=== PATIENT | male | born 1945 | race Caucasian/White ===

== ENCOUNTER 2022-10-21 09:41 | Inpatient (IN) | payer OTHER ==
--- OUTSIDE RECORDS SUMMARY | 2022-10-21 09:51 | XMS REPORT | Continuity of Care Document ---
:1945 Author Organization [facility] t Address [address] [facility] [address] [place] [address] Care Team Providers Name Role Phone Mishel Mcgowan Attending Clinician Unavailable JUAN RANKIN Attending Clinician Unavailable Jade-Mbayo_A_AH Attending Clinician Unavailable Ige-Odunpravin_J_AH Attending Clinician Unavailable HERMAN JOE M.D. Attending Clinician Unavailable VERA MANN NP Attending Clinician Unavailable Vera Mann Attending Clinician Unavailable Etelvina Hutton Attending Clinician Jag Perez Attending Clinician Jade-Donnaayo_A_AH Admitting Clinician Unavailable Ige-Odunuga_J_AH Admitting Clinician Unavailable Jag Perez Admitting Clinician Kristin Schmid Admitting Clinician Payers Payer Name Policy Type Policy Number Effective Date Expiration Date S belinda [facility] - [id number] 2019 [employer] 00:00:00 (MEDICARE REPLACEMENT/ADVANT AGE - HMO) Problems Condition Condition Condition Status Onset Resolution Last Treating Co mments Source Name Details Category Date Date Treatment Clinician Date I61.9 - I61.9 - Diagnosis Active 2015-052016-04-18 Memoria NONTRAUMAT NONTRAUMAT 05-13 12:07:00 l IC IC 00:01: Huy 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 03/13/2016 MH OPID Huy DEBILITY DEBILITY Diagnosis Active 2016-02-03 Memoria S/P S/P 01-09 22:12:00 l INTRACRANI INTRACRANI 07:00: Paolo HARTMAN [place] 00 HEMORRHAGE HEMORRHAGE Active 01/10/2016 [facility] ICH ICH Diagnosis Active 2016-01-25 Mem oria Active 12-12 15:41:00 l 12/13/2015 20:50: Mg olsen [address] ASHA ASHA Diagnosis Active 2016-02-13 Memoria BILLING BILLING 12-12 08:03:00 l [id number] 00:00: Huy Active 00 12/13/2015 [facility] History of History of Problem Resolve [facility] hypertensi hypertensi d Ph ysici on on ans Depression Depression Problem Active U T Physici ans Hyperlipid Hyperlipid Problem Active U T emia emia Physici ans Tobacco Tobacco Problem Active [facility] dependence dependence Ph ysici ans Spasticity Spasticity Problem Active [facility] T Physici ans Skin Skin Problem Active UT abrasion abrasion Physic i ans Cognitive Cognitive Problem Active [facility] impairment impairment Ph ysici ans ICH ICH Problem Active UT (intracere (intracere Ph ysici bral bral ans hemorrhage hemorrhage ) ) 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 ROSEMARIE Son NONTRAUMAT Diagnosis Active 2016-01-25 Memoria IC NONTRAUMAT 15:41:00 l INTRACEREB IC Mg olsen RAL INTRACEREB HEMORRHAGE RAL , U HEMORRHAGE , U Active [facility] WEAKNESS WEAKNESS Diagnosis Active 2016-02-03 Memoria Active 22:12:00 l [facility] Constructi Construct Problem Resolve 2016-04-21 Memoria on of ion of d 01:23:00 l shunt shunt Huy (procedure (procedure ) ) Resolved Problem 04/21/[address] [facility] ROSEMARIE Son Hypertensi Hypertens Problem Resolve 2016-04-21 Memoria ve ronda d 01:23:00 l disorder, disorder, Herm merissa systemic systemic arterial arterial (disorder) (disorder) Resolved Problem 04/21/[address] 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 ROSEMARIE Son Benign Benign Problem Active [facility] essential essential Phys ici hypertensi hypertensi an s on on Allergies, Adverse Reactions, Alerts This patient has no known allergies or adverse reactions. Family History Family Member Diagnosis Comments Start Date Stop Date Source Mother Family history of cardiac [facility] disorder Father Family history of cardiac [facility] disorder Social History Social Habit Start Date Stop Date Quantity Comments Source Social History 2015-12-18 2015-12-[address] [facility] Ravin hoffman 19:57:12 19:57:12 Smoking Status Start Date Stop Date Source Ex-smoker (finding) [facility] Physician s Medications Ordered Filled Start Stop Current Ordering Indication Dosage Frequency Signature Comments Components Source Medication Medication Date Date Medication? Clinician (SIG) Name Name hydroCHLORO hydroCHLORO 2018-05 Yes ANJAIL TAKE ONE UT thiazide thiazide 0-21 SHARRIEF (1) Phy sici 12.5 MG 12.5 MG 00:00: M.D. CAPSULE(S) a ns Oral Oral 00 BY MOUTH Capsule Capsule ONCE A DAY. Aspirin 81 Aspirin 81 Yes 1 QD TAKE 1 UT MG Oral MG Oral 3-29 TABLET Physici Tablet Tablet 00:00: DAILY. ans Delayed Delayed 00 Release Release Losartan Losartan Yes ANJAIL 1 QD TAKE 1 U T Potassium Potassium 2-23 SHARRIEF TABLET Physici 50 MG Oral 50 MG Oral 00:00: M.D. DAILY. 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 Coenzyme Coenzyme Yes ANJAIL 1 QD TAKE 1 U T Q-10 200 MG Q-10 200 MG 2-23 SHARRIEF CAPSULE Physici Oral Oral 00:00: M.D. DAILY ans Capsule Capsule 00 hydroCHLORO hydroCHLORO Yes MUNACHI QD TAKE ONE UT thiazide thiazide 2-23 OKPALA (1) Physi ci 12.5 MG 12.5 MG 00:00: CASTING SUPERVISOR CAPSULE(S) a ns Oral Oral 00 BY MOUTH Capsule Capsule ONCE A DAY. polyethylen Yes 17 gm, PO, Memoria e glycol 9-16 Daily, # l 3350 oral 16:20: 255 gm, 0 Her hernandez powder for 00 Refill(s) reconstitut ion Albuterol 2016-0 Yes 3 mL, NEB, [place] 0.833 MG/ML 01-26 RQID, # 90 l / 16:20: mL, 0 [place] Ipratropium 00 Refill(s) [place] 0.167 MG/ML Inhalant Solution [DuoNeb] Folic Acid Yes 1 mg = 1 Mem oria 1 MG Oral 9-16 tab, PO, l Tablet 16:20: Daily, # Huy 00 30 tab, 0 Refill(s) amLODIPine 0 Yes 10 mg = 1 Me moria 10 mg oral 9-16 tab, PO, l tablet 16:20: Daily, # Huy 00 30 tab, 0 Refill(s) Metoclopram 20160 Yes 5 mg = 1 Me moria gene 5 MG 9-16 tab, PO, l Oral Tablet 16:20: Q6H, PRN He rmann [Reglan] 00 Nausea, # 28 tab, 0 Refill(s) Docusate 0 Yes 1 tab, PO, Mem oria Sodium 50 9-16 Daily, # l MG / 16:20: 30 tab, 0 [place]u sennosides, 00 Refill(s) LONG TERM 8.6 MG Oral Tablet polyethylen 0 Yes 17 gm, PO, Memoria e glycol 9-16 Daily, # l 3350 oral 16:20: 255 gm, 0 Her hernandez powder for 00 Refill(s) reconstitut ion Albuterol Yes 3 mL, [facility], [place] 0.833 MG/ML 01-26 RQID, # 90 l / 16:20: mL, 0 Huy Ipratropium 00 Refill(s) [place] 0.167 MG/ML Inhalant Solution [DuoNeb] Folic Acid Yes 1 mg = 1 Mem oria 1 MG Oral 9-16 tab, PO, l Tablet 16:20: Daily, # [place] 00 30 tab, 0 Refill(s) amLODIPine 0 Yes 10 mg = 1 Me moria 10 mg oral 9-16 tab, PO, l tablet 16:20: Daily, # Huy 00 30 tab, 0 Refill(s) Metoclopram 20160 Yes 5 mg = 1 Me moria gene 5 MG 9-16 tab, PO, l Oral Tablet 16:20: Q6H, PRN He rmann [Reglan] 00 Nausea, # 28 tab, 0 Refill(s) Docusate Yes 1 tab, PO, Mem oria Sodium 50 9-16 Daily, # l MG / 16:20: 30 tab, 0 Huy sennosides, 00 Refill(s) LONG TERM 8.6 MG Oral Tablet Beneprotein No Notes: Buck alexia 7 gm pkt 9-14 (Same as: l 21:30: Beneprotei Huy 00 n) Beneprotein No Notes: Buck alexia 7 gm pkt 9-14 (Same as: l 21:30: Beneprotei [place] 00 n) Albuterol No Notes: Memori a 0.833 MG/ML 01-23 (Same as: :28: Duoneb) Huy Ipratropium 00 [place] 0.167 MG/ML Inhalant Solution [DuoNeb] Albuterol No Notes: Memori a 0.833 MG/ML 01-23 (Same as: :28: Duoneb) Huy Ipratropium 00 [place] 0.167 MG/ML Inhalant Solution [DuoNeb] Levofloxaci No Notes: Do M emoria n 01-11 not give l 01:00: w/antacids [place] 00 , dairy pdt & minerals Take 1 hr before or 2 hr after dairy products Levofloxaci No Notes: Do M emoria n 9 not give l 01:00: w/antacids Huy 00 , dairy pdt & minerals Take 1 hr before or 2 hr after dairy products Miralax No Notes: Memoria 8-31 Dissolve l 14:00: in 8 oz of Huy 00 water or juice. (Same as: Miralax) Folic Acid No Notes: Memor ia 8-31 (Same as: l 14:00: Folvite) [place] 00 Amlodipine No Notes: Memor ia 8-31 (Same as: l 14:00: Norvasc) [place] 00 Thiamine No Notes: Memoria 8-31 (Same As: l 14:00: Vitamin Huy 00 B1) Miralax No Notes: Memoria 8-31 Dissolve l 14:00: in 8 oz of Huy 00 water or juice. (Same as: Miralax) Folic Acid No Notes: Memor ia 01-10 (Same as: l 14:00: Folvite) Huy 00 Amlodipine No Notes: Memor ia 01-10 (Same as: l 14:00: Norvasc) Huy 00 Thiamine No Notes: Memoria 01-10 (Same As: l 14:00: Vitamin [place] 00 B1) Metronidazo No Notes: Buck alexia le 01-10 (Same as: l 05:00: Flagyl) Huy 00 Take with food/ avoid alcohol Metronidazo No Notes: Buck alexia le 01-10 (Same as: l 05:00: Flagyl) [place] 00 Take with food/ avoid alcohol Guaifenesin No Notes: Buck alexia 01-09 (Same as: l 22:00: Robitussin ) Albuterol No Notes: Memori a 0.833 MG/ML 01-09 (Same as: l / 22:00: Duoneb) [place] Ipratropium 00 [place] 0.167 MG/ML Inhalant Solution [DuoNeb] Guaifenesin No Notes: Buck alexia 01-09 (Same as: l 22:00: Robitussin ) Albuterol No Notes: Memori a 0.833 MG/ML 01-09 (Same as: l / 22:00: Duoneb) Huy Ipratropium 00 [place] 0.167 MG/ML Inhalant Solution [DuoNeb] heparin No Notes: Memoria sodium, 830 porcine l porcine 21:00: heparin [place] 2500 UNT/ML Injectable Solution heparin No Notes: Memoria sodium, 830 porcine l porcine 21:00: heparin Huy 2500 UNT/ML 00 Injectable Solution Metronidazo No 500 mg, Mem oria le 01-09 Route: l 20:00: PEG, Drug form: TAB, ABXQ8H, Dosing Weight 81.2, kg, Start date: 01/10/16 15:00:00 CDT, Duration: 30 day, Stop date: 02/09/16 7:00:00 CDT Levofloxaci 2015-0 No 750 mg, Mem oria n 8-30 Route: l 20:00: PEG, Drug form: TAB, [id number], Dosing Weight 81.2, kg, Start date: 01/10/16 15:00:00 CDT, Duration: 30 day, Stop date: 02/08/16 15:00:00 CDT Metronidazo 2016-0 No 500 mg, Mem oria le 8-30 Route: l 20:00: PEG, Drug form: TAB, ABXQ8H, Dosing Weight 81.2, kg, Start date: 01/10/16 15:00:00 CDT, Duration: 30 day, Stop date: 02/09/16 7:00:00 CDT Levofloxaci 2015-0 No 750 mg, Mem oria n 830 Route: l 20:00: PEG, Drug form: TAB, [id number], Dosing Weight 81.2, kg, Start date: 01/10/16 15:00:00 CDT, Duration: 30 day, Stop date: 02/08/16 15:00:00 CDT Insulin, 2015-0 No Notes: Memoria Aspart, 830 Roll in l Human 19:24: palms of hands gently; Do not shake vigorously . (Same as: NovoLOG) "single patient use only" WASTE: F/P - Black; E - Municipal Trash Bin Stable for 28 days at room temperatur e. Expires in days from ____Date Dextrose 2015-0 No 25 gm, 50 Buck alexia 50% Syringe 8-30 mL, Route: l 19:24: IVP, Drug Form: INJ, Dosing Weight 81.2, kg, PRN, PRN Blood Glucose Results, Start date: 01/10/16 14:24:00 CDT, Duration: 30 day, Stop date: 02/09/16 14:23:00 CDT Glucagon 2016-0 No 1 mg, Memoria 830 Route: IM, l 19:24: Drug form: Huy 00 PDR/INJ, PRN, Dosing Weight 81.2, kg, PRN Blood Glucose Results, Start date: 01/10/16 14:24:00 CDT, Duration: 30 day, Stop date: 02/09/16 14:23:00 CDT Insulin, 2015-0 No Notes: Memoria Aspart, 8-30 Roll in l Human 19:24: palms of [place] 00 hands gently; Do not shake vigorously . (Same as: NovoLOG) "single patient use only" WASTE: F/P - Black; E - Municipal Trash Bin Stable for 28 days at room temperatur e. Expires in days from ____Date Dextrose No 25 gm, 50 Buck alexia 50% Syringe 8-30 mL, Route: l 19:24: IVP, Drug Huy 00 Form: INJ, Dosing Weight 81.2, kg, PRN, PRN Blood Glucose Results, Start date: 01/10/16 14:24:00 CDT, Duration: 30 day, Stop date: 02/09/16 14:23:00 CDT Glucagon No 1 mg, Memoria 8-30 Route: IM, l 19:24: Drug form: Huy 00 PDR/INJ, PRN, Dosing Weight 81.2, kg, PRN Blood Glucose Results, Start date: 01/10/16 14:24:00 CDT, Duration: 30 day, Stop date: 02/09/16 14:23:00 CDT polyethylen 0 Yes PO, Daily, Memoria e glycol 8-30 0 l 3350 oral 19:19: Refill(s) Her hernandez powder for 00 reconstitut ion simethicone Yes 80 mg = 1 M emoria 80 mg oral 8-30 tab, PO, l tablet, 19:19: Q6H, PRN Mg n chewable 00 as needed for gas, 0 Refill(s) metoprolol 0 Yes 12.5 mg = Me moria tartrate 25 8-30 0.5 tab, l mg oral 19:19: PO, Q12H, Tasha nn tablet 00 0 Refill(s) Metoclopram Yes 5 mg = 1 Me moria gene 5 MG 8-30 tab, PO, l Oral Tablet 19:19: Before Herm merissa [Reglan] 00 Meals & Bedtime, 0 Refill(s) levofloxaci 2016 Yes 750 mg = Me moria n 25 mg/mL 830 30 mL, l oral 19:19: PEG, Huy solution 00 [id number], 0 Refill(s) Regular 20160 Yes 3 unit, Memoria Insulin, 8-30 SUB-Q, l Human 100 19:19: PRN, PRN Herm merissa UNT/ML 00 Abnormal Injectable Lab Solution Result, 0 Refill(s) heparin Yes 5,000 unit Buck alexia 30 = 1 mL, l 19:19: SUB-Q, [place] 00 Q8H, 0 Refill(s) Guaifenesin Yes 200 mg = Me moria 8-30 10 mL, l 19:19: PEG, QID, Huy 00 0 Refill(s) Folic Acid Yes 1 mg = 1 Mem oria 1 MG Oral 8-30 tab, PO, l Tablet 19:19: Daily, 0 [place] 00 Refill(s) Docusate Yes 1 tab, PO, Mem oria Sodium 50 8-30 Daily, 0 l MG / 19:19: Refill(s) Huy sennosides, 00 LONG TERM 8.6 MG Oral Tablet bisacodyl Yes 10 mg = 1 Mem oria 10 mg 8-30 supp, MN, l rectal 19:19: Daily, PRN Tasha nn suppository 00 Constipati on, 0 Refill(s) amLODIPine Yes 10 mg = 1 Me moria 10 mg oral 8-30 tab, PO, l tablet 19:19: Daily, 0 [place] 00 Refill(s) Albuterol Yes 3 mL, NEB, Me moria 0.833 MG/ML 8-30 RQID, 0 l / 19:19: Refill(s) Huy Ipratropium 00 [place] 0.167 MG/ML Inhalant Solution [DuoNeb] Acetaminoph Yes 650 mg = Me moria en 830 20.3 mL, l 19:19: PEG, Q8H, [place] 00 0 Refill(s) polyethylen 0 Yes PO, Daily, Memoria e glycol 830 0 l 3350 oral 19:19: Refill(s) Her hernandez powder for 00 reconstitut ion simethicone Yes 80 mg = 1 M emoria 80 mg oral 8-30 tab, PO, l tablet, 19:19: Q6H, PRN Mg n chewable 00 as needed for gas, 0 Refill(s) metoprolol Yes 12.5 mg = Me moria tartrate 25 8-30 0.5 tab, l mg oral 19:19: PO, Q12H, Tasha nn tablet 00 0 Refill(s) Metoclopram Yes 5 mg = 1 Me moria gene 5 MG 8-30 tab, PO, l Oral Tablet 19:19: Before Herm merissa [Reglan] 00 Meals & Bedtime, 0 Refill(s) levofloxaci Yes 750 mg = Me moria n 25 mg/mL 8-30 30 mL, l oral 19:19: PEG, [place] solution 00 [id number], 0 Refill(s) Regular Yes 3 unit, Memoria Insulin, 8-30 SUB-Q, l Human 100 19:19: PRN, PRN Herm merissa UNT/ML 00 Abnormal Injectable Lab Solution Result, 0 Refill(s) heparin Yes 5,000 unit Buck alexia 8-30 = 1 mL, l 19:19: SUB-Q, Huy 00 Q8H, 0 Refill(s) Guaifenesin Yes 200 mg = Me moria 8-30 10 mL, l 19:19: PEG, QID, [place] 00 0 Refill(s) Folic Acid Yes 1 mg = 1 Mem oria 1 MG Oral 8-30 tab, PO, l Tablet 19:19: Daily, 0 Huy 00 Refill(s) Docusate Yes 1 tab, PO, Mem oria Sodium 50 8-30 Daily, 0 l MG / 19:19: Refill(s) Huy sennosides, 00 LONG TERM 8.6 MG Oral Tablet bisacodyl Yes 10 mg = 1 Mem oria 10 mg 8-30 supp, MN, l rectal 19:19: Daily, PRN Tasha nn suppository 00 Constipati on, 0 Refill(s) amLODIPine Yes 10 mg = 1 Me moria 10 mg oral 8-30 tab, PO, l tablet 19:19: Daily, 0 [place] 00 Refill(s) Albuterol Yes 3 mL, NEB, Me moria 0.833 MG/ML 01-09 RQID, 0 l / 19:19: Refill(s) Huy Ipratropium 00 [place] 0.167 MG/ML Inhalant Solution [DuoNeb] Acetaminoph Yes 650 mg = Me moria en 01-09 20.3 mL, l 19:19: PEG, Q8H, [place] 00 0 Refill(s) Ondansetron No Notes: Buck alexia 01-09 (Same as: l 19:12: Zofran) Huy 00 MEDICATION WASTE Product Size: 4 mg Product Wasted: ___ mg Acetaminoph No Notes: Do M emoria en 01-09 not exceed l 19:12: 4 gm/day. Huy 00 (Same as: Tylenol) Ondansetron No Notes: Buck alexia 01-09 (Same as: l 19:12: Zofran) [place] 00 MEDICATION WASTE Product Size: 4 mg Product Wasted: ___ mg Acetaminoph No Notes: Do M emoria en 01-09 not exceed l 19:12: 4 gm/day. [place] 00 (Same as: Tylenol) Levaquin No Notes: Memoria 01-08 Same as: l 03:00: Levaquin Huy 00 Take 1 hour before or 2 hours after dairy products Metronidazo No Notes: Buck alexia le 01-08 (Same as: l 03:00: Flagyl) [place] 00 Refrigerat e - shake well Compound ed Product - formulatio n not commercial ly available* * "Avoid alcohol" Levaquin No Notes: Memoria 01-08 Same as: l 03:00: Levaquin Huy 00 Take 1 hour before or 2 hours after dairy products Metronidazo No Notes: Buck alexia le 01-08 (Same as: l 03:00: Flagyl) Huy 00 Refrigerat e - shake well Compound ed Product - formulatio n not commercial ly available* * "Avoid alcohol" metoprolol No Notes: Memor ia tartrate 8-27 (Same as: l 16:06: Lopressor) [place] 00 12.5mg=1/4 X 50 mg tab. metoprolol No Notes: Memor ia tartrate 8-27 (Same as: l 16:06: Lopressor) Huy 00 12.5mg=1/4 X 50 mg tab. Glucose 50 No 500 mL, Buck alexia MG/ML 8-27 Rate: 75 l Injectable 15:52: ml/hr, Tasha nn Solution 00 Infuse over: 6.7 hr, Route: IV, Dosing Weight 81.2 kg, Total Volume: 500, Start date: 01/07/16 10:52:00 CDT, Duration: 1 doses or times, Stop date: 01/07/16 17:33:00 CDT Glucose 50 No 500 mL, Buck alexia MG/ML 8-27 Rate: 75 l Injectable 15:52: ml/hr, Tasha nn Solution 00 Infuse over: 6.7 hr, Route: IV, Dosing Weight 81.2 kg, Total Volume: 500, Start date: 01/07/16 10:52:00 CDT, Duration: 1 doses or times, Stop date: 01/07/16 17:33:00 CDT vancomycin 2000 mg: Me moria + sodium 8-27 infuse l chloride 12:00: over 2.5 Tasha nn 0.9% INJ 00 hours 250 mL MEDICATION WASTE Product Size: 1000 mg Product Wasted: ___ mg vancomycin 2000 mg: Me moria + sodium 8-27 infuse l chloride 12:00: over 2.5 Tasha nn 0.9% INJ 00 hours 250 mL MEDICATION WASTE Product Size: 1000 mg Product Wasted: ___ mg vancomycin No 2000 mg: Me moria + sodium 8-26 infuse l chloride 23:04: over 2.5 Tasha nn 0.9% 500 ml 00 hours INJ 500 mL MEDICATION WASTE Product Size: 1000 mg Product Wasted: ___ mg vancomycin No 2000 mg: Me moria + sodium 8-26 infuse l chloride 23:04: over 2.5 Tasha nn 0.9% 500 ml 00 hours INJ 500 mL MEDICATION WASTE Product Size: 1000 mg Product Wasted: ___ mg Ceftazidime 2016-0 No Notes: Buck alexia 8-26 (Same as: l 23:00: ) MEDICATION WASTE Product Size: 1000 mg Product Wasted: _0__ mg Flagyl 2016-0 No 500 mg, Memoria 8-26 100 mL, l 23:00: Route: Huy IVPB, Drug form: INJ, ABXQ8H, Dosing Weight 81.2, kg, Start date: 01/06/16 18:00:00 CDT, Duration: 30 day, Stop date: 02/05/16 10:00:00 CDT Ceftazidime 2016-0 No Notes: Buck alexia 8-26 (Same as: l 23:00: ) MEDICATION WASTE Product Size: 1000 mg Product Wasted: _0__ mg Flagyl 2015-0 No 500 mg, Memoria 8-26 100 mL, l 23:00: Route: IVPB, Drug form: INJ, ABXQ8H, Dosing Weight 81.2, kg, Start date: 01/06/16 18:00:00 CDT, Duration: 30 day, Stop date: 02/05/16 10:00:00 CDT sodium 2016-0 No 750 mL, Memoria chloride 8-26 Rate: 75 l 0.45% 1000 22:57: ml/hr, Tasha nn ml INJ 750 00 Infuse mL over: 10 hr, Route: IV, Dosing Weight 81.2 kg, Total Volume: 750, Start date: 01/06/16 17:57:00 CDT, Duration: 1 doses or times, Stop date: 01/07/16 3:56:00 CDT sodium 2016-0 No 750 mL, Memoria chloride 8-26 Rate: 75 l 0.45% 1000 22:57: ml/hr, Tasha nn ml INJ 750 00 Infuse mL over: 10 hr, Route: IV, Dosing Weight 81.2 kg, Total Volume: 750, Start date: 01/06/16 17:57:00 CDT, Duration: 1 doses or times, Stop date: 01/07/16 3:56:00 CDT Glucose 50 2015-0 No 500 mL, Buck alexia MG/ML 8-25 Rate: 75 l Injectable 15:47: ml/hr, Tasha nn Solution 00 Infuse over: 6.7 hr, Route: IV, Dosing Weight 81.2 kg, Total Volume: 500, Start date: 01/05/16 10:47:00 CDT, Duration: 1 doses or times, Stop date: 01/05/16 17:28:00 CDT Glucose 50 2015-0 No 500 mL, Buck alexia MG/ML 8-25 Rate: 75 l Injectable 15:47: ml/hr, Tasha nn Solution 00 Infuse over: 6.7 hr, Route: IV, Dosing Weight 81.2 kg, Total Volume: 500, Start date: 01/05/16 10:47:00 CDT, Duration: 1 doses or times, Stop date: 01/05/16 17:28:00 CDT sodium 2015-0 No 500 mL, Memoria chloride 8-25 Rate: 75 l 0.45% 1000 14:18: ml/hr, Tasha nn ml INJ 500 00 Infuse mL over: 6.7 hr, Route: IV, Dosing Weight 81.2 kg, Total Volume: 500, Start date: 01/05/16 9:18:00 CDT, Duration: 1 doses or times, Stop date: 01/05/16 15:59:00 CDT sodium 2015-0 No 500 mL, Memoria chloride 8-25 Rate: 75 l 0.45% 1000 14:18: ml/hr, Tasha nn ml INJ 500 00 Infuse mL over: 6.7 hr, Route: IV, Dosing Weight 81.2 kg, Total Volume: 500, Start date: 01/05/16 9:18:00 CDT, Duration: 1 doses or times, Stop date: 01/05/16 15:59:00 CDT Guaifenesin No Notes: Buck alexia 8- (Same as: l 22:00: Robitussin ) Guaifenesin No Notes: Buck alexia - (Same as: l 22:00: Robitussin [place] 00 ) Acetaminoph No Notes: Max Memoria en 8- acetaminop l 19:32: hen = [place] 00 4000mg/day (4 gm/day). (Same as: Tylenol) Acetaminoph No Notes: Max Memoria en - acetaminop l 19:32: hen = H[place] 00 4000mg/day (4 gm/day). (Same as: Tylenol) Albuterol No Notes: Memori a 0.833 MG/ML 01-02 (Same as: : Duoneb) [place] Ipratropium 00 [place] 0.167 MG/ML Inhalant Solution [DuoNeb] Albuterol No Notes: Memori a 0.833 MG/ML 01-02 (Same as: : Duoneb) Huy Ipratropium 00 [place] 0.167 MG/ML Inhalant Solution [DuoNeb] iodixanol No 114 mL, Memor ia 01-02 Route: l 01:47: IVP, Drug [place] 00 Form: SOLN, Dosing Weight 81.2, kg, ONCALL, STAT, Start date: 01/02/16 20:47:00 CDT, Duration: 1 doses or times, Dose = 2.2ml/kg, Max dose = 100ml -- "To be infused by Radiology Staff ONLY" iodixanol No 114 mL, Memor ia 01-02 Route: l 01:47: IVP, Drug Huy 00 Form: SOLN, Dosing Weight 81.2, kg, ONCALL, STAT, Start date: 01/02/16 20:47:00 CDT, Duration: 1 doses or times, Dose = 2.2ml/kg, Max dose = 100ml -- "To be infused by Radiology Staff ONLY" Metoclopram No Notes: Buck alexia gene 5 MG 8-21 (Same as: l Oral Tablet 12:30: Reglan) Her hernandez [Reglan] 00 Take 30 min before meals Metoclopram No Notes: Buck alexia gene 5 MG 8-21 (Same as: l Oral Tablet 12:30: Reglan) Her hernandez [Reglan] 00 Take 30 min before meals Reglan No Notes: Memoria 8-20 (Same as: l 12:30: Reglan) Huy 00 Reglan No Notes: Memoria 8-20 (Same as: l 12:30: Reglan) [place] 00 Dulcolax No Notes: Memoria Laxative 8-19 (Same As: l 18:00: Dulcolax, Huy 00 Bisco-Lax) Dulcolax No Notes: Memoria Laxative 8-19 (Same As: l 18:00: Dulcolax, Huy 00 Bisco-Lax) sodium No 12 years, Memor ia biphosphate 8-19 Pediatric l -sodium 17:29: Dosing [place] phosphate 00 sodium No 12 years, Memor ia biphosphate 8-19 Pediatric l -sodium 17:29: Dosing Huy phosphate 00 Lisinopril No Notes: Memor ia 8-19 (Same as: l 14:00: Prinivil, Huy 00 Zestril) Lisinopril No Notes: Memor ia 8-19 (Same as: l 14:00: Prinivil, [place] 00 Zestril) Reglan No Notes: Memoria 8-19 (Same as: l 12:30: Reglan) [place] 00 Reglan No Notes: Memoria 8-19 (Same as: l 12:30: Reglan) Huy 00 Fleet Enema No 133 mL, Mem oria 8-19 Route: MN, l 12:10: Drug Form: Huy 00 CHRISTOPHER, Dosing Weight 81.2, kg, ONCE, Start date: 12/30/15 7:10:00 CDT, Stop date: 12/30/15 7:10:00 CDT Fleet Enema No 133 mL, Mem oria 8-19 Route: MN, l 12:10: Drug Form: [place] 00 CHRISTOPHER, Dosing Weight 81.2, kg, ONCE, Start date: 12/30/15 7:10:00 CDT, Stop date: 12/30/15 7:10:00 CDT Simethicone No Notes: Buck alexia 8-19 (Same as: l 03:57: Mylicon) [place] Simethicone No Notes: Buck alexia 8-19 (Same as: l 03:57: Mylicon) Huy Reglan 2016-0 No 10 mg, Memoria 18 Route: l 22:00: IVP, Drug [place] 00 form: INJ, TID-Meals, Dosing Weight 81.2, kg, Start date: 12/29/15 17:00:00 CDT, Duration: 30 day, Stop date: 01/28/16 12:00:00 CDT Reglan 2016-0 No 10 mg, Memoria 18 Route: l 22:00: IVP, Drug [place] 00 form: INJ, TID-Meals, Dosing Weight 81.2, kg, Start date: 12/29/15 17:00:00 CDT, Duration: 30 day, Stop date: 01/28/16 12:00:00 CDT Metoclopram 2016-0 No 5 mg, Memor ia gene 5 MG 12-28 Route: PO, l Oral Tablet 21:30: Drug form: Huy [Reglan] 00 TAB, TID-Before Meals, Dosing Weight 81.2, kg, Start date: 12/29/15 16:30:00 CDT, Duration: 30 day, Stop date: 01/28/16 11:30:00 CDT Metoclopram 2016-0 No 5 mg, Memor ia gene 5 MG 12-28 Route: PO, l Oral Tablet 21:30: Drug form: H[place] [Reglan] 00 TAB, TID-Before Meals, Dosing Weight 81.2, kg, Start date: 12/29/15 16:30:00 CDT, Duration: 30 day, Stop date: 01/28/16 11:30:00 CDT Reglan 2015-0 No Notes: Memoria 8-18 (Same as: l 20:40: Reglan) Huy Reglan 2016-0 No Notes: Memoria 8-18 (Same as: l 20:40: Reglan) [place] sodium 2016-0 No 1,000 mL, Memori a chloride 12-26 Rate: 100 l 0.45% 1000 13:08: ml/hr, Tasha nn ml INJ 00 Infuse 1,000 mL over: 10 hr, Route: IV, Dosing Weight 81.2 kg, Total Volume: 1,000, Start date: 12/27/15 8:08:00 CDT, Duration: 30 day, Stop date: 01/26/16 8:07:00 CDT sodium No 1,000 mL, Mem[facility] a chloride 12-26 Rate: 100 l 0.45% 1000 13:08: ml/hr, Tasha nn ml INJ 00 Infuse 1,000 mL over: 10 hr, Route: IV, Dosing Weight 81.2 kg, Total Volume: 1,000, Start date: 12/27/15 8:08:00 CDT, Duration: 30 day, Stop date: 01/26/16 8:07:00 CDT Levaquin No Notes: Memoria 12-25 (Same l 23:00: as:Levaqui [place] 00 n) Levaquin No Notes: [facility] 12-25 (Same l 23:00: as:Levaqui [place] 00 n) Labetalol No Notes: Memori a 12-23 Labetalol l 22:00: 300mg tab [place] 00 #16. Refrigerat e. Shake well before using. Give with food. (Same as:Shannon Goldsmithdate) Compound ed Product - formulatio n not commercial ly available* * Labetalol No Notes: Memori a 12-23 Labetalol l 22:00: 300mg tab [place] 00 #16. Refrigerat e. Shake well before using. Give with food. (Same as:Shannon Goldsmithdate) Compound ed Product - formulatio n not commercial ly available* * multivitami No Notes: Buck alexia n 8- Take with l 18:00: food. [place] 00 (Same As: Theragran) multivitami No Notes: Buck alexia n 8-13 Take with l 18:00: food. Huy (Same As: Theragran) Thiamine No Notes: [facility]oria 12-23 (Same As: l 15:55: Vitamin [place] 00 B1) Thiamine No Notes: [facility]oria 12-23 (Same As: l 15:55: Vitamin [place] 00 B1) Folic Acid No Notes: Memor ia 12-23 (Same as: l 15:54: Folvite) [place] Folic Acid No Notes: Memor ia 8-13 (Same as: l 15:54: Folvite) [place] 00 Albuterol No Notes: Memori a 0.833 MG/ML 8-13 (Same as: l / 15:41: Duoneb) [place] Ipratropium 00 [place] 0.167 MG/ML Inhalant Solution [DuoNeb] Albuterol No Notes: Memori a 0.833 MG/ML 8-13 (Same as: l 15:41: Duoneb) [place] Ipratropium 00 [place] 0.167 MG/ML Inhalant Solution [DuoNeb] Tylenol No Notes: Max Buck alexia 8-12 acetaminop l 16:27: hen = [place] 00 4000mg/day (4 gm/day). (Same as: Tylenol) Tylenol No Notes: Max Buck alexia 8-12 acetaminop l 16:27: hen = [place] 00 4000mg/day (4 gm/day). (Same as: Tylenol) Ceftriaxone No Notes: Buck alexia 8-12 (Same As: l 14:00: Rocephin). [place] 00 Use with 100 mL NS and infuse over 30 min MEDICATION WASTE Product Size: 1000 mg Product Wasted: ___ mg Furosemide No Notes: Memor ia 20 MG Oral 8-12 (Same as: l Tablet 14:00: Lasix) May Tasha nn [Lasix] 00 cause GI upset. Give with food or milk. Ceftriaxone No Notes: Buck alexia 8-12 (Same As: l 14:00: Rocephin). [place] 00 Use with 100 mL NS and infuse over 30 min MEDICATION WASTE Product Size: 1000 mg Product Wasted: ___ mg Furosemide No Notes: Memor ia 20 MG Oral 8-12 (Same as: l Tablet 14:00: Lasix) May Tasha nn [Lasix] 00 cause GI upset. Give with food or milk. Sodium No 1,000 mL, [facility] a Chloride 8-12 Rate: 50 l 0.154 06:38: ml/hr, [place] MEQ/ML 00 Infuse Injectable over: 20 Solution hr, Route: IV, Dosing Weight 81.2 kg, Total Volume: 1,000, Start date: 12/23/15 1:38:00 CDT, Duration: 30 day, Stop date: 01/22/16 1:37:00 CDT Sodium 2016- No 1,000 mL, Mem[facility] a Chloride 812 Rate: 50 l 0.154 06:38: ml/hr, [place] MEQ/ML 00 Infuse Injectable over: 20 Solution hr, Route: IV, Dosing Weight 81.2 kg, Total Volume: 1,000, Start date: 12/23/15 1:38:00 CDT, Duration: 30 day, Stop date: 01/22/16 1:37:00 CDT Ancef + 2015- No Notes: [facility] sodium 8-11 (Same As: l chloride 23:46: Ancef, [place] 0.9% INJ 00 Kefzol) 100 mL Cefazolin FOR IV SET ONLY MEDICATION WASTE Product Size: 1000 mg Product Wasted: ___ mg Ancef + No Notes: [facility] sodium 8-11 (Same As: l chloride 23:46: Ancef, [place] 0.9% INJ 00 Kefzol) 100 mL Cefazolin FOR IV SET ONLY MEDICATION WASTE Product Size: 1000 mg Product Wasted: ___ mg Fentanyl No Notes: [facility]oria 8-11 (Same as: l 22:11: Sublimaze) [place] 00 Preservati ve free. Versed No Notes: [facility] 8-11 (Same as: l 22:11: Versed) [place] 00 MEDICATION WASTE Product Size: 2 mg Product Wasted: 0 mg Fentanyl No Notes: [facility]oria 8-11 (Same as: l 22:11: Sublimaze) [place] 00 Preservati ve free. Versed No Notes: [facility] 8-11 (Same as: l 22:11: Versed) [place] 00 MEDICATION WASTE Product Size: 2 mg Product Wasted: 0 mg Fentanyl No Notes: [facility]oria 8-11 (Same as: l 21:40: Sublimaze) [place] 00 Preservati ve free. Fentanyl 2016-0 No Notes: [facility] 8-11 (Same as: l 21:40: Sublimaze) Preservati ve free. Furosemide No Notes: Memor ia 20 MG Oral 8-11 (Same as: l Tablet 16:28: Lasix) May Tasha nn [Lasix] 00 cause GI upset. Give with food or milk. Furosemide No Notes: [facility] ia 20 MG Oral 8-11 (Same as: l Tablet 16:28: Lasix) May Tasha nn [Lasix] 00 cause GI upset. Give with food or milk. nitrofurant No Notes: Not [facility]oria oin 8-11 Recommende l 15:00: d for [place] 00 patients with CrCl< 50 ml/min With food (Same as:Macroda ntin) nitrofurant No Notes: Not [facility]oria oin 8-11 Recommende l 15:00: d for [place] patients with CrCl< 50 ml/min With food (Same as:Macroda ntin) Amlodipine No Notes: Memor ia 8-11 (Same as: l 14:59: Norvasc) Amlodipine No Notes: Memor ia 8-11 (Same as: l 14:59: Norvasc) Amlodipine No Notes: Memor ia 8-11 (Same as: l 14:00: Norvasc) Amlodipine No Notes: Memor ia 8-11 (Same as: l 14:00: Norvasc) Fentanyl No Notes: [facility]oria 8-11 (Same as: l 01:46: Sublimaze) Preservati ve free. Fentanyl No Notes: [facility] 8-11 (Same as: l 01:46: Sublimaze) Preservati ve free. Seroquel No Notes: [facility] 8-11 (Same as: l 01:00: SEROquel) Seroquel No Notes: [facility] 8-11 (Same as: l 01:00: SEROquel) Vancomycin 0 No 2001 mg: Me moria 8-10 infuse l 17:00: over 2.5 [place] 00 hours MEDICATION WASTE Product Size: 1000 mg Product Wasted: ___ mg Vancomycin 2016-0 No 2001 mg: Me moria 8-10 infuse l 17:00: over 2.5 [place] 00 hours MEDICATION WASTE Product Size: 1000 mg Product Wasted: ___ mg Ceftazidime 2016-0 No Notes: Buck alexia 8-10 (Same as: l 15:00: Fortaz) [place] 00 MEDICATION WASTE Product Size: 1000 mg Product Wasted: ___ mg Ceftazidime 2015-0 No Notes: Buck alexia 8-10 (Same as: l 15:00: Fortaz) [place] 00 MEDICATION WASTE Product Size: 1000 mg Product Wasted: ___ mg Lasix 2015-0 No Notes: [facility] 8-10 (Same as: l 14:47: Lasix) [place] Lasix 2015-0 No Notes: [facility] 8-10 (Same as: l 14:47: Lasix) [place] Vancomycin 2015-0 No 2001 mg: Me moria 8-10 infuse l 13:00: over 2.5 [place] 00 hours MEDICATION WASTE Product Size: 1000 mg Product Wasted: ___ mg Captopril 2015-0 No Notes: Memori a 8-10 Give on l 13:00: empty [place] 00 stomach. 1 hour before meal. (Same As: Capoten) Zosyn 2015-0 No Notes: [facility] 8-10 (Same as: l 13:00: Zosyn) [place] 00 Dosing based on Piperacill in component MEDICATION WASTE Product Size: 3375 mg Product Wasted: ___ mg Vancomycin 2016-0 No 2001 mg: Me moria 8-10 infuse l 13:00: over 2.5 [place] 00 hours MEDICATION WASTE Product Size: 1000 mg Product Wasted: ___ mg Captopril 2016-0 No Notes: Memori a 8-10 Give on l 13:00: empty [place] 00 stomach. 1 hour before meal. (Same As: Capoten) Zosyn 2016-0 No Notes: [facility] 8-10 (Same as: l 13:00: Zosyn) [place] 00 Dosing based on Piperacill in component MEDICATION WASTE Product Size: 3375 mg Product Wasted: ___ mg Fentanyl 2015- No Notes: [facility]oria 8-10 (Same as: l 02:28: Sublimaze) [place]uy Preservati ve free. Fentanyl 2015- No Notes: [facility]oria 8-10 (Same as: l 02:28: Sublimaze) [place] 00 Preservati ve free. Captopril 2015-0 No Notes: Memori a 8-09 Give on l 21:00: empty [place] 00 stomach. 1 hour before meal. (Same As: Capoten) Captopril 2015-0 No Notes: [facility] a 8-09 Give on l 21:00: empty [place] 00 stomach. 1 hour before meal. (Same As: Capoten) Lasix No Notes: [facility] 8-09 (Same as: l 14:39: Lasix) [place] Lasix 0 No Notes: [facility] 8-09 (Same as: l 14:39: Lasix) [place]uy Tylenol 0 No Notes: Do Memor ia 8-09 not exceed l 02:38: 4 gm/day. [place] (Same as: Tylenol) Tylenol No Notes: Do Memor ia 8-09 not exceed l 02:38: 4 gm/day. [place] (Same as: Tylenol) Captopril 2015-0 No Notes: Memori a 8-08 Give on l 21:00: empty [place] 00 stomach. 1 hour before meal. (Same As: Capoten) Captopril 2015-0 No Notes: [facility] a 8-08 Give on l 21:00: empty [place] 00 stomach. 1 hour before meal. (Same As: Capoten) magnesium 2015-0 No Notes: Memori a citrate 8-08 (Same as: l 19:48: Citrate of Huy Magnesia) magnesium 2015-0 No Notes: [facility]ori a citrate 8-08 (Same as: l 19:48: Citrate of Magnesia) Lasix 2015-0 No Notes: [facility] 8-08 (Same as: l 15:03: Lasix) [place] 00 Lasix 2015-0 No Notes: [facility] 8-08 (Same as: l 15:03: Lasix) [place] Fleet Enema 2016-0 No 12 years, [facility] 12-18 Pediatric l 15:01: Dosing [place] 00 Fleet Enema 2015-0 No 12 years, [facility] 12-18 Pediatric l 15:01: Dosing [place] 00 Alteplase No Notes: Memori a 8-08 "Syringe l 14:55: for [place] 00 catheter clearance or interventi onal radiology use. Stable for 8 hours only. (Same as: Activase) MEDICATION WASTE Product Size: 2 mg Product Wasted: 1 mg Alteplase No Notes: [facility] a 8-08 "Syringe l 14:55: for [place] 00 catheter clearance or interventi onal radiology use. Stable for 8 hours only. (Same as: Activase) MEDICATION WASTE Product Size: 2 mg Product Wasted: 1 mg Zofran No Notes: [facility] 12-17 (Same as: l 23:29: Zofran) [place] 00 MEDICATION WASTE Product Size: 4 mg Product Wasted: ___ mg Zofran No Notes: [facility] 12-17 (Same as: l 23:29: Zofran) [place] 00 MEDICATION WASTE Product Size: 4 mg Product Wasted: ___ mg Regular No 60 units) Buck alexia Insulin, 12-17 WASTE: F/P l Human 100 06:06: - Black; E He rmann UNT/ML 00 - Injectable Municipal Solution Trash Bin Stable for 28 days at room temperatur e Expires in days from ____Date Dextrose No 12.5 gm, Memor ia 50% Syringe 12-17 25 mL, l 06:06: Route: [place] 00 IVP, Drug Form: INJ, Dosing Weight 81.2, kg, PRN, PRN Abnormal Lab Result, Start date: 12/18/15 1:06:00 CDT, Duration: 30 day, Stop date: 01/17/16 1:05:00 CDT Regular No 60 units) Buck alexia Insulin, 12-17 WASTE: F/P l Human 100 06:06: - Black; E Paolo rmann UNT/ML 00 - Injectable Municipal Solution Trash Bin Stable for 28 days at room temperatur e Expires in days from ____Date Dextrose No 12.5 gm, Memor ia 50% Syringe 12-17 25 mL, l 06:06: Route: [place] 00 IVP, Drug Form: INJ, Dosing Weight 81.2, kg, PRN, PRN Abnormal Lab Result, Start date: 12/18/15 1:06:00 CDT, Duration: 30 day, Stop date: 01/17/16 1:05:00 CDT Dextrose No 12.5 gm, Memor ia 50% Syringe 12-17 25 mL, l 05:45: Route: [place] 00 IVP, Drug Form: INJ, Dosing Weight 81.2, kg, PRN, PRN Abnormal Lab Result, Start date: 12/18/15 0:45:00 CDT, Duration: 30 day, Stop date: 02/16/16 0:44:00 CDT Regular No 60 units) Buck alexia Insulin, 12-17 WASTE: F/P l Human 100 05:45: - Black; E Paolo rmann UNT/ML 00 - Injectable Municipal Solution Trash Bin Stable for 28 days at room temperatur e Expires in days from ____Date Dextrose No 12.5 gm, Memor ia 50% Syringe 12-17 25 mL, l 05:45: Route: [place] 00 IVP, Drug Form: INJ, Dosing Weight 81.2, kg, PRN, PRN Abnormal Lab Result, Start date: 12/18/15 0:45:00 CDT, Duration: 30 day, Stop date: 02/16/16 0:44:00 CDT Regular No 60 units) Buck alexia Insulin, 12-17 WASTE: F/P l Human 100 05:45: - Black; E Paolo rmann UNT/ML 00 - Injectable Municipal Solution Trash Bin Stable for 28 days at room temperatur e Expires in days from ____Date Miralax No Notes: [facility] 8-05 Dissolve l 14:00: in 8 oz of [place] 00 water or juice. (Same as: Miralax) Miralax No Notes: [facility] 8-05 Dissolve l 14:00: in 8 oz of [place] 00 water or juice. (Same as: Miralax) heparin No Notes: [facility]oria - porcine l 21:00: heparin [place] 00 heparin No Notes: [facility] 8-04 porcine l 21:00: heparin [place] 00 Calcium No Notes: [facility] Gluconate 12-14 WASTE: F/P l 09:57: - Sink; E [place] 00 - Municipal Trash Bin Calcium No Notes: [facility] Carbonate 12-14 (Same As: l 500 MG 09:57: Tums) [place] Chewable 00 Calcium Tablet Carbonate 500 mg = 200 mg elemental calcium Dose = mg calcium carbonate ( mg elemental calcium) potassium No Notes: Memori a phosphate + 12-14 (Same as: l sodium 09:57: K [place] chloride 00 Phosphate. 0.9% INJ ) 1 mMol 250 mL phoshate has 1.47 mEq potassium Infuse over 4 hours Neutra-Phos No Notes: Buck alexia 12-14 (Same as: l 09:57: Neutra-Milton [place] 00 s) Each 1.25 gm pkt has 250mg phosphorou s. Mix w/2.5oz water and stir. Magnesium No Notes: Memori a Oxide 12-14 (Same as: l 09:57: Mag-Ox [place] 00 400) Magnesium oxide [id number] g elemental magnesium Dose=____m g magnesium oxide (___mg elemental magnesium) Magnesium No Notes: Memori a Sulfate 12-14 WASTE: F/P l 09:57: - Sink; E [place] 00 - Municipal Trash Bin sodium No 30 mmol, Memoria phosphate + 12-14 10 mL, l sodium 09:57: Route: [place] chloride 00 IVPB, PRN, 0.9% INJ Dosing 250 mL Weight 81.2, kg, PRN Abnormal Lab Result, Start date: 12/15/15 4:57:00 CDT, Duration: 30 day, Stop date: 01/14/16 4:56:00 CDT, FOR ICU USE ONLY potassium No Notes: Memori a chloride 12-14 (Same as: l 09:57: KCL) [place] 00 Infuse over 2 hours. Calcium No Notes: [facility] Gluconate 12-14 WASTE: F/P l 09:57: - Sink; E [place] 00 - Municipal Trash Bin Calcium No Notes: [facility] Carbonate 12-14 (Same As: l 500 MG 09:57: Tums) [place] Chewable 00 Calcium Tablet Carbonate 500 mg = 200 mg elemental calcium Dose = mg calcium carbonate ( mg elemental calcium) potassium No Notes: Memori a phosphate + 12-14 (Same as: l sodium 09:57: K [place] chloride 00 Phosphate. 0.9% INJ ) 1 mMol 250 mL phoshate has 1.47 mEq potassium Infuse over 4 hours Neutra-Phos No Notes: Buck alexia 12-14 (Same as: l 09:57: Neutra-Milton [place] 00 s) Each 1.25 gm pkt has 250mg phosphorou s. Mix w/2.5oz water and stir. Magnesium No Notes: Memori a Oxide 12-14 (Same as: l 09:57: Mag-Ox [place] 00 400) Magnesium oxide 417lm=[id number] g elemental magnesium Dose=____m g magnesium oxide (___mg elemental magnesium) Magnesium No Notes: Memori a Sulfate 12-14 WASTE: F/P l 09:57: - Sink; E [place] 00 - Municipal Trash Bin sodium No 30 mmol, Memoria phosphate + 12-14 10 mL, l sodium 09:57: Route: [place] chloride 00 IVPB, PRN, 0.9% INJ Dosing 250 mL Weight 81.2, kg, PRN Abnormal Lab Result, Start date: 12/15/15 4:57:00 CDT, Duration: 30 day, Stop date: 01/14/16 4:56:00 CDT, FOR ICU USE ONLY potassium No Notes: Memori a chloride 12-14 (Same as: l 09:57: KCL) [place] 00 Infuse over 2 hours. Famotidine No Notes: Memor ia 20 MG Oral 12-14 (Same as: l Tablet 02:00: Pepcid) [place] [Pepcid] 00 Famotidine No Notes: Memor ia 20 MG Oral 12-14 (Same as: l Tablet 02:00: Pepcid) Huy [Pepcid] 00 chlorhexidi No Notes: Buck alexia ne 12-13 (Same As: l gluconate 17:00: Peridex) [facility] merissa 1.2 MG/ML 00 Mouthwash chlorhexidi No Notes: Buck alexia ne 12-13 (Same As: l gluconate 17:00: Peridex) [facility] merissa 1.2 MG/ML 00 Mouthwash Labetalol No Notes: Memori a 12-13 With food. l 15:44: (Same [place] 00 as:Trandat e, Normodyne) Labetalol No Notes: Memori a 12-13 With food. l 15:44: (Same [place] 00 as:Trandat e, Normodyne) Nexium No 40 mg, Memoria 12-13 Route: l 14:00: IVP, [place] 00 Daily, Dosing Weight 85, kg, Start date: 12/14/15 9:00:00 CDT, Duration: 30 day, Stop date: 01/12/16 9:00:00 CDT Streptococc No Notes: Buck alexia us 12-13 Lightly l pneumoniae 14:00: roll vial He rmann serotype 1 00 (DO NOT capsular SHAKE) antigen before diphtheria administra [id number] tion. protein (Same as: conjugate Prevnar vaccine / 13) Streptococc us pneumoniae serotype 14 capsular antigen diphtheria [id number] protein conjugate vaccine / Streptococc us pneumoniae serotype 18C capsular antigen d Docusate No Notes: [facility]oria Sodium 50 12-13 (Same as l MG / 14:00: Senokot-S) [place] sennosides, 00 Equiv. to LONG TERM 8.6 MG Stephanie-Colac Oral Tablet e. Nexium No 40 mg, Memoria 12-13 Route: l 14:00: IVP, [place] 00 Daily, Dosing Weight 85, kg, Start date: 12/14/15 9:00:00 CDT, Duration: 30 day, Stop date: 01/12/16 9:00:00 CDT Streptococc No Notes: Buck alexia us 8-03 Lightly l pneumoniae 14:00: roll vial He rmann serotype 1 00 (DO NOT capsular SHAKE) antigen before diphtheria administra [id number] tion. protein (Same as: conjugate Prevnar vaccine / 13) Streptococc us pneumoniae serotype 14 capsular antigen diphtheria [id number] protein conjugate vaccine / Streptococc us pneumoniae serotype 18C capsular antigen d Docusate No Notes: [facility] Sodium 50 12-13 (Same as l MG / 14:00: Senokot-S) [place] sennosides, 00 Equiv. to LONG TERM 8.6 MG Stephanie-Colac Oral Tablet e. Protonix No Notes: For Mem oria 8-03 IV push l 12:30: reconstitu [place] 00 te with 10 ml 0.9% sodium chloride and push over 2 minutes. (Same as: Protonix) Protonix No Notes: For Mem oria 8-03 IV push l 12:30: reconstitu [place] 00 te with 10 ml 0.9% sodium chloride and push over 2 minutes. (Same as: Protonix) Hydralazine No Notes: Buck alexia 8- (Same as: l 07:48: Apresoline [place] 00 ) Push over 5 minutes Hydralazine No Notes: Buck alexia 8- (Same as: l 07:48: Apresoline [place] 00 ) Push over 5 minutes sodium No 1,000 mL, Memori a chloride 12-13 Rate: 100 l 0.9% 1000 04:51: ml/hr, Mg n ml INJ 00 Infuse 1,000 mL over: 10 hr, Route: IV, Dosing Weight 85 kg, Total Volume: 1,000, Start date: 12/13/15 23:51:00 CDT, Duration: 30 day, Stop date: 01/12/16 23:50:00 CDT sodium No 1,000 mL, Memori a chloride 12-13 Rate: 100 l 0.9% 1000 04:51: ml/hr, Mg n ml INJ 00 Infuse 1,000 mL over: 10 hr, Route: IV, Dosing Weight 85 kg, Total Volume: 1,000, Start date: 12/13/15 23:51:00 CDT, Duration: 30 day, Stop date: 01/12/16 23:50:00 CDT iodixanol 2016-0 No 60 mL, Memori a 12-13 Route: l 04:08: IVP, Drug [place] 00 Form: SOLN, Dosing Weight 85, kg, ONCALL, STAT, Start date: 12/13/15 23:08:00 CDT, Duration: 1 doses or times, Dose = 2.2ml/kg, Max dose = 100ml -- "To be infused by Radiology Staff ONLY" iodixanol 2016-0 No 60 mL, Memori a 12-13 Route: l 04:08: IVP, Drug [place] 00 Form: SOLN, Dosing Weight 85, kg, ONCALL, STAT, Start date: 12/13/15 23:08:00 CDT, Duration: 1 doses or times, Dose = 2.2ml/kg, Max dose = 100ml -- "To be infused by Radiology Staff ONLY" Zofran 2016-0 No 4 mg, Memoria 12-13 Route: l 02:17: IVP, Drug [place] 00 form: INJ, ONCE, Dosing Weight 85, kg, Start date: 12/13/15 21:17:00 CDT, Stop date: 12/13/15 21:17:00 CDT Zofran 2016-0 No 4 mg, Memoria 12-13 Route: l 02:17: IVP, Drug [place] 00 form: INJ, ONCE, Dosing Weight 85, kg, Start date: 12/13/15 21:17:00 CDT, Stop date: 12/13/15 21:17:00 CDT Succinylcho 2016-0 No 120 mg, Mem oria line 12-13 Route: IV, l 02:16: Drug form: [place] 00 INJ, ONCE, Dosing Weight 85, kg, Start date: 12/13/15 21:16:00 CDT, Stop date: 12/13/15 21:16:00 CDT Etomidate 2016-0 No 67 kg, Memor ia 12-13 Start l 02:16: date: [place] 00 12/13/15 21:16:00 CDT, Stop date: 12/13/15 21:16:00 CDT, Pediatric Dosing; for intubation Lidocaine No 100 mg, Memor ia 12-13 Route: IV, l 02:16: ONCE, Dosing Weight 85, kg, Start date: 12/13/15 21:16:00 CDT, Stop date: 12/13/15 21:16:00 CDT Succinylcho 0 No 120 mg, Mem oria line 12-13 Route: IV, l 02:16: Drug form: INJ, ONCE, Dosing Weight 85, kg, Start date: 12/13/15 21:16:00 CDT, Stop date: 12/13/15 21:16:00 CDT Etomidate 0 No 67 kg, Memor ia 12-13 Start l 02:16: date: 12/13/15 21:16:00 CDT, Stop date: 12/13/15 21:16:00 CDT, Pediatric Dosing; for intubation Lidocaine No 100 mg, Memor ia 12-13 Route: IV, l 02:16: ONCE, Dosing Weight 85, kg, Start date: 12/13/15 21:16:00 CDT, Stop date: 12/13/15 21:16:00 CDT Midazolam No Notes: Memori a 12-13 (Same as: l 02:15: Versed) Fentanyl 0 No 1,000 Memoria 12-13 microgram, l 02:15: 20 mL, Rate: Titrate, Start Dose: 50 microgram/ hr, Titration: 25 microgram/ hour every 15 minutes, Goal(s): -2, Max Dose: 300 microgram/ hr, Route: IV, Dosing Weight 85 kg, Total Volume: 20, Start date: 12/13/15 21:15:00 CDT, Duration:. .. Propofol 10 No Notes: If M emoria MG/ML 12-13 Diprivan - l Injectable 02:15: change Tasha nn Suspension 00 bottle & tubing every 12 hr Per state nursing law propofol can only be given by a nurse if patient is intubated or being intubated (unless the nurse is a [employer] DEVELOPER). Same as: Diprivan Midazolam No Notes: Memori a 12-13 (Same as: l 02:15: Versed) [place] 00 Fentanyl No 1,000 Memoria 12-13 microgram, l 02:15: 20 mL, Huy Rate: Titrate, Start Dose: 50 microgram/ hr, Titration: 25 microgram/ hour every 15 minutes, Goal(s): -2, Max Dose: 300 microgram/ hr, Route: IV, Dosing Weight 85 kg, Total Volume: 20, Start date: 12/13/15 21:15:00 CDT, Duration:. .. Propofol 10 No Notes: If M emoria MG/ML 12-13 Diprivan - l Injectable 02:15: change Tasah nn Suspension 00 bottle & tubing every 12 hr Per state nursing law propofol can only be given by a nurse if patient is intubated or being intubated (unless the nurse is a [employer] DEVELOPER). Same as: Diprivan Saline No Notes: [facility] Flush 0.9% 12-13 (Same as: l 02:00: BD [place] 00 Posiflush) Saline No Notes: [facility] Flush 0.9% 8 (Same as: l 02:00: BD [place] 00 Posiflush) Ancef + No Notes: [facility]oria sodium 8- (Same As: l chloride 01:55: Ancef, [place] 0.9% INJ 00 Kefzol) 100 mL Cefazolin FOR IV SET ONLY MEDICATION WASTE Product Size: 1000 mg Product Wasted: ___ mg Ancef + No Notes: [facility] sodium 8-03 (Same As: l chloride 01:55: Ancef, [place] 0.9% INJ 00 Kefzol) 100 mL Cefazolin FOR IV SET ONLY MEDICATION WASTE Product Size: 1000 mg Product Wasted: ___ mg Saline No Notes: [facility] Flush 0.9% 12-13 (Same as: l 01:50: BD [place] 00 Posiflush) Labetalol No 140mmHg, Mem oria 12-13 Start l 01:50: date: Huy 12/13/15 20:50:00 CDT, Duration: 3 doses or times, Stop date: Limited # of times Saline No Notes: [facility] Flush 0.9% - (Same as: l 01:50: BD [place] 00 Posiflush) Labetalol No 140mmHg, Mem oria 12-13 Start l 01:50: date: Huy 12/13/15 20:50:00 CDT, Duration: 3 doses or times, Stop date: Limited # of times Mannitol No Notes: Memoria - (Same as: l 01:40: Osmitrol) [place] 00 Infuse through 5 micron or smaller filter WASTE: F/P - Sink; E - Municipal Trash Bin Mannitol No Notes: Memoria - (Same as: l 01:40: Osmitrol) [place] 00 Infuse through 5 micron or smaller filter WASTE: F/P - Sink; E - Municipal Trash Bin niCARdipine No Notes: Buck alexia 40 mg/ NS 12-13 Same as: l 200 ml IV 01:13: Cardene Tasha nn Soln 00 Concentrat (premix) 40 ion: (0.2 mg mg /1 ml ) niCARdipine No Notes: Buck alexia 40 mg/ NS 12-13 Same as: l 200 ml IV 01:13: Cardene Tasah nn Soln 00 Concentrat (premix) 40 ion: (0.2 mg mg /1 ml ) Saline No Notes: [facility]oria Flush 0.9% - (Same as: l 01:02: BD [place] 00 Posiflush) Saline No Notes: [facility] Flush 0.9% - (Same as: l 01:02: BD [place] 00 Posiflush) Immunizations Ordered Immunization Filled Immunization Date Status Commen ts Source Name Name pneumococcal 2015-12-14 Completed [facility] 13-valent vaccine 17:03:00 [facility] pneumococcal 2015-12-14 Completed [facility] 13-valent vaccine 17:03:00 [facility] Vital Signs Vital Name Observation Time Observation Value Comments Source BP Systolic 2018-08-08 133 mm[Hg] Location: [facility] 10:12:00 Position: Sitting BP Diastolic 2018-08-08 76 mm[Hg] Location: LUE; [facility] 10:12:00 Position: Sitting Height 2018-08-08 68 [in_us] [facility] 10:12:00 Weight 2018-08-08 161 [lb_av] [facility] 10:12:00 Body Mass Index 2018-08-08 24.48 kg/m2 [facility] 10:12:00 Heart Rate 2018-08-08 76 /min Location: L [facility] 10:12:00 Brachial Artery; Respitory Rate 2016-01-27 [facility] 13:00:00 Systolic (mm Hg) 2016-01-27 [facility] 13:[facility]:00 Diastolic (mm Hg) 2016-01-27 [facility] 13:00:00 [facility] 2016[facility]01[facility]27 [facility] Temperature Oral 2016-01-27 98.0 F [facility] ([facility] 01:24:00 Heart Rate 2016-01-27 [facility] 01:24:00 Respitory Rate 2016-01-27 [facility] 01:24:00 Systolic (mm Hg) 2016-01-27 [facility] 01:24:00 Diastolic (mm Hg) 2016-01-27 [facility] 01:24:00 Respitory Rate 2016-01-26 [facility] 17:31:00 Heart Rate 2016-01-26 [facility] 13:10:00 Systolic (mm Hg) 2016-01-26 [facility] 13:10:00 Diastolic (mm Hg) 2016-01-26 [facility] 13:10:00 Temperature Oral 2016-01-23 99.5 F [facility] ([facility]) 12:23:00 Temperature Oral 2016-01-23 98.0 F [facility] ([facility]) 01:22:00 Weight 2016-01-11 [facility] 03:25:00 BMI Calculated 2016-01-11 [facility] 03:25:00 Height 2016-01-11 180.3 cm [facility] 03:25:00 Systolic (mm Hg) 2016-01-11 [facility] 00:55:00 Diastolic (mm Hg) 2016-01-11 [facility] 00:55:00 Respitory Rate 2016-01-11 [facility] 00:55:00 Heart Rate 2016-01-11 [facility] 00:[facility]:00 Temperature Oral 2016-01-11 97.8 F [facility] ([facility] 00:55:00 Respitory Rate 2016-01-10 [facility] 16[facility]23:00 Heart Rate 2016-01-10 [facility] 16:23:00 Systolic (mm Hg) 2016-01-10 [facility] 16:23:00 Diastolic (mm Hg) 2016-01-10 [facility] 16:[facility]00 Systolic (mm Hg) 2016-01-10 [facility] 12[facility]16[facility]00 Diastolic (mm Hg) 2016-01-10 [facility] 12:16:00 Respitory Rate 2016-01-10 [facility] 12:16:00 Heart Rate 2016-01-10 [facility] 12:16:00 Temperature Oral 2016-01-10 97.7 F Shena Boone rmann (F) 00:58:00 Weight 2016-01-06 [facility] 22:52:00 Height 2016-01-06 180.34 cm [facility] 22:52:00 Temperature Oral 2016-01-01 98.[address] [facility] Paolo rmann (F) 17:30:00 Height 2015-12-23 180.34 cm [facility] 12:49:00 Height 2015-12-23 180.34 cm [facility] 08:22:00 BMI Calculated 2015-12-14 [facility] 07:00:00 Weight 2015-12-14 [facility] 07:00:00 BMI Calculated 2015-12-14 [facility] 00:55:00 Weight 2015-12-14 [facility] 00:[facility]:00 Procedures Procedure Date / Time Performed Performing Clinician [facility] e History of Coronary Artery [place] [facility] Surgery Encounters Start End Encounter Admission Attending Care Care Encounter Source Date/Time Date/Time Type Type Clinicians Facility Department ID 2022-09-18 Outpatient AYSHA Mcgowan [facility] [id number] Common 08:22:01 Mishel [id number] [facility] 2022-06-01 2022-06-01 Outpatient AMEENA RANKIN [id number] Ameena 10:15:00 10:15:00 JUAN rose 2020-09-23 2020-09-23 Outpatient Jair P [facility] [id number] [facility] 03:25:00 03:25:00 _A_AH [id number] Family Practic e 2020-06-27 2020-06-27 Outpatient Ige[place] [facility] [id number] [facility] 12:23:00 12:23:00 _J_AH [id number] Family Practic e 2019-07-01 2019-07-01 Outpatient [place] [facility]FP [id number] [facility] 07:17:00 07:17:00 _J_AH [id number] Family Practic e 2019-07-01 2019-07-01 Outpatient Ige[place] VFP VFP [id number] [facility] 07:17:00 07:17:00 _J_AH [id number] Family Practic e 2019-07-01 2019-07-01 Outpatient Ige[place] VFP VFP [id number] [facility] 07:17:00 07:17:00 _J_AH [id number] Family Practic e 2019-05-12 2019-05-12 Lillie JOE, [facility] [id number] [place] 11:30:00 11:30:00 t; Yohannes SUTTON i, M.D. ans ANJAIL, M.D. 2019-03-17 2019-03-17 Lillie JOE, [facility] [id number] [place] 10:30:00 10:30:00 t; Yohannes SUTTON i, M.D. ans ANJAIL, M.D. 2018-08-08 2018-08-08 Lillie JOE [facility] [id number] [place] 10:00:00 10:00:00 t; Yohannes SUTTON i, M.D. ans ANJAIL, M.D. 2018-02-07 2018-02-07 Lillie JOE, [facility] [id number] [place] 09:00:00 09:00:00 t; Yohannes SUTTON i, M.D. ans ANJAIL, M.D. 2018-01-03 2018-01-03 Lillie JOE, [facility] [id number] [place] 10:30:00 10:30:00 t; Yohannes SUTTON i, M.D. ans ANJAIL, M.D. 2017-07-05 2017-07-05 Lillie JOE, [facility] [id number] [place] 10:00:00 10:00:00 t; Yohannes SUTTON i, M.D. ans ANJAIL, M.D. 2017-01-01 2017-01-01 Appointjayson JOE, [facility] [id number] [place] 10:00:00 10:00:00 t; Yohannes SUTTON i, M.D. ans ANJAIL, M.D. 2016-08-10 2016-08-10 [facility] [id number] [place] 11:00:00 11:00:00 t; Yohannes SUTTON i, M.D. ans ANJAIL, M.D. 2016-08-09 2016-08-09 [facility] [id number] [place] 10:30:00 10:30:00 t; VERA MANN, BOXER OPERATOR Physici VERA, ans BOXER OPERATOR 2016-04-18 2016-04-19 Outpt Diag nullFlavo [facility] [id number] [facility] 17:57:00 05:59:00 Services r Outpatient 00 l Imaging [facility] 2016-04-18 2016-04-19 Outpt Diag nullFlavo [facility] [id number] [facility] 17:57:00 05:59:00 Services r Outpatient 00 l Imaging [facility] 2016-04-18 2016-04-[address] [id number] 11:57:00 23:59:00 [place] 00 Nkiru 2016-01-11 2016-01-27 Inpatient [facility]Flavo [facility] [id number] [facility] 03:10:00 17:30:00 Snf r [place] 43 [facility] 2016-01-11 2016-01-27 Inpatient nullFlavo [facility] [id number] [facility] 03:10:00 17:30:[address] [facility] r Huy 43 [facility] 2016-01-10 2016-01-27 Outpatient Anni [facility] [id number] 22:10:00 12:30:00 Mahran 43 2015-12-14 2016-01-11 Inpatient nullFlavo [facility] [id number] [facility] 00:54:00 03:00:00 r Huy 67 [facility] 2015-12-14 2016-01-11 Inpatient Chantal [facility] [id number] [facility] 00:54:00 03:00:00 r Huy 68 l [facility] 2015-12-13 2016-01-10 Outpatient Ana [facility] [id number] 19:54:00 22:00:00 , Jag Ramires Results Test Description Test Time Test Comments Results Result Comments Source ELECTROLYTES 2016-01-26 14:31:00 Test Item Value Reference Range Interpretation Comme nts AGAP (test code = AGAP) 11.9 10.0-20.0 [facility]qxgnuzSBUATSPKPYKG2848-58-95 14:31:00 Test Item Value Reference Range Interpretation Comments eGFR (test code = eGFR) 113 [facility]OoijvtaGZIOXMVTLLIS3816-00-32 14:31:00 Test Item Value Reference Range Interpretation Comments Calcium Lvl (test code = Calcium Lvl) 9.2 8.5-10.5 [facility]NpdjbwaBCAMSURMELAK6043-64-39 14:31:00 Test Item Value Reference Range Interpretation Comments CO2 (test code = CO2) 28 24-32 [facility]XbiupcqQVFMSPDSPBBO6005-00-00 14:31:00 Test Item Value Reference Range Interpretation Comments Chloride Lvl (test code = Chloride Lvl) 101 95-109 [facility]NnzzgsvQVRXZNZPJKDI1168-11-46 14:31:00 Test Item Value Reference Range Interpretation Comments Sodium Lvl (test code = Sodium Lvl) 137 135-145 [facility]VcspsmgHCKQIAVWVTLG6246-04-86 14:31:00 Test Item Value Reference Range Interpretation Comments Potassium Lvl (test code = Potassium 3.9 3.5-5.1 Lvl) [facility]IhwooujEOFALKSNWLOV1275-70-83 14:31:00 Test Item Value Reference Range Interpretation Comments Creatinine Lvl (test code = Creatinine 0.47 0.50-1.40 Lvl) [facility] HospitalDoysrubIMQYKOYTZCHI2367-65-06 14:31:00 Test Item Value Reference Range Interpretation Comments BUN (test code = BUN) 22 7-22 [facility]LqvhyyxHYEOFVQCHRGP9735-36-59 14:31:00 Test Item Value Reference Range Interpretation Comments Glucose Lvl (test code = Glucose Lvl) 126 70-99 [facility]ATTBD[facility]RLX[facility]60-90-13 14:31:00 Test Item Value Reference Range Interpretation Comments Lymphocytes # (test code = Lymphocytes 5.6 1.0-5.5 #) [facility]PutipaeSSADXGJTIN9815-91-15 14:31:00 Test Item Value Reference Range Interpretation Comments Segs-Bands # (test code = Segs-Bands #) 6.1 1.5-8.1 [facility] HospitalAuxgovaGXEQOXBWLO9150-78-56 14:31:00 Test Item Value Reference Range Interpretation Comments Segs (test code = Segs) 48.0 45.0-75.0 [facility] HospitalMlhfdkdGTWBWLDKTK2720-53-28 14:31:00 Test Item Value Reference Range Interpretation Comments Monocytes (test code = Monocytes) 7.4 2.0-12.0 [facility] HospitalJhyzvanELLKRTOUYD5079-36-39 14:31:00 Test Item Value Reference Range Interpretation Comments Eosinophils (test code = 0.6 See_Comment [A utomated message] The Eosinophils) system which ge nerated this result tra nsmitted reference range : <=4.0. The reference r sagrario was not used to int erpret this result as normal/abnormal . [facility] HospitalMogmzytNHFQNUFLPR0475-52-02 14:31:00 Test Item Value Reference Range Interpretation Comments Basophils (test code = 0.2 See_Comment [Aut omated message] The Basophils) system which ge nerated this result tra nsmitted reference range : <=1.0. The reference r sagrario was not used to int erpret this result as normal/abnormal . [facility] HospitalPidtuhmMYMKYVLXTL6774-53-31 14:31:00 Test Item Value Reference Range Interpretation Comments Lymphocytes (test code = Lymphocytes) 43.8 20.0-40.0 [facility] HospitalWdpmprsGRHLYEZMPU3651-57-82 14:31:00 Test Item Value Reference Range Interpretation Comments Eosinophils # (test code 0.1 See_Comment [A utomated message] The = Eosinophils #) system whic h generated this result tra nsmitted reference range : <=0.5. The reference r sagrario was not used to int erpret this result as normal/abnormal . [facility] HospitalQltceiqNXMWTGWWFX0611-51-05 14:31:00 Test Item Value Reference Range Interpretation Comments Monocytes # (test code 1.0 See_Comment [Aut omated message] The = Monocytes #) system which generated this result tra nsmitted reference range : <=0.8. The reference r sagrario was not used to int erpret this result as normal/abnormal . [facility] HospitalLybanzgSPQCZUESAS3557-42-46 14:31:00 Test Item Value Reference Range Interpretation Comments MCV (test code = MCV) 96.9 80.0-94.0 [facility] HospitalMwstushALHTCYXBPJ3875-53-38 14:31:00 Test Item Value Reference Range Interpretation Comments MCH (test code = MCH) 32.8 pg 27.0-31.0 [facility] HospitalYxiddbnINEEWBANFA6920-86-09 14:31:00 Test Item Value Reference Range Interpretation Comments Hgb (test code = Hgb) 9.9 14.0-18.0 [facility] HospitalImjhbnmREKDIUSEQW6414-06-22 14:31:00 Test Item Value Reference Range Interpretation Comments RDW (test code = RDW) 12.9 11.5-14.5 [facility] HospitalDkyswjmLMKLWMOFWC5080-49-42 14:31:00 Test Item Value Reference Range Interpretation Comments MCHC (test code = MCHC) 33.9 32.0-36.0 [facility] HospitalDbhyepaENJLPIUXUC5762-26-88 14:31:00 Test Item Value Reference Range Interpretation Comments Platelet (test code = Platelet) 381 133-450 [facility] HospitalDguffxcSQIKVVEWVZ5923-31-19 14:31:00 Test Item Value Reference Range Interpretation Comments MPV (test code = MPV) 7.6 7.4-10.4 [facility] HospitalFszujrdPKLTFEADYB7451-47-59 14:31:00 Test Item Value Reference Range Interpretation Comments Hct (test code = Hct) 29.1 42.0-54.0 [facility] HospitalAbhunweSLMUDXHKGR2602-07-67 14:31:00 Test Item Value Reference Range Interpretation Comments WBC (test code = WBC) 12.8 3.7-10.4 [facility] HospitalIddpjstMDTICMJMBM7571-14-24 14:31:00 Test Item Value Reference Range Interpretation Comments RBC (test code = RBC) 3.01 4.70-6.10 [facility]LanipvePRMUWRGAFEBV2945-79-55 14:31:00 Test Item Value Reference Range Interpretation Comments AGAP (test code = AGAP) 11.9 10.0-20.0 [facility] HospitalAmbedrwSOPKLSFZJYGD2204-69-94 14:31:00 Test Item Value Reference Range Interpretation Comments eGFR (test code = eGFR) 113 [facility]FcwcknxLLOBKZSGRCGU3705-57-74 14:31:00 Test Item Value Reference Range Interpretation Comments Calcium Lvl (test code = Calcium Lvl) 9.2 8.5-10.5 [facility] HospitalUopigeiUDVCEIJVEJSZ6067-22-00 14:31:00 Test Item Value Reference Range Interpretation Comments CO2 (test code = CO2) 28 24-32 [facility] HospitalDuojzkcCHKWJTCEPQOZ7140-78-02 14:31:00 Test Item Value Reference Range Interpretation Comments Chloride Lvl (test code = Chloride Lvl) 101 95-109 [facility] HospitalTkivaaiBUTLYBJTAHLD0990-39-50 14:31:00 Test Item Value Reference Range Interpretation Comments Sodium Lvl (test code = Sodium Lvl) 137 135-145 [facility] HospitalBpbiffbSELDUXVRVCEN0871-00-31 14:31:00 Test Item Value Reference Range Interpretation Comments Potassium Lvl (test code = Potassium 3.9 3.5-5.1 Lvl) [facility] HospitalRcafhsoWVNDIRPGYCEV8924-81-60 14:31:00 Test Item Value Reference Range Interpretation Comments Creatinine Lvl (test code = Creatinine 0.47 0.50-1.40 Lvl) [facility] HospitalAigsrxaKXEXHRTFETQD3581-44-83 14:31:00 Test Item Value Reference Range Interpretation Comments BUN (test code = BUN) 22 7-22 [facility]XzadmsbMNMOZSFVJJGD8088-32-45 14:31:00 Test Item Value Reference Range Interpretation Comments Glucose Lvl (test code = Glucose Lvl) 126 70-99 [facility] HospitalRtjbdnpVBBUZODUPW1165-67-95 14:31:00 Test Item Value Reference Range Interpretation Comments Lymphocytes # (test code = Lymphocytes 5.6 1.0-5.5 #) [facility] HospitalSbwuvaoXUVWYMJYRQ3117-33-13 14:31:00 Test Item Value Reference Range Interpretation Comments Segs-Bands # (test code = Segs-Bands #) 6.1 1.5-8.1 [facility] HospitalIorzwguRNTNUVIZZR9276-10-98 14:31:00 Test Item Value Reference Range Interpretation Comments Segs (test code = Segs) 48.0 45.0-75.0 [facility] HospitalVkzhaipSIUWYJAUSQ6296-06-87 14:31:00 Test Item Value Reference Range Interpretation Comments Monocytes (test code = Monocytes) 7.4 2.0-12.0 [facility] HospitalEmfhmnlBRNEJACWST5729-85-88 14:31:00 Test Item Value Reference Range Interpretation Comments Eosinophils (test code = 0.6 See_Comment [A utomated message] The Eosinophils) system which ge nerated this result tra nsmitted reference range : <=4.0. The reference r sagrario was not used to int erpret this result as normal/abnormal . [facility] HospitalIzybrecQSWQFPGRNA0040-53-02 14:31:00 Test Item Value Reference Range Interpretation Comments Basophils (test code = 0.2 See_Comment [Aut omated message] The Basophils) system which ge nerated this result tra nsmitted reference range : <=1.0. The reference r sagrario was not used to int erpret this result as normal/abnormal . [facility] HospitalClcbbeyBZQYNNNPTH7876-13-53 14:31:00 Test Item Value Reference Range Interpretation Comments Lymphocytes (test code = Lymphocytes) 43.8 20.0-40.0 [facility] HospitalKzzjgqfRZCWOLXFFF2811-06-16 14:31:00 Test Item Value Reference Range Interpretation Comments Eosinophils # (test code 0.1 See_Comment [A utomated message] The = Eosinophils #) system whic h generated this result tra nsmitted reference range : <=0.5. The reference r sagrario was not used to int erpret this result as normal/abnormal . [facility] HospitalOjvbgdtDKGZCSAUEX4865-82-12 14:31:00 Test Item Value Reference Range Interpretation Comments Monocytes # (test code 1.0 See_Comment [Aut omated message] The = Monocytes #) system which generated this result tra nsmitted reference range : <=0.8. The reference r sagrario was not used to int erpret this result as normal/abnormal . [facility] HospitalKoojzwmFUINJZIXNZ8747-19-76 14:31:00 Test Item Value Reference Range Interpretation Comments MCV (test code = MCV) 96.9 80.0-94.0 [facility] HospitalOeamtffROMNRIVDBO3594-32-00 14:31:00 Test Item Value Reference Range Interpretation Comments MCH (test code = MCH) 32.8 pg 27.0-31.0 [facility] HospitalNggljfcJVALUOFJKK6734-29-91 14:31:00 Test Item Value Reference Range Interpretation Comments Hgb (test code = Hgb) 9.9 14.0-18.0 [facility] HospitalJfiqmjvCYHBBIXTGV6016-53-68 14:31:00 Test Item Value Reference Range Interpretation Comments RDW (test code = RDW) 12.9 11.5-14.5 [facility] HospitalNnvvkvvGKTJLSHGQG0612-99-61 14:31:00 Test Item Value Reference Range Interpretation Comments MCHC (test code = MCHC) 33.9 32.0-36.0 [facility] HospitalVxeqybfPUTWLRWUKO2047-35-56 14:31:00 Test Item Value Reference Range Interpretation Comments Platelet (test code = Platelet) 381 133-450 [facility] HospitalZzpppzgLCARCEKEVY5092-63-68 14:31:00 Test Item Value Reference Range Interpretation Comments MPV (test code = MPV) 7.6 7.4-10.4 [facility] HospitalKzrtjvkEQRVMYVQSC2073-84-92 14:31:00 Test Item Value Reference Range Interpretation Comments Hct (test code = Hct) 29.1 42.0-54.0 [facility] HospitalBrgosyjPTLXJPIZCS0905-65-85 14:31:00 Test Item Value Reference Range Interpretation Comments WBC (test code = WBC) 12.8 3.7-10.4 [facility] HospitalTfqwplgBYGRSLHNYN3417-67-98 14:31:00 Test Item Value Reference Range Interpretation Comments RBC (test code = RBC) 3.01 4.70-6.10 [facility]AjkxmvpWCOSXCTQNQMC5714-16-95 10:07:00 Test Item Value Reference Range Interpretation Comments Calcium Lvl (test code = Calcium Lvl) 9.6 8.5-10.5 [facility]QslaizqUOVLMWPBYNOK8432-25-34 10:07:00 Test Item Value Reference Range Interpretation Comments Albumin Lvl (test code = Albumin Lvl) 3.2 3.5-5.0 [facility]QgnffdfPOSIPQLZQNUH3601-02-30 10:07:00 Test Item Value Reference Range Interpretation Comments ALT (test code = ALT) 89 See_Comment [Auto mated message] The system which ge nerated this result transmit craig reference range : <=65. The reference range was not used to interpr et this result as kita l/abnormal. [facility] HospitalUjouztzAFLZNSRSLABH4534-51-69 10:07:00 Test Item Value Reference Range Interpretation Comments Total Protein (test code = Total 6.4 6.4-8.4 Protein) [facility] HospitalFliauyqBDRGOKRBMPWR8417-29-53 10:07:00 Test Item Value Reference Range Interpretation Comments eGFR (test code = eGFR) 116 [facility] HospitalYtklykvUANDNZOQDEPG1533-67-43 10:07:00 Test Item Value Reference Range Interpretation Comments Creatinine Lvl (test code = Creatinine 0.44 0.50-1.40 Lvl) [facility] HospitalCedsgwkEQAHUTXEBCDI4320-57-23 10:07:00 Test Item Value Reference Range Interpretation Comments Glucose Lvl (test code = Glucose Lvl) 95 70-99 [facility]IibdbdtTNEJRDAMEERG1359-33-19 10:07:00 Test Item Value Reference Range Interpretation Comments BUN (test code = BUN) 19 7-22 [facility]MdwlpbxMGQYTKRDQVDN7403-19-59 10:07:00 Test Item Value Reference Range Interpretation Comments Sodium Lvl (test code = Sodium Lvl) 134 135-145 [facility]EmtvhevHCLIRZBEUITW1211-37-52 10:07:00 Test Item Value Reference Range Interpretation Comments Chloride Lvl (test code = Chloride Lvl) 99 95-109 [facility] HospitalRqqiazsGXIJNZRYPPRR1035-67-41 10:07:00 Test Item Value Reference Range Interpretation Comments Potassium Lvl (test code = Potassium 5.2 3.5-5.1 Lvl) [facility]DfqptvoSNBFDVLIPELC3183-32-07 10:07:00 Test Item Value Reference Range Interpretation Comments Alk Phos (test code = Alk Phos) 198 39-136 [facility] HospitalReoxzxaIVIIVNYVLXGP1162-33-27 10:07:00 Test Item Value Reference Range Interpretation Comments Bili Total (test code = Bili Total) 0.5 0.2-1.3 [facility]TgwlgfjYCUJSFXNMWHC0248-53-77 10:07:00 Test Item Value Reference Range Interpretation Comments AST (test code = AST) 36 See_Comment [Auto mated message] The system which ge nerated this result transmit craig reference range : <=37. The reference range was not used to interpr et this result as kita l/abnormal. [facility] HospitalDvxuohkMGBANUNBTV8589-19-90 10:07:00 Test Item Value Reference Range Interpretation Comments Platelet (test code = Platelet) 405 133-450 [facility] HospitalYgywddeQXROKHQRFM2571-99-91 10:07:00 Test Item Value Reference Range Interpretation Comments MCHC (test code = MCHC) 34.1 32.0-36.0 [facility] HospitalPnairtdZCBBGFRHAP7038-67-34 10:07:00 Test Item Value Reference Range Interpretation Comments RDW (test code = RDW) 13.1 11.5-14.5 [facility] HospitalUlgzxwtTCVYSYQNLX5631-82-49 10:07:00 Test Item Value Reference Range Interpretation Comments Hgb (test code = Hgb) 10.5 14.0-18.0 [facility] HospitalIbsywkvGQWFTGVYQJ0356-39-89 10:07:00 Test Item Value Reference Range Interpretation Comments Hct (test code = Hct) 30.9 42.0-54.0 [facility] HospitalIqkjzqgMBZMLHZQTG4324-42-24 10:07:00 Test Item Value Reference Range Interpretation Comments MCH (test code = MCH) 33.1 pg 27.0-31.0 [facility] HospitalVplxlyiWECLCHLIRE3021-35-08 10:07:00 Test Item Value Reference Range Interpretation Comments WBC (test code = WBC) 18.8 3.7-10.4 [facility] HospitalAafumlzDRTYJVZCAR0352-50-95 10:07:00 Test Item Value Reference Range Interpretation Comments RBC (test code = RBC) 3.19 4.70-6.10 [facility] HospitalLomojazPETKKSFWJY7044-22-89 10:07:00 Test Item Value Reference Range Interpretation Comments MCV (test code = MCV) 97.1 80.0-94.0 [facility] HospitalGoqohdcNGHFUYWNTK0035-88-05 10:07:00 Test Item Value Reference Range Interpretation Comments MPV (test code = MPV) 8.2 7.4-10.4 [facility] HospitalJqzhplnSLXTSUAUCS5340-96-08 10:07:00 Test Item Value Reference Range Interpretation Comments Eosinophils (test code = 0.8 See_Comment [A utomated message] The Eosinophils) system which ge nerated this result tra nsmitted reference range : <=4.0. The reference r sagrario was not used to int erpret this result as normal/abnormal . [facility] HospitalOxooonrFDGIFETETF3780-21-59 10:07:00 Test Item Value Reference Range Interpretation Comments Lymphocytes (test code = Lymphocytes) 42.0 20.0-40.0 [facility] HospitalFdygcanBPECGALAQI2526-83-15 10:07:00 Test Item Value Reference Range Interpretation Comments Segs (test code = Segs) 49.2 45.0-75.0 [facility] HospitalRymrhknQYTZMSXVNQ5110-70-25 10:07:00 Test Item Value Reference Range Interpretation Comments Monocytes (test code = Monocytes) 7.5 2.0-12.0 [facility] HospitalBohrfihKNLQOPUFCC4206-50-51 10:07:00 Test Item Value Reference Range Interpretation Comments Basophils # (test code 0.1 See_Comment [Aut omated message] The = Basophils #) system which generated this result tra nsmitted reference range : <=0.2. The reference r sagrario was not used to int erpret this result as normal/abnormal . [facility] HospitalWdyquhlXGYMCVIWFJ0747-55-27 10:07:00 Test Item Value Reference Range Interpretation Comments Monocytes # (test code 1.4 See_Comment [Aut omated message] The = Monocytes #) system which generated this result tra nsmitted reference range : <=0.8. The reference r sagrario was not used to int erpret this result as normal/abnormal . [facility] HospitalZtiyrbhPVIPFSYBPU0514-85-86 10:07:00 Test Item Value Reference Range Interpretation Comments Eosinophils # (test code 0.1 See_Comment [A utomated message] The = Eosinophils #) system whic h generated this result tra nsmitted reference range : <=0.5. The reference r sagrario was not used to int erpret this result as normal/abnormal . [facility] HospitalHhdpyzeFPQMYQVUTW1073-60-74 10:07:00 Test Item Value Reference Range Interpretation Comments Basophils (test code = 0.5 See_Comment [Aut omated message] The Basophils) system which ge nerated this result tra nsmitted reference range : <=1.0. The reference r sagrario was not used to int erpret this result as normal/abnormal . [facility] HospitalJaytrabCFHQSCBYXM7815-56-48 10:07:00 Test Item Value Reference Range Interpretation Comments Lymphocytes # (test code = Lymphocytes 7.9 1.0-5.5 #) [facility] HospitalKlkfeklHVSMLFTLWF1989-81-68 10:07:00 Test Item Value Reference Range Interpretation Comments Segs-Bands # (test code = Segs-Bands #) 9.3 1.5-8.1 [facility]HgexvovXBPXSYTKZWKE6442-19-36 10:07:00 Test Item Value Reference Range Interpretation Comments AGAP (test code = AGAP) 14.2 10.0-20.0 [facility]HhptxfiNFSSVPFTBLLT8131-16-62 10:07:00 Test Item Value Reference Range Interpretation Comments Globulin (test code = Globulin) 3.2 2.7-4.2 [facility]PaggkiyOYAWDOLNZOHZ8438-65-61 10:07:00 Test Item Value Reference Range Interpretation Comments A/G Ratio (test code = A/G Ratio) 1.0 0.7-1.6 [facility] HospitalLaevokyKKGKXBXFLRCS8081-06-76 10:07:00 Test Item Value Reference Range Interpretation Comments B/C Ratio (test code = B/C Ratio) 43 6-25 [facility]UpswbivXCFMFBSUBCYP4184-93-26 10:07:00 Test Item Value Reference Range Interpretation Comments CO2 (test code = CO2) 26 24-32 [facility]XtktncvWWRRWZDWFDMH9236-57-63 10:07:00 Test Item Value Reference Range Interpretation Comments Calcium Lvl (test code = Calcium Lvl) 9.6 8.5-10.5 [facility] HospitalVrjoxngHFMJHGDCJKAP6955-81-92 10:07:00 Test Item Value Reference Range Interpretation Comments Albumin Lvl (test code = Albumin Lvl) 3.2 3.5-5.0 [facility] HospitalKaigzdxKRYKAYMDIZLJ0524-22-91 10:07:00 Test Item Value Reference Range Interpretation Comments ALT (test code = ALT) 89 See_Comment [Auto mated message] The system which ge nerated this result transmit craig reference range : <=65. The reference range was not used to interpr et this result as kita l/abnormal. [facility] HospitalJlvrtnoZAQYZPVPDHEY0982-13-57 10:07:00 Test Item Value Reference Range Interpretation Comments Total Protein (test code = Total 6.4 6.4-8.4 Protein) [facility]FlykrxsWVVFKRANJZFE0956-37-23 10:07:00 Test Item Value Reference Range Interpretation Comments eGFR (test code = eGFR) 116 [facility]PmrmgjsARKYRGTVWUMP5462-78-77 10:07:00 Test Item Value Reference Range Interpretation Comments Creatinine Lvl (test code = Creatinine 0.44 0.50-1.40 Lvl) [facility]ClhvblhIOZGUZAZAMPW0418-42-60 10:07:00 Test Item Value Reference Range Interpretation Comments Glucose Lvl (test code = Glucose Lvl) 95 70-99 [facility]YggwmfoDVFMGMPYHGFO3794-35-48 10:07:00 Test Item Value Reference Range Interpretation Comments BUN (test code = BUN) 19 7-22 [facility]SfrappgLFMLIHDYMAGM3727-40-13 10:07:00 Test Item Value Reference Range Interpretation Comments Sodium Lvl (test code = Sodium Lvl) 134 135-145 [facility]KsbloadFPSTSKRXAECC9463-17-88 10:07:00 Test Item Value Reference Range Interpretation Comments Chloride Lvl (test code = Chloride Lvl) 99 95-109 [facility]DvtqqzaMJSTFGZMFGVM0844-11-33 10:07:00 Test Item Value Reference Range Interpretation Comments Potassium Lvl (test code = Potassium 5.2 3.5-5.1 Lvl) [facility]ZqeakobBKSGXUBMOGPF1929-28-42 10:07:00 Test Item Value Reference Range Interpretation Comments Alk Phos (test code = Alk Phos) 198 39-136 [facility]LqqrvzvVDXYHUTFYWSZ6718-09-53 10:07:00 Test Item Value Reference Range Interpretation Comments Bili Total (test code = Bili Total) 0.5 0.2-1.3 [facility]EhzugqkXNMIRPDQJBGU8187-44-80 10:07:00 Test Item Value Reference Range Interpretation Comments AST (test code = AST) 36 See_Comment [Auto mated message] The system which ge nerated this result transmit craig reference range : <=37. The reference range was not used to interpr et this result as kita l/abnormal. [facility]BxwrbcbBCAHSPKTBH3517-75-12 10:07:00 Test Item Value Reference Range Interpretation Comments Platelet (test code = Platelet) 405 133-450 [facility] HospitalAuztojvMYEOYLJHLA3622-78-37 10:07:00 Test Item Value Reference Range Interpretation Comments MCHC (test code = MCHC) 34.1 32.0-36.0 [facility] HospitalGdysvszPALVXTRVDF0843-55-02 10:07:00 Test Item Value Reference Range Interpretation Comments RDW (test code = RDW) 13.1 11.5-14.5 [facility] HospitalJlummiwVQZXMBGTDQ0712-30-53 10:07:00 Test Item Value Reference Range Interpretation Comments Hgb (test code = Hgb) 10.5 14.0-18.0 [facility] HospitalZsabmstYPDDCGLFWN1978-18-16 10:07:00 Test Item Value Reference Range Interpretation Comments Hct (test code = Hct) 30.9 42.0-54.0 [facility] HospitalAojvelhSFRPVPTWZT0487-51-16 10:07:00 Test Item Value Reference Range Interpretation Comments MCH (test code = MCH) 33.1 pg 27.0-31.0 [facility] HospitalJspuwauLKIQLITUQN7324-55-55 10:07:00 Test Item Value Reference Range Interpretation Comments WBC (test code = WBC) 18.8 3.7-10.4 [facility] HospitalHekyxgzTNIAQLBQAK6768-59-69 10:07:00 Test Item Value Reference Range Interpretation Comments RBC (test code = RBC) 3.19 4.70-6.10 [facility] HospitalJotsadmSAIXHQQLKC7886-60-24 10:07:00 Test Item Value Reference Range Interpretation Comments MCV (test code = MCV) 97.1 80.0-94.0 [facility] HospitalByjkawyKQOMOILDPU5825-10-45 10:07:00 Test Item Value Reference Range Interpretation Comments MPV (test code = MPV) 8.2 7.4-10.4 [facility] HospitalNqsixcqQULNPUMEWW7417-23-55 10:07:00 Test Item Value Reference Range Interpretation Comments Eosinophils (test code = 0.8 See_Comment [A utomated message] The Eosinophils) system which ge nerated this result tra nsmitted reference range : <=4.0. The reference r sagrario was not used to int erpret this result as normal/abnormal . [facility] HospitalCdlknwgJYJFHUVEOO4807-72-03 10:07:00 Test Item Value Reference Range Interpretation Comments Lymphocytes (test code = Lymphocytes) 42.0 20.0-40.0 [facility] HospitalFnvxjmaWDGLPLFDWG9394-66-00 10:07:00 Test Item Value Reference Range Interpretation Comments Segs (test code = Segs) 49.2 45.0-75.0 [facility] HospitalVfdckecWVDHXDVJYC9526-28-25 10:07:00 Test Item Value Reference Range Interpretation Comments Monocytes (test code = Monocytes) 7.5 2.0-12.0 [facility] HospitalQmecmbuQBANCHIBQQ5599-63-29 10:07:00 Test Item Value Reference Range Interpretation Comments Basophils # (test code 0.1 See_Comment [Aut omated message] The = Basophils #) system which generated this result tra nsmitted reference range : <=0.2. The reference r sagrario was not used to int erpret this result as normal/abnormal . [facility] HospitalVnajyowKILKNITNUM0988-82-62 10:07:00 Test Item Value Reference Range Interpretation Comments Monocytes # (test code 1.4 See_Comment [Aut omated message] The = Monocytes #) system which generated this result tra nsmitted reference range : <=0.8. The reference r sagrario was not used to int erpret this result as normal/abnormal . [facility] HospitalCtwnwbvTWAUGULFJE7596-40-61 10:07:00 Test Item Value Reference Range Interpretation Comments Eosinophils # (test code 0.1 See_Comment [A utomated message] The = Eosinophils #) system whic h generated this result tra nsmitted reference range : <=0.5. The reference r sagrario was not used to int erpret this result as normal/abnormal . [facility] HospitalDddqzddYTIBUFNNLI6850-63-74 10:07:00 Test Item Value Reference Range Interpretation Comments Basophils (test code = 0.5 See_Comment [Aut omated message] The Basophils) system which ge nerated this result tra nsmitted reference range : <=1.0. The reference r sagrario was not used to int erpret this result as normal/abnormal . [facility] HospitalDlndnosXOWOCTLWQN0738-00-36 10:07:00 Test Item Value Reference Range Interpretation Comments Lymphocytes # (test code = Lymphocytes 7.9 1.0-5.5 #) [facility] HospitalToosqtfRZAPAUUMSV6600-30-30 10:07:00 Test Item Value Reference Range Interpretation Comments Segs-Bands # (test code = Segs-Bands #) 9.3 1.5-8.1 [facility]EggvaexBRECAYDQHLEV0200-17-56 10:07:00 Test Item Value Reference Range Interpretation Comments AGAP (test code = AGAP) 14.2 10.0-20.0 [facility]DidhdczRDPUJZWIZHCS2806-12-68 10:07:00 Test Item Value Reference Range Interpretation Comments Globulin (test code = Globulin) 3.2 2.7-4.2 [facility]PokvzumLRSLIDHQHJUJ5018-55-65 10:07:00 Test Item Value Reference Range Interpretation Comments A/G Ratio (test code = A/G Ratio) 1.0 0.7-1.6 [facility]JgvtounMGIQZCKHHIYY2839-82-59 10:07:00 Test Item Value Reference Range Interpretation Comments B/C Ratio (test code = B/C Ratio) 43 6-25 [facility]RejmkqyEEJGVQVMBGLX1473-87-07 10:07:00 Test Item Value Reference Range Interpretation Comments CO2 (test code = CO2) 26 24-32 [facility]SyqjwaoPWPKJVRKEESE7335-94-29 09:52:00 Test Item Value Reference Range Interpretation Comments AGAP (test code = AGAP) 12.7 10.0-20.0 [facility]KkjggkoPRNHWJSKOYTC7568-22-10 09:52:00 Test Item Value Reference Range Interpretation Comments Calcium Lvl (test code = Calcium Lvl) 9.3 8.5-10.5 [facility]GxinmuqJELTFDGPETZC4073-76-41 09:52:00 Test Item Value Reference Range Interpretation Comments eGFR (test code = eGFR) 96 [facility]FnnybxnYEPVLQWAKYBC1782-89-24 09:52:00 Test Item Value Reference Range Interpretation Comments Creatinine Lvl (test code = Creatinine 0.71 0.50-1.40 Lvl) [facility]LvxzkiqOLLRNSXEFMHT7768-40-82 09:52:00 Test Item Value Reference Range Interpretation Comments BUN (test code = BUN) 23 7-22 [facility]ChbrjoyOGTQTEJISBVC9349-18-76 09:52:00 Test Item Value Reference Range Interpretation Comments Glucose Lvl (test code = Glucose Lvl) 110 70-99 [facility]FxjpewvONIVTAULNQKL6559-61-65 09:52:00 Test Item Value Reference Range Interpretation Comments CO2 (test code = CO2) 27 24-32 [facility]SjwhaacPWHMXQXYCPAF7276-04-69 09:52:00 Test Item Value Reference Range Interpretation Comments Chloride Lvl (test code = Chloride Lvl) 100 95-109 [facility]WdmhgktRIDKDXJEYFGO0580-25-10 09:52:00 Test Item Value Reference Range Interpretation Comments Potassium Lvl (test code = Potassium 4.7 3.5-5.1 Lvl) [facility]LpnvqeeQCHNIBOEDEPL2184-80-62 09:52:00 Test Item Value Reference Range Interpretation Comments Sodium Lvl (test code = Sodium Lvl) 135 135-145 [facility]YwewwxwMYTILQJSUBMB1938-99-57 09:52:00 Test Item Value Reference Range Interpretation Comments AGAP (test code = AGAP) 12.7 10.0-20.0 [facility]IaeyhzjOTHAREYSHPHV6581-92-17 09:52:00 Test Item Value Reference Range Interpretation Comments Calcium Lvl (test code = Calcium Lvl) 9.3 8.5-10.5 [facility]CmkjwrmFOKCSORWERPZ0399-90-14 09:52:00 Test Item Value Reference Range Interpretation Comments eGFR (test code = eGFR) 96 [facility] HospitalRtylxiwVFRNXWTBLSFQ8559-86-56 09:52:00 Test Item Value Reference Range Interpretation Comments Creatinine Lvl (test code = Creatinine 0.71 0.50-1.40 Lvl) [facility]ZimejeyCKXMGXZZTBYE6616-30-23 09:52:00 Test Item Value Reference Range Interpretation Comments BUN (test code = BUN) 23 - [facility]NbnoddiJAQYVOCKIXUJ4429-06-54 09:52:00 Test Item Value Reference Range Interpretation Comments Glucose Lvl (test code = Glucose Lvl) 110 70-99 [facility]MsmucpbGZZBZDBJLSPL5988-02-57 09:52:00 Test Item Value Reference Range Interpretation Comments CO2 (test code = CO2) - [facility] HospitalBylstidJHIRKYEDVCHE2164-67-58 09:52:00 Test Item Value Reference Range Interpretation Comments Chloride Lvl (test code = Chloride Lvl) 100 95-109 [facility]AfqdvolVZVKJOBFMHYN7513-42-85 09:52:00 Test Item Value Reference Range Interpretation Comments Potassium Lvl (test code = Potassium 4.7 3.5-5.1 Lvl) [facility]MdggohkUUQAOJEYVTEW5025-74-95 09:52:00 Test Item Value Reference Range Interpretation Comments Sodium Lvl (test code = Sodium Lvl) 135 135-145 [facility]2016-08-30 07:47:00 Test Item Value Reference Range Interpretation Comments eGFR (test code = eGFR) 97 [facility]2016-08-30 07:47:00 Test Item Value Reference Range Interpretation Comments CO2 (test code = CO2) - [facility]2016-08-30 07:47:00 Test Item Value Reference Range Interpretation Comments Calcium Lvl (test code = Calcium Lvl) 9.2 8.5-10.5 [facility]2016-08-30 07:47:00 Test Item Value Reference Range Interpretation Comments BUN (test code = BUN) 20 - [facility]2016-08-30 07:47:00 Test Item Value Reference Range Interpretation Comments Potassium Lvl (test code = Potassium 4.1 3.5-5.1 Lvl) [facility]2016-08-30 07:47:00 Test Item Value Reference Range Interpretation Comments Chloride Lvl (test code = Chloride Lvl) 102 95-109 [facility]2016-08-30 07:47:00 Test Item Value Reference Range Interpretation Comments Creatinine Lvl (test code = Creatinine 0.70 0.50-1.40 Lvl) [facility]2016-08-30 07:47:00 Test Item Value Reference Range Interpretation Comments Sodium Lvl (test code = Sodium Lvl) 139 135-145 [facility]2016-08-30 07:47:00 Test Item Value Reference Range Interpretation Comments Glucose Lvl (test code = Glucose Lvl) 98 70-99 [facility]2016-08-30 07:47:00 Test Item Value Reference Range Interpretation Comments AGAP (test code = AGAP) 15.1 10.0-20.0 [facility]ZugqxjnOKGCYRRMOG5778-44-58 07:47:00 Test Item Value Reference Range Interpretation Comments Segs (test code = Segs) 57.3 45.0-75.0 [facility] HospitalPtpslqcWXJFPAXLWV0785-54-55 07:47:00 Test Item Value Reference Range Interpretation Comments Lymphocytes # (test code = Lymphocytes 4.7 1.0-5.5 #) [facility] HospitalYhuofwqNFECKVAENL7797-84-62 07:47:00 Test Item Value Reference Range Interpretation Comments Segs-Bands # (test code = Segs-Bands #) 8.0 1.5-8.1 [facility] HospitalAeqdciiUYFQGRIDSB3466-66-67 07:47:00 Test Item Value Reference Range Interpretation Comments Eosinophils # (test code 0.2 See_Comment [A utomated message] The = Eosinophils #) system whic h generated this result tra nsmitted reference range : <=0.5. The reference r sagrario was not used to int erpret this result as normal/abnormal . [facility] HospitalIrvawyqUTAIHMEJIJ9329-13-50 07:47:00 Test Item Value Reference Range Interpretation Comments Monocytes # (test code 0.9 See_Comment [Aut omated message] The = Monocytes #) system which generated this result tra nsmitted reference range : <=0.8. The reference r sagrario was not used to int erpret this result as normal/abnormal . [facility] HospitalXphbxcyWDCWRTBSFW5908-57-22 07:47:00 Test Item Value Reference Range Interpretation Comments Eosinophils (test code = 1.8 See_Comment [A utomated message] The Eosinophils) system which ge nerated this result tra nsmitted reference range : <=4.0. The reference r sagrario was not used to int erpret this result as normal/abnormal . [facility] HospitalTkbsqvtDVJHVBQCDH8004-96-75 07:47:00 Test Item Value Reference Range Interpretation Comments Basophils (test code = 0.3 See_Comment [Aut omated message] The Basophils) system which ge nerated this result tra nsmitted reference range : <=1.0. The reference r sagrario was not used to int erpret this result as normal/abnormal . [facility] HospitalQmbtxofRUFTGQIFTX5575-63-08 07:47:00 Test Item Value Reference Range Interpretation Comments Monocytes (test code = Monocytes) 6.8 2.0-12.0 [facility] HospitalJxoxhmxHKUISVTQTU2331-07-85 07:47:00 Test Item Value Reference Range Interpretation Comments Lymphocytes (test code = Lymphocytes) 33.8 20.0-40.0 [facility] HospitalNlquwycRUQEDNVTJE6314-48-34 07:47:00 Test Item Value Reference Range Interpretation Comments Hgb (test code = Hgb) 10.6 14.0-18.0 [facility] HospitalPsjykpzSSOJQQUQKX8013-57-22 07:47:00 Test Item Value Reference Range Interpretation Comments MCHC (test code = MCHC) 33.6 32.0-36.0 [facility] HospitalTbxbskjGTZMCKGIKT4421-65-25 07:47:00 Test Item Value Reference Range Interpretation Comments MCH (test code = MCH) 32.8 pg 27.0-31.0 [facility] HospitalDghbjnoQFTNCDLTZJ7145-11-66 07:47:00 Test Item Value Reference Range Interpretation Comments WBC (test code = WBC) 13.9 3.7-10.4 [facility] HospitalZtriestFTGRJNJDIB7490-51-51 07:47:00 Test Item Value Reference Range Interpretation Comments RBC (test code = RBC) 3.23 4.70-6.10 [facility] HospitalSxhbrzhKSCDOHEXLH5998-33-23 07:47:00 Test Item Value Reference Range Interpretation Comments MPV (test code = MPV) 9.0 7.4-10.4 [facility] HospitalGvmlaqqPTXVGNASYF6639-44-83 07:47:00 Test Item Value Reference Range Interpretation Comments RDW (test code = RDW) 12.9 11.5-14.5 [facility] HospitalBidazwhRCPYEURZED2250-35-53 07:47:00 Test Item Value Reference Range Interpretation Comments Platelet (test code = Platelet) 291 133-450 [facility] HospitalUnwoiuhYMBURDDKZO6578-55-79 07:47:00 Test Item Value Reference Range Interpretation Comments MCV (test code = MCV) 97.7 80.0-94.0 [facility] HospitalZvqgzsyMUYWEIWXQD0014-03-15 07:47:00 Test Item Value Reference Range Interpretation Comments Hct (test code = Hct) 31.5 42.0-54.0 [facility]2016-08-30 07:47:00 Test Item Value Reference Range Interpretation Comments eGFR (test code = eGFR) 97 [facility]2016-08-30 07:47:00 Test Item Value Reference Range Interpretation Comments CO2 (test code = CO2) 26 24-32 [facility]2016-08-30 07:47:00 Test Item Value Reference Range Interpretation Comments Calcium Lvl (test code = Calcium Lvl) 9.2 8.5-10.5 [facility]2016-08-30 07:47:00 Test Item Value Reference Range Interpretation Comments BUN (test code = BUN) 20 7-22 [facility]2016-08-30 07:47:00 Test Item Value Reference Range Interpretation Comments Potassium Lvl (test code = Potassium 4.1 3.5-5.1 Lvl) [facility]2016-08-30 07:47:00 Test Item Value Reference Range Interpretation Comments Chloride Lvl (test code = Chloride Lvl) 102 95-109 [facility]2016-08-30 07:47:00 Test Item Value Reference Range Interpretation Comments Creatinine Lvl (test code = Creatinine 0.70 0.50-1.40 Lvl) [facility]2016-08-30 07:47:00 Test Item Value Reference Range Interpretation Comments Sodium Lvl (test code = Sodium Lvl) 139 135-145 [facility]2016-08-30 07:47:00 Test Item Value Reference Range Interpretation Comments Glucose Lvl (test code = Glucose Lvl) 98 70-99 [facility]2016-08-30 07:47:00 Test Item Value Reference Range Interpretation Comments AGAP (test code = AGAP) 15.1 10.0-20.0 [facility] HospitalGiyffexSDPKHCHVMJ7598-76-17 07:47:00 Test Item Value Reference Range Interpretation Comments Segs (test code = Segs) 57.3 45.0-75.0 [facility] HospitalKkvdckpJZSFCBKGEC8037-82-75 07:47:00 Test Item Value Reference Range Interpretation Comments Lymphocytes # (test code = Lymphocytes 4.7 1.0-5.5 #) [facility] HospitalBepbblhHRUNAFKIUE2135-79-58 07:47:00 Test Item Value Reference Range Interpretation Comments Segs-Bands # (test code = Segs-Bands #) 8.0 1.5-8.1 [facility] HospitalXkugqgzLUSDDWKMWA0532-94-13 07:47:00 Test Item Value Reference Range Interpretation Comments Eosinophils # (test code 0.2 See_Comment [A utomated message] The = Eosinophils #) system wh h generated this result tra nsmitted reference range : <=0.5. The reference r sagrario was not used to int erpret this result as normal/abnormal . [facility] HospitalIbcvataURCKGJSXTP2583-81-79 07:47:00 Test Item Value Reference Range Interpretation Comments Monocytes # (test code 0.9 See_Comment [Aut omated message] The = Monocytes #) system which generated this result tra nsmitted reference range : <=0.8. The reference r sagrario was not used to int erpret this result as normal/abnormal . [facility] HospitalXzuvrgvDZSWAUPTSV0787-76-18 07:47:00 Test Item Value Reference Range Interpretation Comments Eosinophils (test code = 1.8 See_Comment [A utomated message] The Eosinophils) system which ge nerated this result tra nsmitted reference range : <=4.0. The reference r sagrario was not used to int erpret this result as normal/abnormal . [facility] HospitalAvlldtcCGEIIJATUE4910-19-83 07:47:00 Test Item Value Reference Range Interpretation Comments Basophils (test code = 0.3 See_Comment [Aut omated message] The Basophils) system which ge nerated this result tra nsmitted reference range : <=1.0. The reference r sagrario was not used to int erpret this result as normal/abnormal . [facility] HospitalQzvyqczCQQICSBJDZ1489-74-25 07:47:00 Test Item Value Reference Range Interpretation Comments Monocytes (test code = Monocytes) 6.8 2.0-12.0 [facility]FeorgydGNNNXFZXGZ6958-43-14 07:47:00 Test Item Value Reference Range Interpretation Comments Lymphocytes (test code = Lymphocytes) 33.8 20.0-40.0 [facility] HospitalAbaqmzpUJBZKKMUHN4769-59-31 07:47:00 Test Item Value Reference Range Interpretation Comments Hgb (test code = Hgb) 10.6 14.0-18.0 [facility] HospitalNnfhdutPPSQWYABNM9154-30-69 07:47:00 Test Item Value Reference Range Interpretation Comments MCHC (test code = MCHC) 33.6 32.0-36.0 [facility]XccupmsXSNGQRUZGD8683-83-83 07:47:00 Test Item Value Reference Range Interpretation Comments MCH (test code = MCH) 32.8 pg 27.0-31.0 [facility] HospitalHrfwrfbYZWIHRJCGW3061-45-15 07:47:00 Test Item Value Reference Range Interpretation Comments WBC (test code = WBC) 13.9 3.7-10.4 [facility] HospitalQpwbtqfGGCXRKNJQN2941-95-75 07:47:00 Test Item Value Reference Range Interpretation Comments RBC (test code = RBC) 3.23 4.70-6.10 [facility] HospitalNamxikoWEYFSQNKDB4814-65-14 07:47:00 Test Item Value Reference Range Interpretation Comments MPV (test code = MPV) 9.0 7.4-10.4 [facility] HospitalWrgasmyUHJRMPSYDE8868-70-17 07:47:00 Test Item Value Reference Range Interpretation Comments RDW (test code = RDW) 12.9 11.5-14.5 [facility] HospitalSjxdhqdPSSYQWVJPO9766-53-06 07:47:00 Test Item Value Reference Range Interpretation Comments Platelet (test code = Platelet) 291 133-450 [facility] HospitalAmqgsaiBHCJQBRLJA6405-29-11 07:47:00 Test Item Value Reference Range Interpretation Comments MCV (test code = MCV) 97.7 80.0-94.0 [facility] HospitalEgykuhpQLBZDTGTRK5221-19-56 07:47:00 Test Item Value Reference Range Interpretation Comments Hct (test code = Hct) 31.5 42.0-54.0 [facility] OOSLJXVYMS5784-50-77 22:06:00 Test Item Value Reference Range Interpretation Comments C difficile DNA (test Negative (01/09/16 5:06 code = C difficile DNA) PM) [facility] RNDTYPWESX0471-14-17 22:06:00 Test Item Value Reference Range Interpretation Comments C difficile DNA (test Negative (01/09/16 5:06 code = C difficile DNA) PM) [facility] HospitalBkyqxyySMQEONGFDP2723-64-93 09:37:00 Test Item Value Reference Range Interpretation Comments WBC (test code = WBC) 13.0 3.7-10.4 [facility] HospitalZjpmrtrTKSJZHKZZV4699-24-86 09:37:00 Test Item Value Reference Range Interpretation Comments Hgb (test code = Hgb) 10.0 14.0-18.0 [facility] HospitalSzpxanzKVBVYFBGJT2399-54-25 09:37:00 Test Item Value Reference Range Interpretation Comments RBC (test code = RBC) 3.01 4.70-6.10 [facility] HospitalOdxzahmHMLOSOWDEN1817-40-04 09:37:00 Test Item Value Reference Range Interpretation Comments MCH (test code = MCH) 33.2 pg 27.0-31.0 [facility] HospitalExlsaoxWMWHNKKLDN4729-57-18 09:37:00 Test Item Value Reference Range Interpretation Comments Hct (test code = Hct) 29.7 42.0-54.0 [facility] HospitalRvksmeoOXAOOLXEID2401-18-20 09:37:00 Test Item Value Reference Range Interpretation Comments MCV (test code = MCV) 98.7 80.0-94.0 [facility] HospitalZhpruxlWDQNPFBRKI1777-28-45 09:37:00 Test Item Value Reference Range Interpretation Comments RDW (test code = RDW) 12.5 11.5-14.5 [facility] HospitalCoxadgrFEMGZEQJDT9222-87-42 09:37:00 Test Item Value Reference Range Interpretation Comments MCHC (test code = MCHC) 33.6 32.0-36.0 [facility] HospitalAvkbfhfHLQXFTCBVO4088-84-68 09:37:00 Test Item Value Reference Range Interpretation Comments Platelet (test code = Platelet) 314 133-450 [facility] HospitalXbfannvKMAALLZMRW4199-94-32 09:37:00 Test Item Value Reference Range Interpretation Comments MPV (test code = MPV) 8.7 7.4-10.4 [facility] HospitalRawjhadAPYQALJVDD0979-49-72 09:37:00 Test Item Value Reference Range Interpretation Comments Segs (test code = Segs) 55.4 45.0-75.0 [facility] HospitalIpqculjQMDDTBWZHY9175-17-88 09:37:00 Test Item Value Reference Range Interpretation Comments Monocytes (test code = Monocytes) 6.4 2.0-12.0 [facility] HospitalVnjiwfvWHKWHYVEVK3535-18-81 09:37:00 Test Item Value Reference Range Interpretation Comments Lymphocytes (test code = Lymphocytes) 36.1 20.0-40.0 [facility] HospitalKdmceqiEKRIVUHOPS9200-25-86 09:37:00 Test Item Value Reference Range Interpretation Comments Eosinophils (test code = 1.8 See_Comment [A utomated message] The Eosinophils) system which ge nerated this result tra nsmitted reference range : <=4.0. The reference r sagrario was not used to int erpret this result as normal/abnormal . [facility] HospitalVgjhrjfGIIINYOZTR7440-57-04 09:37:00 Test Item Value Reference Range Interpretation Comments Basophils (test code = 0.3 See_Comment [Aut omated message] The Basophils) system which ge nerated this result tra nsmitted reference range : <=1.0. The reference r sagrario was not used to int erpret this result as normal/abnormal . [facility]JplfdvzIFSYQVBCLX6820-02-72 09:37:00 Test Item Value Reference Range Interpretation Comments Segs-Bands # (test code = Segs-Bands #) 7.2 1.5-8.1 [facility] HospitalRqheycpROANLWAESV6011-78-62 09:37:00 Test Item Value Reference Range Interpretation Comments Lymphocytes # (test code = Lymphocytes 4.7 1.0-5.5 #) [facility]LgrkbrqWCXCKQXZOG0753-47-16 09:37:00 Test Item Value Reference Range Interpretation Comments Monocytes # (test code 0.8 See_Comment [Aut omated message] The = Monocytes #) system which generated this result tra nsmitted reference range : <=0.8. The reference r sagrario was not used to int erpret this result as normal/abnormal . [facility] HospitalWmtnkdzJPQRYKRBKU4897-28-02 09:37:00 Test Item Value Reference Range Interpretation Comments Eosinophils # (test code 0.2 See_Comment [A utomated message] The = Eosinophils #) system whic h generated this result tra nsmitted reference range : <=0.5. The reference r sagrario was not used to int erpret this result as normal/abnormal . [facility] HospitalFefznwnVQKHWRHFRE8917-00-70 09:37:00 Test Item Value Reference Range Interpretation Comments WBC (test code = WBC) 13.0 3.7-10.4 [facility] HospitalFasjeoyCVABXFWXHW7868-64-45 09:37:00 Test Item Value Reference Range Interpretation Comments Hgb (test code = Hgb) 10.0 14.0-18.0 [facility] HospitalVykwdfzSFLLPXCHVA5898-22-33 09:37:00 Test Item Value Reference Range Interpretation Comments RBC (test code = RBC) 3.01 4.70-6.10 [facility] HospitalPufevmwEBLSSCRMKL1850-00-17 09:37:00 Test Item Value Reference Range Interpretation Comments MCH (test code = MCH) 33.2 pg 27.0-31.0 [facility] HospitalGauvjkiJJNZPOREQD6590-02-84 09:37:00 Test Item Value Reference Range Interpretation Comments Hct (test code = Hct) 29.7 42.0-54.0 [facility] HospitalKurkzxeRAFDVMMMFM7517-79-21 09:37:00 Test Item Value Reference Range Interpretation Comments MCV (test code = MCV) 98.7 80.0-94.0 [facility] HospitalEwrhyshUTOLMINCEP3332-37-59 09:37:00 Test Item Value Reference Range Interpretation Comments RDW (test code = RDW) 12.5 11.5-14.5 [facility] HospitalBnwcwqvKIWYQRYIBO8865-41-45 09:37:00 Test Item Value Reference Range Interpretation Comments MCHC (test code = MCHC) 33.6 32.0-36.0 [facility] HospitalDfowsgnVKIIALAILT2854-64-45 09:37:00 Test Item Value Reference Range Interpretation Comments Platelet (test code = Platelet) 314 133-450 [facility] HospitalGououevEYDSWRZDVP5143-81-78 09:37:00 Test Item Value Reference Range Interpretation Comments MPV (test code = MPV) 8.7 7.4-10.4 [facility] HospitalRwxourpMMOFSBOKOD6060-62-18 09:37:00 Test Item Value Reference Range Interpretation Comments Segs (test code = Segs) 55.4 45.0-75.0 [facility] HospitalQzdkkvdVBHNZIXLYG8042-33-21 09:37:00 Test Item Value Reference Range Interpretation Comments Monocytes (test code = Monocytes) 6.4 2.0-12.0 [facility] HospitalQvmbbccYJLUFQUAYK8811-54-69 09:37:00 Test Item Value Reference Range Interpretation Comments Lymphocytes (test code = Lymphocytes) 36.1 20.0-40.0 [facility] HospitalFtvjfjhBHOVIEGLWC8772-00-84 09:37:00 Test Item Value Reference Range Interpretation Comments Eosinophils (test code = 1.8 See_Comment [A utomated message] The Eosinophils) system which ge nerated this result tra nsmitted reference range : <=4.0. The reference r sagrario was not used to int erpret this result as normal/abnormal . [facility] HospitalKrnrqsyAHNQWGWVKY0569-88-26 09:37:00 Test Item Value Reference Range Interpretation Comments Basophils (test code = 0.3 See_Comment [Aut omated message] The Basophils) system which ge nerated this result tra nsmitted reference range : <=1.0. The reference r sagrario was not used to int erpret this result as normal/abnormal . [facility] HospitalVskfkqaRUKPESBJCX6079-64-88 09:37:00 Test Item Value Reference Range Interpretation Comments Segs-Bands # (test code = Segs-Bands #) 7.2 1.5-8.1 [facility] HospitalRgczlosBMPEUDIWZC9913-29-17 09:37:00 Test Item Value Reference Range Interpretation Comments Lymphocytes # (test code = Lymphocytes 4.7 1.0-5.5 #) [facility] HospitalBehxlcxHAKJSCGRIO3891-67-53 09:37:00 Test Item Value Reference Range Interpretation Comments Monocytes # (test code 0.8 See_Comment [Aut omated message] The = Monocytes #) system which generated this result tra nsmitted reference range : <=0.8. The reference r sagrario was not used to int erpret this result as normal/abnormal . [facility] HospitalRemarqgPGWZKLUIDX3595-01-46 09:37:00 Test Item Value Reference Range Interpretation Comments Eosinophils # (test code 0.2 See_Comment [A utomated message] The = Eosinophils #) system whic h generated this result tra nsmitted reference range : <=0.5. The reference r sagrario was not used to int erpret this result as normal/abnormal . [facility] YKPPDWT3540[facility] 09:54:00 Test Item Value Reference Range Interpretation Comments BNP (test code = BNP) 28 [facility]ObcudjmEMAJMYGOVTWR4894-84-49 09:54:00 Test Item Value Reference Range Interpretation Comments Potassium Lvl (test code = Potassium 4.8 3.5-5.1 Lvl) [facility]shwqynDVHWVXSOCQOZ5064-18-47 09:54:00 Test Item Value Reference Range Interpretation Comments Sodium Lvl (test code = Sodium Lvl) 143 135-145 [facility]OdvxjtuWGCHICTGUJIR3838-85-41 09:54:00 Test Item Value Reference Range Interpretation Comments BUN (test code = BUN) 25 7-22 [facility]YsbbtxuILTNAUOFJGEQ8793-84-00 09:54:00 Test Item Value Reference Range Interpretation Comments Glucose Lvl (test code = Glucose Lvl) 95 70-99 [facility]VgrmqvsQRLWEEWCSISK7712-31-43 09:54:00 Test Item Value Reference Range Interpretation Comments Creatinine Lvl (test code = Creatinine 0.60 0.50-1.40 Lvl) [facility]FykbdyuNFYXATMMUEBK8411-91-47 09:54:00 Test Item Value Reference Range Interpretation Comments eGFR (test code = eGFR) 103 [facility]HsjbuoqKYVSJQHZPWAI8791-68-55 09:54:00 Test Item Value Reference Range Interpretation Comments Chloride Lvl (test code = Chloride Lvl) 107 95-109 [facility]RrecxpzIOURCDNAWMYS9597-97-34 09:54:00 Test Item Value Reference Range Interpretation Comments Calcium Lvl (test code = Calcium Lvl) 9.4 8.5-10.5 [facility]DzpkicoDMESEKVCUHOD8737-87-49 09:54:00 Test Item Value Reference Range Interpretation Comments CO2 (test code = CO2) 30 24-32 [facility]SwnvpfeGABFWHSWWWPQ4135-14-00 09:54:00 Test Item Value Reference Range Interpretation Comments AGAP (test code = AGAP) 10.8 10.0-20.0 [facility] HospitalCxtkvifQMVFADUDZC1622-64-57 09:54:00 Test Item Value Reference Range Interpretation Comments WBC (test code = WBC) 13.2 3.7-10.4 [facility] HospitalFfrirawNRWEQYYNNL1689-96-30 09:54:00 Test Item Value Reference Range Interpretation Comments Hct (test code = Hct) 31.0 42.0-54.0 [facility] HospitalPgwvsosECZLFPSIZD5856-36-58 09:54:00 Test Item Value Reference Range Interpretation Comments Hgb (test code = Hgb) 10.3 14.0-18.0 [facility] HospitalOmjlpftYIXDMRRPEQ6225-07-29 09:54:00 Test Item Value Reference Range Interpretation Comments RBC (test code = RBC) 3.11 4.70-6.10 [facility] HospitalOftmimnCFQNXGMVBF3202-40-71 09:54:00 Test Item Value Reference Range Interpretation Comments MCV (test code = MCV) 99.7 80.0-94.0 [facility] HospitalAodfxkoWVWUOOBCKY8100-17-98 09:54:00 Test Item Value Reference Range Interpretation Comments MCH (test code = MCH) 33.0 pg 27.0-31.0 [facility] HospitalDblqbteUSYTFZFBNI6661-56-17 09:54:00 Test Item Value Reference Range Interpretation Comments Platelet (test code = Platelet) 312 133-450 [facility] HospitalGaebisnZLFIZAHXEA2894-60-74 09:54:00 Test Item Value Reference Range Interpretation Comments RDW (test code = RDW) 12.9 11.5-14.5 [facility] HospitalZlexjssRBRPITJGPZ2116-15-28 09:54:00 Test Item Value Reference Range Interpretation Comments MCHC (test code = MCHC) 33.1 32.0-36.0 [facility] HospitalAkotbkqFKZRFKSQKM3346-95-36 09:54:00 Test Item Value Reference Range Interpretation Comments MPV (test code = MPV) 8.4 7.4-10.4 [facility] HospitalOjlvaxzHDBNKWFZRV6956-14-55 09:54:00 Test Item Value Reference Range Interpretation Comments Eosinophils # (test code 0.2 See_Comment [A utomated message] The = Eosinophils #) system whic h generated this result tra nsmitted reference range : <=0.5. The reference r sagrario was not used to int erpret this result as normal/abnormal . [facility] HospitalAzpakcyFMZKOQCSTU4915-55-32 09:54:00 Test Item Value Reference Range Interpretation Comments Monocytes # (test code 0.7 See_Comment [Aut omated message] The = Monocytes #) system which generated this result tra nsmitted reference range : <=0.8. The reference r sagrario was not used to int erpret this result as normal/abnormal . [facility] HospitalSpbwbdvGYTHBQQQYA1466-57-56 09:54:00 Test Item Value Reference Range Interpretation Comments Lymphocytes # (test code = Lymphocytes 5.3 1.0-5.5 #) [facility] HospitalRtbhxbvJYEWNHYLBV2057-00-00 09:54:00 Test Item Value Reference Range Interpretation Comments Basophils # (test code 0.1 See_Comment [Aut omated message] The = Basophils #) system which generated this result tra nsmitted reference range : <=0.2. The reference r sagrario was not used to int erpret this result as normal/abnormal . [facility] HospitalCmvvlcuQBSBXNPCJK0710-81-16 09:54:00 Test Item Value Reference Range Interpretation Comments Segs (test code = Segs) 52.4 45.0-75.0 [facility]AgkduxbRPSEDMSJMM6269-38-36 09:54:00 Test Item Value Reference Range Interpretation Comments Monocytes (test code = Monocytes) 5.3 2.0-12.0 [facility] HospitalYlzjpkkEXCVMXBCZW6460-72-70 09:54:00 Test Item Value Reference Range Interpretation Comments Segs-Bands # (test code = Segs-Bands #) 6.9 1.5-8.1 [facility] HospitalOaiefwhEFYGNPSXAV3404-95-37 09:54:00 Test Item Value Reference Range Interpretation Comments Basophils (test code = 0.4 See_Comment [Aut omated message] The Basophils) system which ge nerated this result tra nsmitted reference range : <=1.0. The reference r sagrario was not used to int erpret this result as normal/abnormal . [facility] HospitalNfhcdprZEHFDIKUKQ7488-71-90 09:54:00 Test Item Value Reference Range Interpretation Comments Eosinophils (test code = 1.9 See_Comment [A utomated message] The Eosinophils) system which ge nerated this result tra nsmitted reference range : <=4.0. The reference r sagrario was not used to int erpret this result as normal/abnormal . [facility] HospitalNdziyeaQIAUIIJUZT1021-78-89 09:54:00 Test Item Value Reference Range Interpretation Comments Lymphocytes (test code = Lymphocytes) 40.0 20.0-40.0 [facility] XYHCCGR8023-33-02 09:54:00 Test Item Value Reference Range Interpretation Comments BNP (test code = BNP) 28 [facility]TfmtbxwZUDBTFOVHSLC7322-36-00 09:54:00 Test Item Value Reference Range Interpretation Comments Potassium Lvl (test code = Potassium 4.8 3.5-5.1 Lvl) [facility]QfhazbwXJLGHDLPTABC7215-03-79 09:54:00 Test Item Value Reference Range Interpretation Comments Sodium Lvl (test code = Sodium Lvl) 143 135-145 [facility]TerizoaMYMDKLXMBRNN5104-35-99 09:54:00 Test Item Value Reference Range Interpretation Comments BUN (test code = BUN) 25 7-22 [facility]BrzntgmZJROOVQBNTDK6147-43-77 09:54:00 Test Item Value Reference Range Interpretation Comments Glucose Lvl (test code = Glucose Lvl) 95 70-99 [facility]MkdtpozAGRAOIAQHLBR8961-73-62 09:54:00 Test Item Value Reference Range Interpretation Comments Creatinine Lvl (test code = Creatinine 0.60 0.50-1.40 Lvl) [facility]GujehudNLFRTTOWDHVP5868-98-28 09:54:00 Test Item Value Reference Range Interpretation Comments eGFR (test code = eGFR) 103 [facility]CthvcqoSVTRUZVWHXAP1572-06-15 09:54:00 Test Item Value Reference Range Interpretation Comments Chloride Lvl (test code = Chloride Lvl) 107 95-109 [facility]ApkhzgmHQEGFFSDYYHN9525-07-36 09:54:00 Test Item Value Reference Range Interpretation Comments Calcium Lvl (test code = Calcium Lvl) 9.4 8.5-10.5 [facility]AdjmbcrIGOSGHGUDJVA3255-88-48 09:54:00 Test Item Value Reference Range Interpretation Comments CO2 (test code = CO2) 30 24-32 [facility]NbewmynGYYFWZZIOGYU9226-58-67 09:54:00 Test Item Value Reference Range Interpretation Comments AGAP (test code = AGAP) 10.8 10.0-20.0 [facility] HospitalCkpstivGTFQPOUUEW3726-66-59 09:54:00 Test Item Value Reference Range Interpretation Comments WBC (test code = WBC) 13.2 3.7-10.4 [facility] HospitalOagtzprDDADYZCFWK9852-98-55 09:54:00 Test Item Value Reference Range Interpretation Comments Hct (test code = Hct) 31.0 42.0-54.0 [facility] HospitalGrdclfcVOIJQHNEHF1464-44-10 09:54:00 Test Item Value Reference Range Interpretation Comments Hgb (test code = Hgb) 10.3 14.0-18.0 [facility] HospitalAzhhwvqUVLKCXURTZ6194-22-23 09:54:00 Test Item Value Reference Range Interpretation Comments RBC (test code = RBC) 3.11 4.70-6.10 [facility] HospitalNpxdwawFGAMCAZXYD1537-84-87 09:54:00 Test Item Value Reference Range Interpretation Comments MCV (test code = MCV) 99.7 80.0-94.0 [facility] HospitalMhibrgvLKEBIIQLFR0889-36-29 09:54:00 Test Item Value Reference Range Interpretation Comments MCH (test code = MCH) 33.0 pg 27.0-31.0 [facility] HospitalLzpterdINYUBSWBBX9315-41-71 09:54:00 Test Item Value Reference Range Interpretation Comments Platelet (test code = Platelet) 312 133-450 [facility] HospitalCxksjgeFZZRAOGIXO1084-18-56 09:54:00 Test Item Value Reference Range Interpretation Comments RDW (test code = RDW) 12.9 11.5-14.5 [facility] HospitalTbtxhvfGDTYAKCGWX2940-13-42 09:54:00 Test Item Value Reference Range Interpretation Comments MCHC (test code = MCHC) 33.1 32.0-36.0 [facility] HospitalEnxdwkqFMWNROWBTR0434-09-80 09:54:00 Test Item Value Reference Range Interpretation Comments MPV (test code = MPV) 8.4 7.4-10.4 [facility] HospitalVdddqbwZGYEDXWCQC9398-51-45 09:54:00 Test Item Value Reference Range Interpretation Comments Eosinophils # (test code 0.2 See_Comment [A utomated message] The = Eosinophils #) system whic h generated this result tra nsmitted reference range : <=0.5. The reference r sagrario was not used to int erpret this result as normal/abnormal . [facility] HospitalAguohbuMCLMVRFUBA6911-74-84 09:54:00 Test Item Value Reference Range Interpretation Comments Monocytes # (test code 0.7 See_Comment [Aut omated message] The = Monocytes #) system which generated this result tra nsmitted reference range : <=0.8. The reference r sagrario was not used to int erpret this result as normal/abnormal . [facility] HospitalOhdwvzwYSWFGSNIDF0357-09-94 09:54:00 Test Item Value Reference Range Interpretation Comments Lymphocytes # (test code = Lymphocytes 5.3 1.0-5.5 #) [facility] HospitalCkjvhvqLDJWREVRHW8598-90-88 09:54:00 Test Item Value Reference Range Interpretation Comments Basophils # (test code 0.1 See_Comment [Aut omated message] The = Basophils #) system which generated this result tra nsmitted reference range : <=0.2. The reference r sagrario was not used to int erpret this result as normal/abnormal . [facility] HospitalSogsjwsETCSZYGPEO7700-48-66 09:54:00 Test Item Value Reference Range Interpretation Comments Segs (test code = Segs) 52.4 45.0-75.0 [facility] HospitalSsgslfaJRGNDREHVE8074-34-84 09:54:00 Test Item Value Reference Range Interpretation Comments Monocytes (test code = Monocytes) 5.3 2.0-12.0 [facility] HospitalLogfozuOMCXWVLXBK3123-17-94 09:54:00 Test Item Value Reference Range Interpretation Comments Segs-Bands # (test code = Segs-Bands #) 6.9 1.5-8.1 [facility] HospitalMyhtvusKDCAVOEDJH2178-53-62 09:54:00 Test Item Value Reference Range Interpretation Comments Basophils (test code = 0.4 See_Comment [Aut omated message] The Basophils) system which ge nerated this result tra nsmitted reference range : <=1.0. The reference r sagrario was not used to int erpret this result as normal/abnormal . [facility] HospitalJjvdcyeEHUURUXPDW0726-70-53 09:54:00 Test Item Value Reference Range Interpretation Comments Eosinophils (test code = 1.9 See_Comment [A utomated message] The Eosinophils) system which ge nerated this result tra nsmitted reference range : <=4.0. The reference r sagrario was not used to int erpret this result as normal/abnormal . [facility] HospitalBhdbkicCUVJOOXKLJ7415-35-76 09:54:00 Test Item Value Reference Range Interpretation Comments Lymphocytes (test code = Lymphocytes) 40.0 20.0-40.0 [facility]2016-08-27 09:04:00 Test Item Value Reference Range Interpretation Comments Glucose Lvl (test code = Glucose Lvl) 106 70-99 [facility]2016-08-27 09:04:00 Test Item Value Reference Range Interpretation Comments BUN (test code = BUN) 38 7-22 [facility]2016-08-27 09:04:00 Test Item Value Reference Range Interpretation Comments AGAP (test code = AGAP) 11.7 10.0-20.0 [facility]2016-08-27 09:04:00 Test Item Value Reference Range Interpretation Comments Calcium Lvl (test code = Calcium Lvl) 9.4 8.5-10.5 [facility]2016-08-27 09:04:00 Test Item Value Reference Range Interpretation Comments CO2 (test code = CO2) 29 24-32 [facility]2016-08-27 09:04:00 Test Item Value Reference Range Interpretation Comments Chloride Lvl (test code = Chloride Lvl) 112 95-109 [facility]2016-08-27 09:04:00 Test Item Value Reference Range Interpretation Comments Sodium Lvl (test code = Sodium Lvl) 148 135-145 [facility]2016-08-27 09:04:00 Test Item Value Reference Range Interpretation Comments Potassium Lvl (test code = Potassium 4.7 3.5-5.1 Lvl) [facility]2016-08-27 09:04:00 Test Item Value Reference Range Interpretation Comments Creatinine Lvl (test code = Creatinine 0.80 0.50-1.40 Lvl) [facility]2016-08-27 09:04:00 Test Item Value Reference Range Interpretation Comments eGFR (test code = eGFR) 91 [facility]2016-08-27 09:04:00 Test Item Value Reference Range Interpretation Comments Glucose Lvl (test code = Glucose Lvl) 106 70-99 [facility]2016-08-27 09:04:00 Test Item Value Reference Range Interpretation Comments BUN (test code = BUN) 38 7-22 [facility]2016-08-27 09:04:00 Test Item Value Reference Range Interpretation Comments AGAP (test code = AGAP) 11.7 10.0-20.0 [facility]2016-08-27 09:04:00 Test Item Value Reference Range Interpretation Comments Calcium Lvl (test code = Calcium Lvl) 9.4 8.5-10.5 [facility]2016-08-27 09:04:00 Test Item Value Reference Range Interpretation Comments CO2 (test code = CO2) 29 24-32 [facility]2016-08-27 09:04:00 Test Item Value Reference Range Interpretation Comments Chloride Lvl (test code = Chloride Lvl) 112 95-109 [facility]2016-08-27 09:04:00 Test Item Value Reference Range Interpretation Comments Sodium Lvl (test code = Sodium Lvl) 148 135-145 [facility]2016-08-27 09:04:00 Test Item Value Reference Range Interpretation Comments Potassium Lvl (test code = Potassium 4.7 3.5-5.1 Lvl) [facility]2016-08-27 09:04:00 Test Item Value Reference Range Interpretation Comments Creatinine Lvl (test code = Creatinine 0.80 0.50-1.40 Lvl) [facility]2016-08-27 09:04:00 Test Item Value Reference Range Interpretation Comments eGFR (test code = eGFR) 91 [facility] HospitalXtbbbtoWLDUUOQKRC6547-41-60 10:35:00 Test Item Value Reference Range Interpretation Comments Basophils # (test code 0.2 See_Comment [Aut omated message] The = Basophils #) system which generated this result tra nsmitted reference range : <=0.2. The reference r sagrario was not used to int erpret this result as normal/abnormal . [facility] HospitalFzefxdrEZPXFRNUTJ2483-60-14 10:35:00 Test Item Value Reference Range Interpretation Comments Macrocyte (test code = 1+ *ABN*(01/06/16 Macrocyte) 5:35 AM) [facility] HospitalHtwjrozKZECGOKVOM2751-18-54 10:35:00 Test Item Value Reference Range Interpretation Comments Basophils # (test code 0.2 See_Comment [Aut omated message] The = Basophils #) system which generated this result tra nsmitted reference range : <=0.2. The reference r sagrario was not used to int erpret this result as normal/abnormal . [facility] HospitalOelbjhyBTVCODOCKV9841-09-82 10:35:00 Test Item Value Reference Range Interpretation Comments Macrocyte (test code = 1+ *ABN*(01/06/16 Macrocyte) 5:35 AM) [facility]2016-08-25 08:17:00 Test Item Value Reference Range Interpretation Comments A/G Ratio (test code = A/G Ratio) 0.7 0.7-1.6 [facility]2016-08-25 08:17:00 Test Item Value Reference Range Interpretation Comments Alk Phos (test code = Alk Phos) 222 39-136 [facility]2016-08-25 08:17:00 Test Item Value Reference Range Interpretation Comments Bili Total (test code = Bili Total) 0.5 0.2-1.3 [facility]2016-08-25 08:17:00 Test Item Value Reference Range Interpretation Comments B/C Ratio (test code = B/C Ratio) 52 11-04 [facility]2016-08-25 08:17:00 Test Item Value Reference Range Interpretation Comments Globulin (test code = Globulin) 4.2 2.7-4.2 [facility]2016-08-25 08:17:00 Test Item Value Reference Range Interpretation Comments Total Protein (test code = Total 7.1 6.4-8.4 Protein) [facility]2016-08-25 08:17:00 Test Item Value Reference Range Interpretation Comments ALT (test code = ALT) 93 See_Comment [Auto mated message] The system which ge nerated this result transmit craig reference range : <=65. The reference range was not used to interpr et this result as kita l/abnormal. [facility]2016-08-25 08:17:00 Test Item Value Reference Range Interpretation Comments Albumin Lvl (test code = Albumin Lvl) 2.9 3.5-5.0 [facility]2016-08-25 08:17:00 Test Item Value Reference Range Interpretation Comments AST (test code = AST) 45 See_Comment [Auto mated message] The system which ge nerated this result transmit craig reference range : <=37. The reference range was not used to interpr et this result as kita l/abnormal. [facility]2016-08-25 08:17:00 Test Item Value Reference Range Interpretation Comments A/G Ratio (test code = A/G Ratio) 0.7 0.7-1.6 [place] 291116-08-25 08:17:00 Test Item Value Reference Range Interpretation Comments Alk Phos (test code = Alk Phos) 222 39-136 [facility]2016-08-25 08:17:00 Test Item Value Reference Range Interpretation Comments Bili Total (test code = Bili Total) 0.5 0.2-1.3 [facility]2016-08-25 08:17:00 Test Item Value Reference Range Interpretation Comments B/C Ratio (test code = B/C Ratio) 52 6- [facility]2016-08-25 08:17:00 Test Item Value Reference Range Interpretation Comments Globulin (test code = Globulin) 4.2 2.7-4.2 [facility]2016-08-25 08:17:00 Test Item Value Reference Range Interpretation Comments Total Protein (test code = Total 7.1 6.4-8.4 Protein) [facility]2016-08-25 08:17:00 Test Item Value Reference Range Interpretation Comments ALT (test code = ALT) 93 See_Comment [Auto mated message] The system which ge nerated this result transmit craig reference range : <=65. The reference range was not used to interpr et this result as kita l/abnormal. [facility]2016-08-25 08:17:00 Test Item Value Reference Range Interpretation Comments Albumin Lvl (test code = Albumin Lvl) 2.9 3.5-5.0 [facility]2016-08-25 08:17:00 Test Item Value Reference Range Interpretation Comments AST (test code = AST) 45 See_Comment [Auto mated message] The system which ge nerated this result transmit craig reference range : <=37. The reference range was not used to interpr et this result as kita l/abnormal. [facility]2016-08-24 15:49:00 Test Item Value Reference Range Interpretation Comments Procalcitonin Lvl (test 0.43 See_Comment [Au tomated message] code = Procalcitonin Lvl) Th e system which generated this result transmitted ref erence range: <=0.10. The reference range was not used to interpr et this result as normal/abnormal . [facility]2016-08-24 15:49:00 Test Item Value Reference Range Interpretation Comments Lactic Acid Lvl (test code = Lactic 1.4 0.5-2.2 Acid Lvl) [facility]2016-08-24 15:49:00 Test Item Value Reference Range Interpretation Comments Procalcitonin Lvl (test 0.43 See_Comment [Au tomated message] code = Procalcitonin Lvl) Th e system which generated this result transmitted ref erence range: <=0.10. The reference range was not used to interpr et this result as normal/abnormal . [id number] 15:49:00 Test Item Value Reference Range Interpretation Comments Lactic Acid Lvl (test code = Lactic 1.4 0.5-2.2 Acid Lvl) [facility] AND [id number] 15:18:00 Test Item Value Reference Range Interpretation Comments UA Urobilinogen (test code = UA <=1.0 mg/dL 0.1-1.0 Urobilinogen) [facility] AND [id number] 15:18:00 Test Item Value Reference Range Interpretation Comments UA Sq Epi (test code = UA Sq Epi) None Seen [facility] AND [id number] 15:18:00 Test Item Value Reference Range Interpretation Comments UA Ketones (test code = UA Negative mg/dL Ketones) [facility] AND [id number] 15:18:00 Test Item Value Reference Range Interpretation Comments UA Bili (test code = Negative *NA*(01/04/16 UA Bili) 10:18 AM) [facility] AND [id number] 15:18:00 Test Item Value Reference Range Interpretation Comments UA Mucus (test code = UA Mucus) Few /LPF [facility] AND [id number] 15:18:00 Test Item Value Reference Range Interpretation Comments UA RBC (test code = 1 See_Comment [Automa craig message] The UA RBC) system which ge nerated this result transmit craig reference range : <=2. The reference range was not used to interpr et this result as kita l/abnormal. [facility] AND [id number] 15:18:00 Test Item Value Reference Range Interpretation Comments UA Nitrite (test code Negative (01/04/16 10:18 = UA Nitrite) AM) [facility] AND [id number] 15:18:00 Test Item Value Reference Range Interpretation Comments UA Blood (test code = Negative (01/04/16 10:18 UA Blood) AM) [facility] AND [id number] 15:18:00 Test Item Value Reference Range Interpretation Comments UA Leuk Est (test Negative (01/04/16 10:18 code = UA Leuk Est) AM) [facility] AND [id number] 15:18:00 Test Item Value Reference Range Interpretation Comments UA WBC (test code = 2 See_Comment [Automa craig message] The UA WBC) system which ge nerated this result transmit craig reference range : <=5. The reference range was not used to interpr et this result as kita l/abnormal. [facility] AND [id number] 15:18:00 Test Item Value Reference Range Interpretation Comments UA Protein (test code = UA Protein) 10 mg/dL [facility] AND [id number] 15:18:00 Test Item Value Reference Range Interpretation Comments UA Color (test code = Yellow *NA*(01/04/16 UA Color) 10:18 AM) [facility] AND [id number] 15:18:00 Test Item Value Reference Range Interpretation Comments UA Turbidity (test code = Clear (01/04/16 10:18 UA Turbidity) AM) [facility] AND [id number] 15:18:00 Test Item Value Reference Range Interpretation Comments UA pH (test code = UA pH) 5.5 5.0-8.0 [facility] AND [id number] 15:18:00 Test Item Value Reference Range Interpretation Comments UA Spec Grav (test code = UA Spec Grav) 1.018 [facility] AND [id number] 15:18:00 Test Item Value Reference Range Interpretation Comments UA Glucose (test code = UA Negative mg/dL Glucose) [facility] AND [id number] 15:18:00 Test Item Value Reference Range Interpretation Comments UA Urobilinogen (test code = UA <=1.0 mg/dL 0.1-1.0 Urobilinogen) [facility] AND [id number] 15:18:00 Test Item Value Reference Range Interpretation Comments UA Sq Epi (test code = UA Sq Epi) None Seen [facility] AND [id number] 15:18:00 Test Item Value Reference Range Interpretation Comments UA Ketones (test code = UA Negative mg/dL Ketones) [facility] AND [id number] 15:18:00 Test Item Value Reference Range Interpretation Comments UA Bili (test code = Negative *NA*(01/04/16 UA Bili) 10:18 AM) [facility] AND [id number] 15:18:00 Test Item Value Reference Range Interpretation Comments UA Mucus (test code = UA Mucus) Few /LPF [facility] AND [id number] 15:18:00 Test Item Value Reference Range Interpretation Comments UA RBC (test code = 1 See_Comment [Automa craig message] The UA RBC) system which ge nerated this result transmit craig reference range : <=2. The reference range was not used to interpr et this result as kita l/abnormal. [facility] AND [id number] 15:18:00 Test Item Value Reference Range Interpretation Comments UA Nitrite (test code Negative (01/04/16 10:18 = UA Nitrite) AM) [facility] AND [id number] 15:18:00 Test Item Value Reference Range Interpretation Comments UA Blood (test code = Negative (01/04/16 10:18 UA Blood) AM) [facility] AND [id number] 15:18:00 Test Item Value Reference Range Interpretation Comments UA Leuk Est (test Negative (01/04/16 10:18 code = UA Leuk Est) AM) [facility] AND [id number] 15:18:00 Test Item Value Reference Range Interpretation Comments UA WBC (test code = 2 See_Comment [Automa craig message] The UA WBC) system which ge nerated this result transmit craig reference range : <=5. The reference range was not used to interpr et this result as kita l/abnormal. [facility] AND [id number] 15:18:00 Test Item Value Reference Range Interpretation Comments UA Protein (test code = UA Protein) 10 mg/dL [facility] AND [id number] 15:18:00 Test Item Value Reference Range Interpretation Comments UA Color (test code = Yellow *NA*(01/04/16 UA Color) 10:18 AM) [facility] AND [id number] 15:18:00 Test Item Value Reference Range Interpretation Comments UA Turbidity (test code = Clear (01/04/16 10:18 UA Turbidity) AM) [facility] AND [id number] 15:18:00 Test Item Value Reference Range Interpretation Comments UA pH (test code = UA pH) 5.5 5.0-8.0 [facility] AND [id number] 15:18:00 Test Item Value Reference Range Interpretation Comments UA Spec Grav (test code = UA Spec Grav) 1.018 [facility] AND [id number] 15:18:00 Test Item Value Reference Range Interpretation Comments UA Glucose (test code = UA Negative mg/dL Glucose) [id number] Test Item Value Reference Range Interpretation Comments Macrocyte (test code = 1+ *ABN*(01/04/16 Macrocyte) 4:16 AM) [id number] 09:16:00 Test Item Value Reference Range Interpretation Comments Basophils # (test code 0.1 See_Comment [Aut omated message] The = Basophils #) system which generated this result tra nsmitted reference range : <=0.2. The reference r sagrario was not used to int erpret this result as normal/abnormal . [id number] 09:16:00 Test Item Value Reference Range Interpretation Comments Macrocyte (test code = 1+ *ABN*(01/04/16 Macrocyte) 4:16 AM) [id number] 09:16:00 Test Item Value Reference Range Interpretation Comments Basophils # (test code 0.1 See_Comment [Aut omated message] The = Basophils #) system which generated this result tra nsmitted reference range : <=0.2. The reference r sagrario was not used to int erpret this result as normal/abnormal . [facility]2016-08-23 08:50:00 Test Item Value Reference Range Interpretation Comments Magnesium Lvl (test code = Magnesium 2.7 1.8-2.4 Lvl) [facility]2016-08-23 08:50:00 Test Item Value Reference Range Interpretation Comments Phosphorus (test code = Phosphorus) 4.2 2.5-4.5 [facility]2016-08-23 08:50:00 Test Item Value Reference Range Interpretation Comments Magnesium Lvl (test code = Magnesium 2.7 1.8-2.4 Lvl) [facility]2016-08-23 08:50:00 Test Item Value Reference Range Interpretation Comments Phosphorus (test code = Phosphorus) 4.2 2.5-4.5 [facility]2016-08-22 08:46:00 Test Item Value Reference Range Interpretation Comments Magnesium Lvl (test code = Magnesium 2.8 1.8-2.4 Lvl) [facility]2016-08-22 08:46:00 Test Item Value Reference Range Interpretation Comments Phosphorus (test code = Phosphorus) 3.7 2.5-4.5 [facility]2016-08-22 08:46:00 Test Item Value Reference Range Interpretation Comments Ca Norm WB (test code = Ca Norm WB) 1.21 1.05-1.25 [facility]2016-08-22 08:46:00 Test Item Value Reference Range Interpretation Comments Ca Ion WB (test code = Ca Ion WB) 1.25 1.05-1.25 [facility]2016-08-22 08:46:00 Test Item Value Reference Range Interpretation Comments Magnesium Lvl (test code = Magnesium 2.8 1.8-2.4 Lvl) [facility]2016-08-22 08:46:00 Test Item Value Reference Range Interpretation Comments Phosphorus (test code = Phosphorus) 3.7 2.5-4.5 [facility]2016-08-22 08:46:00 Test Item Value Reference Range Interpretation Comments Ca Norm WB (test code = Ca Norm WB) 1.21 1.05-1.25 [facility]2016-08-22 08:46:00 Test Item Value Reference Range Interpretation Comments Ca Ion WB (test code = Ca Ion WB) 1.25 1.05-1.25 [facility]2016-08-20 10:20:00 Test Item Value Reference Range Interpretation Comments Ca Norm WB (test code = Ca Norm WB) 1.18 1.05-1.25 [facility]2016-08-20 10:20:00 Test Item Value Reference Range Interpretation Comments Ca Ion WB (test code = Ca Ion WB) 1.19 1.05-1.25 [facility]2016-08-20 10:20:00 Test Item Value Reference Range Interpretation Comments Ca Norm WB (test code = Ca Norm WB) 1.18 1.05-1.25 [facility]2016-08-20 10:20:00 Test Item Value Reference Range Interpretation Comments Ca Ion WB (test code = Ca Ion WB) 1.19 1.05-1.25 [facility]2016-08-20 08:20:00 Test Item Value Reference Range Interpretation Comments Magnesium Lvl (test code = Magnesium 2.9 1.8-2.4 Lvl) [facility]2016-08-20 08:20:00 Test Item Value Reference Range Interpretation Comments Phosphorus (test code = Phosphorus) 3.9 2.5-4.5 [id number] 08:20:00 Test Item Value Reference Range Interpretation Comments Macrocyte (test code = 2+ *ABN*(12/31/15 Macrocyte) 3:20 AM) [facility]2016-08-20 08:20:00 Test Item Value Reference Range Interpretation Comments Magnesium Lvl (test code = Magnesium 2.9 1.8-2.4 Lvl) [facility]2016-08-20 08:20:00 Test Item Value Reference Range Interpretation Comments Phosphorus (test code = Phosphorus) 3.9 2.5-4.5 [id number] 08:20:00 Test Item Value Reference Range Interpretation Comments Macrocyte (test code = 2+ *ABN*(12/31/15 Macrocyte) 3:20 AM) [facility]2016-08-19 09:13:00 Test Item Value Reference Range Interpretation Comments A/G Ratio (test code = A/G Ratio) 0.6 0.7-1.6 [facility]2016-08-19 09:13:00 Test Item Value Reference Range Interpretation Comments Bili Indirect (test 0.2 See_Comment [Automa craig message] The code = Bili Indirect) system which generated this result tra nsmitted reference range : <=1.0. The reference r sagrario was not used to int erpret this result as normal/abnormal . [place] 291116-08-19 09:13:00 Test Item Value Reference Range Interpretation Comments Globulin (test code = Globulin) 4.3 2.7-4.2 [place] 291116-08-19 09:13:00 Test Item Value Reference Range Interpretation Comments Bili Direct (test code 0.2 See_Comment [Aut omated message] The = Bili Direct) system which generated this result tra nsmitted reference range : <=0.3. The reference r sagrario was not used to int erpret this result as kita l/abnormal. [place] 291116-08-19 09:13:00 Test Item Value Reference Range Interpretation Comments Bili Total (test code = Bili Total) 0.4 0.2-1.3 [place] 291116-08-19 09:13:00 Test Item Value Reference Range Interpretation Comments Alk Phos (test code = Alk Phos) 234 39-136 [place] 291116-08-19 09:13:00 Test Item Value Reference Range Interpretation Comments AST (test code = AST) 83 See_Comment [Auto mated message] The system which ge nerated this result transmit craig reference range : <=37. The reference range was not used to interpr et this result as kita l/abnormal. [facility]2016-08-19 09:13:00 Test Item Value Reference Range Interpretation Comments ALT (test code = ALT) 142 See_Comment [Auto mated message] The system which ge nerated this result transmit craig reference range : <=65. The reference range was not used to interpr et this result as kita l/abnormal. [facility]2016-08-19 09:13:00 Test Item Value Reference Range Interpretation Comments Total Protein (test code = Total 6.7 6.4-8.4 Protein) [facility]2016-08-19 09:13:00 Test Item Value Reference Range Interpretation Comments Albumin Lvl (test code = Albumin Lvl) 2.4 3.5-5.0 [facility]2016-08-19 09:13:00 Test Item Value Reference Range Interpretation Comments A/G Ratio (test code = A/G Ratio) 0.6 0.7-1.6 [place] 291116-08-19 09:13:00 Test Item Value Reference Range Interpretation Comments Bili Indirect (test 0.2 See_Comment [Automa craig message] The code = Bili Indirect) system which generated this result tra nsmitted reference range : <=1.0. The reference r sagrario was not used to int erpret this result as normal/abnormal . [id number] 09:13:00 Test Item Value Reference Range Interpretation Comments Globulin (test code = Globulin) 4.3 2.7-4.2 [facility]2016-08-19 09:13:00 Test Item Value Reference Range Interpretation Comments Bili Direct (test code 0.2 See_Comment [Aut omated message] The = Bili Direct) system which generated this result tra nsmitted reference range : <=0.3. The reference r sagrario was not used to int erpret this result as kita l/abnormal. [facility]2016-08-19 09:13:00 Test Item Value Reference Range Interpretation Comments Bili Total (test code = Bili Total) 0.4 0.2-1.3 [facility]2016-08-19 09:13:00 Test Item Value Reference Range Interpretation Comments Alk Phos (test code = Alk Phos) 234 39-136 [facility]2016-08-19 09:13:00 Test Item Value Reference Range Interpretation Comments AST (test code = AST) 83 See_Comment [Auto mated message] The system which ge nerated this result transmit craig reference range : <=37. The reference range was not used to interpr et this result as kita l/abnormal. [facility]2016-08-19 09:13:00 Test Item Value Reference Range Interpretation Comments ALT (test code = ALT) 142 See_Comment [Auto mated message] The system which ge nerated this result transmit craig reference range : <=65. The reference range was not used to interpr et this result as kita l/abnormal. [facility]2016-08-19 09:13:00 Test Item Value Reference Range Interpretation Comments Total Protein (test code = Total 6.7 6.4-8.4 Protein) [facility]2016-08-19 09:13:00 Test Item Value Reference Range Interpretation Comments Albumin Lvl (test code = Albumin Lvl) 2.4 3.5-5.0 [facility]2016-08-18 22:31:00 Test Item Value Reference Range Interpretation Comments C difficile DNA (test Negative (12/29/15 5:31 code = C difficile DNA) PM) [facility]2016-08-18 22:31:00 Test Item Value Reference Range Interpretation Comments C difficile DNA (test Negative (12/29/15 5:31 code = C difficile DNA) PM) [facility] [id number] 13:55:00 Test Item Value Reference Range Interpretation Comments Lactic Acid Lvl (test code = Lactic 0.9 0.5-2.2 Acid Lvl) [facility] [id number] 13:55:00 Test Item Value Reference Range Interpretation Comments Lactic Acid Lvl (test code = Lactic 0.9 0.5-2.2 Acid Lvl) [facility] AND [id number] 11:55:00 Test Item Value Reference Range Interpretation Comments UA Sq Epi (test code = UA Sq Epi) RARE [facility] AND [id number] 11:55:00 Test Item Value Reference Range Interpretation Comments UA Blood (test code = Negative (12/29/15 6:55 UA Blood) AM) [facility] AND [id number] 11:55:00 Test Item Value Reference Range Interpretation Comments UA Urobilinogen (test code = UA 0.2 0.1-1.0 Urobilinogen) [facility] AND [id number] 11:55:00 Test Item Value Reference Range Interpretation Comments UA Nitrite (test code Negative (12/29/15 6:55 = UA Nitrite) AM) [facility] AND [id number] 11:55:00 Test Item Value Reference Range Interpretation Comments UA Leuk Est (test Negative (12/29/15 6:55 code = UA Leuk Est) AM) [facility] AND [id number] 11:55:00 Test Item Value Reference Range Interpretation Comments UA Bili (test code = Negative *NA*(12/29/15 UA Bili) 6:55 AM) [facility] AND [id number] 11:55:00 Test Item Value Reference Range Interpretation Comments UA Ketones (test code = UA Negative mg/dL Ketones) [facility] AND [id number] 11:55:00 Test Item Value Reference Range Interpretation Comments UA Glucose (test code = UA Negative mg/dL Glucose) [facility] AND [id number] 11:55:00 Test Item Value Reference Range Interpretation Comments UA Protein (test code = UA Negative mg/dL Protein) [facility] AND [id number] 11:55:00 Test Item Value Reference Range Interpretation Comments UA Spec Grav (test code = UA Spec 1.025 1 Grav) [facility] AND [id number] 11:55:00 Test Item Value Reference Range Interpretation Comments UA pH (test code = UA pH) 5.5 1 5.0-8.[address] [facility] [id number] 11:55:00 Test Item Value Reference Range Interpretation Comments UA Turbidity (test code = Clear (12/29/15 6:55 UA Turbidity) AM) [facility] AND [id number] 11:55:00 Test Item Value Reference Range Interpretation Comments UA Color (test code = Yellow *NA*(12/29/15 UA Color) 6:55 AM) [facility] AND [id number] 11:55:00 Test Item Value Reference Range Interpretation Comments UA Mucus (test code = UA Mucus) Few /LPF [facility] AND [id number] 11:55:00 Test Item Value Reference Range Interpretation Comments UA RBC (test code = 1 See_Comment [Automa craig message] The UA RBC) system which ge nerated this result transmit craig reference range : <=2. The reference range was not used to interpr et this result as kita l/abnormal. [facility] [id number] 11:55:00 Test Item Value Reference Range Interpretation Comments UA WBC (test code = 1 See_Comment [Automa craig message] The UA WBC) system which ge nerated this result transmit craig reference range : <=5. The reference range was not used to interpr et this result as kita l/abnormal. [facility] [id number] 11:55:00 Test Item Value Reference Range Interpretation Comments UA Sq Epi (test code = UA Sq Epi) [facility] AND [id number] 11:55:00 Test Item Value Reference Range Interpretation Comments UA Blood (test code = Negative (12/29/15 6:55 UA Blood) AM) [facility] AND [id number] 11:55:00 Test Item Value Reference Range Interpretation Comments UA Urobilinogen (test code = UA 0.2 0.1-1.0 Urobilinogen) [facility] AND [id number] 11:55:00 Test Item Value Reference Range Interpretation Comments UA Nitrite (test code Negative (12/29/15 6:55 = UA Nitrite) AM) [facility] AND [id number] 11:55:00 Test Item Value Reference Range Interpretation Comments UA Leuk Est (test Negative (12/29/15 6:55 code = UA Leuk Est) AM) [facility] AND [id number] 11:55:00 Test Item Value Reference Range Interpretation Comments UA Bili (test code = Negative *NA*(12/29/15 UA Bili) 6:55 AM) [facility] AND [id number] 11:55:00 Test Item Value Reference Range Interpretation Comments UA Ketones (test code = UA Negative mg/dL Ketones) [facility] AND [id number] 11:55:00 Test Item Value Reference Range Interpretation Comments UA Glucose (test code = UA Negative mg/dL Glucose) [facility] AND [id number] 11:55:00 Test Item Value Reference Range Interpretation Comments UA Protein (test code = UA Negative mg/dL Protein) [facility] AND [id number] 11:55:00 Test Item Value Reference Range Interpretation Comments UA Spec Grav (test code = UA Spec 1.025 1 Grav) [facility] AND [id number] 11:55:00 Test Item Value Reference Range Interpretation Comments UA pH (test code = UA pH) 5.5 1 5.0-8.0 [facility] AND [id number] 11:55:00 Test Item Value Reference Range Interpretation Comments UA Turbidity (test code = Clear (12/29/15 6:55 UA Turbidity) AM) [facility] AND [id number] 11:55:00 Test Item Value Reference Range Interpretation Comments UA Color (test code = Yellow *NA*(12/29/15 UA Color) 6:55 AM) [facility] AND [id number] 11:55:00 Test Item Value Reference Range Interpretation Comments UA Mucus (test code = UA Mucus) Few /LPF [facility] AND [id number] 11:55:00 Test Item Value Reference Range Interpretation Comments UA RBC (test code = 1 See_Comment [Automa craig message] The UA RBC) system which ge nerated this result transmit craig reference range : <=2. The reference range was not used to interpr et this result as kita l/abnormal. [facility] [id number] 11:55:00 Test Item Value Reference Range Interpretation Comments UA WBC (test code = 1 See_Comment [Automa craig message] The UA WBC) system which ge nerated this result transmit craig reference range : <=5. The reference range was not used to interpr et this result as kita l/abnormal. [facility]2016-08-18 09:01:00 Test Item Value Reference Range Interpretation Comments Bili Indirect (test 0.5 See_Comment [Automa craig message] The code = Bili Indirect) system which generated this result tra nsmitted reference range : <=1.0. The reference r sagrario was not used to int erpret this result as normal/abnormal . [facility]2016-08-18 09:01:00 Test Item Value Reference Range Interpretation Comments A/G Ratio (test code = A/G Ratio) 0.6 0.7-1.6 [facility]2016-08-18 09:01:00 Test Item Value Reference Range Interpretation Comments Globulin (test code = Globulin) 4.4 2.7-4.2 [facility]2016-08-18 09:01:00 Test Item Value Reference Range Interpretation Comments ALT (test code = ALT) 149 See_Comment [Auto mated message] The system which ge nerated this result transmit craig reference range : <=65. The reference range was not used to interpr et this result as kita l/abnormal. [facility]2016-08-18 09:01:00 Test Item Value Reference Range Interpretation Comments Albumin Lvl (test code = Albumin Lvl) 2.6 3.5-5.0 [facility]2016-08-18 09:01:00 Test Item Value Reference Range Interpretation Comments Total Protein (test code = Total 7.0 6.4-8.4 Protein) [facility]2016-08-18 09:01:00 Test Item Value Reference Range Interpretation Comments Alk Phos (test code = Alk Phos) 236 39-136 [facility]villeAtmoceanGRANVILLE MEDICAL [id number] 09:01:00 Test Item Value Reference Range Interpretation Comments Bili Direct (test code 0.1 See_Comment [Aut omated message] The = Bili Direct) system which generated this result tra nsmitted reference range : <=0.3. The reference r sagrario was not used to int erpret this result as kita l/abnormal. [facility] StephenvilleAtmoceanGRANVILLE MEDICAL [id number] 09:01:00 Test Item Value Reference Range Interpretation Comments Bili Total (test code = Bili Total) 0.6 0.2-1.3 [facility]2016-08-18 09:01:00 Test Item Value Reference Range Interpretation Comments AST (test code = AST) 132 See_Comment [Auto mated message] The system which ge nerated this result transmit craig reference range : <=37. The reference range was not used to interpr et this result as kita l/abnormal. [facility]2016-08-18 09:01:00 Test Item Value Reference Range Interpretation Comments Ca Ion WB (test code = Ca Ion WB) 1.18 1.05-1.25 [facility]2016-08-18 09:01:00 Test Item Value Reference Range Interpretation Comments Ca Norm WB (test code = Ca Norm WB) 1.18 1.05-1.25 [facility] StephenvilleAtmoceanGRANVILLE MEDICAL [id number] 09:01:00 Test Item Value Reference Range Interpretation Comments Bili Indirect (test 0.5 See_Comment [Automa craig message] The code = Bili Indirect) system which generated this result tra nsmitted reference range : <=1.0. The reference r sagrario was not used to int erpret this result as normal/abnormal . [facility] StephenvillesimplifyMD [id number] 09:01:00 Test Item Value Reference Range Interpretation Comments A/G Ratio (test code = A/G Ratio) 0.6 0.7-1.6 [facility]2016-08-18 09:01:00 Test Item Value Reference Range Interpretation Comments Globulin (test code = Globulin) 4.4 2.7-4.2 [facility] StephenvillesimplifyMD [id number] 09:01:00 Test Item Value Reference Range Interpretation Comments ALT (test code = ALT) 149 See_Comment [Auto mated message] The system which ge nerated this result transmit craig reference range : <=65. The reference range was not used to interpr et this result as kita l/abnormal. [facility] [id number] 09:01:00 Test Item Value Reference Range Interpretation Comments Albumin Lvl (test code = Albumin Lvl) 2.6 3.5-5.0 [facility] StephenvilleAtmoceanGRANVILLE MEDICAL [id number] 09:01:00 Test Item Value Reference Range Interpretation Comments Total Protein (test code = Total 7.0 6.4-8.4 Protein) [facility]2016-08-18 09:01:00 Test Item Value Reference Range Interpretation Comments Alk Phos (test code = Alk Phos) 236 39-136 [facility]2016-08-18 09:01:00 Test Item Value Reference Range Interpretation Comments Bili Direct (test code 0.1 See_Comment [Aut omated message] The = Bili Direct) system which generated this result tra nsmitted reference range : <=0.3. The reference r sagrario was not used to int erpret this result as kita l/abnormal. [facility] StephenvillesimplifyMD [id number] 09:01:00 Test Item Value Reference Range Interpretation Comments Bili Total (test code = Bili Total) 0.6 0.2-1.3 [facility]2016-08-18 09:01:00 Test Item Value Reference Range Interpretation Comments AST (test code = AST) 132 See_Comment [Auto mated message] The system which ge nerated this result transmit craig reference range : <=37. The reference range was not used to interpr et this result as kita l/abnormal. [facility] CenterPARATHYROID [id number] 09:01:00 Test Item Value Reference Range Interpretation Comments Ca Ion WB (test code = Ca Ion WB) 1.18 1.05-1.25 [facility] PointeMDSaveCOASTAL CAROLINA [id number] 09:01:00 Test Item Value Reference Range Interpretation Comments Ca Norm WB (test code = Ca Norm WB) 1.18 1.05-1.25 [facility] StephenvillesimplifyMD [id number] 06:20:00 Test Item Value Reference Range Interpretation Comments Procalcitonin Lvl (test 0.18 See_Comment [Au tomated message] code = Procalcitonin Lvl) Th e system which generated this result transmitted ref erence range: <=0.10. The reference range was not used to interpr et this result as normal/abnormal . [place] [id number] 06:20:00 Test Item Value Reference Range Interpretation Comments Procalcitonin Lvl (test 0.18 See_Comment [Au tomated message] code = Procalcitonin Lvl) Th e system which generated this result transmitted ref erence range: <=0.10. The reference range was not used to interpr et this result as normal/abnormal . [place] [id number] 21:33:00 Test Item Value Reference Range Interpretation Comments Bili Indirect (test 0.1 See_Comment [Automa craig message] The code = Bili Indirect) system which generated this result tra nsmitted reference range : <=1.0. The reference r sagrario was not used to int erpret this result as normal/abnormal . [place] [id number] 21:33:00 Test Item Value Reference Range Interpretation Comments Bili Direct (test code 0.3 See_Comment [Aut omated message] The = Bili Direct) system which generated this result tra nsmitted reference range : <=0.3. The reference r sagrario was not used to int erpret this result as kita l/abnormal. [place] [id number] 21:33:00 Test Item Value Reference Range Interpretation Comments Ammonia (test code = Ammonia) 41.0 [place] [id number] 21:33:00 Test Item Value Reference Range Interpretation Comments Bili Indirect (test 0.1 See_Comment [Automa craig message] The code = Bili Indirect) system which generated this result tra nsmitted reference range : <=1.0. The reference r sagrario was not used to int erpret this result as normal/abnormal . [place] 291116-08-16 21:33:00 Test Item Value Reference Range Interpretation Comments Bili Direct (test code 0.3 See_Comment [Aut omated message] The = Bili Direct) system which generated this result tra nsmitted reference range : <=0.3. The reference r sagrario was not used to int erpret this result as kita l/abnormal. [facility] [id number] 21:33:00 Test Item Value Reference Range Interpretation Comments Ammonia (test code = Ammonia) 41.0 [facility] [id number] 05:17:00 Test Item Value Reference Range Interpretation Comments Folate Lvl (test code = Folate Lvl) 29.1 [facility] [id number] 05:17:00 Test Item Value Reference Range Interpretation Comments Vitamin B12 Lvl (test code = Vitamin [phone] B12 Lvl) [facility] [id number] 05:17:00 Test Item Value Reference Range Interpretation Comments Vitamin B12 Lvl (test code = Vitamin 827 037-3548 B12 Lvl) [facility] [id number] 05:17:00 Test Item Value Reference Range Interpretation Comments Folate Lvl (test code = Folate Lvl) 29.1 [facility] [id number] 05:17:00 Test Item Value Reference Range Interpretation Comments Vitamin B12 Lvl (test code = Vitamin 725 177-3675 B12 Lvl) [facility] [id number] 05:17:00 Test Item Value Reference Range Interpretation Comments Vitamin B12 Lvl (test code = Vitamin 738 153-6894 B12 Lvl) [facility] [id number] 05:45:00 Test Item Value Reference Range Interpretation Comments ABO/Rh (test code = ABO/Rh) O POS [facility] [id number] 05:45:00 Test Item Value Reference Range Interpretation Comments Antibody Scrn (test Negative (12/23/15 code = Antibody Scrn) 12:45 AM) [id number] 05:45:00 Test Item Value Reference Range Interpretation Comments INR (test code = INR) 1.11 0.85-1.17 [facility] [id number] 05:45:00 Test Item Value Reference Range Interpretation Comments PTT (test code = PTT) 32.6 s 22.9-35.8 [facility] Hosp[id number] 05:45:00 Test Item Value Reference Range Interpretation Comments PT (test code = PT) 14.6 s 12.0-14.7 [facility] [id number] 05:45:00 Test Item Value Reference Range Interpretation Comments ABO/Rh (test code = ABO/Rh) O POS [facility] [id number] 05:45:00 Test Item Value Reference Range Interpretation Comments Antibody Scrn (test Negative (12/23/15 code = Antibody Scrn) 12:45 AM) [facility] [id number] 05:45:00 Test Item Value Reference Range Interpretation Comments INR (test code = INR) 1.11 0.85-1.17 [facility] [id number] 05:45:00 Test Item Value Reference Range Interpretation Comments PTT (test code = PTT) 32.6 s 22.9-35.8 [facility] H[id number] 05:45:00 Test Item Value Reference Range Interpretation Comments PT (test code = PT) 14.6 s 12.0-14.7 [facility] CenterGreytip [id number] 21:26:00 Test Item Value Reference Range Interpretation Comments Protein CSF (test code = Protein CSF) 298 15-45 [facility] [id number] 21:26:00 Test Item Value Reference Range Interpretation Comments Glucose CSF (test code = Glucose CSF) 53 45-80 [facility] CenterGreytip [id number] 21:26:00 Test Item Value Reference Range Interpretation Comments Segs CSF (test code = 42 See_Comment [Auto mated message] The Segs CSF) system which ge nerated this result transmit craig reference range : <=6. The reference range was not used to interpr et this result as kita l/abnormal. [facility] CenterGreytip [id number] 21:26:00 Test Item Value Reference Range Interpretation Comments Monocyte CSF (test code = Monocyte CSF) 28 15-45 [facility] [id number] 21:26:00 Test Item Value Reference Range Interpretation Comments Lymph CSF (test code = Lymph CSF) 30 40-80 [facility] [id number] 21:26:00 Test Item Value Reference Range Interpretation Comments Supernat CSF (test Hemolyzed *ABN*(12/22/15 code = Supernat CSF) 4:26 PM) [facility] [id number] 21:26:00 Test Item Value Reference Range Interpretation Comments WBC CSF (test code = 143 See_Comment [Autom ated message] The WBC CSF) system which ge nerated this result transmit craig reference range : <=53. The reference range was not used to interpr et this result as kita l/abnormal. [facility] CenterGreytip [id number] 21:26:00 Test Item Value Reference Range Interpretation Comments RBC CSF (test code = 3500 See_Comment [Autom ated message] The RBC CSF) system which ge nerated this result transmit craig reference range : <=03. The reference range was not used to interpr et this result as kita l/abnormal. [facility] CenterGreytip [id number] 21:26:00 Test Item Value Reference Range Interpretation Comments Clarity CSF (test code Moderate *ABN*(12/22/15 = Clarity CSF) 4:26 PM) [facility] [id number] 21:26:00 Test Item Value Reference Range Interpretation Comments Color CSF (test code = Red *ABN*(12/22/15 4:26 Color CSF) PM) [facility] [id number] 21:26:00 Test Item Value Reference Range Interpretation Comments Tube Num CSF (test xxxxxxx (12/22/15 4:26 code = Tube Num CSF) PM) [facility] [id number] 21:26:00 Test Item Value Reference Range Interpretation Comments Protein CSF (test code = Protein CSF) 298 15-45 [facility] [id number] 21:26:00 Test Item Value Reference Range Interpretation Comments Glucose CSF (test code = Glucose CSF) 53 45-80 [facility] [id number] 21:26:00 Test Item Value Reference Range Interpretation Comments Segs CSF (test code = 42 See_Comment [Auto mated message] The Segs CSF) system which ge nerated this result transmit craig reference range : <=6. The reference range was not used to interpr et this result as kita l/abnormal. [facility] CenterGreytip [id number] 21:26:00 Test Item Value Reference Range Interpretation Comments Monocyte CSF (test code = Monocyte CSF) 28 15-45 [facility] CenterGreytip [id number] 21:26:00 Test Item Value Reference Range Interpretation Comments Lymph CSF (test code = Lymph CSF) 30 40-80 [facility]2016-08-11 21:26:00 Test Item Value Reference Range Interpretation Comments Supernat CSF (test Hemolyzed *ABN*(12/22/15 code = Supernat CSF) 4:26 PM) [facility]2016-08-11 21:26:00 Test Item Value Reference Range Interpretation Comments WBC CSF (test code = 143 See_Comment [Autom ated message] The WBC CSF) system which ge nerated this result transmit craig reference range : <=53. The reference range was not used to interpr et this result as kita l/abnormal. [facility]2016-08-11 21:26:00 Test Item Value Reference Range Interpretation Comments RBC CSF (test code = 3500 See_Comment [Autom ated message] The RBC CSF) system which ge nerated this result transmit craig reference range : <=03. The reference range was not used to interpr et this result as kita l/abnormal. [facility]2016-08-11 21:26:00 Test Item Value Reference Range Interpretation Comments Clarity CSF (test code Moderate *ABN*(12/22/15 = Clarity CSF) 4:26 PM) [facility]2016-08-11 21:26:00 Test Item Value Reference Range Interpretation Comments Color CSF (test code = Red *ABN*(12/22/15 4:26 Color CSF) PM) [facility]2016-08-11 21:26:00 Test Item Value Reference Range Interpretation Comments Tube Num CSF (test xxxxxxx (12/22/15 4:26 code = Tube Num CSF) PM) [facility] H[id number] 05:41:00 Test Item Value Reference Range Interpretation Comments PTT (test code = PTT) 31.7 s 22.9-35.8 [facility] [id number] 05:41:00 Test Item Value Reference Range Interpretation Comments PT (test code = PT) 13.9 s 12.0-14.7 [facility] Hos[id number] 05:41:00 Test Item Value Reference Range Interpretation Comments INR (test code = INR) 1.04 0.85-1.17 [facility] [id number] 05:41:00 Test Item Value Reference Range Interpretation Comments PTT (test code = PTT) 31.7 s 22.9-35.8 [facility] HospitalMefddacPMCCDIROCQ5459-05-12 05:41:00 Test Item Value Reference Range Interpretation Comments PT (test code = PT) 13.9 s 12.0-14.7 [facility] HospitalNesvkteRPNJBNLMRK0058-44-73 05:41:00 Test Item Value Reference Range Interpretation Comments INR (test code = INR) 1.04 0.85-1.17 [facility] HospitalKucspivJPRIFBXYEO5663-02-02 07:07:00 Test Item Value Reference Range Interpretation Comments INR (test code = INR) 1.03 0.85-1.17 [facility] H[id number] 07:07:00 Test Item Value Reference Range Interpretation Comments PTT (test code = PTT) 34.7 s 22.9-35.8 [facility] HospitalUaiywyyPJISILKWWU0063-26-70 07:07:00 Test Item Value Reference Range Interpretation Comments PT (test code = PT) 13.8 s 12.0-14.7 [facility] H[id number] 07:07:00 Test Item Value Reference Range Interpretation Comments INR (test code = INR) 1.03 0.85-1.17 [facility] H[id number] 07:07:00 Test Item Value Reference Range Interpretation Comments PTT (test code = PTT) 34.7 s 22.9-35.8 [facility] Hos[id number] 07:07:00 Test Item Value Reference Range Interpretation Comments PT (test code = PT) 13.8 s 12.0-14.7 [facility]2016-08-09 03:56:00 Test Item Value Reference Range Interpretation Comments UA Glucose (test code = UA Negative mg/dL Glucose) [facility]2016-08-09 03:56:00 Test Item Value Reference Range Interpretation Comments UA Ketones (test code = UA Negative mg/dL Ketones) [facility]2016-08-09 03:56:00 Test Item Value Reference Range Interpretation Comments UA Bili (test code = Small *ABN*(12/19/15 UA Bili) 10:56 PM) [facility]2016-08-09 03:56:00 Test Item Value Reference Range Interpretation Comments UA Nitrite (test code Negative (12/19/15 10:56 = UA Nitrite) PM) [facility] AND [id number] 03:56:00 Test Item Value Reference Range Interpretation Comments UA Leuk Est (test Negative (12/19/15 10:56 code = UA Leuk Est) PM) [facility] AND [id number] 03:56:00 Test Item Value Reference Range Interpretation Comments UA RBC (test code = 2 See_Comment [Automa craig message] The UA RBC) system which ge nerated this result transmit craig reference range : <=2. The reference range was not used to interpr et this result as kita l/abnormal. [facility] AND [id number] 03:56:00 Test Item Value Reference Range Interpretation Comments UA Blood (test code = Negative (12/19/15 10:56 UA Blood) PM) [facility] AND [id number] 03:56:00 Test Item Value Reference Range Interpretation Comments UA Mucus (test code = UA Mucus) Few /LPF [facility] AND [id number] 03:56:00 Test Item Value Reference Range Interpretation Comments UA Amorph Michelle (test code = Occasional /HPF UA Amorph Michelle) [facility] AND [id number] 03:56:00 Test Item Value Reference Range Interpretation Comments UA Turbidity (test code Slight *ABN*(12/19/15 = UA Turbidity) 10:56 PM) [facility] AND [id number] 03:56:00 Test Item Value Reference Range Interpretation Comments UA Color (test code = Yellow *NA*(12/19/15 UA Color) 10:56 PM) [facility] AND [id number] 03:56:00 Test Item Value Reference Range Interpretation Comments UA Spec Grav (test code = UA Spec Grav) 1.013 [facility] AND [id number] 03:56:00 Test Item Value Reference Range Interpretation Comments UA pH (test code = UA pH) 7.0 5.0-8.0 [facility] AND [id number] 03:56:00 Test Item Value Reference Range Interpretation Comments UA Protein (test code = UA Protein) 30 mg/dL [facility] AND [id number] 03:56:00 Test Item Value Reference Range Interpretation Comments UA Sq Epi (test code = UA Sq Epi) None Seen [facility] AND [id number] 03:56:00 Test Item Value Reference Range Interpretation Comments UA [place] Yeast (test code = UA Occasional /HPF [place] Yeast) [facility] AND [id number] 03:56:00 Test Item Value Reference Range Interpretation Comments UA Hyph Yeast (test Occasional *ABN*(12/19/15 code = UA Hyph 10:56 PM) Yeast) [facility] AND [id number] 03:56:00 Test Item Value Reference Range Interpretation Comments UA Urobilinogen (test code = UA >=12.0 mg/dL 0.1-1.0 Urobilinogen) [facility] AND [id number] 03:56:00 Test Item Value Reference Range Interpretation Comments UA Glucose (test code = UA Negative mg/dL Glucose) [facility] AND [id number] 03:56:00 Test Item Value Reference Range Interpretation Comments UA Ketones (test code = UA Negative mg/dL Ketones) [facility] AND [id number] 03:56:00 Test Item Value Reference Range Interpretation Comments UA Bili (test code = Small *ABN*(12/19/15 UA Bili) 10:56 PM) [facility] AND [id number] 03:56:00 Test Item Value Reference Range Interpretation Comments UA Nitrite (test code Negative (12/19/15 10:56 = UA Nitrite) PM) [facility] AND [id number] 03:56:00 Test Item Value Reference Range Interpretation Comments UA Leuk Est (test Negative (12/19/15 10:56 code = UA Leuk Est) PM) [facility] AND [id number] 03:56:00 Test Item Value Reference Range Interpretation Comments UA RBC (test code = 2 See_Comment [Automa craig message] The UA RBC) system which ge nerated this result transmit craig reference range : <=2. The reference range was not used to interpr et this result as kita l/abnormal. [facility] AND [id number] 03:56:00 Test Item Value Reference Range Interpretation Comments UA Blood (test code = Negative (12/19/15 10:56 UA Blood) PM) [facility] AND [id number] 03:56:00 Test Item Value Reference Range Interpretation Comments UA Mucus (test code = UA Mucus) Few /LPF [facility] AND [id number] 03:56:00 Test Item Value Reference Range Interpretation Comments UA Amorph Michelle (test code = Occasional /HPF UA Amorph Michelle) [facility] AND [id number] 03:56:00 Test Item Value Reference Range Interpretation Comments UA Turbidity (test code Slight *ABN*(12/19/15 = UA Turbidity) 10:56 PM) [facility] AND [id number] 03:56:00 Test Item Value Reference Range Interpretation Comments UA Color (test code = Yellow *NA*(12/19/15 UA Color) 10:56 PM) [facility] AND [id number] 03:56:00 Test Item Value Reference Range Interpretation Comments UA Spec Grav (test code = UA Spec Grav) 1.013 [facility] AND [id number] 03:56:00 Test Item Value Reference Range Interpretation Comments UA pH (test code = UA pH) 7.0 5.0-8.0 [facility] AND [id number] 03:56:00 Test Item Value Reference Range Interpretation Comments UA Protein (test code = UA Protein) 30 mg/dL [facility] AND [id number] 03:56:00 Test Item Value Reference Range Interpretation Comments UA Sq Epi (test code = UA Sq Epi) None Seen [facility] AND [id number] 03:56:00 Test Item Value Reference Range Interpretation Comments UA [place] Yeast (test code = UA Occasional /HPF [place] Yeast) [facility] AND [id number] 03:56:00 Test Item Value Reference Range Interpretation Comments UA Hyph Yeast (test Occasional *ABN*(12/19/15 code = UA Hyph 10:56 PM) Yeast) [facility] AND [id number] 03:56:00 Test Item Value Reference Range Interpretation Comments UA Urobilinogen (test code = UA >=12.0 mg/dL 0.1-1.0 Urobilinogen) [facility] AND [id number] 02:27:00 Test Item Value Reference Range Interpretation Comments UA Gran Cast (test code = UA Gran Cast) 6 [facility] [id number] 02:27:00 Test Item Value Reference Range Interpretation Comments UA Bacteria (test code = UA Occasional /HPF Bacteria) [facility] [id number] 02:27:00 Test Item Value Reference Range Interpretation Comments UA WBC (test code = 5 See_Comment [Automa craig message] The UA WBC) system which ge nerated this result transmit craig reference range : <=5. The reference range was not used to interpr et this result as kita l/abnormal. [facility] [id number] 02:27:00 Test Item Value Reference Range Interpretation Comments UA Hyal Cast (test 16 See_Comment [Automat ed message] The code = UA Hyal Cast) system which generated this result transmit craig reference range : <=2. The reference range was not used to interpr et this result as kita l/abnormal. [facility] [id number] 02:27:00 Test Item Value Reference Range Interpretation Comments UA Amorph Michelle (test code = Occasional /HPF UA Amorph Michelle) [facility] [id number] 02:27:00 Test Item Value Reference Range Interpretation Comments UA Gran Cast (test code = UA Gran Cast) 6 [facility] [id number] 02:27:00 Test Item Value Reference Range Interpretation Comments UA Bacteria (test code = UA Occasional /HPF Bacteria) [facility] [id number] 02:27:00 Test Item Value Reference Range Interpretation Comments UA WBC (test code = 5 See_Comment [Automa craig message] The UA WBC) system which ge nerated this result transmit craig reference range : <=5. The reference range was not used to interpr et this result as kita l/abnormal. [facility] [id number] 02:27:00 Test Item Value Reference Range Interpretation Comments UA Hyal Cast (test 16 See_Comment [Automat ed message] The code = UA Hyal Cast) system which generated this result transmit craig reference range : <=2. The reference range was not used to interpr et this result as kita l/abnormal. [facility] [id number] 02:27:00 Test Item Value Reference Range Interpretation Comments UA Amorph Michelle (test code = Occasional /HPF UA Amorph Michelle) [facility] [id number] 17:08:00 Test Item Value Reference Range Interpretation Comments MRSA by PCR (test Negative (12/14/15 12:08 code = MRSA by PCR) PM) [facility] [id number] 17:08:00 Test Item Value Reference Range Interpretation Comments MRSA by PCR (test Negative (12/14/15 12:08 code = MRSA by PCR) PM) [facility] [id number] 10:54:00 Test Item Value Reference Range Interpretation Comments UDS Note (test code = See Note (12/14/15 5:54 UDS Note) AM) [facility] SAFBER2017-03-09 10:54:00 Test Item Value Reference Range Interpretation Comments U Benzodia Scr (test Positive *ABN*(12/14/15 code = U Benzodia Scr) 5:54 AM) [facility] [id number] 10:54:00 Test Item Value Reference Range Interpretation Comments U Amph Scr (test code Negative *NA*(12/14/15 = U Amph Scr) 5:54 AM) [facility] [id number] 10:54:00 Test Item Value Reference Range Interpretation Comments U Mariola Scr (test code Negative *NA*(12/14/15 = U Mariola Scr) 5:54 AM) [facility] [id number] 10:54:00 Test Item Value Reference Range Interpretation Comments U Phencyc Scr (test Negative *NA*(12/14/15 code = U Phencyc Scr) 5:54 AM) [facility] [id number] 10:54:00 Test Item Value Reference Range Interpretation Comments U Opiate Scr (test Negative *NA*(12/14/15 code = U Opiate Scr) 5:54 AM) [facility] [id number] 10:54:00 Test Item Value Reference Range Interpretation Comments U Cannab Scr (test Negative *NA*(12/14/15 code = U Cannab Scr) 5:54 AM) [facility] [id number] 10:54:00 Test Item Value Reference Range Interpretation Comments U Cocaine Scr (test Negative *NA*(12/14/15 code = U Cocaine Scr) 5:54 AM) [facility] [id number] 10:54:00 Test Item Value Reference Range Interpretation Comments U Sodium (test code = U Sodium) 13 [facility] [id number] 10:54:00 Test Item Value Reference Range Interpretation Comments U Potassium (test code = U Potassium) 47.0 [facility] [id number] 10:54:00 Test Item Value Reference Range Interpretation Comments U Chloride (test code = U Chloride) 39 [facility] [id number] 10:54:00 Test Item Value Reference Range Interpretation Comments UDS Note (test code = See Note (12/14/15 5:54 UDS Note) AM) [facility] [id number] 10:54:00 Test Item Value Reference Range Interpretation Comments U Benzodia Scr (test Positive *ABN*(12/14/15 code = U Benzodia Scr) 5:54 AM) [facility] [id number] 10:54:00 Test Item Value Reference Range Interpretation Comments U Amph Scr (test code Negative *NA*(12/14/15 = U Amph Scr) 5:54 AM) [facility] [id number] 10:54:00 Test Item Value Reference Range Interpretation Comments U Mariola Scr (test code Negative *NA*(12/14/15 = U Mariola Scr) 5:54 AM) [facility] [id number] 10:54:00 Test Item Value Reference Range Interpretation Comments U Phencyc Scr (test Negative *NA*(12/14/15 code = U Phencyc Scr) 5:54 AM) [facility] [id number] 10:54:00 Test Item Value Reference Range Interpretation Comments U Opiate Scr (test Negative *NA*(12/14/15 code = U Opiate Scr) 5:54 AM) [facility] [id number] 10:54:00 Test Item Value Reference Range Interpretation Comments U Cannab Scr (test Negative *NA*(12/14/15 code = U Cannab Scr) 5:54 AM) [facility] [id number] 10:54:00 Test Item Value Reference Range Interpretation Comments U Cocaine Scr (test Negative *NA*(12/14/15 code = U Cocaine Scr) 5:54 AM) [facility]2016-08-03 10:54:00 Test Item Value Reference Range Interpretation Comments U Sodium (test code = U Sodium) 13 [facility]2016-08-03 10:54:00 Test Item Value Reference Range Interpretation Comments U Potassium (test code = U Potassium) 47.0 [facility]2016-08-03 10:54:00 Test Item Value Reference Range Interpretation Comments U Chloride (test code = U Chloride) 39 [id number] 06:07:00 Test Item Value Reference Range Interpretation Comments LDL (Calculated) (test code = LDL 122 (Calculated)) [facility] CenterBvccwhlKIKTFQ3626-77-30 06:07:00 Test Item Value Reference Range Interpretation Comments VLDL (test code = VLDL) 28 [facility] CenterMpdcguwFODPPD7445-28-14 06:07:00 Test Item Value Reference Range Interpretation Comments Trig (test code = Trig) 140 [facility] [id number] 06:07:00 Test Item Value Reference Range Interpretation Comments Chol (test code = Chol) 199 [facility] CenterJydvzibKKRXMB1061-53-77 06:07:00 Test Item Value Reference Range Interpretation Comments HDL (test code = HDL) 49 [facility] CenterXjpiscgFERBAH1525-25-34 06:07:00 Test Item Value Reference Range Interpretation Comments CHD Risk (test code = CHD Risk) 4.06 4.00-7.30 [facility]2016-08-03 06:07:00 Test Item Value Reference Range Interpretation Comments Hgb A1C (test code = Hgb A1C) 5.4 [facility]2016-08-03 06:07:00 Test Item Value Reference Range Interpretation Comments U Osmolality (test code = U Osmolality) 301 300-800 [facility]2016-08-03 06:07:00 Test Item Value Reference Range Interpretation Comments U Amylase (test code = U Amylase) 52 [facility] [id number] 06:07:00 Test Item Value Reference Range Interpretation Comments LDL (Calculated) (test code = LDL 122 (Calculated)) [facility] [id number] 06:07:00 Test Item Value Reference Range Interpretation Comments VLDL (test code = VLDL) 28 [facility] CenterBbthjarCGUETJ1764-19-17 06:07:00 Test Item Value Reference Range Interpretation Comments Trig (test code = Trig) 140 [facility] [id number] 06:07:00 Test Item Value Reference Range Interpretation Comments Chol (test code = Chol) 199 [facility] CenterDixxmodYSHHZF6004-28-64 06:07:00 Test Item Value Reference Range Interpretation Comments HDL (test code = HDL) 49 [facility] [id number] 06:07:00 Test Item Value Reference Range Interpretation Comments CHD Risk (test code = CHD Risk) 4.06 4.00-7.30 [facility] [id number] 06:07:00 Test Item Value Reference Range Interpretation Comments Hgb A1C (test code = Hgb A1C) 5.4 [facility] [id number] 06:07:00 Test Item Value Reference Range Interpretation Comments U Osmolality (test code = U Osmolality) 301 300-800 [facility] [id number] 06:07:00 Test Item Value Reference Range Interpretation Comments U Amylase (test code = U Amylase) 52 [facility] [id number] 02:58:00 Test Item Value Reference Range Interpretation Comments Glucose CSF (test code = Glucose CSF) 70 45-80 [facility] [id number] 02:58:00 Test Item Value Reference Range Interpretation Comments Lactic Acid CSF (test code = Lactic 8.6 0.6-2.2 Acid CSF) [facility]2016-08-03 02:58:00 Test Item Value Reference Range Interpretation Comments Monocyte CSF (test code = Monocyte CSF) 3 15-45 [facility]2016-08-03 02:58:00 Test Item Value Reference Range Interpretation Comments Segs CSF (test code = 47 See_Comment [Auto mated message] The Segs CSF) system which ge nerated this result transmit craig reference range : <=6. The reference range was not used to interpr et this result as kita l/abnormal. [facility] [id number] 02:58:00 Test Item Value Reference Range Interpretation Comments Lymph CSF (test code = Lymph CSF) 50 40-80 [facility] [id number] 02:58:00 Test Item Value Reference Range Interpretation Comments Tube Num CSF (test xxxxxxx (12/13/15 9:58 PM) code = Tube Num CSF) [facility]2016-08-03 02:58:00 Test Item Value Reference Range Interpretation Comments Clarity CSF (test code Marked *ABN*(12/13/15 = Clarity CSF) 9:58 PM) [facility]2016-08-03 02:58:00 Test Item Value Reference Range Interpretation Comments Color CSF (test code = Red *ABN*(12/13/15 9:58 Color CSF) PM) [facility]2016-08-03 02:58:00 Test Item Value Reference Range Interpretation Comments WBC CSF (test code = 1944 See_Comment [Autom ated message] The WBC CSF) system which ge nerated this result transmit craig reference range : <=53. The reference range was not used to interpr et this result as kita l/abnormal. [facility]2016-08-03 02:58:00 Test Item Value Reference Range Interpretation Comments Supernat CSF (test code Xanthoch 2*ABN*(12/13/15 = Supernat CSF) 9:58 PM) [facility]2016-08-03 02:58:00 Test Item Value Reference Range Interpretation Comments RBC CSF (test code = 683768 See_Comment [Autom ated message] The RBC CSF) system which ge nerated this result transmit craig reference range : <=03. The reference range was not used to interpr et this result as kita l/abnormal. [facility]2016-08-03 02:58:00 Test Item Value Reference Range Interpretation Comments Glucose CSF (test code = Glucose CSF) 70 45-80 [facility]2016-08-03 02:58:00 Test Item Value Reference Range Interpretation Comments Lactic Acid CSF (test code = Lactic 8.6 0.6-2.2 Acid CSF) [facility]2016-08-03 02:58:00 Test Item Value Reference Range Interpretation Comments Monocyte CSF (test code = Monocyte CSF) 3 15-45 [facility]2016-08-03 02:58:00 Test Item Value Reference Range Interpretation Comments Segs CSF (test code = 47 See_Comment [Auto mated message] The Segs CSF) system which ge nerated this result transmit craig reference range : <=6. The reference range was not used to interpr et this result as kita l/abnormal. [facility]iv[facility] [id number] 02:58:00 Test Item Value Reference Range Interpretation Comments Lymph CSF (test code = Lymph CSF) 50 40-80 [facility] [id number] 02:58:00 Test Item Value Reference Range Interpretation Comments Tube Num CSF (test xxxxxxx (12/13/15 9:58 PM) code = Tube Num CSF) [facility]2016-08-03 02:58:00 Test Item Value Reference Range Interpretation Comments Clarity CSF (test code Marked *ABN*(12/13/15 = Clarity CSF) 9:58 PM) [facility] [id number] 02:58:00 Test Item Value Reference Range Interpretation Comments Color CSF (test code = Red *ABN*(12/13/15 9:58 Color CSF) PM) [facility]2016-08-03 02:58:00 Test Item Value Reference Range Interpretation Comments WBC CSF (test code = 1944 See_Comment [Autom ated message] The WBC CSF) system which ge nerated this result transmit craig reference range : <=53. The reference range was not used to interpr et this result as kita l/abnormal. [facility] [id number] 02:58:00 Test Item Value Reference Range Interpretation Comments Supernat CSF (test code Xanthoch 2*ABN*(12/13/15 = Supernat CSF) 9:58 PM) [facility] [id number] 02:58:00 Test Item Value Reference Range Interpretation Comments RBC CSF (test code = 990792 See_Comment [Autom ated message] The RBC CSF) system which ge nerated this result transmit craig reference range : <=03. The reference range was not used to interpr et this result as kita l/abnormal. [facility]villeAtmoceanCHEM [id number] 01:15:00 Test Item Value Reference Range Interpretation Comments POC Creatinine (test code = POC 1.1 0.5-1.4 Creatinine) [facility] StephenvilleAtmoceanCHEM [id number] 01:15:00 Test Item Value Reference Range Interpretation Comments POC Creatinine (test code = POC 1.1 0.5-1.4 Creatinine) [facility]CARD[facility] [id number] 01:00:00 Test Item Value Reference Range Interpretation Comments CK MB Index (test 1.4 See_Comment [Automate d message] The code = CK MB Index) system w [employer] generated this result transmit craig reference range : <=2.5. The reference range was not used to interpr et this result as kita l/abnormal. [employer]2016-08-03 01:00:00 Test Item Value Reference Range Interpretation Comments Troponin-I (test code no gt See_Comment [Auto mated message] The = Troponin-I) system which g enerated this result transmit craig reference range : <=0.40. The reference r sagrario was not used to interpr et this result as kita l/abnormal. [facility] [employer]2016-08-03 01:00:00 Test Item Value Reference Range Interpretation Comments CK MB (test code = CK MB) 0.8 0.5-3.[address] [facility] [employer]2016-08-03 01:00:00 Test Item Value Reference Range Interpretation Comments Total CK (test code = Total CK) 59 12-[address] [facility] [id number] 01:00:00 Test Item Value Reference Range Interpretation Comments Ethanol Lvl (test code = Ethanol Lvl) [address] [facility] [id number] 01:00:00 Test Item Value Reference Range Interpretation Comments Etoh (%) (test code = Etoh (%)) 0.[address] [facility] [employer]2016-08-03 01:00:00 Test Item Value Reference Range Interpretation Comments CK MB Index (test 1.4 See_Comment [Automate d message] The code = CK MB Index) system w [employer] generated this result transmit craig reference range : <=2.5. The reference range was not used to interpr et this result as kita l/abnormal. [facility] [employer]2016-08-03 01:00:00 Test Item Value Reference Range Interpretation Comments Troponin-I (test code no gt See_Comment [Auto mated message] The = Troponin-I) system which g enerated this result transmit craig reference range : <=0.40. The reference r sagrario was not used to interpr et this result as kita l/abnormal. [employer]2016-08-03 01:00:00 Test Item Value Reference Range Interpretation Comments CK MB (test code = CK MB) 0.8 0.5-3.6 [facility] [id number] 01:00:00 Test Item Value Reference Range Interpretation Comments Total CK (test code = Total CK) 59 12-191 [facility] CenterTmuqmduRHNUULNYMD7573-01-97 01:00:00 Test Item Value Reference Range Interpretation Comments Ethanol Lvl (test code = Ethanol Lvl) 7 [facility] CenterVtofxijOASQQAOUOP8191-18-88 01:00:00 Test Item Value Reference Range Interpretation Comments Etoh (%) (test code = Etoh (%)) 0.007 [facility]
[2022-10-21 10:07] LABS: Absolute Lymphocytes (CBC) 5.2 K/uL (0.7-4.9); Lymphocytes % 36.2 % (15.3-44.8); MCV 93.2 fL (80-100); MPV 6.9 fL (7.6-11.3); RBC Red Blood Cell Count 3.01 M/uL (4.33-5.43)
[2022-10-21 10:20] LABS: Potassium 4.9 mEq/L (3.5-5.1)
--- NOTE | 2022-10-21 10:42 | RAD REPORT ---
EXAM DESCRIPTION: RAD - Hip Left 2 View - 10/21/2022 10:22 am CLINICAL HISTORY: Left hip pain status post injury FINDINGS: Basicervical left femoral fracture moderately displaced. Varus angulation at the fracture site. No dislocation
--- NOTE | 2022-10-21 10:42 | RAD REPORT ---
EXAM DESCRIPTION: RAD - Pelvis - 10/21/2022 10:22 am CLINICAL HISTORY: Pelvic pain status post injury FINDINGS: Basicervical left femoral fracture moderately displaced. Varus angulation at the fracture site. No dislocation
[2022-10-21] MEDS ORDERED: MORPHINE 2 MG/ML SYR ONE ×2 (10:48→14:19)
[2022-10-21] MEDS ORDERED: ONDANSETRON 4 MG/2 ML VIAL ONE (10:48)
--- NOTE | 2022-10-21 10:52 | RAD REPORT ---
EXAM DESCRIPTION: RAD - Elbow Left 3 View - 10/21/2022 10:22 am CLINICAL HISTORY: Left elbow pain status post trauma FINDINGS: No fracture or dislocation is seen.
--- NOTE | 2022-10-21 11:01 | EDPHYS ---
Physician Documentation [facility] Name: Isra Melgar Age: 76 yrs Sex: Male : 1945 Arrival Date: 10/21/2022 Time: 09:41 Bed 19 Private MD: ED Physician Charli Anderson HPI: 10/21 09:48 This 76 yrs old Male presents to ER via Unassigned with complaints of fall, left hip rn injury. 09:48 The patient or guardian reports an injury, pain. The complaints affect the left hip. rn Modifying factors: The symptoms are alleviated by remaining still, the symptoms are aggravated by any movement. Severity of symptoms: At their worst the symptoms were moderate, in the emergency department the symptoms have improved. The patient has not experienced similar symptoms in the past. The patient has not recently seen a physician. Per EMS, fall while trying to sit, fell onto left hip, reports injury to left hip and left elbow. . Historical: - Allergies: 09:37 No Known Allergies; nj1 - Home Meds: 14:19 amlodipine 5 mg tablet 1 tab daily [Active]; olmesartan 40 mg oral tablet 1 tab daily nj1 [Active]; simvastatin 20 mg Oral tablet 1 tab daily [Active]; aspirin 81 mg oral tablet, delayed release (enteric coated) 1 tab daily [Active]; - PMHx: 09:37 Dementia; Hypertensive disorder; Cerebrovascular accident; Hypercholesterolemia; nj1 - Immunization history:: Client reports receiving the 2nd dose of the Covid vaccine. - Social history:: Smoking status: Patient/guardian denies using tobacco, but has a distant history of tobacco abuse. - Family history:: not pertinent. - Hospitalizations: : No recent hospitalization is reported. ROS: 09:51 Constitutional: Negative for fever, chills, and weight loss, Neck: Negative for injury, rn pain, and swelling, Cardiovascular: Negative for chest pain, palpitations, and edema, Respiratory: Negative for shortness of breath, cough, wheezing, and pleuritic chest pain, Abdomen/GI: Negative for abdominal pain, nausea, vomiting, diarrhea, and constipation, Back: Negative for injury and pain, MS/Extremity: + left hip and left elbow injury and pain Skin: Negative for injury, rash, and discoloration, Neuro: Negative for headache, weakness, numbness, tingling, and seizure. Exam: 09:51 Constitutional: This is a well developed, well nourished patient who is awake, alert, rn and in no acute distress. Head/Face: Normocephalic, atraumatic. Eyes: Pupils equal round and reactive to light, extra-ocular motions intact. Periorbital areas with no swelling, redness, or edema. Neck: NO midline tenderness Chest/axilla: Normal chest wall appearance and motion. Nontender with no deformity. No lesions are appreciated. Cardiovascular: Regular rate and rhythm. No pulse deficits. Respiratory: No increased work of breathing, no retractions or nasal flaring. Abdomen/GI: Soft, non-tender Back: No spinal tenderness. No costovertebral tenderness. Full range of motion. Skin: Warm, dry MS/ Extremity: Pulses equal, no cyanosis. Neurovascular intact. Full, normal range of motion. RUE/LUE/RLE. + mild painful ROM LLE at level of hip. NO LL knee/distal femur/tib fib/ankle/foot pain. Neuro: Awake and alert, GCS 15, oriented to person, place, and situation. Vital Signs: 09:37 BP 149 / 54; Pulse 93; Resp 18; Temp 97.4(TE); Pulse Ox 98% on R/A; Weight 68.04 kg; nj1 Height 5 ft. 11 in. ; 10:45 BP 135 / 57; Pulse 87; Resp 16; Pulse Ox 94% on R/A; nj1 12:41 BP 130 / 68; Pulse 102; Resp 18; Pulse Ox 86% on R/A; nj1 12:41 Pulse Ox 94% on 2 lpm NC; nj1 13:09 BP 134 / 66; Pulse 101; Resp 18; Pulse Ox 100% on 2 lpm NC; nj1 14:18 BP 139 / 45; Pulse 107; Resp 18; Pulse Ox 97% on 2 lpm NC; nj1 14:55 Pulse Ox 1 lpm NC; nj1 09:37 Body Mass Index 20.92 (68.04 kg, 180.34 cm) nj MDM: 09:44 Patient medically screened. rn 10:59 Differential diagnosis: hip fracture, intertrochanteric fracture, femoral neck rn fracture. Data reviewed: vital signs, nurses notes, lab test result(s), radiologic studies, plain films, and as a result, I will admit patient. Consideration of Admission/Observation Patient was admitted/placed on observation. Escalation of care including admission/observation considered. Counseling: I had a detailed discussion with the patient and/or guardian regarding: the historical points, exam findings, and any diagnostic results supporting the discharge/admit diagnosis, radiology results, the need for outpatient follow up, to return to the emergency department if symptoms worsen or persist or if there are any questions or concerns that arise at home. Response to treatment: the patient's symptoms have mildly improved after treatment, and as a result, I will admit patient. Special discussion: I discussed with the patient/guardian in detail that at this point there is no indication for admission to the hospital. It is understood, however, that if the symptoms persist or worsen the patient needs to return immediately for re-evaluation. 10/21 09:45 Order name: CBC with Diff; Complete Time: 10:22 rn 10/21 09:45 Order name: Basic Metabolic Panel; Complete Time: 10:22 rn 10/21 09:45 Order name: Protime (+inr); Complete Time: 14:36 rn 10/21 09:45 Order name: Ptt, Activated; Complete Time: 14:36 rn 10/21 12:46 Order name: CBC with Automated Diff EDCO 10/21 12:46 Order name: CBC with Automated Diff EDCO 10/21 12:46 Order name: Comprehensive Metabolic Panel EDCO 10/21 12:46 Order name: Comprehensive Metabolic Panel EDCO 10/21 12:46 Order name: Magnesium EDCO 10/21 12:46 Order name: Magnesium EDCO 10/21 09:45 Order name: XRAY Pelvis; Complete Time: 10:56 rn 10/21 09:45 Order name: XRAY Hip LEFT 2 view; Complete Time: 10:56 rn 10/21 09:51 Order name: XRAY Elbow LEFT 3 view; Complete Time: 10:56 rn 10/21 12:50 Order name: CXR XRAY eb 10/21 13:26 Order name: RAD; Complete Time: 14:36 EDCO 10/21 12:46 Order name: CONS Physician Consult EDCO 10/21 12:46 Order name: Physical Therapy Consult EDCO 10/21 12:46 Order name: NPO EDCO 10/21 12:46 Order name: Regular EDCO 06/11 09:45 Order name: IV Start; Complete Time: 10:01 rn 10/21 13:11 Order name: Danielson; Complete Time: 13:20 rn Administered Medications: 10:45 Drug: morphine IVP or IV 2 mg Route: IVP; Infused Over: 4 mins; Site: left forearm; nj1 12:42 Follow up: Response: No adverse reaction nj1 10:45 Drug: Ondansetron IVP 4 mg Route: IVP; Site: left forearm; nj1 12:42 Follow up: Response: No adverse reaction nj1 14:15 Drug: morphine IVP or IV 2 mg Route: IVP; Infused Over: 4 mins; Site: left forearm; nj1 14:42 Follow up: Response: No adverse reaction nj1 14:55 Drug: NS 0.9% IV 500 ml Route: IV; Rate: bolus; Site: left forearm; nj1 15:03 Follow up: Response: No adverse reaction; IV Status: Infusion continued upon admission; nj1 IV Intake: 10ml 14:55 Drug: fentaNYL (PF) IVP 25 mcg Route: IVP; Site: left forearm; nj1 15:03 Follow up: Response: No adverse reaction nj1 Disposition Summary: 10/21/22 11:00 Hospitalization Ordered Hospitalization Status: Inpatient Admission rn Provider: Kvng Barakat rn [facility] rn Condition: Stable rn Problem: new rn Symptoms: have improved rn Bed/Room Type: Standard rn Room Assignment: 402(10/21/22 14:24) eb Diagnosis - Displaced fracture of base of neck of left femur rn - Fall on same level, unspecified rn Forms: - Medication Reconciliation Form rn - SBAR form rn Signatures: Dispatcher [employer] EDCharli Becerra MD MD rn Botello, Elizabeth eb Jaco, Norma, RN RN nj1 Corrections: (The following items were deleted from the chart) 09:52 09:51 Constitutional: Negative for fever, chills, and weight loss, Neck: Negative for rn injury, pain, and swelling, Cardiovascular: Negative for chest pain, palpitations, and edema, Respiratory: Negative for shortness of breath, cough, wheezing, and pleuritic chest pain, Abdomen/GI: Negative for abdominal pain, nausea, vomiting, diarrhea, and constipation, Back: Negative for injury and pain, MS/Extremity: Negative for injury and deformity, Skin: Negative for injury, rash, and discoloration, Neuro: Negative for headache, weakness, numbness, tingling, and seizure, rn 14:24 11:00 rn eb
--- NOTE | 2022-10-21 11:01 | ER ---
Nurse's Notes [facility] Name: Isra Melgar Age: 76 yrs Sex: Male : 1945 Arrival Date: 10/21/2022 Time: 09:41 Bed 19 Private MD: Diagnosis: Displaced fracture of base of neck of left femur;Fall on same level, unspecified Presentation: 10/21 09:37 Chief complaint: EMS states: Miss the chair when he tried to sit down. co left hip, nj1 upper thigh pain. 09:37 Method Of Arrival: EMS: [facility] 09:37 Coronavirus screen: Vaccine status: Patient reports receiving the 2nd dose of the covid nj1 vaccine. Ebola Screen: Patient denies travel to an Ebola-affected area in the 21 days before illness onset. Initial Sepsis Screen: Does the patient meet any 2 criteria? HR > 90 bpm. No. Patient's initial sepsis screen is negative. Does the patient have a suspected source of infection? No. Patient's initial sepsis screen is negative. Risk Assessment: Do you want to hurt yourself or someone else? Patient reports no desire to harm self or others. Onset of symptoms was October 21, 2022. 09:37 Acuity: JASMYN 3 nj1 Historical: - Allergies: 09:37 No Known Allergies; nj1 - Home Meds: 14:19 amlodipine 5 mg tablet 1 tab daily [Active]; olmesartan 40 mg oral tablet 1 tab daily nj1 [Active]; simvastatin 20 mg Oral tablet 1 tab daily [Active]; aspirin 81 mg oral tablet, delayed release (enteric coated) 1 tab daily [Active]; - PMHx: 09:37 Dementia; Hypertensive disorder; Cerebrovascular accident; Hypercholesterolemia; nj1 - Immunization history:: Client reports receiving the 2nd dose of the Covid vaccine. - Social history:: Smoking status: Patient/guardian denies using tobacco, but has a distant history of tobacco abuse. - Family history:: not pertinent. - Hospitalizations: : No recent hospitalization is reported. Screenin:[facility] ED Fall Risk Assessment (Adult) History of falling in the last 3 months, nj1 including since admission Yes- single mechanical fall (1 pt) Confusion or Disorientation Yes (5 pts) Intoxicated or Sedated No (0 pts) Impaired Gait No (0 pts) Mobility Assist Device Used No (0 pt) Altered Elimination No (0 pt) Score/Fall Risk Level 3 or more points = High Risk Oriented to surroundings, Maintained a safe environment, Hourly rounding (assess needs \T\ fall precautionary measures) done, Utilized family, sitter, or virtual desktop support consultant as indicated. Abuse screen: Denies threats or abuse. Denies injuries from another. Nutritional screening: No deficits noted. Tuberculosis screening: No symptoms or risk factors identified. Assessment: 09:40 General: Appears in no apparent distress. comfortable, Behavior is calm, cooperative, nj1 appropriate for age. 09:40 Pain: Complains of pain in left hip. Neuro: Level of Consciousness is awake, alert, nj1 obeys commands, Oriented to person, situation. Cardiovascular: Patient's skin is warm and dry. Respiratory: Airway is patent Respiratory effort is even, unlabored. Musculoskeletal: Tenderness present in left hip Intermittent. 10:45 Reassessment: Patient appears in no apparent distress at this time. Patient and/or nj1 family updated on plan of care and expected duration. Pain level reassessed. Patient is alert, oriented x 3, equal unlabored respirations, skin warm/dry/pink. Family at bedside. 12:42 Reassessment: Patient appears in no apparent distress at this time. Patient and/or nj1 family updated on plan of care and expected duration. Pain level reassessed. Patient is alert, oriented x 3, equal unlabored respirations, skin warm/dry/pink. 14:10 Reassessment: Patient restless, wanting to sit up. Education provided. Pt is very [place]. nj1 Son at bedside. Nasal cannula off. SPO2 88-90% on room air. Dr Anderson notified. 14:30 Reassessment: Patient has removed pulse oximeter sensor as well as nasal cannula. Pulse hilda1 oximeter sensor placed back on as well as nasal cannula. 14:50 Reassessment: Oxygen to be reduced to 1 LPM via NC, keep SPO2 at around 92% per Dr sahil Anderson. Vital Signs: 09:37 BP 149 / 54; Pulse 93; Resp 18; Temp 97.4(TE); Pulse Ox 98% on R/A; Weight 68.04 kg; nj1 Height 5 ft. 11 in. ; 10:45 BP 135 / 57; Pulse 87; Resp 16; Pulse Ox 94% on R/A; nj1 12:41 BP 130 / 68; Pulse 102; Resp 18; Pulse Ox 86% on R/A; nj1 12:41 Pulse Ox 94% on 2 lpm NC; nj1 13:09 BP 134 / 66; Pulse 101; Resp 18; Pulse Ox 100% on 2 lpm NC; nj1 14:18 BP 139 / 45; Pulse 107; Resp 18; Pulse Ox 97% on 2 lpm NC; nj1 14:55 Pulse Ox 1 lpm NC; nj1 09:37 Body Mass Index 20.92 (68.04 kg, 180.34 cm) nj1 ED Course: 09:44 Patient arrived in ED. rn 09:44 Charli Anderson MD is Attending Physician. rn 09:47 Patient has correct armband on for positive identification. Placed in gown. Bed in low mm9 position. Call light in reach. Side rails up X2. Warm blanket given. property assessment monitor on. Pulse ox on. NIBP on. 09:49 Rolanda Preston RN is Primary Nurse. nj1 09:51 Triage completed. nj1 09:58 Arm band placed on left wrist. nj1 10:01 Basic Metabolic Panel Sent. mm9 10:01 Ptt, Activated Sent. mm9 10:01 Protime (+inr) Sent. mm9 10:01 CBC with Diff Sent. mm9 10:01 Initial lab(s) drawn, by mn, sent to lab. Inserted saline lock: 22 gauge in left mm9 forearm, using aseptic technique. Blood collected. 10:24 XRAY Pelvis In Process Unspecified. EDMS 10:24 XRAY Hip LEFT 2 view In Process Unspecified. EDMS 10:24 XRAY Elbow LEFT 3 view In Process Unspecified. EDMS 11:00 Kvng Barakat MD is Hospitalizing Provider. rn 12:45 Notified ED physician of vital signs. nj1 13:15 Danielson cath inserted, using sterile technique, 16 Fr., by mn, balloon inflated, to nj1 gravity drainage, returned clear yellow urine. Patient tolerated well. Assisted by Joselo DE LA ROSA. 14:51 No provider procedures requiring assistance completed. nj1 14:51 Patient admitted, IV remains in place. nj1 Administered Medications: 10:45 Drug: morphine IVP or IV 2 mg Route: IVP; Infused Over: 4 mins; Site: left forearm; nj1 12:42 Follow up: Response: No adverse reaction nj1 10:45 Drug: Ondansetron IVP 4 mg Route: IVP; Site: left forearm; nj1 12:42 Follow up: Response: No adverse reaction nj1 14:15 Drug: morphine IVP or IV 2 mg Route: IVP; Infused Over: 4 mins; Site: left forearm; nj1 14:42 Follow up: Response: No adverse reaction nj1 14:55 Drug: NS 0.9% IV 500 ml Route: IV; Rate: bolus; Site: left forearm; nj1 15:03 Follow up: Response: No adverse reaction; IV Status: Infusion continued upon admission; nj1 IV Intake: 10ml 14:55 Drug: fentaNYL (PF) IVP 25 mcg Route: IVP; Site: left forearm; nj1 15:03 Follow up: Response: No adverse reaction nj1 Medication: 14:51 VIS not applicable for this client. nj1 Intake: 15:03 IV: 10ml; Total: 10ml. nj1 Outcome: 11:00 Decision to Hospitalize by Provider. rn 14:49 Admitted to Med/surg accompanied by tech, via stretcher, room 402, with oxygen, Report nj1 called to Pat RN 14:49 Condition: stable 14:49 Instructed on the need for admit. 15:02 Patient left the ED. nj1 Signatures: Dispatcher [employer] EDCharli Becerra MD MD rn Martinez, Maria mm9 Rolanda Preston RN RN nj1 Corrections: (The following items were deleted from the chart) 09:55 09:37 Coronavirus screen: Vaccine status: nj1 nj1 12:49 12:41 BP 130 / 68; nj1 nj1
[2022-10-21] MEDS ORDERED: ONDANSETRON 4 MG/2 ML VIAL IV PRN (12:37)
[2022-10-21] MEDS: NA CHLORIDE 0.9% 1,000 ML IV SCH ×2 (13:00→20:17)
--- NOTE | 2022-10-21 13:25 | RAD REPORT ---
EXAM DESCRIPTION: [place] Single View10/21/2022 1:15 pm CLINICAL HISTORY: Chest pain COMPARISON: 2015 FINDINGS: The lungs appear clear of acute infiltrate. The heart is normal size IMPRESSION: No acute abnormalities displayed
[2022-10-21] MEDS ORDERED: NA CHLORIDE 0.9% 500 ML ONE (14:53)
[2022-10-21] MEDS ORDERED: FENTANYL CITR 100 MCG/2 ML ONE (14:53)
--- NOTE | 2022-10-21 16:16 | CON ---
Date of Consultation: 10/21/2022 This is my first time seeing this patient to my knowledge. He is a 76-year-old male, who apparently is hard of hearing and also has some difficulties with mentation, questionable dementia. He has had a history of CVA with some residual left-sided weakness according to his history. He also has a hist ory of vascular disease. Unfortunately, he fell while trying to sit in a chair earlier today with in jury to his left hip. He was seen and examined in the emergency department where he was ruled out fo r other injuries; however, x-rays demonstrated a displaced left femoral neck fracture. He also has m ultiple abrasions, however, no other fractures were identified. On seeing him today, he is addressed he has difficulty with comprehension; however, we have asked him hurting is where he says that he is not; however, any movement or manipulation of his left hip causes pain. His other long bones and william ints have multiple straps with no obvious crepitation. Family is in the room and helps with history taking as well as serves as assistant center director as discussed the diagnosis and possible treatment options inclu ding risks, benefits, and alternatives to treatment. At this time, we will plan for a left hip bipol ar hemiarthroplasty. This has been discussed with the family and we were not sure we will proceed wi th this. He obviously has underlying medical issues and will probably be needed cleared at least by the hospitalist whether or not they would like to have further testing is depending on their judgment . Otherwise, they will make him n.p.o. after midnight; however, may not be able to complete this renard orrow and we will proceed when possible. ELIZA Voice ID: [id number] Report ID: [id number]
[2022-10-21] MEDS: ACETAMINOPHEN 500 MG TAB PO PRN ×2 (16:34→20:17)
[2022-10-21] MEDS: HYDROMORPHONE HCL 1 MG/ML INJ IV PRN (16:35)
[2022-10-21] MEDS ORDERED: ENOXAPARIN 40 MG/0.4 ML SQ SCH (17:00)
[2022-10-21] MEDS ORDERED: HALOPERIDOL LACT 5 MG/ML INJ IV PRN (17:14)
[2022-10-21 17:40] VITALS: BMI 21.7
[2022-10-21] MEDS: RISPERIDONE 0.25 MG TABLET PO SCH (20:17)
[2022-10-22] MEDS: NA CHLORIDE 0.9% 1,000 ML IV SCH ×2 (02:20→07:28)
[2022-10-22 06:24] LABS: Absolute Lymphocytes (CBC) 4.6 K/uL (0.7-4.9); Lymphocytes % 30.7 % (15.3-44.8); MCV 92.8 fL (80-100); MPV 7.3 fL (7.6-11.3); RBC Red Blood Cell Count 3.13 M/uL (4.33-5.43)
[2022-10-22 06:42] LABS: Albumin 3.6 g/dL (3.4-5.0); Bilirubin Total 1.1 mg/dL (0.2-1.0); Magnesium 1.9 mg/dL (1.6-2.4); Potassium 4.9 mEq/L (3.5-5.1); Protein, Total 6.4 g/dL (6.4-8.2)
[2022-10-22] MEDS: HYDROMORPHONE HCL 1 MG/ML INJ IV PRN ×2 (07:35→11:38)
[2022-10-22] MEDS ORDERED: PNEUMOCOCCAL VACCINE 0.5 ML IMVAC ONE (08:00)
--- NOTE | 2022-10-22 08:53 | P.HP ---
Certification for Inpatient Patient admitted to: Inpatient With expected LOS: >2 Midnights Patient will require the following post-hospital care: None Practitioner: I am a practitioner with admitting privileges, knowledge of patient current condition, hospital course, and medical plan of care. Services: Services provided to patient in accordance with Admission requirements found in Title 42 Section 412.3 of the Code of Federal Regulations Patient History Date of Service: 10/21/22 Reason for admission: Left femoral neck fracture. History of Present Illness: Patient is a 76-year-old gentleman with a history of dementia who came to the hospital after falling and he suffered a left femoral neck fracture. Patient was admitted to the hospital for further work-up. Patient does not have a significant cardiac disease. The patient has had a hemorrhagic stroke in the past. Patient lives with his who is his main network security officer. Patient gets around with a walker. Patient has been seen by orthopedic. Patient is being managed conservatively at this time but plans to do surgical intervention over the next 48 hours. We have spoken with family and they are agreeable to surgery. Benefits of surgery outweigh the risk as if patient becomes bedbound his long-term prognosis is very poor. At this time, patient will be admitted to the hospital for surgical intervention. We will also consult cardiology as well. Allergies No Known Allergies Allergy (Verified 10/21/22 16:06) Home Medications: Amlodipine [Norvasc*] 5 mg PO DAILY 03/01/16 Aspirin Chewable [Aspirin Chewable*] 81 mg PO DAILY 10/21/22 Olmesartan Medoxomil 40 mg PO DAILY 10/21/22 Simvastatin [Zocor] 20 mg PO DAILY 10/21/22 - Past Medical/Surgical History Has patient received pneumonia vaccine in the past: No Diabetic: No -: high blood pressure -: dementia -: hemorhagic stroke w/o residual -: COPD -: "blockage " below knee on left -: Hernia removal abdomen -: triple bypass groin - Family History Father Family History: Reviewed- Non-Contributory - Social History Smoking Status: Never smoker Alcohol use: Yes CD- Drugs: No Caffeine use: Yes Place of Residence: Home Review of Systems 10-point ROS is otherwise unremarkable Physical Examination - Vital Signs Temperature: 100.4 F Blood Pressure: 127/61 Pulse: 92 Respirations: 20 Pulse Ox (%): 100 - Physical Exam General: Alert, In no apparent distress, Demented HEENT: Atraumatic, PERRLA, Mucous membr. moist/pink, EOMI, Sclerae nonicteric Neck: Supple, 2+ carotid pulse no bruit, No LAD, Without JVD or thyroid abnormality Respiratory: Clear to auscultation bilaterally, Normal air movement Cardiovascular: Regular rate/rhythm, Normal S1 S2, No murmurs Gastrointestinal: Normal bowel sounds, Soft and benign, Non-distended, No tenderness Musculoskeletal: No clubbing, No swelling, Tenderness Integumentary: Tenderness/swelling Neurological: Normal speech, Sensation intact, Cranial nerves 3-12 intact, Abnormal gait, Abnormal strength Lymphatics: No axilla or inguinal lymphadenopathy - Studies Laboratory Data (last 24 hrs) 10/21/22 09:50: PT 11.0, INR 1.00, APTT 30.1 10/21/22 09:50: Sodium 139, Potassium 4.9, BUN 22 H, Creatinine 1.50 H, Glucose 119 H 10/21/22 09:50: WBC 14.40 H, Hgb 9.1 L, Hct 28.0 L, Plt Count 213 Assessment & Plan - Problems (Diagnosis) (1) Fracture of femoral neck, left Current Visit: Yes Status: Acute Qualifiers: Encounter type: initial encounter (2) Essential hypertension Current Visit: No Status: Acute (3) Stage III pressure ulcer of left heel Current Visit: No Status: Acute (4) Peripheral vascular disease Current Visit: No Status: Chronic (5) Personal history of leukemia Current Visit: No Status: Chronic (6) Pressure ulcer of left ankle, stage 3 Current Visit: No Status: Resolved (7) Hx of aorto-femoral bypass Current Visit: No Status: Inactive (8) Dysarthria following cerebral infarction Current Visit: No Status: Acute - Plan Plan: 1. Continue with gentle hydration 2. Cardiac clearance 3. Pain control 4. Antiemetics 5. Physical therapy after surgery 6. Protein supplementation to keep strength increased 7. GI and DVT prophylaxis Discharge Plan: Home Plan to discharge in: Greater than 2 days - Advance Directives Does patient have a Living Will: No Does patient have a Durable POA for Healthcare: No - Code Status/Comfort Care Code Status Assessed: Yes Code Status: Full Code Critical Care: No Time Spent Managing PTS Care (In Minutes): 45
--- NOTE | 2022-10-22 09:01 | P.PN ---
Subjective Date of Service: 10/22/22 Subjective: No new changes, No C/O voiced Patient rested overnight. Continue with medication to help and rest. Family aware of plan to possibly have surgery tomorrow. They are agreeable. Will probably need inpatient rehab afterwards if patient is able to follow directions fairly well. Review of Systems 10-point ROS is otherwise unremarkable Physical Examination - Vital Signs Temperature: 100.4 F Blood Pressure: 127/61 Pulse: 92 Respirations: 20 Pulse Ox (%): 100 - Physical Exam General: Alert, In no apparent distress, Oriented x3 Respiratory: Clear to auscultation bilaterally, Normal air movement Cardiovascular: Regular rate/rhythm, Normal S1 S2, No murmurs Gastrointestinal: Normal bowel sounds, Soft and benign, Non-distended, No tenderness Musculoskeletal: No clubbing, No swelling, No tenderness Neurological: Sensation intact, Cranial nerves 3-12 intact - Studies Laboratory Data (last 24 hrs) 10/21/22 09:50: PT 11.0, INR 1.00, APTT 30.1 10/21/22 09:50: Sodium 139, Potassium 4.9, BUN 22 H, Creatinine 1.50 H, Glucose 119 H 10/21/22 09:50: WBC 14.40 H, Hgb 9.1 L, Hct 28.0 L, Plt Count 213 Medications List Reviewed: Yes Assessment & Plan - Problems (Diagnosis) (1) Fracture of femoral neck, left Current Visit: Yes Status: Acute Qualifiers: Encounter type: initial encounter (2) Essential hypertension Current Visit: No Status: Acute (3) Stage III pressure ulcer of left heel Current Visit: No Status: Acute (4) Peripheral vascular disease Current Visit: No Status: Chronic (5) Personal history of leukemia Current Visit: No Status: Chronic (6) Pressure ulcer of left ankle, stage 3 Current Visit: No Status: Resolved (7) Hx of aorto-femoral bypass Current Visit: No Status: Inactive (8) Dysarthria following cerebral infarction Current Visit: No Status: Acute - Plan Plan: 1. Gentle hydration 2. Cardiac clearance per cardiology 3. Pain control 4. Antiemetics 5. Physical therapy after surgery 6. Protein supplementation to keep strength increased 7. GI and DVT prophylaxis Discharge Plan: Home Plan to discharge in: Greater than 2 days - Advance Directives Does patient have a Living Will: No Does patient have a Durable POA for Healthcare: No - Code Status/Comfort Care Code Status: Full Code Critical Care: No Time Spent Managing PTS Care (In Minutes): 35
[2022-10-22] MEDS: ACETAMINOPHEN 500 MG TAB PO PRN (09:04)
[2022-10-22] MEDS ORDERED: ENOXAPARIN 40 MG/0.4 ML SQ ONE (09:06)
[2022-10-22] MEDS: VANCOMYCIN 1.25 GM in NA CHLORIDE 0.9% 250 ML IVPB SCH (09:49)
[2022-10-22] MEDS: Levofloxacin500mg IV 500 MG/100 ML BAG IV SCH (09:49)
[2022-10-22] MEDS ORDERED: VANCOMYCIN 1 GM in NA CHLORIDE 0.9% 250 ML IVPB SCH (10:00)
--- NOTE | 2022-10-22 14:15 | ECHO ---
HEIGHT: 5 ft 7 in WEIGHT: 139 lb 0 oz DATE OF STUDY: 10/22/[address]: Kvng Barakat MD 2-DIMENSIONAL: YES M.MODE: YES DOPPLER: YES COLOR FLOW: YES TDS: YES PORTABLE: YES DEFINITY: BUBBLE STUDY: DIAGNOSIS: CARDIAC CLEARANCE CARDIAC HISTORY: CATHERIZATION: NO SURGERY: NO PROSTHETIC VALVE: NO PACEMAKER: NO MEASUREMENTS (cm) DIASTOLIC (NORMALS) SYSTOLIC (NORMALS) IVSd 0.9 (0.6-1.2) LA Diam 2.4 (1.9-4.0) LVEF 76% LVIDd 3.1 (3.5-5.7) LVIDs 1.8 (2.0-3.5) %FS 43% LVPWd 1.1 (0.6-1.2) Ao Diam 2.4 (2.0-3.7) 2 DIMENSIONAL ASSESSMENT: RIGHT ATRIUM: NORMAL LEFT ATRIUM: NORMAL RIGHT VENTRICLE: NORMAL LEFT VENTRICLE: NORMAL TRICUSPID VALVE: NORMAL MITRAL VALVE: NORMAL PULMONIC VALVE: NORMAL AORTIC VALVE: NORMAL PERICARDIAL EFFUSION: NONE AORTIC ROOT: NORMAL LEFT VENTRICULAR WALL MOTION: NORMAL DOPPLER/COLOR FLOW: NORMAL COMMENTS: 1. NORMAL 2-DIMENSIONAL ECHOCARDIOGRAM WITH DOPPLER 2. NO WALL MOTION ABNORMALITY 3. NO EFFUSION TECHNOLOGIST: ELLE CHOWDHURY
--- NOTE | 2022-10-22 15:32 | RAD REPORT ---
EXAM DESCRIPTION: [facility] Single View10/22/2022 3:05 pm CLINICAL HISTORY: Hypoxia COMPARISON: 06/23/2002 FINDINGS: Mild left lateral basilar opacity could represent infiltrate or atelectasis The remainder of the lungs appear clear. Heart is normal size
[2022-10-22] MEDS: HYDROMORPHONE HCL 0.5 MG/0.5 ML INJ IV PRN ×2 (15:39→19:58)
[2022-10-22] MEDS ORDERED: CEFAZOLIN 1 GM in NA CHLORIDE 0.9% 100 ML IVPB SCH (17:00)
[2022-10-22] MEDS ORDERED: LEVALBUTEROL 1.25 MG/3 ML NEB NEB ONE (17:10)
[2022-10-22] MEDS ORDERED: IPRATROPIUM BROM 0.5MG/2.5ML NEB ONE (17:10)
[2022-10-22] MEDS: IPRATROPIUM BROM 0.5MG/2.5ML NEB SCH (19:35)
[2022-10-22] MEDS: ALBUTEROL 2.5 MG/3 ML NEB SOL NEB SCH (19:35)
[2022-10-22] MEDS: RISPERIDONE 0.25 MG TABLET PO SCH (19:58)
[2022-10-23] MEDS: ALBUTEROL 2.5 MG/3 ML NEB SOL NEB SCH ×4 (01:05→19:35)
[2022-10-23] MEDS: IPRATROPIUM BROM 0.5MG/2.5ML NEB SCH ×4 (01:05→19:35)
[2022-10-23] MEDS: HYDROMORPHONE HCL 0.5 MG/0.5 ML INJ IV PRN ×3 (04:29→20:51)
--- NOTE | 2022-10-23 05:15 | P.PN ---
Date of Service: 10/23/22 Subjective Patient has been having low-grade fever. He had continue with broad-spectrum antibiotics. Wound care appreciated. Scheduled for surgery later today. Review of Systems 10-point ROS is otherwise unremarkable Physical Examination - Vital Signs Reviewed - Physical Exam General: Alert, In no apparent distress, Oriented x3 Respiratory: Clear to auscultation bilaterally, Normal air movement Cardiovascular: Regular rate/rhythm, Normal S1 S2, No murmurs Gastrointestinal: Normal bowel sounds, Soft and benign, Non-distended, No tenderness Musculoskeletal: No clubbing, No swelling, tenderness in the left leg Neurological: Decreased strength in the left leg but otherwise no abnormalities Assessment & Plan - Problems (Diagnosis) (1) Fracture of femoral neck, left Current Visit: Yes Status: Acute Qualifiers: Encounter type: initial encounter (2) Essential hypertension Current Visit: No Status: Acute (3) Stage III pressure ulcer of left heel Current Visit: No Status: Acute (4) Peripheral vascular disease Current Visit: No Status: Chronic (5) Personal history of leukemia Current Visit: No Status: Chronic (6) Pressure ulcer of left ankle, stage 3 Current Visit: No Status: Resolved (7) Hx of aorto-femoral bypass Current Visit: No Status: Inactive (8) Dysarthria following cerebral infarction Current Visit: No Status: Acute - Plan Continue with plan of care as mentioned below: 1. Gentle hydration 2. Cardiac clearance per cardiology 3. Pain control 4. Antiemetics 5. Physical therapy after surgery 6. Protein supplementation to keep strength increased 7. GI and DVT prophylaxis
[2022-10-23] MEDS: NA CHLORIDE 0.9% 1,000 ML IV SCH ×2 (06:05→15:39)
[2022-10-23] MEDS: dexAMETHasone 4 MG/ML VIAL IV SCH ×3 (06:05→20:42)
[2022-10-23 07:23] LABS: Absolute Lymphocytes (CBC) 3.5 K/uL (0.7-4.9); Hematocrit 29.1 % (39.6-49.0); Lymphocytes % 24.1 % (15.3-44.8); MPV 7.7 fL (7.6-11.3); RBC Red Blood Cell Count 3.13 M/uL (4.33-5.43)
[2022-10-23 07:41] LABS: Albumin 3.2 g/dL (3.4-5.0); Bilirubin Total 0.8 mg/dL (0.2-1.0); Magnesium 1.8 mg/dL (1.6-2.4); Potassium 4.4 mEq/L (3.5-5.1); Protein, Total 6.4 g/dL (6.4-8.2)
[2022-10-23] MEDS: Levofloxacin500mg IV 500 MG/100 ML BAG IV SCH (08:41)
[2022-10-23] MEDS: VANCOMYCIN 1.25 GM in NA CHLORIDE 0.9% 250 ML IVPB SCH (08:41)
[2022-10-23] MEDS ORDERED: ROPIVACAINE 0.2% (200 MG/100 ML) BAG EP ONE (11:14)
[2022-10-23] MEDS ORDERED: dexAMETHasone 4 MG/ML VIAL ONE (11:22)
[2022-10-23] MEDS ORDERED: FENTANYL CITR 100 MCG/2 ML ONE ×2 (11:22→13:52)
[2022-10-23] MEDS ORDERED: LIDOCAINE 1% MPF 2 ML AMPULE ONE (11:24)
[2022-10-23] MEDS ORDERED: EPINEPHRINE/PF 1 MG/ML AMP ONE (11:24)
[2022-10-23] MEDS ORDERED: propofoL 200 MG/20 ML VIAL IV ONE ×3 (11:34→14:13)
[2022-10-23] MEDS ORDERED: LIDOCAINE 2% MPF 5 ML VIAL ONE (11:36)
[2022-10-23] MEDS ORDERED: TRANEXAMIC ACID 1,000 MG/10 ML VIAL IV ONE (12:16)
[2022-10-23] MEDS ORDERED: Ringers Lactate 1,000 ML IV ONE (12:37)
[2022-10-23] MEDS ORDERED: CEFAZOLIN SODIUM 1 GM/VIAL ONE (12:56)
[2022-10-23] MEDS: TRANEXAMIC ACID 1,000 MG/10 ML VIAL IV ONE ×2 (12:57→13:30)
[2022-10-23] MEDS: CEFAZOLIN SODIUM 2 GM/VIAL ONE ×2 (12:59→13:20)
[2022-10-23] MEDS ORDERED: ROCURONIUM 50 MG/5 ML VIAL IV ONE (13:37)
--- NOTE | 2022-10-23 14:38 | P.BOP ---
Preoperative diagnosis: left hip femoral neck fx Postoperative diagnosis: same Primary procedure: left hip bipolar arthoplasty Estimated blood loss: 150 ccs Anesthesia: General Complications: None Transferred to: Recovery Room Condition: Good
[2022-10-23] MEDS ORDERED: MORPHINE 4 MG/ML SYR ONE (15:30)
[2022-10-23] MEDS ORDERED: dexAMETHasone 4 MG/ML VIAL IV SCH (17:00)
[2022-10-23] MEDS: RISPERIDONE 0.25 MG TABLET PO SCH (20:42)
[2022-10-23] MEDS: ENSURE SURGERY 237 ML CAN PO SCH (20:42)
[2022-10-23] MEDS: ENOXAPARIN 30 MG/0.3 ML SQ SCH (20:50)
--- NOTE | 2022-10-23 22:28 | OP ---
Date of Procedure: 10/23/2022 Surgeon: Lionel Brown MD Preoperative Diagnosis: Left hip displaced femoral neck fracture. Postoperative Diagnosis: Left hip displaced femoral neck fracture. Procedure: Left hip bipolar hemiarthroplasty using the Biomet system. Estimated Blood Loss: 150 cc. Complications: There were no complications. Indications: Mr. Melgar is a 76-year-old gentleman who unfortunately fell injuring his left lower e xtremity. He was seen and examined in the Emergency Department where he has had multiple other scrat ches and abrasions; however, no other significant complaints other than pain in his left hip. I saw him in consultation and he is a very poor historian; however, his family is with him and any movement of the left hip caused pain. All of his other areas were checked and he did not appear to have any other fractures or dislocations. X-rays were reviewed, which revealed a displaced left femoral neck fracture. Risks, benefits, and alternatives of different methods of treating this were discussed wit h the family. They state they understand things as presented and wished to proceed. Description Of Procedure: The patient was taken to the operating room and placed in supine position. General anesthesia was obtained by staff. Following this, he was then transferred to the operative bed. He was then rolled right side down with an axillary roll. All his bony prominences were check ed. He was then properly positioned using hip positioners and left lower extremity was then prepped and draped in usual sterile fashion for the procedure. A standard posterolateral incision was taken down carefully through skin and soft tissues with meticulous hemostasis being maintained using Bovie electrocautery and this leads down to the fascia. A small stab wound was made in the fascia and the gluteal tendon was palpated to ensure correct position. The fascial incision was taken up to near th e tip of the greater trochanter until the gluteus mita muscles were encountered. These were then spread gently using finger pressure. After this, some degree of fat as well as bursal tissue was rem clemencia to allow for visualization and the external rotators and capsule were then removed and tagged fo r later repair. After this, the femoral neck was easily seen and a slightly lower than standard neck cut was then performed and all of the fragments of the femoral neck as well as other bony fragments were removed. The head was then removed and sized using ring gauges. Following this, any soft tissu e obstructions in the acetabulum were removed and attention was turned back to the femur. A box cutt er was used to lateralize followed by the canal finding reamer. It was then sequentially reamed up w ith cylindrical reamers to a size 13. The broaches were then placed to 12 fit easily. The 13 had so me difficulty going down and the decision was made not to place it all the way down because of the pa venkat's very poor bone stock and we then decided to go with a size 11 cemented stem, which is high of fset as the patient is at risk for instability. After this, the canal was irrigated until it runs co mpletely clean. 2 Ray-Tecs were placed in the acetabulum and third generation cementation technique was used for applying cement into the femur after the bone plug had been placed. The stem was then p laced in appropriate version and held in place until the cement hardened. After this was initially t rialed with a +3 head as stability is a significant concern for this patient who has a relatively low demand. This may have done well, but it appeared to be extremely tight and decision was made to mov e down to a standard, which feels more normal and also is very stable with flexion to over 90 degrees , full adduction, and internal rotation to over 40 degrees. This was selected as the final implant. The acetabulum was checked to be sure of any problems and then the final ball was gently tapped into place, after this was reduced and it was brought through the same range of motion and is found to be stable. The wound was copiously irrigated with jet lavage and the external rotators capsule repaire d back to the greater trochanter via bone tunnels. This is again irrigated and the fascia closed in a watertight fashion using heavy Vicryl sutures, again irrigated and the skin was closed using Vicryl sutures followed by sarah. The patient was then placed in Aquacel dressing and taken to recovery room. /CHENCHO Voice ID: [id number] Report ID: [id number]
[2022-10-24] MEDS: ALBUTEROL 2.5 MG/3 ML NEB SOL NEB SCH ×4 (01:55→20:35)
[2022-10-24] MEDS: IPRATROPIUM BROM 0.5MG/2.5ML NEB SCH ×4 (01:55→20:35)
[2022-10-24] MEDS: HYDROMORPHONE HCL 0.5 MG/0.5 ML INJ IV PRN ×2 (02:57→21:41)
[2022-10-24] MEDS: dexAMETHasone 4 MG/ML VIAL IV SCH ×3 (06:00→21:41)
[2022-10-24] MEDS: NA CHLORIDE 0.9% 1,000 ML IV SCH (06:00)
[2022-10-24 07:17] LABS: Magnesium 1.8 mg/dL (1.6-2.4)
[2022-10-24 07:20] LABS: Absolute Lymphocytes (CBC) 3.9 K/uL (0.7-4.9); Hematocrit 23.6 % (39.6-49.0); Lymphocytes % 26.5 % (15.3-44.8); MCV 91.7 fL (80-100); MPV 8.4 fL (7.6-11.3); RBC Red Blood Cell Count 2.58 M/uL (4.33-5.43)
[2022-10-24] MEDS: Levofloxacin500mg IV 500 MG/100 ML BAG IV SCH (08:41)
[2022-10-24] MEDS: ENSURE SURGERY 237 ML CAN PO SCH ×2 (08:53→20:25)
[2022-10-24] MEDS ORDERED: CEFAZOLIN 1 GM in NA CHLORIDE 0.9% 100 ML IVPB SCH (09:00)
[2022-10-24] MEDS: VANCOMYCIN 1.25 GM in NA CHLORIDE 0.9% 250 ML IVPB SCH (10:00)
[2022-10-24] MEDS: VANCOMYCIN 1 GM in NA CHLORIDE 0.9% 250 ML IVPB SCH (12:40)
--- NOTE | 2022-10-24 13:10 | PN ---
Mr. Melgar for seen for cardiac clearance. He has a history of hypertension, dyslipidemia, CVA, and dementia. The day that he was seen was on 10/23/2022. He takes olmesartan, Zocor, and aspirin at h ome. He was cleared from our standpoint. He has no symptoms of chest pain and no clinical evidence of congestive heart failure. His laboratory was fairly appropriate with a creatinine of 1.37. White count was slightly elevated to 15,000. He was on antibiotics and Lovenox. He has done well so far. Telemetry showed no changes. We will sign off his case. MEAGAN/CHENCHO Voice ID: [id number] Report ID: [id number]
--- NOTE | 2022-10-24 13:35 | CON ---
Date of Consultation: 10/23/2022 Reason For Consultation: We were asked to clear Mr. Melgar for surgery. History Of Present Illness: Mr. Melgar was seen on 10/23/2022. He was admitted on 10/21/2022. The patient is 76. Has no previous cardiac history. He has had CVA, hypertension, dyslipidemia, fabi ia. Surgery is planned for the next day or 2. He has no cardiac complaint whatsoever. Clinically s peaking. He does not appear to be in CHF. He does not appear to have any coronary artery disease. He denied chest pain. He denied shortness of breath, PND, orthopnea, pedal edema, palpitation, synco pe, fever or chills. Past Medical History: As stated above. Allergies: NONE. Review of Systems: Negative. Social History: Negative. Family History: Negative. Medications: At home include olmesartan, Zocor, aspirin, and Norvasc. Physical Examination: Vital Signs: Sinus rhythm, vital signs stable, afebrile. HEENT: Negative. Neck: Supple with no bruit. Chest: Clear. Cardiac: Revealed a regular rhythm and rate. No murmurs, gallops, or rubs. Abdomen: Benign. Extremities: Revealed no clubbing, cyanosis, or edema. Diagnostic Data: Chest x-ray is negative. EKG is negative. Labs are normal except for a creatinine 1.37. His white count was 15,000. Impression And Plan: The patient with hypertension, dyslipidemia, cerebrovascular accident, and edumndo ntia. No cardiac physical findings of congestive heart failure, aortic stenosis, or coronary artery disease. Normal EKG, normal chest x-ray. He has a white count that he is on antibiotics for. He is on Lovenox. Creatinine is slightly elevated, which we need to watch for, but otherwise from my lai dpoint, he is a low risk for perioperative mortality. I will continue to follow him. MEAGAN/CHENCHO Voice ID: [id number] Report ID: [id number]
[2022-10-24] MEDS: ENOXAPARIN 30 MG/0.3 ML SQ SCH (20:25)
[2022-10-24] MEDS: RISPERIDONE 0.25 MG TABLET PO SCH (20:25)
[2022-10-25] MEDS: IPRATROPIUM BROM 0.5MG/2.5ML NEB SCH ×4 (02:00→20:04)
[2022-10-25] MEDS: ALBUTEROL 2.5 MG/3 ML NEB SOL NEB SCH ×4 (02:00→20:04)
[2022-10-25] MEDS: NA CHLORIDE 0.9% 1,000 ML IV SCH ×2 (03:14→10:00)
[2022-10-25] MEDS: dexAMETHasone 4 MG/ML VIAL IV SCH (05:18)
--- NOTE | 2022-10-25 08:16 | RAD REPORT ---
[facility] CLINICAL HISTORY: pneumonia COMPARISON: Chest Single View dated 10/22/2022; Chest Single View dated 10/21/2022; Chest Pa And Lat ( 2 Views) dated 03/16/2016; Chest Pa And Lat (2 Views) dated 02/27/2016 TECHNIQUE: Portable AP view of the chest. FINDINGS: New/ progressive left basilar and retrocardiac airspace opacity. Background chronic inters titial changes bilaterally are stable. No pneumothorax. There could be a small left effusion componen t. The cardiomediastinal contours are unremarkable. IMPRESSION: New/progressive left basilar and retrocardiac airspace opacification. Atelectasis versus pneumonia should be considered.
[2022-10-25] MEDS: Levofloxacin500mg IV 500 MG/100 ML BAG IV SCH (08:53)
[2022-10-25] MEDS: ENSURE SURGERY 237 ML CAN PO SCH ×2 (08:58→20:41)
--- NOTE | 2022-10-25 09:55 | P.PN ---
Date of Service: 10/24/22 Subjective Patient is doing well. Patient's clinical symptoms are stable. Review of Systems 10-point ROS is otherwise unremarkable Physical Examination - Vital Signs Reviewed - Physical Exam General: Alert, In no apparent distress, Oriented x3 Respiratory: Clear to auscultation bilaterally, Normal air movement Cardiovascular: Regular rate/rhythm, Normal S1 S2, No murmurs Gastrointestinal: Normal bowel sounds, Soft and benign, Non-distended, No tenderness Musculoskeletal: No clubbing, No swelling, tenderness in the left leg Neurological: Decreased strength in the left leg but otherwise no abnormalities Assessment & Plan - Problems (Diagnosis) (1) Fracture of femoral neck, left Current Visit: Yes Status: Acute Qualifiers: Encounter type: initial encounter (2) Essential hypertension Current Visit: No Status: Acute (3) Stage III pressure ulcer of left heel Current Visit: No Status: Acute (4) Peripheral vascular disease Current Visit: No Status: Chronic (5) Personal history of leukemia Current Visit: No Status: Chronic (6) Pressure ulcer of left ankle, stage 3 Current Visit: No Status: Resolved (7) Hx of aorto-femoral bypass Current Visit: No Status: Inactive (8) Dysarthria following cerebral infarction Current Visit: No Status: Acute - Plan Continue with plan of care as mentioned below: 1. Continue with gentle hydration 2. Cardiac clearance given by cardiology; doing well in the perioperative period 3. Pain control 4. Antiemetics 5. Physical therapy to be started 6. Protein supplementation to keep strength increased 7. Monitor wound of the lower extremity 8. DC restraints as mentation improves 9. GI and DVT prophylaxis
--- NOTE | 2022-10-25 09:57 | P.PN ---
Date of Service: 10/25/22 Subjective Doing well. Patient is awake and alert. Wound care to the left foot. Continue with therapy. Awaiting for SNF placement. Review of Systems 10-point ROS is otherwise unremarkable Physical Examination - Vital Signs Reviewed - Physical Exam General: Alert, In no apparent distress, Oriented x1 Respiratory: Clear to auscultation bilaterally Cardiovascular: Regular rate/rhythm, No murmurs Gastrointestinal: Normal bowel sounds, Soft and benign, Non-distended, No tenderness Musculoskeletal: No clubbing, No swelling, tenderness in the left leg Neurological: Decreased strength in the left leg but otherwise no abnormalities; wound to the left leg Assessment & Plan - Problems (Diagnosis) (1) Fracture of femoral neck, left Current Visit: Yes Status: Acute Qualifiers: Encounter type: initial encounter (2) Essential hypertension Current Visit: No Status: Acute (3) Stage III pressure ulcer of left heel Current Visit: No Status: Acute (4) Peripheral vascular disease Current Visit: No Status: Chronic (5) Personal history of leukemia Current Visit: No Status: Chronic (6) Pressure ulcer of left ankle, stage 3 Current Visit: No Status: Resolved (7) Hx of aorto-femoral bypass Current Visit: No Status: Inactive (8) Dysarthria following cerebral infarction Current Visit: No Status: Acute - Plan Continue with plan of care as mentioned below: 1. Continue with gentle hydration 2. Continue to monitor cardiac status in the perioperative period 3. Pain control 4. Antiemetics 5. Physical therapy to be started 6. Protein supplementation to keep strength increased 7. Monitor wound of the lower extremity 8. DC restraints as mentation improves 9. GI and DVT prophylaxis
[2022-10-25] MEDS: ACETAMINOPHEN 500 MG TAB PO PRN ×2 (11:52→20:41)
[2022-10-25 12:22] LABS: Absolute Lymphocytes (CBC) 5.4 K/uL (0.7-4.9); Lymphocytes % 32.6 % (15.3-44.8); MCV 94.1 fL (80-100); MPV 8.1 fL (7.6-11.3); RBC Red Blood Cell Count 2.55 M/uL (4.33-5.43)
[2022-10-25] MEDS: VANCOMYCIN 1 GM in NA CHLORIDE 0.9% 250 ML IVPB SCH (12:39)
[2022-10-25 12:56] LABS: Magnesium 1.9 mg/dL (1.6-2.4)
[2022-10-25 13:20] LABS: Blood Morphology Comment NOT SEEN (NOT SEEN); Platelet Estimate ADEQ
[2022-10-25] MEDS: RISPERIDONE 0.25 MG TABLET PO SCH (20:41)
[2022-10-25] MEDS: ENOXAPARIN 30 MG/0.3 ML SQ SCH (20:41)
[2022-10-26] MEDS: ALBUTEROL 2.5 MG/3 ML NEB SOL NEB SCH ×4 (02:00→21:10)
[2022-10-26] MEDS: IPRATROPIUM BROM 0.5MG/2.5ML NEB SCH ×4 (02:00→21:10)
[2022-10-26] MEDS: HYDROMORPHONE HCL 0.5 MG/0.5 ML INJ IV PRN ×2 (03:37→20:02)
[2022-10-26 06:17] LABS: Absolute Lymphocytes (CBC) 6.5 K/uL (0.7-4.9); Hematocrit 22.7 % (39.6-49.0); Lymphocytes % 50.6 % (15.3-44.8); MPV 7.7 fL (7.6-11.3); RBC Red Blood Cell Count 2.44 M/uL (4.33-5.43)
[2022-10-26 06:18] LABS: Protime INR 0.97
[2022-10-26 06:27] LABS: Albumin 2.6 g/dL (3.4-5.0); Bilirubin Total 0.3 mg/dL (0.2-1.0); Potassium 3.4 mEq/L (3.5-5.1); Protein, Total 5.3 g/dL (6.4-8.2)
[2022-10-26] MEDS: Levofloxacin500mg IV 500 MG/100 ML BAG IV SCH (08:30)
[2022-10-26] MEDS: SOD FERRIC GLUC COMPLX/SUCROSE 125 MG in NA CHLORIDE 0.9% 100 ML IV SCH (08:33)
[2022-10-26] MEDS: ENSURE SURGERY 237 ML CAN PO SCH ×2 (08:33→19:57)
[2022-10-26] MEDS ORDERED: POTASSIUM CL SA 10 MEQ TAB PO ONE (09:00)
[2022-10-26] MEDS ORDERED: CYANOCOBALAMIN 1000MCG/ML INJ IM SCH (09:00)
[2022-10-26 09:51] LABS: Blood Morphology Comment NOT SEEN (NOT SEEN); Platelet Estimate ADEQ; White Blood Cell Scan OK (OK)
[2022-10-26] MEDS: ACETAMINOPHEN 500 MG TAB PO PRN (10:49)
[2022-10-26] MEDS ORDERED: NA CHLORIDE 0.9% 250 ML ONE (11:32)
[2022-10-26] MEDS: VANCOMYCIN 1 GM in NA CHLORIDE 0.9% 250 ML IVPB SCH (14:46)
[2022-10-26] MEDS: NA CHLORIDE 0.9% 1,000 ML IV SCH (14:46)
[2022-10-26 17:32] LABS: Absolute Lymphocytes (CBC) 6.6 K/uL (0.7-4.9); Hematocrit 26.2 % (39.6-49.0); Lymphocytes % 47.3 % (15.3-44.8); MCV 89.7 fL (80-100); MPV 7.4 fL (7.6-11.3); RBC Red Blood Cell Count 2.92 M/uL (4.33-5.43)
[2022-10-26 17:39] LABS: Potassium 3.8 mEq/L (3.5-5.1)
[2022-10-26] MEDS: ENOXAPARIN 30 MG/0.3 ML SQ SCH (19:56)
[2022-10-26] MEDS: RISPERIDONE 0.25 MG TABLET PO SCH (19:56)
[2022-10-27] MEDS: IPRATROPIUM BROM 0.5MG/2.5ML NEB SCH ×4 (03:05→20:50)
[2022-10-27] MEDS: ALBUTEROL 2.5 MG/3 ML NEB SOL NEB SCH ×4 (03:05→20:50)
[2022-10-27] MEDS: Levofloxacin500mg IV 500 MG/100 ML BAG IV SCH (07:31)
[2022-10-27] MEDS: ENSURE SURGERY 237 ML CAN PO SCH ×2 (07:34→19:51)
[2022-10-27] MEDS: SOD FERRIC GLUC COMPLX/SUCROSE 125 MG in NA CHLORIDE 0.9% 100 ML IV SCH (09:03)
[2022-10-27] MEDS: ACETAMINOPHEN 500 MG TAB PO PRN ×2 (09:06→15:00)
[2022-10-27] MEDS: VANCOMYCIN 1 GM in NA CHLORIDE 0.9% 250 ML IVPB SCH (12:49)
[2022-10-27] MEDS: RISPERIDONE 0.25 MG TABLET PO SCH (19:50)
[2022-10-27] MEDS: ENOXAPARIN 30 MG/0.3 ML SQ SCH (19:50)
[2022-10-27] MEDS: HYDROMORPHONE HCL 0.5 MG/0.5 ML INJ IV PRN (19:51)
[2022-10-28] MEDS: ALBUTEROL 2.5 MG/3 ML NEB SOL NEB SCH ×4 (02:00→20:00)
[2022-10-28] MEDS: IPRATROPIUM BROM 0.5MG/2.5ML NEB SCH ×4 (02:00→20:00)
[2022-10-28] MEDS: HYDROMORPHONE HCL 0.5 MG/0.5 ML INJ IV PRN ×3 (02:05→11:57)
--- NOTE | 2022-10-28 07:25 | P.PN ---
Date of Service: 10/27/22 Subjective Patient continues to improve. Waiting for rehab assessment. Hopefully patient is excepted and will continue with physical therapy. Patient mentation has improved. Patient is following commands. Patient is working with physical therapy. I have really anticipate that he will do well in rehab versus [facility]. Hopefully he will get excepted tomorrow and we can transfer him upstairs. Review of Systems 10-point ROS is otherwise unremarkable Physical Examination - Vital Signs Reviewed - Physical Exam General: Alert, In no apparent distress, Oriented x3 Respiratory: Clear to auscultation bilaterally Cardiovascular: Regular rate/rhythm, No murmurs Gastrointestinal: Normal bowel sounds, Soft and benign, Non-distended, No tenderness Musculoskeletal: No clubbing, No swelling, tenderness in the left leg Neurological: Decreased strength in the left leg but otherwise no abnormalities; wound to the left leg Assessment & Plan - Problems (Diagnosis) (1) Fracture of femoral neck, left Current Visit: Yes Status: Acute Qualifiers: Encounter type: initial encounter (2) Essential hypertension Current Visit: No Status: Acute (3) Stage III pressure ulcer of left heel Current Visit: No Status: Acute (4) Peripheral vascular disease Current Visit: No Status: Chronic (5) Personal history of leukemia Current Visit: No Status: Chronic (6) Pressure ulcer of left ankle, stage 3 Current Visit: No Status: Resolved (7) Hx of aorto-femoral bypass Current Visit: No Status: Inactive (8) Dysarthria following cerebral infarction Current Visit: No Status: Acute - Plan Continue with plan of care as mentioned below: 1. Hep-Lock IV 2. Continue to monitor cardiac status in the perioperative period 3. Pain control 4. Antiemetics 5. Physical therapy appreciated 6. Protein supplementation to keep strength increased 7. Monitor wound of the lower extremity 8. DC restraints as mentation has improved; pt following commands and participating well with therapy sessions 9. GI and DVT prophylaxis
--- NOTE | 2022-10-28 07:26 | P.PN ---
Date of Service: 10/26/22 Subjective Patient doing well with no new complaints; more awake and alert; wean off O2 Review of Systems 10-point ROS is otherwise unremarkable Physical Examination - Vital Signs Reviewed - Physical Exam General: Alert, In no apparent distress, Oriented x3 Respiratory: Clear to auscultation bilaterally Cardiovascular: Regular rate/rhythm, No murmurs Gastrointestinal: Normal bowel sounds, Soft and benign, Non-distended, No tenderness Musculoskeletal: No clubbing, No swelling, tenderness in the left leg Neurological: Decreased strength in the left leg but otherwise no abnormalities; wound to the left leg Assessment & Plan - Problems (Diagnosis) (1) Fracture of femoral neck, left Current Visit: Yes Status: Acute Qualifiers: Encounter type: initial encounter (2) Essential hypertension Current Visit: No Status: Acute (3) Stage III pressure ulcer of left heel Current Visit: No Status: Acute (4) Peripheral vascular disease Current Visit: No Status: Chronic (5) Personal history of leukemia Current Visit: No Status: Chronic (6) Pressure ulcer of left ankle, stage 3 Current Visit: No Status: Resolved (7) Hx of aorto-femoral bypass Current Visit: No Status: Inactive (8) Dysarthria following cerebral infarction Current Visit: No Status: Acute - Plan Continue with plan of care as mentioned below: 1. Hep-Lock IV 2. Doing well post-op' mentation has imporved 3. Pain control 4. Antiemetics 5. Physical therapy appreciated 6. Protein supplementation to keep strength increased 7. Monitor wound of the lower extremity 8. DC restraints as mentation has improved; pt following commands and participating well with therapy sessions 9. GI and DVT prophylaxis
[2022-10-28] MEDS: CYANOCOBALAMIN 1,000 MCG TAB PO SCH (08:53)
[2022-10-28] MEDS: ACETAMINOPHEN 500 MG TAB PO PRN ×2 (08:55→14:52)
[2022-10-28] MEDS: ENSURE SURGERY 237 ML CAN PO SCH ×2 (08:57→21:00)
[2022-10-28] MEDS ORDERED: levoFLOXacin 500 MG TAB PO SCH (09:00)
[2022-10-28 10:58] LABS: Absolute Lymphocytes (CBC) 7.5 K/uL (0.7-4.9); Hematocrit 27.8 % (39.6-49.0); Lymphocytes % 50.8 % (15.3-44.8); MCV 90.1 fL (80-100); RBC Red Blood Cell Count 3.09 M/uL (4.33-5.43)
[2022-10-28 11:25] LABS: Albumin 2.6 g/dL (3.4-5.0); Bilirubin Total 0.4 mg/dL (0.2-1.0); Magnesium 1.8 mg/dL (1.6-2.4); Potassium 3.4 mEq/L (3.5-5.1); Protein, Total 5.4 g/dL (6.4-8.2)
--- NOTE | 2022-10-28 13:07 | P.PN ---
Date of Service: 10/28/22 Subjective Patient continues to do really well. Currently on room air oxygen. Pneumonia is being well treated. Continue with wound care of the left leg. Lungs sound clear bilaterally. Patient is much more active. No ahead and Hep-Lock IV and take him off of oxygen. We will encourage him to get out of bed. Wound care per wound healing center. Review of Systems 10-point ROS is otherwise unremarkable Physical Examination - Vital Signs Reviewed - Physical Exam General: Alert, In no apparent distress, Oriented x3 Respiratory: Clear to auscultation bilaterally Cardiovascular: Regular rate/rhythm, No murmurs Gastrointestinal: Normal bowel sounds, Soft and benign, Non-distended, No tenderness Musculoskeletal: No clubbing, No swelling, tenderness in the left leg Neurological: Decreased strength in the left leg but otherwise no abnormalities ; wound to the left leg Assessment & Plan - Problems (Diagnosis) (1) Fracture of femoral neck, left Current Visit: Yes Status: Acute Qualifiers: Encounter type: initial encounter (2) Essential hypertension Current Visit: No Status: Acute (3) Stage III pressure ulcer of left heel Current Visit: No Status: Acute (4) Peripheral vascular disease Current Visit: No Status: Chronic (5) Personal history of leukemia Current Visit: No Status: Chronic (6) Pressure ulcer of left ankle, stage 3 Current Visit: No Status: Resolved (7) Hx of aorto-femoral bypass Current Visit: No Status: Inactive (8) Dysarthria following cerebral infarction Current Visit: No Status: Acute - Plan Continue with plan of care as mentioned below: 1. Hep-Lock IV 2. Doing well post-op- mentation has imporved 3. Pain control 4. Antiemetics 5. Physical therapy appreciated 6. Protein supplementation to keep strength increased 7. Monitor wound of the lower extremity 8. DC restraints as mentation has improved; pt following commands and participating well with therapy sessions 9. GI and DVT prophylaxis
[2022-10-28] MEDS ORDERED: HYDROCODONE/APAP 10/325 TAB PO PRN (13:09)
[2022-10-28 13:27] LABS: Blood Morphology Comment NOT SEEN (NOT SEEN); Platelet Estimate ADEQ; Platelets, Giant FEW
[2022-10-28] MEDS ORDERED: VALSARTAN 160 MG TAB PO SCH (14:00)
[2022-10-28] MEDS: ASPIRIN 81 MG CHEWABLE TABLET PO SCH (14:52)
[2022-10-28] MEDS: AMLODIPINE 10 MG TAB PO SCH (14:52)
[2022-10-28] MEDS: VALSARTAN 160 MG TAB PO SCH (14:56)
[2022-10-28] MEDS ORDERED: ATORVASTATIN 10 MG TAB PO SCH (21:00)
[2022-10-28] MEDS ORDERED: ENOXAPARIN 40 MG/0.4 ML SQ SCH (21:00)
[2022-10-28] MEDS: RISPERIDONE 0.25 MG TABLET PO SCH (21:22)
[2022-10-29] MEDS: ALBUTEROL 2.5 MG/3 ML NEB SOL NEB SCH ×2 (02:10→07:55)
[2022-10-29] MEDS: IPRATROPIUM BROM 0.5MG/2.5ML NEB SCH ×2 (02:10→07:55)
--- NOTE | 2022-10-29 02:50 | P.PN ---
Date of Service: 10/29/22 Subjective Patient remains in really good spirits. Patient denies any new complaints. We are awaiting for acceptance to inpatient rehab. Reviewing patient's labs it looks like she has a lymphocyte predominance on his blood work.. Concerning for CLL. However patient's white blood cell count is not that significant and this can be further worked up by hematology as an outpatient. Review of Systems 10-point ROS is otherwise unremarkable Physical Examination - Vital Signs Reviewed - Physical Exam General: Alert, In no apparent distress, Oriented x3 Respiratory: Clear to auscultation bilaterally Cardiovascular: Regular rate/rhythm, No murmurs Gastrointestinal: Normal bowel sounds, Soft and benign, Non-distended, No tenderness Musculoskeletal: No clubbing, No swelling, tenderness in the left leg Neurological: Decreased strength but no focal deficits. Assessment & Plan - Problems (Diagnosis) (1) Fracture of femoral neck, left; status post open reduction internal fixation Current Visit: Yes Status: Acute Qualifiers: Encounter type: initial encounter (2) Essential hypertension Current Visit: No Status: Acute (3) Stage III pressure ulcer of left heel Current Visit: No Status: Acute (4) Peripheral vascular disease Current Visit: No Status: Chronic (5) Personal history of leukemia Current Visit: No Status: Chronic (6) Pressure ulcer of left ankle, stage 3 Current Visit: No Status: Resolved (7) Hx of aorto-femoral bypass Current Visit: No Status: Inactive (8) Dysarthria following cerebral infarction Current Visit: No Status: Acute - Plan Continue with plan of care as mentioned below: 1. Hep-Lock IV 2. Doing well [id number] has imporved 3. Pain control 4. Antiemetics 5. Physical therapy appreciated 6. Protein supplementation to keep strength increased 7. Monitor wound of the lower extremity 8. DC restraints as mentation has improved; pt following commands and participating well with therapy sessions 9. Outpatient hematology follow-up 10. GI and DVT prophylaxis
[2022-10-29 04:16] VITALS: O2SAT 96
[2022-10-29 08:17] VITALS: BP 147/66; TEMP 98.6
[2022-10-29] MEDS ORDERED: IPRATROPIUM BROM 0.5MG/2.5ML NEB PRN (08:59)
[2022-10-29] MEDS ORDERED: ALBUTEROL 2.5 MG/3 ML NEB SOL NEB PRN (08:59)
[2022-10-29] MEDS ORDERED: levoFLOXacin 750 MG TAB PO SCH (09:00)
[2022-10-29] MEDS: ENSURE SURGERY 237 ML CAN PO SCH (09:00)
[2022-10-29] MEDS ORDERED: HOME MED 1 EA UNK (Simvastatin [Zocor] 20 MG Tablet) PO SCH (09:00)
[2022-10-29] MEDS ORDERED: HOME MED 1 EA UNK (Olmesartan Medoxomil [Olmesartan Medoxomil] 40 MG Tablet) PO SCH (09:00)
[2022-10-29] MEDS: CYANOCOBALAMIN 1,000 MCG TAB PO SCH (09:13)
[2022-10-29] MEDS: VALSARTAN 160 MG TAB PO SCH (09:13)
[2022-10-29] MEDS: ASPIRIN 81 MG CHEWABLE TABLET PO SCH (09:13)
[2022-10-29] MEDS: AMLODIPINE 10 MG TAB PO SCH (09:14)
[2022-10-29] MEDS ORDERED: POTASSIUM CL SA 10 MEQ TAB PO ONE (09:19)
== END 2022-10-29 11:45 | DRG 521 ==
LOC: ER 09:41 → ERHOLD 12:39 → 4TH 14:51
PROVIDERS: ADMIT Hospitalist; ATTEND Hospitalist
PROC: 0SRS019 Replacement of Left Hip Joint, Femoral Surface with Metal Synthetic Substitute, Cemented, Open Approach (ICD-10-PCS; principal; 2022-10-23 13:30)
PROC: 30233N1 Transfusion of Nonautologous Red Blood Cells into Peripheral Vein, Percutaneous Approach (ICD-10-PCS; 2022-10-26)
DX: S72.042A Displaced fracture of base of neck of left femur, initial encounter for closed fracture (principal); L89.523 Pressure ulcer of left ankle, stage 3; L89.623 Pressure ulcer of left heel, stage 3; I73.9 Peripheral vascular disease, unspecified; I10 Essential (primary) hypertension; I69.322 Dysarthria following cerebral infarction; E78.00 Pure hypercholesterolemia, unspecified; H91.90 Unspecified hearing loss, unspecified ear; J44.9 Chronic obstructive pulmonary disease, unspecified; F03.90 Unspecified dementia, unspecified severity, without behavioral disturbance, psychotic disturbance, mood disturbance, and anxiety; Z85.6 Personal history of leukemia; Z79.82 Long term (current) use of aspirin; Z87.891 Personal history of nicotine dependence; Z79.899 Other long term (current) drug therapy; W18.30XA Fall on same level, unspecified, initial encounter; Y93.9 Activity, unspecified; Y92.9 Unspecified place or not applicable; Y99.9 Unspecified external cause status
CPT/HCPCS: 36415; 51702; 71045; 72170; 80048; 80053; 80202; 82607; 82947; 83540; 83735; 83880; 84145; 85025; 85044; 85610; 85730; 86850; 86900; 86901; 86920; 88305; 88311; 93306; 94640; 94760; 96374; 96375; 97110; 97116; 97161; 97165; 97530; 99285; J0171; J0690; J1100; J1170; J1630; J1650; J2001; J2270; J2405; J2704; J2795; J2916; J3010; J3420; J7030; J7040; J7050; J7120; J7613; J7614; J7644; P9016

== ENCOUNTER 2022-10-29 11:26 | Inpatient (IN) | payer OTHER ==
--- OUTSIDE RECORDS SUMMARY | 2022-10-29 12:17 | XMS REPORT | Continuity of Care Document ---
:1945 Author Organization [facility] t Address [address] [facility] [address] [place] [address] Care Team Providers Name Role Phone Mishel [...] Number Effective Date Expiration Date S belinda [facility] [place] - [id number] 2019 [employer] 00:00:00 (MEDICARE REPLACEMENT/ADVANT AGE - HMO) Problems Condition Condition Condition Status Onset Resolution Last Treating Co mments Source Name Details Category Date Date Treatment Clinician Date I61.9 - I61.9 - Diagnosis Active 2015-052016-04-18 Memoria NONTRAUMAT NONTRAUMAT 05-13 12:07:00 l IC IC 00:01: [facility] 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 03/13/2016 [facility] OPID Huy DEBILITY DEBILITY Diagnosis Active 2016-02-03 Memoria S/P S/P 01-09 22:12:00 l INTRACRANI INTRACRANI 07:00: He ton AL AL 00 HEMORRHAGE HEMORRHAGE Active 01/10/2016 [facility] ICH ICH Diagnosis Active 2016-01-25 Mem oria Active 12-12 15:41:00 l 12/13/2015 20:50: Mg olsen [address] ASHA ASHA Diagnosis Active 2016-02-13 Memoria BILLING BILLING 12-12 08:03:00 l [id number] 00:00: Huy Active 00 12/13/2015 [facility] 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 ROSEMARIE Son NONTRAUMAT NONTRAUMA Diagnosis Active 2016-01-25 Memoria IC TIC 15:41:00 l INTRACEREB INTRACEREB He ton RAL RAL HEMORRHAGE HEMORRHAGE , U , U Active [facility] WEAKNESS WEAKNESS Diagnosis Active 2016-02-03 Memoria Active 22:12:00 l [facility] Constructi Construct Problem Resolve 2016-04-21 Memoria on of ion of d 01:23:00 l shunt shunt Huy (procedure (procedure ) ) Resolved Problem 04/21/2016 [facility] ROSEMARIE Son Hypertensi Hypertens Problem Resolve 2016-04-21 Memoria ve ronda d 01:23:00 l disorder, disorder, Herm merissa systemic systemic arterial arterial (disorder) (disorder) Resolved Problem 04/21/2016 [facility] ROSEMARIE Son Leukemia, Leukemia, Problem Resolve 2016-04-21 Memoria disease disease d 01:23:00 l (disorder) (disorder) He rmmerissa Resolved Problem 04/21/[address] [facility] ROSEMARIE Son History of History of Problem Resolve [facility] [...] bral bral ans hemorrhage hemorrhage ) ) Benign Benign Problem Active [place] essential essential [...] Quantity Comments Source Social History 2015-12-18 2015-12-18 [facility] yasmin 19:57:12 19:57:12 Smoking Status Start Date Stop [...] OKPALA (1) TABLET Physici Tablet Tablet 00:00: TECHNICAL ARCHITECT BY MOUTH ans 00 AT BEDTIME. Coenzyme Coenzyme Yes ANJAIL 1 QD TAKE 1 U T Q-10 200 MG Q-10 200 MG 2-23 SHARRIEF CAPSULE Physici Oral Oral 00:00: M.D. DAILY ans Capsule Capsule 00 hydroCHLORO hydroCHLORO Yes MUNACHI QD TAKE ONE UT thiazide thiazide 2-23 OKPALA (1) Physi ci 12.5 MG 12.5 MG 00:00: TECHNICAL ARCHITECT CAPSULE(S) a ns Oral Oral 00 BY MOUTH Capsule Capsule ONCE A DAY. polyethylen Yes 17 gm, PO, Memoria e glycol 9-16 Daily, # l 3350 oral 16:20: 255 gm, 0 Her hernandez powder for 00 Refill(s) reconstitut ion Albuterol 2016-0 Yes 3 mL, NEB, Nv moria 0.833 MG/ML 01-26 RQID, # 90 l / 16:20: mL, 0 [facility] Ipratropium 00 Refill(s) [place] 0.167 MG/ML Inhalant Solution [DuoNeb] Folic Acid Yes 1 mg = 1 Mem oria 1 MG Oral 9-16 tab, PO, l Tablet 16:20: Daily, # Huy 00 30 tab, 0 Refill(s) amLODIPine 0 Yes 10 mg = 1 Me moria 10 mg oral 9-16 tab, PO, l tablet 16:20: Daily, # [facility] 00 30 tab, 0 Refill(s) Metoclopram 20160 Yes 5 mg = 1 Me moria gene 5 MG 9-16 tab, PO, l Oral Tablet 16:20: Q6H, PRN He rmann [Reglan] 00 Nausea, # 28 tab, 0 Refill(s) Docusate Yes 1 tab, PO, Mem oria Sodium 50 9-16 Daily, # l MG / 16:20: 30 tab, 0 Huy sennosides, 00 Refill(s) DETENTION 8.6 MG Oral Tablet polyethylen 0 Yes 17 gm, PO, Memoria e glycol 9-16 Daily, # l 3350 oral 16:20: 255 gm, 0 Her hernandez powder for 00 Refill(s) reconstitut ion Albuterol Yes 3 mL, [facility], Nv moria 0.833 MG/ML 01-26 RQID, # 90 l / 16:20: mL, 0 [facility] Ipratropium 00 Refill(s) [place] 0.167 MG/ML Inhalant Solution [DuoNeb] Folic Acid Yes 1 mg = 1 Mem oria 1 MG Oral 9-16 tab, PO, l Tablet 16:20: Daily, # [facility] 00 30 tab, 0 Refill(s) amLODIPine 0 [...] l MG / 16:20: 30 tab, 0 [facility] sennosides, 00 Refill(s) DETENTION 8.6 MG Oral Tablet polyethylen Yes 17 gm, PO, Memoria e glycol 9-16 Daily, # l 3350 oral 16:20: 255 gm, 0 Her hernandez powder for 00 Refill(s) reconstitut ion Albuterol Yes 3 mL, NEB, Me moria 0.833 MG/ML 16 RQID, # 90 l / 16:20: mL, 0 [facility] Ipratropium 00 Refill(s) [place] 0.167 MG/ML Inhalant Solution [DuoNeb] Folic Acid Yes 1 mg = 1 Mem oria 1 MG Oral 9-16 tab, PO, l Tablet 16:20: Daily, # Huy 00 30 tab, 0 Refill(s) amLODIPine Yes 10 mg = 1 Me moria 10 mg oral 9-16 tab, PO, l tablet 16:20: Daily, # [facility] 00 30 tab, 0 Refill(s) Metoclopram Yes 5 mg = 1 Me moria gene 5 MG 9-16 tab, PO, l Oral Tablet 16:20: Q6H, PRN He rmann [Reglan] 00 Nausea, # 28 tab, 0 Refill(s) Docusate Yes 1 tab, PO, Mem oria Sodium 50 9-16 Daily, # l MG / 16:20: 30 tab, 0 [facility] sennosides, 00 Refill(s) DETENTION 8.6 MG Oral Tablet Beneprotein No Notes: Buck alexia 7 gm pkt -14 (Same as: l 21:30: Beneprotei Huy 00 n) Beneprotein No Notes: Buck alexia 7 gm pkt -14 (Same as: l 21:30: Beneprotei [facility] 00 n) Beneprotein No Notes: Buck alexia 7 gm pkt -14 (Same as: l 21:30: Beneprotei Huy 00 n) Albuterol No Notes: Memori a 0.833 MG/ML 01-23 (Same as: l / 15:28: Duoneb) [facility] Ipratropium 00 [place] 0.167 MG/ML Inhalant Solution [DuoNeb] Albuterol No Notes: Memori a 0.833 MG/ML 01-23 (Same as: l / 15:28: Duoneb) Huy Ipratropium 00 [place] 0.167 MG/ML Inhalant Solution [DuoNeb] Albuterol No Notes: Memori a 0.833 MG/ML 01-23 (Same as: l / 15:28: Duoneb) [facility] Ipratropium 00 [place] 0.167 MG/ML Inhalant Solution [DuoNeb] Levofloxaci No Notes: Do M emoria n 01-11 not give l 01:00: w/antacids [facility] 00 , dairy pdt & minerals Take 1 hr before or 2 hr after dairy products Levofloxaci No Notes: Do M emoria n 01-11 not give l 01:00: w/antacids Huy 00 , dairy pdt & minerals Take 1 hr before or 2 hr after dairy products Levofloxaci No Notes: Do M emoria n 01-11 not give l 01:00: w/antacids [facility] 00 , dairy pdt & minerals Take 1 hr before or 2 hr after dairy products Miralax No Notes: Memoria 8-31 Dissolve l 14:00: in 8 oz of [facility] 00 water or juice. (Same as: Miralax) Folic Acid No Notes: Memor ia 8-31 (Same as: l 14:00: Folvite) Huy 00 Amlodipine No Notes: Memor ia 8-31 (Same as: l 14:00: Norvasc) Huy 00 Thiamine No Notes: Memoria 8-31 (Same As: l 14:00: Vitamin Huy 00 B1) Miralax No Notes: Memoria 8-31 Dissolve l 14:00: in 8 oz of Huy 00 water or juice. (Same as: Miralax) Folic Acid No Notes: Memor ia 8-31 (Same as: l 14:00: Folvite) Huy 00 Amlodipine No Notes: Memor ia 8-31 (Same as: l 14:00: Norvasc) [facility] 00 Thiamine No Notes: Memoria 8-31 (Same As: l 14:00: Vitamin B1) Miralax No Notes: Memoria 8-31 Dissolve l 14:00: in 8 oz of [facility] 00 water or juice. (Same as: Miralax) Folic Acid No Notes: Memor ia 8-31 (Same as: l 14:00: Folvite) Huy 00 Amlodipine No Notes: Memor ia 8-31 (Same as: l 14:00: Norvasc) Huy 00 Thiamine No Notes: Memoria 8-31 (Same As: l 14:00: Vitamin B1) Metronidazo No Notes: Buck alexia le 8-31 (Same as: l 05:00: Flagyl) [facility] 00 Take with food/ avoid alcohol Metronidazo No Notes: Buck alexia le 8-31 (Same as: l 05:00: Flagyl) [facility] 00 Take with food/ avoid alcohol Metronidazo No Notes: Buck alexia le 8-31 (Same as: l 05:00: Flagyl) [facility] 00 Take with food/ avoid alcohol Guaifenesin No Notes: Buck alexia 8-30 (Same as: l 22:00: Robitussin ) Albuterol No Notes: Memori a 0.833 MG/ML 8-30 (Same as: l / 22:00: Duoneb) Huy Ipratropium 00 [place] 0.167 MG/ML Inhalant Solution [DuoNeb] Guaifenesin No Notes: Buck alexia 8-30 (Same as: l 22:00: Robitussin ) Albuterol No Notes: Memori a 0.833 MG/ML 8-30 (Same as: l / 22:00: Duoneb) Huy Ipratropium 00 [place] 0.167 MG/ML Inhalant Solution [DuoNeb] Guaifenesin No Notes: Buck alexia 8-30 (Same as: l 22:00: Robitussin ) Albuterol No Notes: Memori a 0.833 MG/ML 30 (Same as: l / 22:00: Duoneb) [facility] Ipratropium 00 [place] 0.167 MG/ML Inhalant Solution [DuoNeb] heparin No Notes: Memoria sodium, 830 porcine l porcine 21:00: heparin [facility] 2500 UNT/ML 00 Injectable Solution heparin No Notes: Memoria sodium, 830 porcine l porcine 21:00: heparin [facility] 2500 UNT/ML 00 Injectable Solution heparin No Notes: Memoria sodium, 30 porcine l porcine 21:00: heparin Huy 2500 UNT/ML 00 Injectable Solution Metronidazo 2015-0 No 500 mg, Mem oria le 01-09 Route: l 20:00: PEG, Drug Huy form: TAB, [id number], Dosing Weight 81.2, kg, Start date: 01/10/16 15:00:00 CDT, Duration: 30 day, Stop date: 02/09/16 7:00:00 CDT Levofloxaci 2015-0 No 750 mg, Mem oria n 01-09 Route: l 20:00: PEG, Drug [facility] form: TAB, [id number], Dosing Weight 81.2, kg, Start date: 01/10/16 15:00:00 CDT, Duration: 30 day, Stop date: 02/08/16 15:00:00 CDT Metronidazo 2015-0 No 500 mg, Mem oria le 01-09 Route: l 20:00: PEG, Drug Huy form: TAB, [id number], Dosing Weight 81.2, kg, Start date: 01/10/16 15:00:00 CDT, Duration: 30 day, Stop date: 02/09/16 7:00:00 CDT Levofloxaci 2015-0 No 750 mg, Mem oria n 01-09 Route: l 20:00: PEG, Drug [facility] form: TAB, [id number], Dosing Weight 81.2, kg, Start date: 01/10/16 15:00:00 CDT, Duration: 30 day, Stop date: 02/08/16 15:00:00 CDT Metronidazo 2016-0 No 500 mg, Mem oria le 830 Route: l 20:00: PEG, Drug form: TAB, [id number], Dosing Weight 81.2, kg, Start date: 01/10/16 15:00:00 CDT, Duration: 30 day, Stop date: 02/09/16 7:00:00 CDT Levofloxaci No 750 mg, Mem oria n 830 Route: l 20:00: PEG, Drug form: TAB, [id number], Dosing Weight 81.2, kg, Start date: 01/10/16 15:00:00 CDT, Duration: 30 day, Stop date: 02/08/16 15:00:00 CDT Insulin, No Notes: Memoria Aspart, 830 Roll in l Human 19:24: palms of Huy 00 hands gently; Do not shake vigorously [...] 14:23:00 CDT Glucagon No 1 mg, Memoria 830 Route: IM, l 19:24: Drug form: Huy 00 PDR/INJ, PRN, Dosing Weight 81.2, kg, PRN Blood Glucose Results, Start date: 01/10/16 14:24:00 CDT, Duration: 30 day, Stop date: 02/09/16 14:23:00 CDT Insulin, 0 No Notes: Memoria Aspart, 8-30 Roll in l Human 19:24: palms of [facility] 00 hands gently; Do not shake vigorously . (Same as: NovoLOG) "single patient use only" WASTE: F/P - Black; E - Municipal Trash Bin Stable for 28 days at room temperatur e. Expires in days from ____Date Dextrose 2016-0 No 25 gm, 50 Buck alexia 50% Syringe 8-30 mL, Route: l 19:24: IVP, Drug Form: INJ, Dosing Weight 81.2, kg, PRN, PRN Blood Glucose Results, Start date: 01/10/16 14:24:00 CDT, Duration: 30 day, Stop date: 02/09/16 14:23:00 CDT Glucagon 2015-0 No 1 mg, Memoria 830 Route: IM, l 19:24: Drug form: [facility] PDR/INJ, PRN, Dosing Weight 81.2, kg, PRN [...] e. Expires in days from ____Date Dextrose 2016-0 No 25 gm, 50 Buck alexia 50% Syringe 8-30 mL, Route: l 19:24: IVP, Drug Form: INJ, Dosing Weight 81.2, kg, PRN, PRN Blood Glucose Results, Start date: 01/10/16 14:24:00 CDT, Duration: 30 day, Stop date: 02/09/16 14:23:00 CDT Glucagon 2015-0 No 1 mg, Memoria 830 Route: IM, l 19:24: Drug form: [facility] 00 PDR/INJ, PRN, Dosing Weight 81.2, kg, PRN Blood Glucose Results, Start date: 01/10/16 14:24:00 CDT, Duration: 30 day, Stop date: 02/09/16 14:23:00 CDT polyethylen 2016-0 Yes PO, Daily, Memoria e glycol 8-30 [...] 8-30 30 mL, l oral 19:19: PEG, Huy solution 00 [id number], 0 Refill(s) Regular Yes 3 unit, Memoria Insulin, 8-30 SUB-Q, l Human 100 19:19: PRN, PRN Herm merissa UNT/ML 00 Abnormal Injectable Lab Solution Result, 0 Refill(s) heparin Yes 5,000 unit Buck alexia 8-30 = 1 mL, l 19:19: SUB-Q, Uhy 00 Q8H, 0 Refill(s) Guaifenesin Yes 200 mg = Me moria 8-30 10 mL, l 19:19: PEG, QID, [facility] 00 0 Refill(s) Folic Acid Yes 1 mg = 1 Mem oria 1 MG Oral 8-30 tab, PO, l Tablet 19:19: Daily, 0 Huy 00 Refill(s) Docusate 2016 Yes 1 tab, PO, Mem oria Sodium 50 8-30 Daily, 0 l MG / 19:19: Refill(s) Huy sennosides, 00 DETENTION 8.6 MG Oral Tablet bisacodyl Yes 10 mg = 1 Mem oria 10 mg 8-30 supp, NM, l rectal 19:19: Daily, PRN Tasha nn suppository 00 Constipati on, 0 Refill(s) amLODIPine Yes 10 mg = 1 Me moria 10 mg oral 8-30 tab, PO, l tablet 19:19: Daily, 0 [facility] 00 Refill(s) Albuterol Yes 3 mL, NEB, Me moria 0.833 MG/ML 830 RQID, 0 l / 19:19: Refill(s) Huy Ipratropium 00 [place] 0.167 MG/ML Inhalant Solution [DuoNeb] Acetaminoph Yes 650 mg = Me moria en 830 20.3 mL, l 19:19: PEG, Q8H, Huy 00 0 Refill(s) polyethylen Yes PO, Daily, Memoria e glycol 830 [...] 830 30 mL, l oral 19:19: PEG, [facility] solution 00 [id number], 0 Refill(s) Regular Yes 3 unit, Memoria Insulin, 8-30 SUB-Q, l Human 100 19:19: PRN, PRN Herm merissa UNT/ML 00 Abnormal Injectable Lab Solution Result, 0 Refill(s) heparin Yes 5,000 unit Buck alexia 30 = 1 mL, l 19:19: SUB-Q, [facility] 00 Q8H, 0 Refill(s) Guaifenesin Yes 200 mg = Me moria 8-30 10 mL, l 19:19: PEG, QID, [facility] 00 0 Refill(s) Folic Acid Yes 1 mg = 1 Mem oria 1 MG Oral 8-30 tab, PO, l Tablet 19:19: Daily, 0 Huy 00 Refill(s) Docusate Yes 1 tab, PO, Mem oria Sodium 50 8-30 Daily, 0 l MG / 19:19: Refill(s) Huy sennosides, 00 DETENTION 8.6 MG Oral Tablet bisacodyl Yes 10 mg = 1 Mem oria 10 mg 8-30 supp, NM, l rectal 19:19: Daily, PRN Tasha nn suppository 00 Constipati on, 0 Refill(s) amLODIPine Yes 10 mg = 1 Me moria 10 mg oral 8-30 tab, PO, l tablet 19:19: Daily, 0 Huy 00 Refill(s) Albuterol Yes 3 mL, NEB, Me moria 0.833 MG/ML 8-30 RQID, 0 l / 19:19: Refill(s) Huy Ipratropium 00 [place] 0.167 MG/ML Inhalant Solution [DuoNeb] Acetaminoph Yes 650 mg = Me moria en 8-30 20.3 mL, l 19:19: PEG, Q8H, Huy 00 0 Refill(s) polyethylen 0 Yes PO, [...] 8-30 30 mL, l oral 19:19: PEG, Huy solution 00 [id number], 0 Refill(s) Regular 20160 Yes 3 unit, Memoria Insulin, 8-30 SUB-Q, l Human 100 19:19: PRN, PRN Herm merissa UNT/ML 00 Abnormal Injectable Lab Solution Result, 0 Refill(s) heparin Yes 5,000 unit Buck alexia 30 = 1 mL, l 19:19: SUB-Q, [facility] 00 Q8H, 0 Refill(s) Guaifenesin Yes 200 mg = Me moria 8-30 10 mL, l 19:19: PEG, QID, Huy 00 0 Refill(s) Folic Acid Yes 1 mg = 1 Mem oria 1 MG Oral 8-30 tab, PO, l Tablet 19:19: Daily, 0 [facility] 00 Refill(s) Docusate Yes 1 tab, PO, Mem oria Sodium 50 8-30 Daily, 0 l MG / 19:19: Refill(s) Huy sennosides, 00 DETENTION 8.6 MG Oral Tablet bisacodyl Yes 10 mg = 1 Mem oria 10 mg 8-30 supp, NM, l rectal 19:19: Daily, PRN Tasha nn suppository 00 Constipati on, 0 Refill(s) amLODIPine Yes 10 mg = 1 Me moria 10 mg oral 8-30 tab, PO, l tablet 19:19: Daily, 0 Huy 00 Refill(s) Albuterol 2016 Yes 3 mL, NEB, Me moria 0.833 MG/ML 8-30 RQID, 0 l / 19:19: Refill(s) [facility] Ipratropium 00 [place] 0.167 MG/ML Inhalant Solution [DuoNeb] Acetaminoph Yes 650 mg = Me moria en 8-30 20.3 mL, l 19:19: PEG, Q8H, Huy 00 0 Refill(s) Ondansetron No Notes: Buck alexia 8-30 (Same as: l 19:12: Zofran) Huy 00 MEDICATION WASTE Product Size: 4 mg Product Wasted: ___ mg Acetaminoph No Notes: Do M emoria en 01-09 not exceed l 19:12: 4 gm/day. [facility] 00 (Same as: Tylenol) Ondansetron No Notes: Buck alexia 01-09 (Same as: l 19:12: Zofran) [facility] 00 MEDICATION WASTE Product Size: 4 mg Product Wasted: ___ mg Acetaminoph No Notes: Do M emoria en 01-09 not exceed l 19:12: 4 gm/day. Huy 00 (Same as: Tylenol) Ondansetron No Notes: Buck alexia 01-09 (Same as: l 19:12: Zofran) [facility] 00 MEDICATION WASTE Product Size: 4 mg Product Wasted: ___ mg Acetaminoph No Notes: Do M emoria en 01-09 not exceed l 19:12: 4 gm/day. [facility] 00 (Same as: Tylenol) Levaquin No Notes: Memoria 8 Same as: l 03:00: Levaquin [facility] 00 Take 1 hour before or 2 hours after dairy products Metronidazo 0 No Notes: Buck alexia le 01-08 (Same as: l 03:00: Flagyl) Huy 00 Refrigerat e - shake well Compound ed Product - formulatio n not commercial ly available* * "Avoid alcohol" Levaquin 0 No Notes: Memoria 8 Same as: l 03:00: Levaquin Huy 00 Take 1 hour before or 2 hours after dairy products Metronidazo 2015-0 No Notes: Buck alexia le 8 (Same as: l 03:00: Flagyl) Huy 00 Refrigerat e - shake well Compound ed Product - formulatio n not commercial ly available* * "Avoid alcohol" Levaquin 0 No Notes: Memoria 8- Same as: l 03:00: Levaquin Huy 00 Take 1 hour before or 2 hours after dairy products Metronidazo 2015-0 No Notes: Buck alexia le 8 (Same as: l 03:00: Flagyl) Refrigerat e - shake well Compound ed Product - formulatio n not commercial ly available* * "Avoid alcohol" metoprolol No Notes: Memor ia tartrate 8-27 (Same as: l 16:06: Lopressor) 12.5mg=1/4 X 50 mg tab. metoprolol No Notes: Memor ia tartrate 8-27 (Same as: l 16:06: Lopressor) 12.5mg=1/4 X 50 mg tab. metoprolol No Notes: Memor ia tartrate 8-27 (Same as: l 16:06: Lopressor) 12.5mg=1/4 X 50 mg tab. Glucose 50 [...] times, Stop date: 01/07/16 17:33:00 CDT vancomycin No 2001 mg: Me moria + sodium 8-27 infuse l chloride 12:00: over 2.5 Tasha nn 0.9% INJ 00 hours 250 mL MEDICATION WASTE Product Size: 1000 mg Product Wasted: ___ mg vancomycin 2015- No 2000 mg: Me moria + sodium 8-27 infuse l chloride 12:00: over 2.5 Tasha nn 0.9% INJ 00 hours 250 mL MEDICATION WASTE Product Size: 1000 mg Product Wasted: ___ mg vancomycin No 2000 mg: Me moria + sodium 8-27 [...] 8-26 infuse l chloride 23:04: over 2.5 Tahsa nn 0.9% 500 ml 00 hours INJ 500 mL MEDICATION WASTE Product Size: 1000 mg Product Wasted: ___ mg vancomycin No 2000 mg: Me moria + sodium 8-26 infuse l chloride 23:04: over 2.5 Tasha nn 0.9% 500 ml 00 hours INJ 500 mL MEDICATION WASTE Product Size: 1000 mg Product Wasted: ___ mg Ceftazidime No Notes: Buck alexia 8- (Same as: l 23:00: Fortaz) [facility] 00 MEDICATION WASTE Product Size: 1000 mg Product Wasted: _0__ mg Flagyl No 500 mg, Memoria 8-26 100 mL, l 23:00: Route: Huy 00 IVPB, Drug form: INJ, ABXQ8H, Dosing Weight 81.2, kg, Start date: 01/06/16 18:00:00 CDT, Duration: 30 day, Stop date: 02/05/16 10:00:00 CDT Ceftazidime 2015-0 No Notes: Buck alexia 8-26 (Same as: l 23:00: Fortaz) MEDICATION WASTE Product Size: 1000 mg Product Wasted: _0__ mg Flagyl 2016-0 No 500 mg, Memoria 8-26 100 mL, l 23:00: Route: Huy 00 IVPB, Drug form: INJ, ABXQ8H, Dosing Weight 81.2, kg, Start date: 01/06/16 18:00:00 CDT, Duration: 30 day, Stop date: 02/05/16 10:00:00 CDT Ceftazidime 2015-0 No Notes: Buck alexia 01-05 (Same as: l 23:00: ) MEDICATION WASTE Product Size: 1000 mg Product Wasted: _0__ mg Flagyl 2016-0 No 500 mg, Memoria 8-26 100 mL, l 23:00: Route: IVPB, Drug form: INJ, ABXQ8H, Dosing Weight 81.2, kg, Start date: 01/06/16 18:00:00 CDT, Duration: 30 day, Stop date: 02/05/16 10:00:00 CDT sodium 2016-0 No 750 mL, Memoria chloride 8- Rate: 75 l 0.45% 1000 22:57: ml/hr, Tasha nn ml INJ 750 00 Infuse mL over: 10 hr, Route: IV, Dosing Weight 81.2 kg, Total Volume: 750, Start date: 01/06/16 17:57:00 CDT, Duration: 1 doses or times, Stop date: 01/07/16 3:56:00 CDT sodium 2016-0 No 750 mL, Memoria chloride 8- Rate: 75 l 0.45% 1000 22:57: ml/hr, [...] Stop date: 01/07/16 3:56:00 CDT Glucose 50 2016-0 No 500 mL, Buck alexia MG/ML 8-25 Rate: 75 l Injectable 15:47: ml/hr, Tasha nn Solution 00 Infuse over: 6.7 hr, Route: IV, Dosing Weight 81.2 kg, Total Volume: 500, Start date: 01/05/16 10:47:00 CDT, Duration: 1 doses or times, Stop date: 01/05/16 17:28:00 CDT Glucose 50 2016-0 No 500 mL, Buck alexia MG/ML 8-25 Rate: 75 l Injectable 15:47: ml/hr, Tasha nn Solution 00 Infuse over: 6.7 hr, Route: IV, Dosing Weight 81.2 kg, Total Volume: 500, Start date: 01/05/16 10:47:00 CDT, Duration: 1 doses or times, Stop date: 01/05/16 17:28:00 CDT Glucose 50 2016-0 No 500 mL, Buck alexia MG/ML 8-25 Rate: 75 l Injectable 15:47: ml/hr, Tasha nn Solution 00 Infuse over: 6.7 hr, Route: IV, Dosing Weight 81.2 kg, Total Volume: 500, Start date: 01/05/16 10:47:00 CDT, Duration: 1 doses or times, Stop date: 01/05/16 17:28:00 CDT sodium 2016-0 No 500 mL, Memoria chloride 8-25 Rate: 75 l 0.45% 1000 14:18: ml/hr, Tasha nn ml INJ 500 00 Infuse mL over: 6.7 hr, Route: IV, Dosing Weight 81.2 kg, Total Volume: 500, Start date: 01/05/16 9:18:00 CDT, Duration: 1 doses or times, Stop date: 01/05/16 15:59:00 CDT sodium 2016-0 No 500 mL, Memoria chloride 8-25 Rate: 75 l 0.45% 1000 14:18: ml/hr, Tasha nn ml INJ 500 00 Infuse mL over: 6.7 hr, Route: IV, Dosing Weight 81.2 kg, Total Volume: 500, Start date: 01/05/16 9:18:00 CDT, Duration: 1 doses or times, Stop date: 01/05/16 15:59:00 CDT sodium No 500 mL, Memoria chloride 8-25 Rate: 75 l 0.45% 1000 14:18: ml/hr, Tasha nn ml INJ 500 00 Infuse mL over: 6.7 hr, Route: IV, Dosing Weight 81.2 kg, Total Volume: 500, Start date: 01/05/16 9:18:00 CDT, Duration: 1 doses or times, Stop date: 01/05/16 15:59:00 CDT Guaifenesin No Notes: Buck alexia 8-23 (Same as: l 22:00: Robitussin [facility] 00 ) Guaifenesin No Notes: Buck alexia 8-23 (Same as: l 22:00: Robitussin Huy 00 ) Guaifenesin No Notes: Buck alexia 8-23 (Same as: l 22:00: Robitussin [facility] 00 ) Acetaminoph No Notes: Max Memoria en 8-23 acetaminop l 19:32: hen = [facility] 00 4000mg/day (4 gm/day). (Same as: Tylenol) Acetaminoph No Notes: Max Memoria en 8-23 acetaminop l 19:32: hen = Huy 00 4000mg/day (4 gm/day). (Same as: Tylenol) Acetaminoph No Notes: Max Memoria en 8-23 acetaminop l 19:32: hen = Huy 00 4000mg/day (4 gm/day). (Same as: Tylenol) Albuterol No Notes: Memori a 0.833 MG/ML 8-23 (Same as: 19:31: Duoneb) Huy Ipratropium 00 [place] 0.167 MG/ML Inhalant Solution [DuoNeb] Albuterol No Notes: Memori a 0.833 MG/ML 8-23 (Same as: 19:31: Duoneb) [facility] Ipratropium 00 [place] 0.167 MG/ML Inhalant Solution [DuoNeb] Albuterol No Notes: Memori a 0.833 MG/ML 01-02 (Same as: / 19:31: Duoneb) Huy Ipratropium 00 [place] 0.167 MG/ML Inhalant Solution [DuoNeb] iodixanol No 114 mL, Memor ia 8 Route: l 01:47: IVP, Drug [facility] Form: SOLN, Dosing Weight 81.2, kg, ONCALL, STAT, Start date: 01/02/16 20:47:00 CDT, Duration: 1 doses or times, Dose = 2.2ml/kg, Max dose = 100ml -- "To be infused by Radiology Staff ONLY" iodixanol No 114 mL, Memor ia 01-02 Route: l 01:47: IVP, Drug [facility] 00 Form: SOLN, Dosing Weight 81.2, kg, ONCALL, STAT, Start date: 01/02/16 20:47:00 CDT, Duration: 1 doses or times, Dose = 2.2ml/kg, Max dose = 100ml -- "To be infused by Radiology Staff ONLY" iodixanol No 114 mL, [facility] 01-02 Route: l 01:47: IVP, Drug [facility] 00 Form: SOLN, Dosing Weight 81.2, kg, [...] [facility] 8-20 (Same as: l 12:30: Reglan) [facility] 00 Reglan No Notes: [facility] 8-20 (Same as: l 12:30: Reglan) [facility] 00 Reglan No Notes: [facility] 8-20 (Same as: l 12:30: Reglan) [facility] 00 Dulcolax No Notes: [facility] Laxative 8-19 (Same As: l 18:00: Dulcolax, Huy 00 Bisco-Lax) Dulcolax No Notes: [facility] Laxative 8-19 (Same As: l 18:00: Dulcolax, [facility] 00 Bisco-Lax) Dulcolax No Notes: [facility] Laxative 8-19 (Same As: l 18:00: Dulcolax, H[facility] 00 Bisco-Lax) sodium No 12 years, [facility] biphosphate 8-19 Pediatric l -sodium 17:29: Dosing [facility] phosphate 00 sodium No 12 years, [facility] biphosphate 8-19 Pediatric l -sodium 17:29: Dosing [facility] phosphate 00 sodium No 12 years, [facility] biphosphate 8-19 Pediatric l -sodium 17:29: Dosing [facility] phosphate 00 Lisinopril No Notes: [facility] 8-19 (Same as: l 14:00: Prinivil, [facility] 00 Zestril) Lisinopril No Notes: [facility] 8-19 (Same as: l 14:00: Prinivil, [facility] 00 Zestril) Lisinopril No Notes: [facility] 8-19 (Same as: l 14:00: Prinivil, [facility] 00 Zestril) Reglan No Notes: [facility] 8-19 (Same as: l 12:30: Reglan) [facility] 00 Reglan No Notes: [facility] 8-19 (Same as: l 12:30: Reglan) [facility] 00 Reglan No Notes: [facility] 8-19 (Same as: l 12:30: Reglan) [facility] 00 Fleet Enema No 133 mL, [facility] 8-19 Route: NM, l 12:10: Drug Form: [facility] 00 CHRISTOPHER, Dosing Weight 81.2, kg, ONCE, Start date: 12/30/15 7:10:00 CDT, Stop date: 12/30/15 7:10:00 CDT Fleet Enema 2015-0 No 133 mL, [facility] 8-19 Route: NM, l 12:10: Drug Form: [facility] 00 CHRISTOPHER, Dosing Weight 81.2, kg, ONCE, Start date: 12/30/15 7:10:00 CDT, Stop date: 12/30/15 7:10:00 CDT Fleet Enema 2015-0 No 133 mL, Mem oria 8-19 Route: NM, l 12:10: Drug Form: [facility] 00 CHRISTOPHER, Dosing Weight 81.2, kg, ONCE, Start date: 12/30/15 7:10:00 CDT, Stop date: 12/30/15 7:10:00 CDT Simethicone 0 No Notes: Buck alexia 8-19 (Same as: l 03:57: Mylicon) [facility] Simethicone 0 No Notes: Buck alexia 8-19 (Same as: l 03:57: Mylicon) [facility] 00 Simethicone 2015-0 No Notes: Buck alexia 8-19 (Same as: l 03:57: Mylicon) [facility] 00 Reglan 0 No 10 mg, [facility] 8-18 Route: l 22:00: IVP, Drug [facility] 00 form: INJ, TID-Meals, Dosing Weight 81.2, kg, Start date: 12/29/15 17:00:00 CDT, Duration: 30 day, Stop date: 01/28/16 12:00:00 CDT Reglan 2015-0 No 10 mg, [facility] 8-18 Route: l 22:00: IVP, Drug [facility] 00 form: INJ, TID-Meals, Dosing Weight 81.2, kg, Start date: 12/29/15 17:00:00 CDT, Duration: 30 day, Stop date: 01/28/16 12:00:00 CDT Reglan 2015-0 No 10 mg, [facility] 8-18 Route: l 22:00: IVP, Drug [facility] 00 form: INJ, TID-Meals, Dosing Weight 81.2, kg, Start date: 12/29/15 17:00:00 CDT, Duration: 30 day, Stop date: 01/28/16 12:00:00 CDT Metoclopram 2016-0 No 5 mg, Memor ia gene 5 MG 18 Route: PO, l Oral Tablet 21:30: Drug form: [facility] [Reglan] 00 TAB, TID-Before Meals, Dosing Weight 81.2, kg, Start date: 12/29/15 16:30:00 CDT, Duration: 30 day, Stop date: 01/28/16 11:30:00 CDT Metoclopram 2016-0 No 5 mg, Mem[facility] ia gene 5 MG 18 Route: PO, l Oral Tablet 21:30: Drug form: [facility] [Reglan] 00 TAB, TID-Before Meals, Dosing Weight [...] day, Stop date: 01/28/16 11:30:00 CDT Reglan 0 No Notes: [facility] 8-18 (Same as: l 20:40: Reglan) [facility]uy Reglan 0 No Notes: [facility] 8-18 (Same as: l 20:40: Reglan) [facility] 00 Reglan 2015-0 No Notes: [facility] 8-18 (Same as: l 20:40: Reglan) [facility] 00 sodium 2015-0 No 1,000 mL, Memori a chloride 12-26 Rate: 100 l 0.45% 1000 13:08: ml/hr, Tasha nn ml INJ 00 Infuse 1,000 mL over: 10 hr, Route: IV, Dosing Weight 81.2 kg, Total Volume: 1,000, Start date: 12/27/15 8:08:00 CDT, Duration: 30 day, Stop date: 01/26/16 8:07:00 CDT sodium 2015-0 No 1,000 mL, Memori a chloride 12-26 Rate: 100 l 0.45% 1000 13:08: ml/hr, Tasha nn ml INJ 00 Infuse 1,000 mL over: 10 hr, Route: IV, Dosing Weight 81.2 kg, Total Volume: 1,000, Start date: 12/27/15 8:08:00 CDT, Duration: 30 day, Stop date: 01/26/16 8:07:00 CDT sodium 0 No 1,000 mL, Mem[facility] a chloride 12-26 Rate: 100 l 0.45% 1000 13:08: ml/hr, Tasha nn ml INJ 00 Infuse 1,000 mL over: 10 hr, Route: IV, Dosing Weight 81.2 kg, Total Volume: 1,000, Start date: 12/27/15 8:08:00 CDT, Duration: 30 day, Stop date: 01/26/16 8:07:00 CDT Levaquin No Notes: [facility] 8-15 (Same l 23:00: as:Levaqui [facility] 00 n) Levaquin No Notes: [facility] 8-15 (Same l 23:00: as:Levaqui [facility] 00 n) Levaquin No Notes: [facility] 8-15 (Same l 23:00: as:Levaqui [facility] 00 n) Labetalol No Notes: Memori a 813 Labetalol l 22:00: 300mg tab [facility] 00 #16. Refrigerat e. Shake well before using. Give with food. (Same as:Rakan Goldsmith) Compound ed Product - formulatio n not commercial ly available* * Labetalol No Notes: [facility]ori a 8-13 Labetalol l 22:00: 300mg tab [facility] 00 #16. Refrigerat e. Shake well before using. Give with food. (Same as:Rakan Goldsmith) Compound ed Product - formulatio n not commercial ly available* * Labetalol No Notes: [facility] a 8-13 Labetalol l 22:00: 300mg tab [facility] 00 #16. Refrigerat e. Shake well before using. Give with food. (Same as:Jocelyn murphy Trandalatrell) Compound ed Product - formulatio n not commercial ly available* * multivitami No Notes: Buck alexia n 8-13 Take with l 18:00: food. [facility]uy 00 (Same As: Theragran) multivitami No Notes: Buck alexia n 8-13 Take with l 18:00: food. [facility] 00 (Same As: Theragran) multivitami No Notes: Buck alexia n 8-13 Take with l 18:00: food. [facility] 00 (Same As: Theragran) Thiamine No Notes: [facility] 8-13 (Same As: l 15:55: Vitamin [facility] 00 B1) Thiamine No Notes: [facility] 8-13 (Same As: l 15:55: Vitamin [facility] 00 B1) Thiamine No Notes: [facility] 8-13 (Same As: l 15:55: Vitamin [facility] 00 B1) Folic Acid No Notes: Memor ia 8-13 (Same as: l 15:54: Folvite) [facility] 00 Folic Acid No Notes: [facility] ia 8-13 (Same as: l 15:54: Folvite) [facility] Folic Acid No Notes: [facility] ia 8-13 (Same as: l 15:54: Folvite) [facility] 00 Albuterol No Notes: Memori a 0.833 MG/ML 8-13 (Same as: l / 15:41: Duoneb) Huy Ipratropium 00 [place] 0.167 MG/ML Inhalant Solution [DuoNeb] Albuterol No Notes: Mem[facility] a 0.833 MG/ML 8-13 (Same as: l / 15:41: Duoneb) [facility]uy Ipratropium 00 [place] 0.167 MG/ML Inhalant Solution [DuoNeb] Albuterol No Notes: [facility] a 0.833 MG/ML 8-13 (Same as: l / 15:41: Duoneb) [facility]uy Ipratropium 00 [place] 0.167 MG/ML Inhalant Solution [DuoNeb] Tylenol No Notes: Max Buck alexia 8-12 acetaminop l 16:27: hen = Huy 00 4000mg/day (4 gm/day). (Same as: Tylenol) Tylenol No Notes: Max Buck alexia 8-12 acetaminop l 16:27: hen = [facility] 00 4000mg/day (4 gm/day). (Same as: Tylenol) Tylenol No Notes: Max Buck alexia 8-12 acetaminop l 16:27: hen = [facility] 00 4000mg/day (4 gm/day). (Same as: Tylenol) Ceftriaxone No Notes: Buck alexia 8-12 (Same As: l 14:00: Rocephin). [facility] 00 Use with 100 mL NS and infuse over 30 min MEDICATION WASTE Product Size: 1000 mg Product Wasted: ___ mg Furosemide No Notes: Memor ia 20 MG Oral 8-12 (Same as: l Tablet 14:00: Lasix) May Tasha nn [Lasix] 00 cause GI upset. Give with food or milk. Ceftriaxone No Notes: Buck alexia 8-12 (Same As: l 14:00: Rocephin). [facility] 00 Use with 100 mL NS and [...] upset. Give with food or milk. Sodium 2016- No 1,000 mL, Memori a Chloride 8-12 Rate: 50 l 0.154 06:38: ml/hr, Huy MEQ/ML 00 Infuse Injectable over: 20 Solution hr, Route: IV, Dosing Weight 81.2 kg, Total Volume: 1,000, Start date: 12/23/15 1:38:00 CDT, Duration: 30 day, Stop date: 01/22/16 1:37:00 CDT Sodium 2016-0 No 1,000 mL, [facility] a Chloride 8-12 Rate: 50 l 0.154 06:38: ml/hr, [facility] MEQ/ML 00 Infuse Injectable over: 20 Solution hr, Route: IV, Dosing Weight 81.2 kg, Total Volume: 1,000, Start date: 12/23/15 1:38:00 CDT, Duration: 30 day, Stop date: 01/22/16 1:37:00 CDT Sodium 2016-0 No 1,000 mL, [facility] a Chloride 8-12 Rate: 50 l 0.154 06:38: ml/hr, Huy MEQ/ML 00 Infuse Injectable over: 20 Solution hr, Route: IV, Dosing Weight 81.2 kg, Total Volume: 1,000, Start date: 12/23/15 1:38:00 CDT, Duration: 30 day, Stop date: 01/22/16 1:37:00 CDT Ancef + 2015-0 No Notes: [facility] sodium 8-11 (Same As: l chloride 23:46: Ancef, [facility] 0.9% INJ 00 Kefzol) 100 mL Cefazolin FOR IV SET ONLY MEDICATION WASTE Product Size: 1000 mg Product Wasted: ___ mg Ancef + No Notes: [facility] sodium 8-11 (Same As: l chloride 23:46: Ancef, [facility] 0.9% INJ 00 Kefzol) 100 mL Cefazolin FOR IV SET ONLY MEDICATION WASTE Product Size: 1000 mg Product Wasted: ___ mg Ancef + 2016-0 No Notes: [facility] sodium 8-11 (Same As: l chloride 23:46: Ancef, [facility] 0.9% INJ 00 Kefzol) 100 mL Cefazolin FOR IV SET ONLY MEDICATION WASTE Product Size: 1000 mg Product Wasted: ___ mg Fentanyl 2015-0 No Notes: [facility] 8-11 (Same as: l 22:11: Sublimaze) [facility] 00 Preservati ve free. Versed No Notes: [facility] 8-11 (Same as: l 22:11: Versed) [facility] 00 MEDICATION WASTE Product Size: 2 mg Product Wasted: 0 mg Fentanyl No Notes: [facility] 8-11 (Same as: l 22:11: Sublimaze) [facility] 00 Preservati ve free. Versed No Notes: [facility] 8-11 (Same as: l 22:11: Versed) [facility] 00 MEDICATION WASTE Product Size: 2 mg Product Wasted: 0 mg Fentanyl No Notes: [facility] 8-11 (Same as: l 22:11: Sublimaze) [facility] 00 Preservati ve free. Versed No Notes: [facility] 8-11 (Same as: l 22:11: Versed) [facility] 00 MEDICATION WASTE Product Size: 2 mg Product Wasted: 0 mg Fentanyl No Notes: [facility] 8-11 (Same as: l 21:40: Sublimaze) [facility] 00 Preservati ve free. Fentanyl No Notes: [facility] 8-11 (Same as: l 21:40: Sublimaze) [facility] 00 Preservati ve free. Fentanyl No Notes: [facility] 8-11 (Same as: l 21:40: Sublimaze) [facility] 00 Preservati ve free. Furosemide No Notes: Memor [...] ml/min With food (Same as:Macroda ntin) nitrofurant 2015-0 No Notes: Not [facility] oin 8-11 Recommende l 15:00: d for [facility] 00 patients with CrCl< 50 ml/min With food (Same as:Macroda ntin) nitrofurant 0 No Notes: Not [facility] oin 8-11 Recommende l 15:00: d for [facility] 00 patients with CrCl< 50 ml/min With food (Same as:Macroda ntin) Amlodipine 0 No Notes: Memor ia 8-11 (Same as: l 14:59: Norvasc) [facility] 00 Amlodipine No Notes: [facility] ia 8-11 (Same as: l 14:59: Norvasc) [facility] 00 Amlodipine No Notes: Memor ia 8-11 (Same as: l 14:59: Norvasc) [facility] 00 Amlodipine No Notes: [facility] ia 8-11 (Same as: l 14:00: Norvasc) [facility] 00 Amlodipine No Notes: [facility] ia 8-11 (Same as: l 14:00: Norvasc) [facility] 00 Amlodipine 0 No Notes: [facility] ia 8-11 (Same as: l 14:00: Norvasc) [facility] 00 Fentanyl 0 No Notes: [facility] 8-11 (Same as: l 01:46: Sublimaze) Preservati ve free. Fentanyl 0 No Notes: [facility] 8-11 (Same as: l 01:46: Sublimaze) [facility] 00 Preservati ve free. Fentanyl 2015-0 No Notes: [facility] 8-11 (Same as: l 01:46: Sublimaze) [facility] 00 Preservati ve free. Seroquel No Notes: [facility] 8-11 (Same as: l 01:00: SEROquel) [facility] 00 Seroquel 0 No Notes: [facility] 8-11 (Same as: l 01:00: SEROquel) [facility] 00 Seroquel 0 No Notes: [facility] 8-11 (Same as: l 01:00: SEROquel) [facility] Vancomycin 2015-0 No 2001 mg: Me moria 8-10 infuse l 17:00: over 2.5 [facility] 00 hours MEDICATION WASTE Product Size: 1000 mg Product Wasted: ___ mg Vancomycin 2016-0 No 2001 mg: Me moria 8-10 infuse l 17:00: over 2.5 [facility] 00 hours MEDICATION WASTE Product Size: 1000 mg Product Wasted: ___ mg Vancomycin 2016-0 No 2001 mg: Me moria 8-10 infuse l 17:00: over 2.5 [facility] 00 hours MEDICATION WASTE Product Size: 1000 mg Product Wasted: ___ mg Ceftazidime 2015-0 No Notes: Buck alexia 8-10 (Same as: l 15:00: Fortaz) MEDICATION WASTE Product Size: 1000 mg Product Wasted: ___ mg Ceftazidime 2015-0 No Notes: Buck alexia 8-10 (Same as: l 15:00: Fortaz) MEDICATION WASTE Product Size: 1000 mg Product Wasted: ___ mg Ceftazidime 2015-0 No Notes: Buck alexia 8-10 (Same as: l 15:00: Fortaz) MEDICATION WASTE Product Size: 1000 mg Product Wasted: ___ mg Lasix 2015-0 No Notes: [facility] 8-10 (Same as: l 14:47: Lasix) Lasix 2015-0 No Notes: [facility] 8-10 (Same as: l 14:47: Lasix) Lasix 2015-0 No Notes: [facility] 8-10 (Same as: l 14:47: Lasix) Vancomycin 2015-0 No 2001 mg: Me moria 8-10 infuse l 13:00: over 2.5 [facility] 00 hours MEDICATION WASTE Product Size: 1000 mg Product Wasted: ___ mg Captopril 2015-0 No Notes: Memori a 8-10 Give on l 13:00: empty [facility]uy 00 stomach. 1 hour before meal. (Same As: Hernán) Zosyn 2016-0 No Notes: [facility] 8-10 (Same as: l 13:00: Zosyn) [facility] 00 Dosing based on Piperacill in component MEDICATION WASTE Product Size: 3375 mg Product Wasted: ___ mg Vancomycin 2016-0 No 2001 mg: Me moria 8-10 infuse l 13:00: over 2.5 [facility] 00 hours MEDICATION WASTE Product Size: 1000 mg Product Wasted: ___ mg Captopril 2016-0 No Notes: Mem[facility] a 8-10 Give on l 13:00: empty [facility] 00 stomach. 1 hour before meal. (Same As: Capoten) Zosyn 2016-0 No Notes: [facility] 8-10 (Same as: l 13:00: Zosyn) [facility] 00 Dosing based on Piperacill in component MEDICATION WASTE Product Size: 3375 mg Product Wasted: ___ mg Vancomycin 2016-0 No 2001 mg: Me moria 8-10 infuse l 13:00: over 2.5 [facility] 00 hours MEDICATION WASTE Product Size: 1000 mg Product Wasted: ___ mg Captopril 2016-0 No Notes: Memori a 8-10 Give on l 13:00: empty [facility] 00 stomach. 1 hour before meal. (Same As: Capoten) Zosyn 2016-0 No Notes: [facility] 8-10 (Same as: l 13:00: Zosyn) [facility] 00 Dosing based on Piperacill in component MEDICATION WASTE Product Size: 3375 mg Product Wasted: ___ mg Fentanyl 2016-0 No Notes: [facility] 8-10 (Same as: l 02:28: Sublimaze) [facility] 00 Preservati ve free. Fentanyl 2016-0 No Notes: [facility] 8-10 (Same as: l 02:28: Sublimaze) [facility] 00 Preservati ve free. Fentanyl 2016-0 No Notes: [facility] 8-10 (Same as: l 02:28: Sublimaze) [facility] 00 Preservati ve free. Captopril 2016-0 No Notes: Memori a 8-09 Give on l 21:00: empty [facility] 00 stomach. 1 hour before meal. (Same As: Capoten) Captopril 2016-0 No Notes: [facility] a 8-09 Give on l 21:00: empty [facility] 00 stomach. 1 hour before meal. (Same As: Capoten) Captopril 2016-0 No Notes: [facility] a 8-09 Give on l 21:00: empty [facility] 00 stomach. 1 hour before meal. (Same As: Capoten) Lasix 2015-0 No Notes: [facility] 8-09 (Same as: l 14:39: Lasix) [facility] Lasix 2015-0 No Notes: [facility] 8-09 (Same as: l 14:39: Lasix) [facility] Lasix 0 No Notes: [facility] 8-09 (Same as: l 14:39: Lasix) [facility] Tylenol 0 No Notes: Do Memor ia 8-09 not exceed l 02:38: 4 gm/day. Huy (Same as: Tylenol) Tylenol 2015-0 No Notes: Do Memor ia 8-09 not exceed l 02:38: 4 gm/day. Huy (Same as: Tylenol) Tylenol 0 No Notes: Do Memor ia 8-09 not exceed l 02:38: 4 gm/day. [facility] (Same as: Tylenol) Captopril 2015-0 No Notes: Mem[facility] a 8-08 Give on l 21:00: empty [facility] 00 stomach. 1 hour before meal. (Same As: Capoten) Captopril 2015-0 No Notes: [facility] a 8-08 Give on l 21:00: empty [facility] 00 stomach. 1 hour before meal. (Same As: Capoten) Captopril 2015-0 No Notes: [facility] a 8-08 Give on l 21:00: empty [facility] 00 stomach. 1 hour before meal. (Same As: Capoten) magnesium 2016-0 No Notes: Memori a citrate 8-08 (Same as: l 19:48: Citrate of [facility] Magnesia) magnesium 2015-0 No Notes: [facility] a citrate 8-08 (Same as: l 19:48: Citrate of Huy Magnesia) magnesium 2016-0 No Notes: [facility] a citrate 8-08 (Same as: l 19:48: Citrate of Huy Magnesia) Lasix 2015-0 No Notes: [facility] 8-08 (Same as: l 15:03: Lasix) [facility] 00 Lasix 2015-0 No Notes: [facility] 12-18 (Same as: l 15:03: Lasix) [facility] 00 Lasix 2016-0 No Notes: [facility] 12-18 (Same as: l 15:03: Lasix) [facility] 00 Fleet Enema 2016-0 No 12 years, [facility] 12-18 Pediatric l 15:01: Dosing [facility] 00 Fleet Enema 2016-0 No 12 years, [facility] 12-18 Pediatric l 15:01: Dosing [facility] 00 Fleet Enema 2016-0 No 12 years, [facility] 12-18 Pediatric l 15:01: Dosing [facility] 00 Alteplase 2016-0 No Notes: Memori a 8-08 "Syringe l 14:55: for [facility] 00 catheter clearance or interventi onal radiology use. Stable for 8 hours only. (Same as: Activase) MEDICATION WASTE Product Size: 2 mg Product Wasted: 1 mg Alteplase 2016-0 No Notes: [facility] a 8-08 "Syringe l 14:55: for [facility] 00 catheter clearance or interventi onal radiology use. Stable for 8 hours only. (Same as: Activase) MEDICATION WASTE Product Size: 2 mg Product Wasted: 1 mg Alteplase 2016-0 No Notes: [facility] a 8-08 "Syringe l 14:55: for [facility] 00 catheter clearance or interventi onal radiology use. Stable for 8 hours only. (Same as: Activase) MEDICATION WASTE Product Size: 2 mg Product Wasted: 1 mg Zofran 2016-0 No Notes: [facility] 12-17 (Same as: l 23:29: Zofran) [facility]uy 00 MEDICATION WASTE Product Size: 4 mg Product Wasted: ___ mg Zofran 2016-0 No Notes: [facility] 12-17 (Same as: l 23:29: Zofran) [facility] 00 MEDICATION WASTE Product Size: 4 mg Product Wasted: ___ mg Zofran 2016-0 No Notes: [facility] 12-17 (Same as: l 23:29: Zofran) [facility] 00 MEDICATION WASTE Product Size: 4 mg Product Wasted: ___ mg Regular 2016-0 No 60 units) Buck alexia Insulin, 12-17 WASTE: F/P l Human 100 06:06: - Black; E Paolo rmann UNT/ML 00 - Injectable Municipal Solution Trash Bin Stable for 28 days at room temperatur e Expires in days from ____Date Dextrose No 12.5 gm, Memor ia 50% Syringe 12-17 25 mL, l 06:06: Route: [facility] 00 IVP, Drug Form: INJ, Dosing Weight 81.2, kg, PRN, PRN Abnormal Lab Result, Start date: 12/18/15 1:06:00 CDT, Duration: 30 day, Stop date: 01/17/16 1:05:00 CDT Regular 0 No 60 units) Buck alexia Insulin, 12-17 WASTE: F/P l Human 100 06:06: - Black; E Paolo rmann UNT/ML 00 - Injectable Municipal Solution Trash Bin Stable for 28 days at room temperatur e Expires in days from ____Date Dextrose No 12.5 gm, Memor ia 50% Syringe 12-17 25 mL, l 06:06: Route: [facility] 00 IVP, Drug Form: INJ, Dosing Weight 81.2, kg, PRN, PRN Abnormal Lab Result, Start date: 12/18/15 1:06:00 CDT, Duration: 30 day, Stop date: 01/17/16 1:05:00 CDT Regular 0 No 60 units) Buck alexia Insulin, 12-17 WASTE: F/P l Human 100 06:06: - Black; E Paolo rmann UNT/ML 00 - Injectable Municipal Solution Trash Bin Stable for 28 days at room temperatur e Expires in days from ____Date Dextrose No 12.5 gm, Memor ia 50% Syringe 12-17 25 mL, l 06:06: Route: [facility] 00 IVP, Drug Form: INJ, Dosing Weight 81.2, kg, PRN, PRN Abnormal Lab Result, Start date: 12/18/15 1:06:00 CDT, Duration: 30 day, Stop date: 01/17/16 1:05:00 CDT Dextrose No 12.5 gm, Memor ia 50% Syringe 12-17 25 mL, l 05:45: Route: [facility] 00 IVP, Drug Form: INJ, Dosing Weight [...] Syringe 12-17 25 mL, l 05:45: Route: [facility] 00 IVP, Drug Form: INJ, Dosing Weight [...] day, Stop date: 02/16/16 0:44:00 CDT Regular 0 No 60 units) Buck alexia Insulin, 12-17 WASTE: F/P l Human 100 05:45: - Black; E He rmann UNT/ML 00 [...] Dissolve l 14:00: in 8 oz of [facility] 00 water or juice. (Same as: Miralax) heparin No Notes: [facility] - porcine l 21:00: heparin [facility] 00 heparin No Notes: [facility] 12-14 porcine l 21:00: heparin [facility] 00 heparin No Notes: [facility] 12-14 porcine l 21:00: heparin [facility] 00 Calcium No Notes: [facility] Gluconate 12-14 WASTE: F/P l 09:57: - Sink; E [facility] 00 - Municipal Trash Bin Calcium No Notes: [facility] Carbonate 12-14 (Same As: l 500 MG 09:57: Tums) [facility] Chewable 00 Calcium Tablet Carbonate 500 mg [...] Oxide 12-14 (Same as: l 09:57: Mag-Ox [facility] 00 400) Magnesium oxide 657mm=769z g elemental magnesium Dose=____m g magnesium oxide (___mg elemental magnesium) Magnesium No Notes: Memori a Sulfate 12-14 WASTE: F/P l 09:57: - Sink; E [facility] 00 - Municipal Trash Bin sodium No 30 mmol, [facility] phosphate + 8-04 10 mL, l sodium 09:57: Route: Huy [...] WASTE: F/P l 09:57: - Sink; E [facility] 00 - Municipal Trash Bin Calcium No Notes: [facility] Carbonate 12-14 (Same As: l 500 MG 09:57: Tums) [facility] Chewable 00 Calcium Tablet Carbonate 500 mg [...] Oxide 12-14 (Same as: l 09:57: Mag-Ox [facility] 00 400) Magnesium oxide 133ia=164y g elemental magnesium Dose=____m g magnesium oxide (___mg elemental magnesium) Magnesium No Notes: Mem[facility] a Sulfate 12-14 WASTE: F/P l 09:57: - Sink; E [facility] 00 - Municipal Trash Bin sodium No 30 mmol, [facility] phosphate + 8-04 10 mL, l sodium 09:57: Route: Huy [...] (Same As: l 500 MG 09:57: Tums) [facility] Chewable 00 Calcium Tablet Carbonate 500 mg = 200 mg elemental calcium Dose = mg calcium carbonate ( mg elemental calcium) potassium No Notes: Memori a phosphate + 12-14 (Same as: l sodium 09:57: K [facility] chloride 00 Phosphate. 0.9% INJ ) 1 mMol 250 mL phoshate has 1.47 mEq potassium Infuse over 4 hours Neutra-Phos No Notes: Buck alexia 12-14 (Same as: l 09:57: Neutra-[place] [facility] 00 s) Each 1.25 gm pkt has 250mg phosphorou s. Mix w/2.5oz water and stir. Magnesium No Notes: Memori a Oxide 12-14 (Same as: l 09:57: Mag-Ox [facility] 00 400) Magnesium oxide 857nc=901z g elemental magnesium Dose=____m g magnesium oxide (___mg elemental magnesium) Magnesium No Notes: [facility] a Sulfate 12-14 WASTE: F/P l 09:57: - Sink; E [facility] 00 - Municipal Trash Bin sodium No 30 mmol, [facility] phosphate + 8-04 10 mL, l sodium 09:57: Route: [facility] chloride 00 IVPB, PRN, 0.9% INJ Dosing 250 mL Weight 81.2, kg, PRN Abnormal Lab Result, Start date: 12/15/15 4:57:00 CDT, Duration: 30 day, Stop date: 01/14/16 4:56:00 CDT, FOR ICU USE ONLY potassium No Notes: Memori a chloride 12-14 (Same as: l 09:57: KCL) [facility] 00 Infuse over 2 hours. Famotidine No Notes: Memor ia 20 MG Oral 12-14 (Same as: l Tablet 02:00: Pepcid) [facility] [Pepcid] 00 Famotidine No Notes: [facility] 20 MG Oral 8- (Same as: l Tablet 02:00: Pepcid) [facility] [Pepcid] 00 Famotidine No Notes: Memor ia 20 MG Oral 8 (Same as: l Tablet 02:00: Pepcid) Huy [...] a 12-13 With food. l 15:44: (Same [facility] 00 as:Trandat e, Normodyne) Labetalol No Notes: Memori a 12-13 With food. l 15:44: (Same [facility] 00 as:Trandat e, Normodyne) Labetalol No Notes: Mem[facility] a 8-03 With food. l 15:44: (Same [facility] 00 as:Trandat e, Normodyne) Nexium No 40 mg, [facility] 12-13 Route: l 14:00: IVP, [facility] 00 Daily, Dosing Weight 85, kg, Start date: 12/14/15 9:00:00 CDT, Duration: 30 day, Stop date: 01/12/16 9:00:00 CDT Streptococc No Notes: Buck alexia us 8-03 Lightly l pneumoniae 14:00: roll vial He rmann serotype 1 00 (DO NOT capsular SHAKE) antigen before diphtheria administra [id number] tion. protein (Same as: conjugate Prevnar vaccine / 13) Streptococc us pneumoniae serotype 14 capsular antigen diphtheria [id number] protein conjugate vaccine / Streptococc us pneumoniae serotype 18C capsular antigen d Docusate No Notes: [facility] Sodium 50 8-03 (Same as l MG / 14:00: Senokot-S) [facility] sennosides, 00 Equiv. to DETENTION 8.6 MG Stephanie-Colac Oral Tablet e. Nexium No 40 mg, [facility] 8 Route: l 14:00: IVP, [facility] 00 Daily, Dosing Weight 85, kg, Start date: 12/14/15 9:00:00 CDT, Duration: 30 day, Stop date: 01/12/16 9:00:00 CDT Streptococc 0 No Notes: Buck alexia us 8- Lightly l pneumoniae 14:00: roll vial He rmann serotype 1 00 (DO NOT capsular SHAKE) antigen before diphtheria administra [id number] tion. protein (Same as: conjugate Prevnar vaccine / 13) Streptococc us pneumoniae serotype 14 capsular antigen diphtheria [id number] protein conjugate vaccine / Streptococc us pneumoniae serotype 18C capsular antigen d Docusate No Notes: [facility] Sodium 50 8-03 (Same as l MG / 14:00: Senokot-S) [facility] sennosides, 00 Equiv. to DETENTION 8.6 MG Stephanie-Colac Oral Tablet e. Nexium 0 No 40 mg, [facility] 8 Route: l 14:00: IVP, [facility] 00 Daily, Dosing Weight 85, kg, Start date: 12/14/15 9:00:00 CDT, Duration: 30 day, Stop date: 01/12/16 9:00:00 CDT Streptococc 0 No Notes: Buck alexia us 8-03 Lightly l pneumoniae 14:00: roll vial He rmann serotype 1 00 (DO NOT capsular SHAKE) antigen before diphtheria administra [id number] tion. protein (Same as: conjugate Prevnar vaccine / 13) Streptococc us pneumoniae serotype 14 capsular antigen diphtheria [id number] protein conjugate vaccine / Streptococc us pneumoniae serotype 18C capsular antigen d Docusate No Notes: [facility] Sodium 50 -03 (Same as l MG / 14:00: Senokot-S) [facility] sennosides, 00 Equiv. to DETENTION 8.6 MG Stephanie-Colac Oral Tablet e. Protonix [...] minutes. (Same as: Protonix) Hydralazine No Notes: Bukc alexia 8-03 (Same as: l 07:48: Apresoline Huy 00 ) Push over 5 minutes Hydralazine No Notes: Buck alexia 8-03 (Same as: l 07:48: Apresoline [facility] 00 ) Push over 5 minutes Hydralazine No Notes: Buck alexia 8-03 (Same as: l 07:48: Apresoline [facility] 00 ) Push over 5 minutes sodium [...] day, Stop date: 01/12/16 23:50:00 CDT sodium 2016-0 No 1,000 mL, Memori a chloride 12-13 Rate: 100 l 0.9% 1000 04:51: ml/hr, Mg n ml INJ 00 Infuse 1,000 mL over: 10 hr, Route: IV, Dosing Weight 85 kg, Total Volume: 1,000, Start date: 12/13/15 23:51:00 CDT, Duration: 30 day, Stop date: 01/12/16 23:50:00 CDT iodixanol 2016-0 No 60 mL, Memori a 12-13 Route: l 04:08: IVP, Drug [facility] Form: SOLN, Dosing Weight 85, kg, ONCALL, [...] 12-13 Route: l 04:08: IVP, Drug H[facility] Form: SOLN, Dosing Weight 85, kg, ONCALL, STAT, Start date: 12/13/15 23:08:00 CDT, Duration: 1 doses or times, Dose = 2.2ml/kg, Max dose = 100ml -- "To be infused by Radiology Staff ONLY" Zofran 2016-0 No 4 mg, Memoria 12-13 Route: l 02:17: IVP, Drug Huy form: INJ, ONCE, Dosing Weight 85, kg, Start date: 12/13/15 21:17:00 CDT, Stop date: 12/13/15 21:17:00 CDT Zofran 2016-0 No 4 mg, Memoria 8-03 Route: l 02:17: IVP, Drug form: INJ, ONCE, Dosing Weight 85, kg, Start date: 12/13/15 21:17:00 CDT, Stop date: 12/13/15 21:17:00 CDT Zofran 2016-0 No 4 mg, Memoria 8 Route: l 02:17: IVP, Drug form: INJ, ONCE, Dosing Weight 85, kg, Start date: 12/13/15 21:17:00 CDT, Stop date: 12/13/15 21:17:00 CDT Succinylcho 2016-0 No 120 mg, Mem oria line 8- Route: IV, l 02:16: Drug form: Huy 00 INJ, ONCE, Dosing Weight 85, kg, Start date: 12/13/15 21:16:00 CDT, Stop date: 12/13/15 21:16:00 CDT Etomidate 2016-0 No 67 kg, Memor ia 8- Start l 02:16: date: 12/13/15 21:16:00 CDT, Stop date: 12/13/15 21:16:00 CDT, Pediatric Dosing; for intubation Lidocaine 2016-0 No 100 mg, Memor ia 8- Route: IV, l 02:16: ONCE, Dosing Weight 85, kg, Start date: 12/13/15 21:16:00 CDT, Stop date: 12/13/15 21:16:00 CDT Succinylcho 2016-0 No 120 mg, Mem oria line 8- Route: IV, l 02:16: Drug form: Huy 00 INJ, ONCE, Dosing Weight 85, kg, Start date: 12/13/15 21:16:00 CDT, Stop date: 12/13/15 21:16:00 CDT Etomidate 2016-0 No 67 kg, [facility] 8- Start l 02:16: date: 12/13/15 21:16:00 CDT, Stop date: 12/13/15 21:16:00 CDT, Pediatric Dosing; for intubation Lidocaine 2016-0 No 100 mg, [facility] 8- Route: IV, l 02:16: ONCE, Dosing Weight 85, kg, Start date: 12/13/15 21:16:00 CDT, Stop date: 12/13/15 21:16:00 CDT Succinylcho No 120 mg, Mem oria line 12-13 Route: IV, l 02:16: Drug form: [place] 00 INJ, ONCE, Dosing Weight 85, kg, Start date: 12/13/15 21:16:00 CDT, Stop date: 12/13/15 21:16:00 CDT Etomidate No 67 kg, [facility] 12-13 Start l 02:16: date: Huy 12/13/15 21:16:00 CDT, Stop date: 12/13/15 21:16:00 CDT, Pediatric Dosing; for intubation Lidocaine No 100 mg, [facility] 12-13 Route: IV, l 02:16: ONCE, [place] 00 Dosing Weight 85, kg, Start date: 12/13/15 21:16:00 CDT, Stop date: 12/13/15 21:16:00 CDT Midazolam No Notes: Memori a 12-13 (Same as: l 02:15: Versed) Fentanyl No 1,000 [facility] -03 microgram, l 02:15: 20 mL, Huy 00 Rate: Titrate, Start Dose: 50 microgram/ hr, [...] being intubated (unless the nurse is a LINE OPERATOR). Same as: Diprivan Midazolam No Notes: Memori a 12-13 (Same as: l 02:15: Versed) Fentanyl No 1,000 [facility] 8-03 microgram, l 02:15: 20 mL, [place] 00 Rate: Titrate, Start Dose: 50 microgram/ hr, Titration: 25 microgram/ hour every 15 minutes, Goal(s): -2, Max Dose: 300 microgram/ hr, Route: IV, Dosing Weight 85 kg, Total Volume: 20, Start date: 12/13/15 21:15:00 CDT, Duration:. .. Propofol No Notes: If M emoria MG/ML 8- Diprivan - l Injectable 02:15: change Tasha nn Suspension 00 bottle & tubing every 12 hr Per state nursing law propofol can only be given by a nurse if patient is intubated or being intubated (unless the nurse is a LINE OPERATOR). Same as: Diprivan Midazolam No Notes: [facility] a 12-13 (Same as: l 02:15: Versed) [place] 00 Fentanyl No 1,000 [facility] 8- microgram, l 02:15: 20 mL, Huy 00 Rate: Titrate, Start Dose: 50 microgram/ hr, Titration: 25 microgram/ hour every 15 minutes, Goal(s): -2, Max Dose: 300 microgram/ hr, Route: IV, Dosing Weight 85 kg, Total Volume: 20, Start date: 12/13/15 21:15:00 CDT, Duration:. .. Propofol No Notes: If M emoria MG/ML 8 Diprivan - l Injectable 02:15: change Tasha nn Suspension 00 bottle & tubing every 12 hr Per state nursing law propofol can only be given by a nurse if patient is intubated or being intubated (unless the nurse is a LINE OPERATOR). Same as: Diprivan Saline No Notes: [facility] Flush 0.9% 8-03 (Same as: l 02:00: BD [place] 00 Posiflush) Saline No Notes: [facility] Flush 0.9% 8-03 (Same as: l 02:00: BD [place] 00 Posiflush) Saline No Notes: [facility] Flush 0.9% 8-03 (Same as: l 02:00: BD [place] 00 Posiflush) Ancef + No Notes: [facility] sodium 8-03 (Same As: l chloride 01:55: Ancef, Huy 0.9% INJ 00 Kefzol) 100 mL Cefazolin FOR IV SET ONLY MEDICATION WASTE Product Size: 1000 mg Product Wasted: ___ mg Ancef + No Notes: [facility] sodium 8-03 (Same As: l chloride 01:55: Ancef, Huy 0.9% INJ 00 Kefzol) 100 mL Cefazolin FOR IV SET ONLY MEDICATION WASTE Product Size: 1000 mg Product Wasted: ___ mg Ancef + No Notes: [facility] sodium 8-03 (Same As: l chloride 01:55: Ancef, Huy 0.9% INJ 00 Kefzol) 100 mL Cefazolin FOR IV SET ONLY MEDICATION WASTE Product Size: 1000 mg Product Wasted: ___ mg Saline No Notes: [facility] Flush 0.9% 8- (Same as: l 01:50: BD [place] 00 Posiflush) Labetalol No 140mmHg, Mem oria 8-03 Start l 01:50: date: 12/13/15 20:50:00 CDT, Duration: 3 doses or times, Stop date: Limited # of times Saline No Notes: [facility] Flush 0.9% 8- (Same as: l 01:50: BD Huy Posiflush) Labetalol No 140mmHg, Mem oria 8-03 Start l 01:50: date: 12/13/15 20:50:00 CDT, Duration: 3 doses or times, Stop date: Limited # of times Saline No Notes: [facility] Flush 0.9% 8- (Same as: l 01:50: BD [place] Posiflush) Labetalol No 140mmHg, Mem oria 8-03 Start l 01:50: date: 12/13/15 20:50:00 CDT, Duration: 3 doses or times, Stop date: Limited # of times Mannitol No Notes: [facility] 8- (Same as: l 01:40: Osmitrol) Huy 00 Infuse through 5 micron or smaller filter WASTE: F/P - Sink; E - Municipal Trash Bin Mannitol No Notes: [facility] 8-03 (Same as: l 01:40: Osmitrol) Huy 00 Infuse through 5 micron or smaller filter WASTE: F/P - Sink; E - Municipal Trash Bin Mannitol No Notes: [facility] 8- (Same as: l 01:40: Osmitrol) Huy 00 Infuse through 5 micron or smaller [...] ) Saline No Notes: [facility] Flush 0.9% 8-03 (Same as: l 01:02: BD [place] 00 Posiflush) Saline No Notes: [facility] Flush 0.9% 8-03 (Same as: l 01:02: BD [place] 00 Posiflush) Saline No Notes: [facility] Flush 0.9% 8-03 (Same as: l 01:02: BD [place] 00 Posiflush) Immunizations Ordered Immunization Filled Immunization Date Status Commen ts Source Name Name pneumococcal 2015-12-14 Completed [facility] 13-valent vaccine 17:03:00 [place] pneumococcal 2015-12-14 Completed [facility] 13-valent vaccine 17:03:00 [facility] pneumococcal 2015-12-14 Completed [facility] 13-valent vaccine 17:03:00 [facility] Vital Signs Vital Name Observation Time Observation Value Comments Source BP Systolic 2018-08-08 133 mm[Hg] Location: E; [facility] 10:12:00 Position: Sitting BP Diastolic 2018-08-08 76 mm[Hg] Location: E[facility] 10:12:00 Position: Sitting Height 2018-08-08 68 [in_us] [facility] 10:12:00 Weight 2018-08-08 161 [lb_av] [facility] 10:12:00 Body Mass Index 2018-08-08 24.48 [...] 00:55:00 Temperature Oral 2016-01-11 97.8 F [facility] (F) 00:55:00 Respitory Rate 2016-01-10 [facility] [...] n 22:52:00 Temperature Oral 2016-01-01 98.6 F Shena Boone rmann (F) 17:30:00 Height 2015-12-23 180.34 cm [facility] n 12:49:00 Height 2015-12-23 180.34 cm [facility] 08:22:00 BMI Calculated 2015-12-14 [facility] 07:00:00 Weight 2015-12-14 [facility] 07:00:00 BMI Calculated 2015-12-14 [facility] 00:55:00 Weight 2015-12-14 [facility] 00:55:00 Procedures Procedure Date / Time Performed Performing Clinician [facility] History of [facility]ary Ar[facility] Encounters Start End Encounter Admission Attending Care Care Encounter Source Date/Time Date/Time Type Type Clinicians Facility Department ID 2022-10-22 Outpatient AYSHA Mcgowan [facility] [id number] Common 11:27:03 Mishel [id number] [facility] 2022-09-18 Outpatient AYSHA Mcgowan [facility] [id number] Common 08:22:01 Mishel [id number] [facility] 2022-06-01 2022-06-01 Outpatient AMEENA RANKIN [id number] [place] 10:15:00 10:15:00 JUAN rose 2020-09-23 2020-09-23 Outpatient Jade-Mbayo [facility] [phone] [place] 03:25:00 03:25:00 _A_AH [id number] [facility] 2020-06-27 2020-06-27 Outpatient Ige-Odunuga VFP VFP [phone] [facility] 12:23:00 12:23:00 _J_AH [id number] Family Practic e 2019-07-01 2019-07-01 Outpatient Ige-Odunuga VFP VFP [phone] [facility] 07:17:00 07:17:00 _J_AH [id number] Family Practic e 2019-07-01 2019-07-01 Outpatient Ige-Odunuga VFP VFP [phone] [place] 07:17:00 07:17:00 _J_AH [id number] Family Practic e 2019-07-01 2019-07-01 Outpatient Ige-Odunuga VFP VFP [phone] [facility] 07:17:00 07:17:00 _J_AH [id number] Family Practic e 2019-05-12 2019-05-12 Lillie [facility] [id number] [place] 11:30:00 11:30:00 t; oYhannes SUTTON i, M.D. ans ANJAIL, M.D. 2019-03-17 2019-03-17 Lillie [facility] [id number] [place] 10:30:00 10:30:00 t; Yohannes SUTTON i, M.D. ans ANJAIL, M.D. 2018-08-08 2018-08-08 Lillie JOE [facility] [id number] [place] 10:00:00 10:00:00 t; Yohannes SUTTON i, M.D. ans ANJAIL, M.D. 2018-02-07 2018-02-07 Lillie [facility] [id number] [place] 09:00:00 09:00:00 t; Yohannes SUTTON i, M.D. ans ANJAIL, M.D. 2018-01-03 2018-01-03 Lillie [facility] [id number] [place] 10:30:00 10:30:00 t; Yohannes SUTTON i, M.D. ans ANJAIL, M.D. 2017-07-05 2017-07-05 [facility] [id number] [place] 10:00:00 10:00:00 t; Yohannes SUTTON i, M.D. ans ANJAIL, M.D. 2017-01-01 2017-01-01 [facility] [id number] [place] 10:00:00 10:00:00 t; Yohannes SUTTON i, M.D. ans ANJAIL, M.D. 2016-08-10 2016-08-10 [facility] [id number] [place] 11:00:00 11:00:00 t; Yohannes SUTTON i, M.D. ans ANJAIL, M.D. 2016-08-09 2016-08-09 [facility] [id number] [place] 10:30:00 10:30:00 t; VERA MANN, FERNANDO Physici VERA, ans [employer] DES[employer] 2016-04-18 2016-04-19 Outpt Diag nullFlavo [facility] [id number] Memoria 17:57:00 05:59:00 Services r Outpatient 00 l Imaging [facility] 2016-04-18 2016-04-19 Outpt Diag nullFlavo [facility] [id number] Memoria 17:57:00 05:59:00 Services r Outpatient 00 l Imaging [facility] 2016-04-18 2016-04-18 [id number] 11:57:00 23:59:00 [place] 00 Nkiru 2016-01-11 2016-01-27 Inpatient nullFlavo [facility] [id number] Mem[facility] 03:10:00 17:30:00 Snf r Huy 43 l [facility] 2016-01-11 2016-01-27 Inpatient nullFlavo [facility] [id number] Mem[facility] 03:10:00 17:30:00 Snf r [place] 43 l [facility] 2016-01-10 2016-01-27 Outpatient Anni [facility] [id number] 22:10:00 12:30:00 Mahran 43 2015-12-14 2016-01-11 Inpatient nullFlavo [facility] [id number] [facility] 00:54:00 03:00:[address] 2015-12-14 2016-01-11 Inpatient Chantal [facility] [id number] Mem[facility] 00:54:00 03:00:[address] 2015-12-13 2016-01-10 Outpatient Ana [facility] [id number] 19:54:00 22:00:00 , Jag 67 Results Test Description Test Time Test Comments Results Result Comments Source [facility] 2016-01-26 14:31:00 Test Item Value Reference Range Interpretation Comme nts Chloride Lvl (test code = Chloride Lvl) 101 95-109 [facility]ox[facility]ihfFNOVWEAKPSYO7945-49-78 14:31:00 Test Item Value Reference Range Interpretation Comments Sodium Lvl (test code = Sodium Lvl) 137 135-145 [facility]RznkgypDWLBVALIKLMD8785-26-11 14:31:00 Test Item Value Reference Range Interpretation Comments Potassium Lvl (test code = Potassium 3.9 3.5-5.1 Lvl) [facility]OwqsswvPXWNSLMVAEPY6912-97-51 14:31:00 Test Item Value Reference Range Interpretation Comments Creatinine Lvl (test code = Creatinine 0.47 0.50-1.40 Lvl) [facility]DkobtqdVFQYMQVNMFIM5937-23-11 14:31:00 Test Item Value Reference Range Interpretation Comments BUN (test code = BUN) 22 7-22 [facility]OfghmfiHDDRCEBWNUUV2175-75-29 14:31:00 Test Item Value Reference Range Interpretation Comments Glucose Lvl (test code = Glucose Lvl) 126 70-99 [facility]BlkgiqaAKWBJCXOJW4737-36-24 14:31:00 Test Item Value Reference Range Interpretation Comments Lymphocytes # (test code = Lymphocytes 5.6 1.0-5.5 #) [facility] CenterFphncsmCFINFPNPJM1838-26-01 14:31:00 Test Item Value Reference Range Interpretation Comments Segs-Bands # (test code = Segs-Bands #) 6.1 1.5-8.1 [facility] CenterJhbtonfLNVAQQTIEZ7338-82-79 14:31:00 Test Item Value Reference Range Interpretation Comments Segs (test code = Segs) 48.0 45.0-75.0 [facility] CenterBvujgnzFNCFASPWPX8464-54-24 14:31:00 Test Item Value Reference Range Interpretation Comments Monocytes (test code = Monocytes) 7.4 2.0-12.0 [facility] CenterTputdafLQPPGVENVQ1004-19-86 14:31:00 Test Item Value Reference Range Interpretation Comments Eosinophils (test code = 0.6 See_Comment [A utomated message] The Eosinophils) system which ge nerated this result tra nsmitted reference range : <=4.0. The reference r sagrario was not used to int erpret this result as normal/abnormal . [facility] CenterHuvvrcbSCDGHPETYH3908-44-93 14:31:00 Test Item Value Reference Range Interpretation Comments Basophils (test code = 0.2 See_Comment [Aut omated message] The Basophils) system which ge nerated this result tra nsmitted reference range : <=1.0. The reference r sagrario was not used to int erpret this result as normal/abnormal . [facility] CenterFinhkmpJXEOJVBHUD8972-47-41 14:31:00 Test Item Value Reference Range Interpretation Comments Lymphocytes (test code = Lymphocytes) 43.8 20.0-40.0 [facility]FztkfbrRTLONGJPDLSH5800-35-19 14:31:00 Test Item Value Reference Range Interpretation Comments AGAP (test code = AGAP) 11.9 10.0-20.0 [facility]XdyfbrpQYBLWGGLWWVV2987-58-69 14:31:00 Test Item Value Reference Range Interpretation Comments eGFR (test code = eGFR) 113 [facility]QyrwqjwYLXKLALWOYKN2083-43-85 14:31:00 Test Item Value Reference Range Interpretation Comments Calcium Lvl (test code = Calcium Lvl) 9.2 8.5-10.5 [facility]ShsxkwhNYLYXGBTZYNY6842-04-76 14:31:00 Test Item Value Reference Range Interpretation Comments CO2 (test code = CO2) 28 24-32 [facility]JdhldybYTTCEKNYEWFO8265-45-98 14:31:00 Test Item Value Reference Range Interpretation Comments Chloride Lvl (test code = Chloride Lvl) 101 95-109 [facility] MichiganLajgahqYYYKYJLTLPRV1193-47-92 14:31:00 Test Item Value Reference Range Interpretation Comments Sodium Lvl (test code = Sodium Lvl) 137 135-145 [facility] CenterQqtugbdGEBSHQGNID7546-19-87 14:31:00 Test Item Value Reference Range Interpretation Comments Eosinophils # (test code 0.1 See_Comment [A utomated message] The = Eosinophils #) system whic h generated this result tra nsmitted reference range : <=0.5. The reference r sagrario was not used to int erpret this result as normal/abnormal . [facility]GgwhjryHISXLVYYZHDZ4423-93-50 14:31:00 Test Item Value Reference Range Interpretation Comments Potassium Lvl (test code = Potassium 3.9 3.5-5.1 Lvl) [facility]PdnjenlQSPDDRYWTXTJ9287-27-76 14:31:00 Test Item Value Reference Range Interpretation Comments Creatinine Lvl (test code = Creatinine 0.47 0.50-1.40 Lvl) [facility]ApjoxvbRXLVJYIQHRDD6778-08-44 14:31:00 Test Item Value Reference Range Interpretation Comments BUN (test code = BUN) 22 7-22 [facility]VnlhgsxQOMRSZQCIUNC5073-99-90 14:31:00 Test Item Value Reference Range Interpretation Comments Glucose Lvl (test code = Glucose Lvl) 126 70-99 [facility] CenterCywxdgiGZQWHVCMBG1235-45-21 14:31:00 Test Item Value Reference Range Interpretation Comments Lymphocytes # (test code = Lymphocytes 5.6 1.0-5.5 #) [facility] CenterNfoqpprUBTPWBXDGC6546-75-87 14:31:00 Test Item Value Reference Range Interpretation Comments Segs-Bands # (test code = Segs-Bands #) 6.1 1.5-8.1 [facility] CenterZhnxiloPCVRWHSOWZ6393-72-23 14:31:00 Test Item Value Reference Range Interpretation Comments Segs (test code = Segs) 48.0 45.0-75.0 [facility] CenterNudvutsCWKULGSCHQ9382-19-90 14:31:00 Test Item Value Reference Range Interpretation Comments Monocytes (test code = Monocytes) 7.4 2.0-12.0 [facility] CenterUesuoymUDJCNPHVXC2844-08-10 14:31:00 Test Item Value Reference Range Interpretation Comments Eosinophils (test code = 0.6 See_Comment [A utomated message] The Eosinophils) system which ge nerated this result tra nsmitted reference range : <=4.0. The reference r sagrario was not used to int erpret this result as normal/abnormal . [facility] CenterTohdcawSIWVPNHDUX8864-42-61 14:31:00 Test Item Value Reference Range Interpretation Comments Basophils (test code = 0.2 See_Comment [Aut omated message] The Basophils) system which ge nerated this result tra nsmitted reference range : <=1.0. The reference r sagrario was not used to int erpret this result as normal/abnormal . [facility] CenterJmtnawbUUXVNBIICH1089-82-58 14:31:00 Test Item Value Reference Range Interpretation Comments Monocytes # (test code 1.0 See_Comment [Aut omated message] The = Monocytes #) system which generated this result tra nsmitted reference range : <=0.8. The reference r sagrario was not used to int erpret this result as normal/abnormal . [facility] CenterRpotrrhHQEVTORZAJ6329-85-32 14:31:00 Test Item Value Reference Range Interpretation Comments Lymphocytes (test code = Lymphocytes) 43.8 20.0-40.0 [facility] CenterIicbxwzQNNUAZWGPY2245-45-15 14:31:00 Test Item Value Reference Range Interpretation Comments Eosinophils # (test code 0.1 See_Comment [A utomated message] The = Eosinophils #) system whic h generated this result tra nsmitted reference range : <=0.5. The reference r sagrario was not used to int erpret this result as normal/abnormal . [facility] CenterDeqoryfFJVOVEZZGG2507-94-45 14:31:00 Test Item Value Reference Range Interpretation Comments Monocytes # (test code 1.0 See_Comment [Aut omated message] The = Monocytes #) system which generated this result tra nsmitted reference range : <=0.8. The reference r sagrario was not used to int erpret this result as normal/abnormal . [facility] CenterOwvimipRFKHVAQNTR1103-93-62 14:31:00 Test Item Value Reference Range Interpretation Comments MCV (test code = MCV) 96.9 80.0-94.0 [facility] CenterWywlnswPYDXDYSNIG0953-76-02 14:31:00 Test Item Value Reference Range Interpretation Comments MCH (test code = MCH) 32.8 pg 27.0-31.0 [facility] CenterUpfakhjERONOFMNPC4122-46-57 14:31:00 Test Item Value Reference Range Interpretation Comments Hgb (test code = Hgb) 9.9 14.0-18.0 [facility] CenterJkgsaijIGHOVUPMTS1458-19-49 14:31:00 Test Item Value Reference Range Interpretation Comments RDW (test code = RDW) 12.9 11.5-14.5 [facility] CenterHnfexalVGSESMPYPO0858-66-56 14:31:00 Test Item Value Reference Range Interpretation Comments MCHC (test code = MCHC) 33.9 32.0-36.0 [facility] CenterWjxymrlIBQKREVPWX6113-97-49 14:31:00 Test Item Value Reference Range Interpretation Comments Platelet (test code = Platelet) 381 133-450 [facility] CenterIdgxewiKYFUBISOUZ5293-96-20 14:31:00 Test Item Value Reference Range Interpretation Comments MPV (test code = MPV) 7.6 7.4-10.4 [facility] CenterAqabnfvHYEJKRHFHW5902-77-62 14:31:00 Test Item Value Reference Range Interpretation Comments MCV (test code = MCV) 96.9 80.0-94.0 [facility] CenterLnsgjnuNPJWGICWBD9361-28-51 14:31:00 Test Item Value Reference Range Interpretation Comments Hct (test code = Hct) 29.1 42.0-54.0 [facility] CenterBsfejsrWRYYTZFZVC3722-13-05 14:31:00 Test Item Value Reference Range Interpretation Comments WBC (test code = WBC) 12.8 3.7-10.4 [facility] CenterZzxokueBNDSYWWXDS5872-21-10 14:31:00 Test Item Value Reference Range Interpretation Comments RBC (test code = RBC) 3.01 4.70-6.10 [facility] CenterPbpzomyOTXRWDNNSZ7254-17-61 14:31:00 Test Item Value Reference Range Interpretation Comments MCH (test code = MCH) 32.8 pg 27.0-31.0 [facility] CenterNyzsrsgIJBNNAJNVA3076-58-41 14:31:00 Test Item Value Reference Range Interpretation Comments Hgb (test code = Hgb) 9.9 14.0-18.0 [facility] CenterOemyjdtVWVYXMCOAI3880-33-20 14:31:00 Test Item Value Reference Range Interpretation Comments RDW (test code = RDW) 12.9 11.5-14.5 [facility] CenterJldjpktXBLNQDCHCA1735-24-01 14:31:00 Test Item Value Reference Range Interpretation Comments MCHC (test code = MCHC) 33.9 32.0-36.0 [facility] CenterHdgonrkQZYXUPITYL8436-19-98 14:31:00 Test Item Value Reference Range Interpretation Comments Platelet (test code = Platelet) 381 133-450 [facility] CenterJmicdyqTFATYITSJS4982-63-60 14:31:00 Test Item Value Reference Range Interpretation Comments MPV (test code = MPV) 7.6 7.4-10.4 [facility] CenterJxbjuhhIOTGSZQJYB1287-08-40 14:31:00 Test Item Value Reference Range Interpretation Comments Hct (test code = Hct) 29.1 42.0-54.0 [facility] CenterCmpywxkKWKOGCSAKW7270-23-48 14:31:00 Test Item Value Reference Range Interpretation Comments WBC (test code = WBC) 12.8 3.7-10.4 [facility] CenterUquqmybHJBZGWUPHK8796-35-65 14:31:00 Test Item Value Reference Range Interpretation Comments RBC (test code = RBC) 3.01 4.70-6.10 [facility]HvxvlfkEVMHPBMBXZLQ5694-55-21 14:31:00 Test Item Value Reference Range Interpretation Comments AGAP (test code = AGAP) 11.9 10.0-20.0 [facility] MichiganRzxqodwZAIUGXSSNGSL3508-79-15 14:31:00 Test Item Value Reference Range Interpretation Comments eGFR (test code = eGFR) 113 [facility]UiqnsbhDQYUJWWRHLTK1691-56-98 14:31:00 Test Item Value Reference Range Interpretation Comments Calcium Lvl (test code = Calcium Lvl) 9.2 8.5-10.5 [facility]HgwcbspFSPACRWUZAXQ2234-87-31 14:31:00 Test Item Value Reference Range Interpretation Comments CO2 (test code = CO2) 28 24-32 [facility] MichiganKirkfveTFWDAYJVBAJF7353-87-34 14:31:00 Test Item Value Reference Range Interpretation Comments Chloride Lvl (test code = Chloride Lvl) 101 95-109 [facility]CwtvqerOUVTOJKIZUZM5442-10-46 14:31:00 Test Item Value Reference Range Interpretation Comments Sodium Lvl (test code = Sodium Lvl) 137 135-145 [facility]DyvsgzyAFACQHSNJYNS6069-69-70 14:31:00 Test Item Value Reference Range Interpretation Comments Potassium Lvl (test code = Potassium 3.9 3.5-5.1 Lvl) [facility]CfizipdZKVZSRBBKUYQ8657-18-71 14:31:00 Test Item Value Reference Range Interpretation Comments Creatinine Lvl (test code = Creatinine 0.47 0.50-1.40 Lvl) [facility]GhxyrmiDLBDDIBEWUJP5646-34-46 14:31:00 Test Item Value Reference Range Interpretation Comments BUN (test code = BUN) 22 7-22 [facility]TetdboqDEJKPWMRFYAH3249-93-54 14:31:00 Test Item Value Reference Range Interpretation Comments Glucose Lvl (test code = Glucose Lvl) 126 70-99 [facility] CenterAxetvxlHSNJMFVUWM7481-93-27 14:31:00 Test Item Value Reference Range Interpretation Comments Lymphocytes # (test code = Lymphocytes 5.6 1.0-5.5 #) [facility] CenterAzosbyaHEDNQQVCOH9558-36-82 14:31:00 Test Item Value Reference Range Interpretation Comments Segs-Bands # (test code = Segs-Bands #) 6.1 1.5-8.1 [facility] CenterXsmqpjzTYVRJYWHLW5146-29-52 14:31:00 Test Item Value Reference Range Interpretation Comments Segs (test code = Segs) 48.0 45.0-75.0 [facility] CenterLuvrvojFZEFKQERJX5176-73-13 14:31:00 Test Item Value Reference Range Interpretation Comments Monocytes (test code = Monocytes) 7.4 2.0-12.0 [facility] CenterTpoywveKDFXMRLEOT0193-88-22 14:31:00 Test Item Value Reference Range Interpretation Comments Eosinophils (test code = 0.6 See_Comment [A utomated message] The Eosinophils) system which ge nerated this result tra nsmitted reference range : <=4.0. The reference r sagrario was not used to int erpret this result as normal/abnormal . [facility] CenterUrycanqMYRWKPFOYV7228-01-51 14:31:00 Test Item Value Reference Range Interpretation Comments Basophils (test code = 0.2 See_Comment [Aut omated message] The Basophils) system which ge nerated this result tra nsmitted reference range : <=1.0. The reference r sagrario was not used to int erpret this result as normal/abnormal . [facility] CenterVkwltpdSYAZZPBZYF3997-91-12 14:31:00 Test Item Value Reference Range Interpretation Comments Lymphocytes (test code = Lymphocytes) 43.8 20.0-40.0 [facility] CenterNxyvmwtIFYWSXETMH4086-85-03 14:31:00 Test Item Value Reference Range Interpretation Comments Eosinophils # (test code 0.1 See_Comment [A utomated message] The = Eosinophils #) system whic h generated this result tra nsmitted reference range : <=0.5. The reference r sagrario was not used to int erpret this result as normal/abnormal . [facility] CenterZvolckdRAAKBPHBCG7525-98-94 14:31:00 Test Item Value Reference Range Interpretation Comments Monocytes # (test code 1.0 See_Comment [Aut omated message] The = Monocytes #) system which generated this result tra nsmitted reference range : <=0.8. The reference r sagrario was not used to int erpret this result as normal/abnormal . [facility]KxdijgvMHIFPDXTQQ8040-43-22 14:31:00 Test Item Value Reference Range Interpretation Comments MCV (test code = MCV) 96.9 80.0-94.0 [facility] CenterXujgebpHIDYYAUKUU7910-91-56 14:31:00 Test Item Value Reference Range Interpretation Comments MCH (test code = MCH) 32.8 pg 27.0-31.0 [facility] CenterEicpsmaEKNRCWUULJ3539-61-51 14:31:00 Test Item Value Reference Range Interpretation Comments Hgb (test code = Hgb) 9.9 14.0-18.0 [facility] CenterLbghownPGAKXNZRWL5564-65-23 14:31:00 Test Item Value Reference Range Interpretation Comments RDW (test code = RDW) 12.9 11.5-14.5 [facility] CenterIhbhjucWLXPUZPANW5162-84-26 14:31:00 Test Item Value Reference Range Interpretation Comments MCHC (test code = MCHC) 33.9 32.0-36.0 [facility] CenterGuzpwdeNSJRKKYLLC8175-34-69 14:31:00 Test Item Value Reference Range Interpretation Comments Platelet (test code = Platelet) 381 133-450 [facility] CenterZpqutkaQBUMTWHNRJ7107-20-39 14:31:00 Test Item Value Reference Range Interpretation Comments MPV (test code = MPV) 7.6 7.4-10.4 [facility] CenterGuvapxhEBXUCTBEOJ4883-42-45 14:31:00 Test Item Value Reference Range Interpretation Comments Hct (test code = Hct) 29.1 42.0-54.0 [facility] CenterFdqpnsbYWUOQXBEZE2796-69-85 14:31:00 Test Item Value Reference Range Interpretation Comments WBC (test code = WBC) 12.8 3.7-10.4 [facility] CenterIxemwpoMFMJGIGOMC6117-10-33 14:31:00 Test Item Value Reference Range Interpretation Comments RBC (test code = RBC) 3.01 4.70-6.10 [facility]lyillgQRTARDHHQIUA8128-41-16 14:31:00 Test Item Value Reference Range Interpretation Comments AGAP (test code = AGAP) 11.9 10.0-20.0 [facility]IvnzgzzLGKKDGLRMZKE7328-66-26 14:31:00 Test Item Value Reference Range Interpretation Comments eGFR (test code = eGFR) 113 [facility]GdaktzhBOBQIIIOTDUE6806-24-80 14:31:00 Test Item Value Reference Range Interpretation Comments Calcium Lvl (test code = Calcium Lvl) 9.2 8.5-10.5 [facility]QzjendxQTDSIMVQOLAC5270-35-30 14:31:00 Test Item Value Reference Range Interpretation Comments CO2 (test code = CO2) 28 -32 [facility]NkbafbjUVSQNLWMXYDG6501-95-39 10:07:00 Test Item Value Reference Range Interpretation Comments AGAP (test code = AGAP) 14.2 10.0-20.0 [facility] MichiganBscquaiXEVWHDSWCPYT5270-05-99 10:07:00 Test Item Value Reference Range Interpretation Comments Globulin (test code = Globulin) 3.2 2.7-4.2 [facility]YhwfsfgBMYZPJRHOOIH8170-16-11 10:07:00 Test Item Value Reference Range Interpretation Comments A/G Ratio (test code = A/G Ratio) 1.0 0.7-1.6 [facility] MichiganHlefnltYHEIHTACNUMS9814-12-34 10:07:00 Test Item Value Reference Range Interpretation Comments B/C Ratio (test code = B/C Ratio) 43 6-25 [facility] MichiganSkepsnmTXMBAVCVGPSX4896-10-23 10:07:00 Test Item Value Reference Range Interpretation Comments CO2 (test code = CO2) 26 - [facility]NmrikgcRWCSZQTVNVIK4229-83-10 10:07:00 Test Item Value Reference Range Interpretation Comments Calcium Lvl (test code = Calcium Lvl) 9.6 8.5-10.5 [facility]IumewrpFQJUFQRXGCRI2954-51-99 10:07:00 Test Item Value Reference Range Interpretation Comments Albumin Lvl (test code = Albumin Lvl) 3.2 3.5-5.0 [facility] MichiganTyvqsawOZLZBFQYXESC7968-10-86 10:07:00 Test Item Value Reference Range Interpretation Comments ALT (test code = ALT) 89 See_Comment [Auto mated message] The system which ge nerated this result transmit craig reference range : <=65. The reference range was not used to interpr et this result as kita l/abnormal. [facility] MichiganWldgwwnOTONQUJRDZEG8717-57-12 10:07:00 Test Item Value Reference Range Interpretation Comments Total Protein (test code = Total 6.4 6.4-8.4 Protein) [facility] MichiganRseqdymPSVVRWIIGRYF7086-54-77 10:07:00 Test Item Value Reference Range Interpretation Comments eGFR (test code = eGFR) 116 [facility]HtawsbcDCLCOTEPMNXA9248-86-86 10:07:00 Test Item Value Reference Range Interpretation Comments Creatinine Lvl (test code = Creatinine 0.44 0.50-1.40 Lvl) [facility]RqmddxeMKEGXRBXHVEH5169-12-74 10:07:00 Test Item Value Reference Range Interpretation Comments Glucose Lvl (test code = Glucose Lvl) 95 70-99 [facility] MichiganLuivpaiDMKOMILLITRR2300-82-69 10:07:00 Test Item Value Reference Range Interpretation Comments BUN (test code = BUN) 19 7-22 [facility] MichiganXakopkoAXKDKXKJUXBU8098-28-42 10:07:00 Test Item Value Reference Range Interpretation Comments Sodium Lvl (test code = Sodium Lvl) 134 135-145 [facility] MichiganLcmjcveTRYPVBVTUIQY8551-89-54 10:07:00 Test Item Value Reference Range Interpretation Comments Chloride Lvl (test code = Chloride Lvl) 99 95-109 [facility]PdmgifrKCSVZTIWXIXS5661-81-72 10:07:00 Test Item Value Reference Range Interpretation Comments Potassium Lvl (test code = Potassium 5.2 3.5-5.1 Lvl) [facility] MichiganAcximiwRWOTOKFQJETQ3900-50-18 10:07:00 Test Item Value Reference Range Interpretation Comments Alk Phos (test code = Alk Phos) 198 39-136 [facility]ZvvfmghQTZKFYHUFRHA3263-70-39 10:07:00 Test Item Value Reference Range Interpretation Comments Bili Total (test code = Bili Total) 0.5 0.2-1.3 [facility] MichiganDmvexppUXSURGLORGCM2588-77-80 10:07:00 Test Item Value Reference Range Interpretation Comments AST (test code = AST) 36 See_Comment [Auto mated message] The system which ge nerated this result transmit craig reference range : <=37. The reference range was not used to interpr et this result as kita l/abnormal. [facility] CenterAbarsdoCRIVCHPFMX3436-06-08 10:07:00 Test Item Value Reference Range Interpretation Comments Platelet (test code = Platelet) 405 133-450 [facility] CenterAnaxxsjMMSTODKBAA7610-13-79 10:07:00 Test Item Value Reference Range Interpretation Comments MCHC (test code = MCHC) 34.1 32.0-36.0 [facility] CenterOqwpvjvLMAWNYOVFB7270-02-77 10:07:00 Test Item Value Reference Range Interpretation Comments RDW (test code = RDW) 13.1 11.5-14.5 [facility] CenterFaarmfxVTKHYHIIZA2031-87-54 10:07:00 Test Item Value Reference Range Interpretation Comments Hgb (test code = Hgb) 10.5 14.0-18.0 [facility] CenterDmgsompKQWIFWBCNJ4496-37-19 10:07:00 Test Item Value Reference Range Interpretation Comments Hct (test code = Hct) 30.9 42.0-54.0 [facility] CenterGmvrcwaOYMNASWNYS2728-57-20 10:07:00 Test Item Value Reference Range Interpretation Comments MCH (test code = MCH) 33.1 pg 27.0-31.0 [facility] CenterIuiackgNGYELDWABM3339-71-85 10:07:00 Test Item Value Reference Range Interpretation Comments WBC (test code = WBC) 18.8 3.7-10.4 [facility] CenterOpuyezsXMGPGIMQJH7606-55-87 10:07:00 Test Item Value Reference Range Interpretation Comments RBC (test code = RBC) 3.19 4.70-6.10 [facility] CenterYzkakyoCHXTBXBSCA1726-75-31 10:07:00 Test Item Value Reference Range Interpretation Comments MCV (test code = MCV) 97.1 80.0-94.0 [facility] CenterMvmnugmZOSHCXTGRK3589-36-23 10:07:00 Test Item Value Reference Range Interpretation Comments MPV (test code = MPV) 8.2 7.4-10.4 [facility] CenterWifmlecVJHGUAUJTI4852-22-39 10:07:00 Test Item Value Reference Range Interpretation Comments Eosinophils (test code = 0.8 See_Comment [A utomated message] The Eosinophils) system which ge nerated this result tra nsmitted reference range : <=4.0. The reference r sagrario was not used to int erpret this result as normal/abnormal . [facility] CenterEzagtjrODBEBBBIUZ2920-35-92 10:07:00 Test Item Value Reference Range Interpretation Comments Lymphocytes (test code = Lymphocytes) 42.0 20.0-40.0 [facility] CenterDnadxhwKSBKGAYZVF8401-55-71 10:07:00 Test Item Value Reference Range Interpretation Comments Segs (test code = Segs) 49.2 45.0-75.0 [facility] CenterOqkkhoaIGWGTPVOFJ8412-56-55 10:07:00 Test Item Value Reference Range Interpretation Comments Monocytes (test code = Monocytes) 7.5 2.0-12.0 [facility] CenterKdepyngCXBXWQVDXR0550-13-26 10:07:00 Test Item Value Reference Range Interpretation Comments Basophils # (test code 0.1 See_Comment [Aut omated message] The = Basophils #) system which generated this result tra nsmitted reference range : <=0.2. The reference r sagrario was not used to int erpret this result as normal/abnormal . [facility] CenterMmysohdSUZIUIWBZJ3373-75-01 10:07:00 Test Item Value Reference Range Interpretation Comments Monocytes # (test code 1.4 See_Comment [Aut omated message] The = Monocytes #) system which generated this result tra nsmitted reference range : <=0.8. The reference r sagrario was not used to int erpret this result as normal/abnormal . [facility] CenterWytfhkmRKZGAOGVPV9435-28-64 10:07:00 Test Item Value Reference Range Interpretation Comments Eosinophils # (test code 0.1 See_Comment [A utomated message] The = Eosinophils #) system whic h generated this result tra nsmitted reference range : <=0.5. The reference r sagrario was not used to int erpret this result as normal/abnormal . [facility] CenterKivfeydOVWODHZKFQ9560-98-30 10:07:00 Test Item Value Reference Range Interpretation Comments Basophils (test code = 0.5 See_Comment [Aut omated message] The Basophils) system which ge nerated this result tra nsmitted reference range : <=1.0. The reference r sagrario was not used to int erpret this result as normal/abnormal . [facility] CenterIfdwlgsAEVGQMBWTH0903-73-09 10:07:00 Test Item Value Reference Range Interpretation Comments Lymphocytes # (test code = Lymphocytes 7.9 1.0-5.5 #) [facility] CenterUhehwltLPIGZLRFSK8056-24-44 10:07:00 Test Item Value Reference Range Interpretation Comments Segs-Bands # (test code = Segs-Bands #) 9.3 1.5-8.1 [facility]LnwwznkFOARSMFFERON6056-76-66 10:07:00 Test Item Value Reference Range Interpretation Comments AGAP (test code = AGAP) 14.2 10.0-20.0 [facility] MichiganTervmdkAIOMLFVZQBGT3507-86-61 10:07:00 Test Item Value Reference Range Interpretation Comments Globulin (test code = Globulin) 3.2 2.7-4.2 [facility] MichiganEgplownPDPFHVAQVGRC6353-87-53 10:07:00 Test Item Value Reference Range Interpretation Comments A/G Ratio (test code = A/G Ratio) 1.0 0.7-1.6 [facility]KvjzyymMJLVTGPZGLRU9623-87-00 10:07:00 Test Item Value Reference Range Interpretation Comments B/C Ratio (test code = B/C Ratio) 43 6-25 [facility]SxoqyjvGIRHPSQAEEOF1241-43-39 10:07:00 Test Item Value Reference Range Interpretation Comments CO2 (test code = CO2) 26 24-32 [facility]JqpzzhzEJNLNTVXBRZT9916-73-67 10:07:00 Test Item Value Reference Range Interpretation Comments Calcium Lvl (test code = Calcium Lvl) 9.6 8.5-10.5 [facility] MichiganBdoggeaJHFQMADOJYDV4087-81-98 10:07:00 Test Item Value Reference Range Interpretation Comments Albumin Lvl (test code = Albumin Lvl) 3.2 3.5-5.0 [facility] MichiganJfuukivJBRSSOWZGRZR4290-81-31 10:07:00 Test Item Value Reference Range Interpretation Comments ALT (test code = ALT) 89 See_Comment [Auto mated message] The system which ge nerated this result transmit craig reference range : <=65. The reference range was not used to interpr et this result as kita l/abnormal. [facility] MichiganCtrhbbcMENKYSHNSZJP1413-30-51 10:07:00 Test Item Value Reference Range Interpretation Comments Total Protein (test code = Total 6.4 6.4-8.4 Protein) [facility]QbcnovjNOFTRUULYLRG9549-55-77 10:07:00 Test Item Value Reference Range Interpretation Comments eGFR (test code = eGFR) 116 [facility]CntwzdmFRZFXEAVQLWI6074-59-98 10:07:00 Test Item Value Reference Range Interpretation Comments Creatinine Lvl (test code = Creatinine 0.44 0.50-1.40 Lvl) [facility]HsugrqzVSRJTFSRBRQV5895-73-31 10:07:00 Test Item Value Reference Range Interpretation Comments Glucose Lvl (test code = Glucose Lvl) 95 70-99 [facility] MichiganHzevdoxRNAQCFSUSMDO2128-31-91 10:07:00 Test Item Value Reference Range Interpretation Comments BUN (test code = BUN) 19 7-22 [facility]HzyxusxUOAZWBGUKWHQ2568-07-77 10:07:00 Test Item Value Reference Range Interpretation Comments Sodium Lvl (test code = Sodium Lvl) 134 135-145 [facility] MichiganAhzmrehAVCZSPJFWVHN2266-52-27 10:07:00 Test Item Value Reference Range Interpretation Comments Chloride Lvl (test code = Chloride Lvl) 99 95-109 [facility] MichiganRrjvcbyMQBQGNYMYAXX7595-07-96 10:07:00 Test Item Value Reference Range Interpretation Comments Potassium Lvl (test code = Potassium 5.2 3.5-5.1 Lvl) [facility]QwjikswVJDBVNFYVCGW3894-37-70 10:07:00 Test Item Value Reference Range Interpretation Comments Alk Phos (test code = Alk Phos) 198 39-136 [facility]LphyhjyQGYRIMVSMUDG3532-19-42 10:07:00 Test Item Value Reference Range Interpretation Comments Bili Total (test code = Bili Total) 0.5 0.2-1.3 [facility]PzsastkGKBEJKWPXXKG1163-87-53 10:07:00 Test Item Value Reference Range Interpretation Comments AST (test code = AST) 36 See_Comment [Auto mated message] The system which ge nerated this result transmit craig reference range : <=37. The reference range was not used to interpr et this result as kita l/abnormal. [facility] CenterCnvlbegCUAXINYVIQ1256-60-01 10:07:00 Test Item Value Reference Range Interpretation Comments Platelet (test code = Platelet) 405 133-450 [facility] CenterPfddvycXTMCBPLGHQ1115-84-88 10:07:00 Test Item Value Reference Range Interpretation Comments MCHC (test code = MCHC) 34.1 32.0-36.0 [facility] CenterDebvfzmTSJCTYASNL0893-76-11 10:07:00 Test Item Value Reference Range Interpretation Comments RDW (test code = RDW) 13.1 11.5-14.5 [facility] CenterJbwggmbIBMPCXQCRO4901-86-67 10:07:00 Test Item Value Reference Range Interpretation Comments Hgb (test code = Hgb) 10.5 14.0-18.0 [facility] CenterUrtgchhHBAKXAHFYW9685-44-49 10:07:00 Test Item Value Reference Range Interpretation Comments Hct (test code = Hct) 30.9 42.0-54.0 [facility] CenterMsvrproKKYUDKFSUP9277-45-20 10:07:00 Test Item Value Reference Range Interpretation Comments MCH (test code = MCH) 33.1 pg 27.0-31.0 [facility] CenterRdpsmryVGQHNEQRYQ2619-01-83 10:07:00 Test Item Value Reference Range Interpretation Comments WBC (test code = WBC) 18.8 3.7-10.4 [facility] CenterTjbsaqwEWEOANBFLA9596-94-92 10:07:00 Test Item Value Reference Range Interpretation Comments RBC (test code = RBC) 3.19 4.70-6.10 [facility] CenterDvlwlsvIHELOWAFFJ1929-65-44 10:07:00 Test Item Value Reference Range Interpretation Comments MCV (test code = MCV) 97.1 80.0-94.0 [facility] CenterSlwgbhrDKWXIRJKCG2985-58-34 10:07:00 Test Item Value Reference Range Interpretation Comments MPV (test code = MPV) 8.2 7.4-10.4 [facility] CenterJvwafhfPRJSZIYVVN4717-95-80 10:07:00 Test Item Value Reference Range Interpretation Comments Eosinophils (test code = 0.8 See_Comment [A utomated message] The Eosinophils) system which ge nerated this result tra nsmitted reference range : <=4.0. The reference r sagrario was not used to int erpret this result as normal/abnormal . [facility] CenterKunevpwVOMAAUJDZU2257-13-17 10:07:00 Test Item Value Reference Range Interpretation Comments Lymphocytes (test code = Lymphocytes) 42.0 20.0-40.0 [facility] CenterDyhkxjvANVXEMRLJO3955-82-59 10:07:00 Test Item Value Reference Range Interpretation Comments Segs (test code = Segs) 49.2 45.0-75.0 [facility] CenterJzmuolgGWBLMBKZIM6352-89-70 10:07:00 Test Item Value Reference Range Interpretation Comments Monocytes (test code = Monocytes) 7.5 2.0-12.0 [facility] CenterOlpqqcnVQCEKVBIER3929-96-27 10:07:00 Test Item Value Reference Range Interpretation Comments Basophils # (test code 0.1 See_Comment [Aut omated message] The = Basophils #) system which generated this result tra nsmitted reference range : <=0.2. The reference r sagrario was not used to int erpret this result as normal/abnormal . [facility] CenterKajjmcyDSDRMODGJI7026-35-52 10:07:00 Test Item Value Reference Range Interpretation Comments Monocytes # (test code 1.4 See_Comment [Aut omated message] The = Monocytes #) system which generated this result tra nsmitted reference range : <=0.8. The reference r sagrario was not used to int erpret this result as normal/abnormal . [facility] CenterQefhhseMATHXIWBEX4804-84-89 10:07:00 Test Item Value Reference Range Interpretation Comments Eosinophils # (test code 0.1 See_Comment [A utomated message] The = Eosinophils #) system whic h generated this result tra nsmitted reference range : <=0.5. The reference r sagrario was not used to int erpret this result as normal/abnormal . [facility] CenterVssvfrnHUPTQRQXAI6804-86-54 10:07:00 Test Item Value Reference Range Interpretation Comments Basophils (test code = 0.5 See_Comment [Aut omated message] The Basophils) system which ge nerated this result tra nsmitted reference range : <=1.0. The reference r sagrario was not used to int erpret this result as normal/abnormal . [facility] CenterJqoofcsUXYGVYIDBW5124-04-42 10:07:00 Test Item Value Reference Range Interpretation Comments Lymphocytes # (test code = Lymphocytes 7.9 1.0-5.5 #) [facility] CenterKlkfhzdMQPQTQYYLH7045-45-10 10:07:00 Test Item Value Reference Range Interpretation Comments Segs-Bands # (test code = Segs-Bands #) 9.3 1.5-8.1 [facility]NqrdersDUCPDZORHGCH9759-50-33 10:07:00 Test Item Value Reference Range Interpretation Comments AGAP (test code = AGAP) 14.2 10.0-20.0 [facility] MichiganPtooiacOOJMLQTDBBBA9242-24-49 10:07:00 Test Item Value Reference Range Interpretation Comments Globulin (test code = Globulin) 3.2 2.7-4.2 [facility] MichiganWyecaggKDHOAPXGFXSR9481-68-92 10:07:00 Test Item Value Reference Range Interpretation Comments A/G Ratio (test code = A/G Ratio) 1.0 0.7-1.6 [facility]MftrdqpMRQEEMDYGTJC2868-56-75 10:07:00 Test Item Value Reference Range Interpretation Comments B/C Ratio (test code = B/C Ratio) 43 6-25 [facility] MichiganBbhxlokZKQUYNHLFIWH4629-78-02 10:07:00 Test Item Value Reference Range Interpretation Comments CO2 (test code = CO2) 26 24-32 [facility] MichiganSklnxxcSEAYGRYOKXTG3808-77-97 10:07:00 Test Item Value Reference Range Interpretation Comments Calcium Lvl (test code = Calcium Lvl) 9.6 8.5-10.5 [facility] MichiganSxqrfoyQZAOUWXXLREA5610-14-85 10:07:00 Test Item Value Reference Range Interpretation Comments Albumin Lvl (test code = Albumin Lvl) 3.2 3.5-5.0 [facility] MichiganLmrozbvRHKRQVUCSIYB0578-81-20 10:07:00 Test Item Value Reference Range Interpretation Comments ALT (test code = ALT) 89 See_Comment [Auto mated message] The system which ge nerated this result transmit craig reference range : <=65. The reference range was not used to interpr et this result as kita l/abnormal. [facility] MichiganWcjzempHMNDIDBTIEFQ7516-67-12 10:07:00 Test Item Value Reference Range Interpretation Comments Total Protein (test code = Total 6.4 6.4-8.4 Protein) [facility] MichiganZlblnhfOPKMYHQFCDIX4105-82-01 10:07:00 Test Item Value Reference Range Interpretation Comments eGFR (test code = eGFR) 116 [facility] MichiganJfxtutyHRMUQRLVMEFX7634-97-80 10:07:00 Test Item Value Reference Range Interpretation Comments Creatinine Lvl (test code = Creatinine 0.44 0.50-1.40 Lvl) [facility] MichiganLgefpcfLUWTVSURMEML8973-84-10 10:07:00 Test Item Value Reference Range Interpretation Comments Glucose Lvl (test code = Glucose Lvl) 95 70-99 [facility]RrggjqjVUBYALBIGEMS5137-53-63 10:07:00 Test Item Value Reference Range Interpretation Comments BUN (test code = BUN) 19 7-22 [facility] MichiganZfciohtLVNIHCEPRACD1175-05-49 10:07:00 Test Item Value Reference Range Interpretation Comments Sodium Lvl (test code = Sodium Lvl) 134 135-145 [facility]QmczvmwWDUVNSTMEXAD0276-61-65 10:07:00 Test Item Value Reference Range Interpretation Comments Chloride Lvl (test code = Chloride Lvl) 99 95-109 [facility] MichiganTcpcgthOXITUGVQCLJO0313-67-91 10:07:00 Test Item Value Reference Range Interpretation Comments Potassium Lvl (test code = Potassium 5.2 3.5-5.1 Lvl) [facility]QpssftcHUWRUYDARYYV3515-16-17 10:07:00 Test Item Value Reference Range Interpretation Comments Alk Phos (test code = Alk Phos) 198 39-136 [facility] MichiganRtdmgcxKRXVYQZEXPSM8504-90-97 10:07:00 Test Item Value Reference Range Interpretation Comments Bili Total (test code = Bili Total) 0.5 0.2-1.3 [facility]HblyvwcFXBLLUZDFGCV2962-61-60 10:07:00 Test Item Value Reference Range Interpretation Comments AST (test code = AST) 36 See_Comment [Auto mated message] The system which ge nerated this result transmit craig reference range : <=37. The reference range was not used to interpr et this result as kiat l/abnormal. [facility] CenterDkcpyefJZLPAJYYDG2853-58-87 10:07:00 Test Item Value Reference Range Interpretation Comments Platelet (test code = Platelet) 405 133-450 [facility] CenterYtkesxqKIUBXBVZKM6461-25-85 10:07:00 Test Item Value Reference Range Interpretation Comments MCHC (test code = MCHC) 34.1 32.0-36.0 [facility] CenterOnznywdRESVITJNVQ2041-92-61 10:07:00 Test Item Value Reference Range Interpretation Comments RDW (test code = RDW) 13.1 11.5-14.5 [facility] CenterLtlbgwrHNBSUJDBSC7676-54-95 10:07:00 Test Item Value Reference Range Interpretation Comments Hgb (test code = Hgb) 10.5 14.0-18.0 [facility] CenterGcwqhysOYECBUKWWK8891-26-00 10:07:00 Test Item Value Reference Range Interpretation Comments Hct (test code = Hct) 30.9 42.0-54.0 [facility] CenterLrdtoevOBXYDPIYTK5674-29-70 10:07:00 Test Item Value Reference Range Interpretation Comments MCH (test code = MCH) 33.1 pg 27.0-31.0 [facility] CenterHaqeuprIZPQJCYPKY0712-29-87 10:07:00 Test Item Value Reference Range Interpretation Comments WBC (test code = WBC) 18.8 3.7-10.4 [facility] CenterRkavaouZUNYOWRPUU2908-54-99 10:07:00 Test Item Value Reference Range Interpretation Comments RBC (test code = RBC) 3.19 4.70-6.10 [facility] CenterSemcwcrQQXACNDFTZ4380-69-81 10:07:00 Test Item Value Reference Range Interpretation Comments MCV (test code = MCV) 97.1 80.0-94.0 [facility] CenterLsmtspbAUIRKCRNQU5999-51-67 10:07:00 Test Item Value Reference Range Interpretation Comments MPV (test code = MPV) 8.2 7.4-10.4 [facility] CenterEgqpqgbQPKSHWPPQJ6191-42-93 10:07:00 Test Item Value Reference Range Interpretation Comments Eosinophils (test code = 0.8 See_Comment [A utomated message] The Eosinophils) system which ge nerated this result tra nsmitted reference range : <=4.0. The reference r sagrario was not used to int erpret this result as normal/abnormal . [facility] CenterXimvsxbKUTQSSHDSO6690-48-36 10:07:00 Test Item Value Reference Range Interpretation Comments Lymphocytes (test code = Lymphocytes) 42.0 20.0-40.0 [facility] CenterLogofimMFLQVCLDUL4073-26-04 10:07:00 Test Item Value Reference Range Interpretation Comments Segs (test code = Segs) 49.2 45.0-75.0 [facility]OpxldheRYPLYSBTYV0659-51-51 10:07:00 Test Item Value Reference Range Interpretation Comments Monocytes (test code = Monocytes) 7.5 2.0-12.0 [facility] CenterPfldzsjYCUEXSDPKN5237-65-11 10:07:00 Test Item Value Reference Range Interpretation Comments Basophils # (test code 0.1 See_Comment [Aut omated message] The = Basophils #) system which generated this result tra nsmitted reference range : <=0.2. The reference r sagrario was not used to int erpret this result as normal/abnormal . [facility] CenterDfvkliwZOIKBYOUUY1854-98-87 10:07:00 Test Item Value Reference Range Interpretation Comments Monocytes # (test code 1.4 See_Comment [Aut omated message] The = Monocytes #) system which generated this result tra nsmitted reference range : <=0.8. The reference r sagrario was not used to int erpret this result as normal/abnormal . [facility] CenterKxppneiKKBOGRQARL7921-47-34 10:07:00 Test Item Value Reference Range Interpretation Comments Eosinophils # (test code 0.1 See_Comment [A utomated message] The = Eosinophils #) system whic h generated this result tra nsmitted reference range : <=0.5. The reference r sagrario was not used to int erpret this result as normal/abnormal . [facility] CenterAdldqvvEYHNSOBCDR0873-74-60 10:07:00 Test Item Value Reference Range Interpretation Comments Basophils (test code = 0.5 See_Comment [Aut omated message] The Basophils) system which ge nerated this result tra nsmitted reference range : <=1.0. The reference r sagrario was not used to int erpret this result as normal/abnormal . [facility] CenterBtsffquKISBBEXWWX4513-50-76 10:07:00 Test Item Value Reference Range Interpretation Comments Lymphocytes # (test code = Lymphocytes 7.9 1.0-5.5 #) [facility] CenterXfnyawjGNWDFXVQBH8255-87-51 10:07:00 Test Item Value Reference Range Interpretation Comments Segs-Bands # (test code = Segs-Bands #) 9.3 1.5-8.1 [facility]djyuenHJNTKELGPDEI9640-49-43 09:52:00 Test Item Value Reference Range Interpretation Comments AGAP (test code = AGAP) 12.7 10.0-20.0 [facility]BwosxmbBXJGVSJGKHWH1903-68-93 09:52:00 Test Item Value Reference Range Interpretation Comments Calcium Lvl (test code = Calcium Lvl) 9.3 8.5-10.5 [facility]IoaxnudBZSSCBSLEWCS8734-71-98 09:52:00 Test Item Value Reference Range Interpretation Comments eGFR (test code = eGFR) 96 [facility]JhnwtpsEYLFWPERCNRA6254-09-11 09:52:00 Test Item Value Reference Range Interpretation Comments Creatinine Lvl (test code = Creatinine 0.71 0.50-1.40 Lvl) [facility]NxatmkrNLXUFXZKRFLY5603-79-10 09:52:00 Test Item Value Reference Range Interpretation Comments BUN (test code = BUN) 23 7-22 [facility]HaxnnelDBIBPOZORPEL8665-58-32 09:52:00 Test Item Value Reference Range Interpretation Comments Glucose Lvl (test code = Glucose Lvl) 110 70-99 [facility]HbgjlseJIASYJSOEHLX5424-90-06 09:52:00 Test Item Value Reference Range Interpretation Comments CO2 (test code = CO2) 27 24-32 [facility]WmqydwrRGGXOAUGJJHD2437-97-69 09:52:00 Test Item Value Reference Range Interpretation Comments Chloride Lvl (test code = Chloride Lvl) 100 95-109 [facility]UmugioaDXMUYIXFXHCL5694-81-00 09:52:00 Test Item Value Reference Range Interpretation Comments Potassium Lvl (test code = Potassium 4.7 3.5-5.1 Lvl) [facility]IyzfbtoCYZEZQQPDRDW9789-94-53 09:52:00 Test Item Value Reference Range Interpretation Comments Sodium Lvl (test code = Sodium Lvl) 135 135-145 [facility]WupwztsXQVMVLAYZTGM4857-68-13 09:52:00 Test Item Value Reference Range Interpretation Comments AGAP (test code = AGAP) 12.7 10.0-20.0 [facility]HegjbvtHQPBSYRNRBCW1249-92-20 09:52:00 Test Item Value Reference Range Interpretation Comments Calcium Lvl (test code = Calcium Lvl) 9.3 8.5-10.5 [facility]UqtluigPAJYRSEVQLXS8237-35-66 09:52:00 Test Item Value Reference Range Interpretation Comments eGFR (test code = eGFR) 96 [facility]ZrcltxpHJMUDHDUHZGM3722-86-45 09:52:00 Test Item Value Reference Range Interpretation Comments Creatinine Lvl (test code = Creatinine 0.71 0.50-1.40 Lvl) [facility]VlqzoiyLONRFXPLYNUD3572-98-45 09:52:00 Test Item Value Reference Range Interpretation Comments BUN (test code = BUN) 23 7-22 [facility]GrtzcenJJGBBZAHTBFU8192-65-38 09:52:00 Test Item Value Reference Range Interpretation Comments Glucose Lvl (test code = Glucose Lvl) 110 70-99 [facility]PgvgudqNFVCVPZNNIHS7464-06-06 09:52:00 Test Item Value Reference Range Interpretation Comments CO2 (test code = CO2) 27 -32 [facility]WgyzeatFNWLMXGSAFSU7536-94-09 09:52:00 Test Item Value Reference Range Interpretation Comments Chloride Lvl (test code = Chloride Lvl) 100 95-109 [facility]AveyttyWZKBGDBQYLRD1220-62-30 09:52:00 Test Item Value Reference Range Interpretation Comments Potassium Lvl (test code = Potassium 4.7 3.5-5.1 Lvl) [facility]IukzipsMGDVGFTUZNAR4340-51-95 09:52:00 Test Item Value Reference Range Interpretation Comments Sodium Lvl (test code = Sodium Lvl) 135 135-145 [facility]DzffgegPDQQCZGRQQUE6063-25-05 09:52:00 Test Item Value Reference Range Interpretation Comments AGAP (test code = AGAP) 12.7 10.0-20.0 [facility]YlfcwnaHIUUVWDIPDKE7483-03-43 09:52:00 Test Item Value Reference Range Interpretation Comments Calcium Lvl (test code = Calcium Lvl) 9.3 8.5-10.5 [facility]ZwvpdvmXGCEZBCTEQES3058-55-82 09:52:00 Test Item Value Reference Range Interpretation Comments eGFR (test code = eGFR) 96 [facility]XthwyviWBFSZWICOROC6037-38-20 09:52:00 Test Item Value Reference Range Interpretation Comments Creatinine Lvl (test code = Creatinine 0.71 0.50-1.40 Lvl) [facility]HwxrklpKWOVRUJDNONY8347-23-86 09:52:00 Test Item Value Reference Range Interpretation Comments BUN (test code = BUN) 23 7-22 [facility]GvgfbvvHOPHQFJKEMPR0363-78-87 09:52:00 Test Item Value Reference Range Interpretation Comments Glucose Lvl (test code = Glucose Lvl) 110 70-99 [facility] MichiganBsdinlpKAPTDSYOWUFC8787-51-57 09:52:00 Test Item Value Reference Range Interpretation Comments CO2 (test code = CO2) 27 24-32 [facility] MichiganJkbzsreXOQWWYNRIXIS8330-24-08 09:52:00 Test Item Value Reference Range Interpretation Comments Chloride Lvl (test code = Chloride Lvl) 100 95-109 [facility]PzjfqobRNOPHNJVCRES2931-41-84 09:52:00 Test Item Value Reference Range Interpretation Comments Potassium Lvl (test code = Potassium 4.7 3.5-5.1 Lvl) [facility]AfrkrzdQZBHVDMQRKXE9242-59-97 09:52:00 Test Item Value Reference Range Interpretation Comments Sodium Lvl (test code = Sodium Lvl) 135 135-145 [facility] KGYNP8017-97-26 07:47:00 Test Item Value Reference Range Interpretation Comments eGFR (test code = eGFR) 97 [facility] UHSZQ6134-83-30 07:47:00 Test Item Value Reference Range Interpretation Comments CO2 (test code = CO2) 26 24-32 [facility]2016-08-30 07:47:00 Test Item Value Reference Range Interpretation Comments Calcium Lvl (test code = Calcium Lvl) 9.2 8.5-10.5 [facility]2016-08-30 07:47:00 Test Item Value Reference Range Interpretation Comments BUN (test code = BUN) 20 7-22 [place] 281646-08-30 07:47:00 Test Item Value Reference Range Interpretation Comments Potassium Lvl (test code = Potassium 4.1 3.5-5.1 Lvl) [facility]2016-08-30 07:47:00 Test Item Value Reference Range Interpretation Comments Chloride Lvl (test code = Chloride Lvl) 102 95-109 [facility]2016-08-30 07:47:00 Test Item Value Reference Range Interpretation Comments Creatinine Lvl (test code = Creatinine 0.70 0.50-1.40 Lvl) [facility]2016-08-30 07:47:00 Test Item Value Reference Range Interpretation Comments Sodium Lvl (test code = Sodium Lvl) 139 135-145 [facility]2016-08-30 07:47:00 Test Item Value Reference Range Interpretation Comments Glucose Lvl (test code = Glucose Lvl) 98 70-99 [facility]2016-08-30 07:47:00 Test Item Value Reference Range Interpretation Comments AGAP (test code = AGAP) 15.1 10.0-20.0 [facility] CenterJjdfajgJKJMJZOHRH4464-96-12 07:47:00 Test Item Value Reference Range Interpretation Comments Segs (test code = Segs) 57.3 45.0-75.0 [facility] CenterGobkjpgXOSMOTNLSK1347-24-04 07:47:00 Test Item Value Reference Range Interpretation Comments Lymphocytes # (test code = Lymphocytes 4.7 1.0-5.5 #) [facility] CenterEzwrjhbWIGARGUKOL6342-67-18 07:47:00 Test Item Value Reference Range Interpretation Comments Segs-Bands # (test code = Segs-Bands #) 8.0 1.5-8.1 [facility] CenterHbkdkkkGEEEVNRNCD9448-22-09 07:47:00 Test Item Value Reference Range Interpretation Comments Eosinophils # (test code 0.2 See_Comment [A utomated message] The = Eosinophils #) system whic h generated this result tra nsmitted reference range : <=0.5. The reference r sagrario was not used to int erpret this result as normal/abnormal . [facility] CenterGdshehxNLNKFFMLPM4623-92-85 07:47:00 Test Item Value Reference Range Interpretation Comments Monocytes # (test code 0.9 See_Comment [Aut omated message] The = Monocytes #) system which generated this result tra nsmitted reference range : <=0.8. The reference r sagrario was not used to int erpret this result as normal/abnormal . [facility] CenterRzrkydjGEVECTNROD9046-01-28 07:47:00 Test Item Value Reference Range Interpretation Comments Eosinophils (test code = 1.8 See_Comment [A utomated message] The Eosinophils) system which ge nerated this result tra nsmitted reference range : <=4.0. The reference r sagrario was not used to int erpret this result as normal/abnormal . [facility] CenterFwjcixlYBQVGHARWF0048-49-17 07:47:00 Test Item Value Reference Range Interpretation Comments Basophils (test code = 0.3 See_Comment [Aut omated message] The Basophils) system which ge nerated this result tra nsmitted reference range : <=1.0. The reference r sagrario was not used to int erpret this result as normal/abnormal . [facility] CenterViscvgjFYASJRYEVO9684-95-57 07:47:00 Test Item Value Reference Range Interpretation Comments Monocytes (test code = Monocytes) 6.8 2.0-12.0 [facility] CenterWslhsjrHHIWDDUNNR2165-49-54 07:47:00 Test Item Value Reference Range Interpretation Comments Lymphocytes (test code = Lymphocytes) 33.8 20.0-40.0 [facility] CenterIbokqloLPKQIOOIEE6064-11-96 07:47:00 Test Item Value Reference Range Interpretation Comments Hgb (test code = Hgb) 10.6 14.0-18.0 [facility] CenterZuiviqqVNHFQUEOZA8512-03-97 07:47:00 Test Item Value Reference Range Interpretation Comments MCHC (test code = MCHC) 33.6 32.0-36.0 [facility] CenterWgccyrrCIMDTBURRU1642-04-83 07:47:00 Test Item Value Reference Range Interpretation Comments MCH (test code = MCH) 32.8 pg 27.0-31.0 [facility] CenterQvcgjwjQTTKLRSEQQ3084-98-01 07:47:00 Test Item Value Reference Range Interpretation Comments WBC (test code = WBC) 13.9 3.7-10.4 [facility] CenterSyagjdtIHNGCQTJGO3709-54-00 07:47:00 Test Item Value Reference Range Interpretation Comments RBC (test code = RBC) 3.23 4.70-6.10 [facility] CenterLybpgtbXSJHMLIFXW6160-83-47 07:47:00 Test Item Value Reference Range Interpretation Comments MPV (test code = MPV) 9.0 7.4-10.4 [facility] CenterVfuzuipBYJMZONKMV9195-33-44 07:47:00 Test Item Value Reference Range Interpretation Comments RDW (test code = RDW) 12.9 11.5-14.5 [facility] CenterJhabctvZBIQIOQZZM4963-76-08 07:47:00 Test Item Value Reference Range Interpretation Comments Platelet (test code = Platelet) 291 133-450 [facility] CenterZpmjnltAFHWKYGZQB1959-90-42 07:47:00 Test Item Value Reference Range Interpretation Comments MCV (test code = MCV) 97.7 80.0-94.0 [facility] CenterCgqagyvMUFYOGJGSN0564-78-30 07:47:00 Test Item Value Reference Range Interpretation Comments Hct (test code = Hct) 31.5 42.0-54.0 [facility]2016-08-30 07:47:00 Test Item Value Reference Range Interpretation Comments eGFR (test code = eGFR) 97 [facility]2016-08-30 07:47:00 Test Item Value Reference Range Interpretation Comments CO2 (test code = CO2) 26 24-32 [facility]2016-08-30 07:47:00 Test Item Value Reference Range Interpretation Comments Calcium Lvl (test code = Calcium Lvl) 9.2 8.5-10.5 [facility]2016-08-30 07:47:00 Test Item Value Reference Range Interpretation Comments BUN (test code = BUN) 20 7-22 [facility]2016-08-30 07:47:00 Test Item Value Reference Range Interpretation Comments Potassium Lvl (test code = Potassium 4.1 3.5-5.1 Lvl) [facility]2016-08-30 07:47:00 Test Item Value Reference Range Interpretation Comments Chloride Lvl (test code = Chloride Lvl) 102 95-109 [facility]2016-08-30 07:47:00 Test Item Value Reference Range Interpretation Comments Creatinine Lvl (test code = Creatinine 0.70 0.50-1.40 Lvl) [facility]2016-08-30 07:47:00 Test Item Value Reference Range Interpretation Comments Sodium Lvl (test code = Sodium Lvl) 139 135-145 [place] 281646-08-30 07:47:00 Test Item Value Reference Range Interpretation Comments Glucose Lvl (test code = Glucose Lvl) 98 70-99 [place] 281646-08-30 07:47:00 Test Item Value Reference Range Interpretation Comments AGAP (test code = AGAP) 15.1 10.0-20.0 [facility] CenterVrvxqfaWHNRWYQXOG7441-99-81 07:47:00 Test Item Value Reference Range Interpretation Comments Segs (test code = Segs) 57.3 45.0-75.0 [place] 611346-08-30 07:47:00 Test Item Value Reference Range Interpretation Comments Lymphocytes # (test code = Lymphocytes 4.7 1.0-5.5 #) [facility] CenterTyfnzckUTRGYHKHQX0711-44-00 07:47:00 Test Item Value Reference Range Interpretation Comments Segs-Bands # (test code = Segs-Bands #) 8.0 1.5-8.1 [facility] CenterZpwntvpAYHFJHKTXM6962-78-51 07:47:00 Test Item Value Reference Range Interpretation Comments Eosinophils # (test code 0.2 See_Comment [A utomated message] The = Eosinophils #) system [facility] h generated this result tra nsmitted reference range : <=0.5. The reference r sagrario was not used to int erpret this result as normal/abnormal . [facility] CenterNvejdyfRHHOUOYUCS2704-12-53 07:47:00 Test Item Value Reference Range Interpretation Comments Monocytes # (test code 0.9 See_Comment [Aut omated message] The = Monocytes #) system which generated this result tra nsmitted reference range : <=0.8. The reference r sagrario was not used to int erpret this result as normal/abnormal . [facility] CenterDbhzbtvLAIQOQPXBC7575-88-48 07:47:00 Test Item Value Reference Range Interpretation Comments Eosinophils (test code = 1.8 See_Comment [A utomated message] The Eosinophils) system which ge nerated this result tra nsmitted reference range : <=4.0. The reference r sagrario was not used to int erpret this result as normal/abnormal . [facility] CenterTwlkycsHECSVGQTIK6758-30-59 07:47:00 Test Item Value Reference Range Interpretation Comments Basophils (test code = 0.3 See_Comment [Aut omated message] The Basophils) system which ge nerated this result tra nsmitted reference range : <=1.0. The reference r sagrario was not used to int erpret this result as normal/abnormal . [facility] CenterZkycztoUTKYATSRDD2598-08-18 07:47:00 Test Item Value Reference Range Interpretation Comments Monocytes (test code = Monocytes) 6.8 2.0-12.0 [facility] CenterHtgmghgJZUPDMBIYB8283-24-05 07:47:00 Test Item Value Reference Range Interpretation Comments Lymphocytes (test code = Lymphocytes) 33.8 20.0-40.0 [facility] CenterGzvxjtjGEHIBQITDS6280-15-44 07:47:00 Test Item Value Reference Range Interpretation Comments Hgb (test code = Hgb) 10.6 14.0-18.0 [facility] CenterCcymltbRXLTRMWMIQ0090-34-00 07:47:00 Test Item Value Reference Range Interpretation Comments MCHC (test code = MCHC) 33.6 32.0-36.0 [facility] CenterVugztfzDXSPGWFDKZ6360-39-45 07:47:00 Test Item Value Reference Range Interpretation Comments MCH (test code = MCH) 32.8 pg 27.0-31.0 [facility] CenterBpknghvKAQBKZBFXI4921-17-40 07:47:00 Test Item Value Reference Range Interpretation Comments WBC (test code = WBC) 13.9 3.7-10.4 [facility] CenterHinakutRWJTCAVXBR9319-10-25 07:47:00 Test Item Value Reference Range Interpretation Comments RBC (test code = RBC) 3.23 4.70-6.10 [facility] CenterYzodmwiHPFSLATNZH2357-12-07 07:47:00 Test Item Value Reference Range Interpretation Comments MPV (test code = MPV) 9.0 7.4-10.4 [facility] CenterFfdhnwwGYZKVAQNEO9250-78-10 07:47:00 Test Item Value Reference Range Interpretation Comments RDW (test code = RDW) 12.9 11.5-14.5 [facility] CenterMyrbsuiEACQMOCVYM7752-50-91 07:47:00 Test Item Value Reference Range Interpretation Comments Platelet (test code = Platelet) 291 133-450 [facility] CenterNolvkbdUYMPSKQVPR1732-27-40 07:47:00 Test Item Value Reference Range Interpretation Comments MCV (test code = MCV) 97.7 80.0-94.0 [facility] CenterCdqxooxCUJNYNXVCH9619-82-58 07:47:00 Test Item Value Reference Range Interpretation Comments Hct (test code = Hct) 31.5 42.0-54.0 [facility]2016-08-30 07:47:00 Test Item Value Reference Range Interpretation Comments eGFR (test code = eGFR) 97 [facility]2016-08-30 07:47:00 Test Item Value Reference Range Interpretation Comments CO2 (test code = CO2) 26 24-32 [facility]2016-08-30 07:47:00 Test Item Value Reference Range Interpretation Comments Calcium Lvl (test code = Calcium Lvl) 9.2 8.5-10.5 [facility]2016-08-30 07:47:00 Test Item Value Reference Range Interpretation Comments BUN (test code = BUN) 20 7-22 [facility]2016-08-30 07:47:00 Test Item Value Reference Range Interpretation Comments Potassium Lvl (test code = Potassium 4.1 3.5-5.1 Lvl) [facility]2016-08-30 07:47:00 Test Item Value Reference Range Interpretation Comments Chloride Lvl (test code = Chloride Lvl) 102 95-109 [facility]2016-08-30 07:47:00 Test Item Value Reference Range Interpretation Comments Creatinine Lvl (test code = Creatinine 0.70 0.50-1.40 Lvl) [facility]2016-08-30 07:47:00 Test Item Value Reference Range Interpretation Comments Sodium Lvl (test code = Sodium Lvl) 139 135-145 [facility]2016-08-30 07:47:00 Test Item Value Reference Range Interpretation Comments Glucose Lvl (test code = Glucose Lvl) 98 70-99 [facility]2016-08-30 07:47:00 Test Item Value Reference Range Interpretation Comments AGAP (test code = AGAP) 15.1 10.0-20.0 [facility] CenterIzgvhnoFMBRBCXKNN7235-32-93 07:47:00 Test Item Value Reference Range Interpretation Comments Segs (test code = Segs) 57.3 45.0-75.0 [facility] CenterQfpdgmdWYFJHBBGSW9446-96-21 07:47:00 Test Item Value Reference Range Interpretation Comments Lymphocytes # (test code = Lymphocytes 4.7 1.0-5.5 #) [facility] CenterJgsjtlwHRWEEOBAWO6962-04-67 07:47:00 Test Item Value Reference Range Interpretation Comments Segs-Bands # (test code = Segs-Bands #) 8.0 1.5-8.1 [facility] CenterCwwrwxuHXQXZOCGQY2694-86-13 07:47:00 Test Item Value Reference Range Interpretation Comments Eosinophils # (test code 0.2 See_Comment [A utomated message] The = Eosinophils #) system wh h generated this result tra nsmitted reference range : <=0.5. The reference r sagrario was not used to int erpret this result as normal/abnormal . [facility] CenterEbkiiklGBWSGPJUQA6423-85-60 07:47:00 Test Item Value Reference Range Interpretation Comments Monocytes # (test code 0.9 See_Comment [Aut omated message] The = Monocytes #) system which generated this result tra nsmitted reference range : <=0.8. The reference r sagrario was not used to int erpret this result as normal/abnormal . [facility] CenterKjflhgmWXXNCXQTZE0197-09-79 07:47:00 Test Item Value Reference Range Interpretation Comments Eosinophils (test code = 1.8 See_Comment [A utomated message] The Eosinophils) system which ge nerated this result tra nsmitted reference range : <=4.0. The reference r sagrario was not used to int erpret this result as normal/abnormal . [facility] CenterZtbbzgxVLVZNCRQFS5686-19-43 07:47:00 Test Item Value Reference Range Interpretation Comments Basophils (test code = 0.3 See_Comment [Aut omated message] The Basophils) system which ge nerated this result tra nsmitted reference range : <=1.0. The reference r sagrario was not used to int erpret this result as normal/abnormal . [facility] CenterZeabtfyWRKKGZKUIJ3238-59-84 07:47:00 Test Item Value Reference Range Interpretation Comments Monocytes (test code = Monocytes) 6.8 2.0-12.0 [place] 611346-08-30 07:47:00 Test Item Value Reference Range Interpretation Comments Lymphocytes (test code = Lymphocytes) 33.8 20.0-40.0 [facility] CenterTqqphshKZFIYFVOZF8583-33-62 07:47:00 Test Item Value Reference Range Interpretation Comments Hgb (test code = Hgb) 10.6 14.0-18.0 [facility] CenterLmyqbdoHQWTMHDFPA9560-68-27 07:47:00 Test Item Value Reference Range Interpretation Comments MCHC (test code = MCHC) 33.6 32.0-36.0 [facility] CenterByglepxLXYFCUITTH0159-62-32 07:47:00 Test Item Value Reference Range Interpretation Comments MCH (test code = MCH) 32.8 pg 27.0-31.0 [facility] CenterWodshlnBAZYLMYJAM2643-60-87 07:47:00 Test Item Value Reference Range Interpretation Comments WBC (test code = WBC) 13.9 3.7-10.4 [facility] CenterNctcazbNRCGTMPNXW0783-71-29 07:47:00 Test Item Value Reference Range Interpretation Comments RBC (test code = RBC) 3.23 4.70-6.10 [facility] CenterBebzrphWYZHCWFDEN8520-67-46 07:47:00 Test Item Value Reference Range Interpretation Comments MPV (test code = MPV) 9.0 7.4-10.4 [facility] CenterFujqcjaHWKKDLHWBQ4261-26-10 07:47:00 Test Item Value Reference Range Interpretation Comments RDW (test code = RDW) 12.9 11.5-14.5 [facility] CenterEahzqrlFGOVBMIPTP7823-05-94 07:47:00 Test Item Value Reference Range Interpretation Comments Platelet (test code = Platelet) 291 133-450 [facility] CenterIudziqwFYYRKKNHYG4441-61-16 07:47:00 Test Item Value Reference Range Interpretation Comments MCV (test code = MCV) 97.7 80.0-94.0 [facility] CenterPjcwrtgBRUKMHQNKH4798-31-42 07:47:00 Test Item Value Reference Range Interpretation Comments Hct (test code = Hct) 31.5 42.0-54.0 [facility]2016-08-29 22:06:00 Test Item Value Reference Range Interpretation Comments C difficile DNA (test Negative (01/09/16 5:06 code = C difficile DNA) PM) [facility]2016-08-29 22:06:00 Test Item Value Reference Range Interpretation Comments C difficile DNA (test Negative (01/09/16 5:06 code = C difficile DNA) PM) [facility]2016-08-29 22:06:00 Test Item Value Reference Range Interpretation Comments C difficile DNA (test Negative (01/09/16 5:06 code = C difficile DNA) PM) [facility] CenterLgkwcbhANIQTRAOCX0949-68-64 09:37:00 Test Item Value Reference Range Interpretation Comments WBC (test code = WBC) 13.0 3.7-10.4 [facility] CenterJkdtfrfIHWWWRFYMC4273-11-80 09:37:00 Test Item Value Reference Range Interpretation Comments Hgb (test code = Hgb) 10.0 14.0-18.0 [facility]WfvjsbaTQXUNWAWBK6335-85-43 09:37:00 Test Item Value Reference Range Interpretation Comments RBC (test code = RBC) 3.01 4.70-6.10 [facility] CenterFrmrygeEHEOYXVSCA3048-54-19 09:37:00 Test Item Value Reference Range Interpretation Comments MCH (test code = MCH) 33.2 pg 27.0-31.0 [facility] CenterZgoipanPLCSXEEYPD0533-32-96 09:37:00 Test Item Value Reference Range Interpretation Comments Hct (test code = Hct) 29.7 42.0-54.0 [facility] CenterMisxahyFNMQDCJOPS8786-09-87 09:37:00 Test Item Value Reference Range Interpretation Comments MCV (test code = MCV) 98.7 80.0-94.0 [facility] CenterCjkakfeZXKXHKXQRV6349-40-95 09:37:00 Test Item Value Reference Range Interpretation Comments RDW (test code = RDW) 12.5 11.5-14.5 [facility] CenterBjzbnsoVTEJIKUUCA1485-66-38 09:37:00 Test Item Value Reference Range Interpretation Comments MCHC (test code = MCHC) 33.6 32.0-36.0 [facility] CenterOrcleroCCEXOQAXYS2915-52-74 09:37:00 Test Item Value Reference Range Interpretation Comments Platelet (test code = Platelet) 314 133-450 [facility] CenterIdqxxcjTPHKDPSGNI3458-38-58 09:37:00 Test Item Value Reference Range Interpretation Comments MPV (test code = MPV) 8.7 7.4-10.4 [facility] CenterNvouvttQLEBZXXURW7539-94-56 09:37:00 Test Item Value Reference Range Interpretation Comments Segs (test code = Segs) 55.4 45.0-75.0 [facility] CenterMqyysacJCJQMHFYHG1524-83-60 09:37:00 Test Item Value Reference Range Interpretation Comments Monocytes (test code = Monocytes) 6.4 2.0-12.0 [facility] CenterDalbipmABEQUDPTHU8417-76-00 09:37:00 Test Item Value Reference Range Interpretation Comments Lymphocytes (test code = Lymphocytes) 36.1 20.0-40.0 [facility] CenterIpwrggvXYUUQMIMKM9238-01-90 09:37:00 Test Item Value Reference Range Interpretation Comments Eosinophils (test code = 1.8 See_Comment [A utomated message] The Eosinophils) system which ge nerated this result tra nsmitted reference range : <=4.0. The reference r sagrario was not used to int erpret this result as normal/abnormal . [facility] CenterFvwuasnYBRYFOCOPZ9999-48-27 09:37:00 Test Item Value Reference Range Interpretation Comments Basophils (test code = 0.3 See_Comment [Aut omated message] The Basophils) system which ge nerated this result tra nsmitted reference range : <=1.0. The reference r sagrario was not used to int erpret this result as normal/abnormal . [facility] CenterNvgtslzFHRCSLGWYW6169-66-53 09:37:00 Test Item Value Reference Range Interpretation Comments Segs-Bands # (test code = Segs-Bands #) 7.2 1.5-8.1 [facility] CenterRodaefsZMKANBOLNN1349-28-04 09:37:00 Test Item Value Reference Range Interpretation Comments Lymphocytes # (test code = Lymphocytes 4.7 1.0-5.5 #) [facility] CenterOvqkokgUGUMWOZIIQ0704-10-37 09:37:00 Test Item Value Reference Range Interpretation Comments Monocytes # (test code 0.8 See_Comment [Aut omated message] The = Monocytes #) system which generated this result tra nsmitted reference range : <=0.8. The reference r sagrario was not used to int erpret this result as normal/abnormal . [facility] CenterHjzexqvDFDRPRYVSU6184-82-72 09:37:00 Test Item Value Reference Range Interpretation Comments Eosinophils # (test code 0.2 See_Comment [A utomated message] The = Eosinophils #) system whic h generated this result tra nsmitted reference range : <=0.5. The reference r sagrario was not used to int erpret this result as normal/abnormal . [facility] CenterFjtzvxaFUFPYQTXDA9123-74-87 09:37:00 Test Item Value Reference Range Interpretation Comments WBC (test code = WBC) 13.0 3.7-10.4 [facility] CenterTjxfdxyTVNLSBLKAY5307-08-88 09:37:00 Test Item Value Reference Range Interpretation Comments Hgb (test code = Hgb) 10.0 14.0-18.0 [facility] CenterJxvbavhPCBGWLWEYB5547-35-11 09:37:00 Test Item Value Reference Range Interpretation Comments RBC (test code = RBC) 3.01 4.70-6.10 [facility] CenterQezblprOERFSRZPMH0618-55-92 09:37:00 Test Item Value Reference Range Interpretation Comments MCH (test code = MCH) 33.2 pg 27.0-31.0 [facility] CenterXgglcuaWFVQVLVTUR2165-13-22 09:37:00 Test Item Value Reference Range Interpretation Comments Hct (test code = Hct) 29.7 42.0-54.0 [facility] CenterEugxbehNDTRNADSYR9558-30-78 09:37:00 Test Item Value Reference Range Interpretation Comments MCV (test code = MCV) 98.7 80.0-94.0 [facility] CenterPlxbopaEABJHWXKOQ9461-03-46 09:37:00 Test Item Value Reference Range Interpretation Comments RDW (test code = RDW) 12.5 11.5-14.5 [facility] CenterRygnlmmAMHVCFQVLL0453-29-55 09:37:00 Test Item Value Reference Range Interpretation Comments MCHC (test code = MCHC) 33.6 32.0-36.0 [facility] CenterKwtqyaqRGUOJWHQZM9979-30-98 09:37:00 Test Item Value Reference Range Interpretation Comments Platelet (test code = Platelet) 314 133-450 [facility] CenterZxvxmcqDVBWGJFPKN2926-50-08 09:37:00 Test Item Value Reference Range Interpretation Comments MPV (test code = MPV) 8.7 7.4-10.4 [facility] CenterDnkbmocQMFMULZFNW0676-42-41 09:37:00 Test Item Value Reference Range Interpretation Comments Segs (test code = Segs) 55.4 45.0-75.0 [facility] CenterZophnyuUQWNIKVVFD9594-06-33 09:37:00 Test Item Value Reference Range Interpretation Comments Monocytes (test code = Monocytes) 6.4 2.0-12.0 [facility] CenterRkhrzcqPZHJIENGIM0424-26-84 09:37:00 Test Item Value Reference Range Interpretation Comments Lymphocytes (test code = Lymphocytes) 36.1 20.0-40.0 [facility] CenterQyjbkooKVBKEMXXSO1836-22-46 09:37:00 Test Item Value Reference Range Interpretation Comments Eosinophils (test code = 1.8 See_Comment [A utomated message] The Eosinophils) system which ge nerated this result tra nsmitted reference range : <=4.0. The reference r sagrario was not used to int erpret this result as normal/abnormal . [facility] CenterSvewdydIQHUWISNVG1808-22-42 09:37:00 Test Item Value Reference Range Interpretation Comments Basophils (test code = 0.3 See_Comment [Aut omated message] The Basophils) system which ge nerated this result tra nsmitted reference range : <=1.0. The reference r sagrario was not used to int erpret this result as normal/abnormal . [facility] CenterBweiobaBMMFIFRXHD2116-25-98 09:37:00 Test Item Value Reference Range Interpretation Comments Segs-Bands # (test code = Segs-Bands #) 7.2 1.5-8.1 [facility] CenterMowpzkfDMBBSXXVRO9009-88-94 09:37:00 Test Item Value Reference Range Interpretation Comments Lymphocytes # (test code = Lymphocytes 4.7 1.0-5.5 #) [facility] CenterEjqzlwaRNVWMSXGRX9514-24-35 09:37:00 Test Item Value Reference Range Interpretation Comments Monocytes # (test code 0.8 See_Comment [Aut omated message] The = Monocytes #) system which generated this result tra nsmitted reference range : <=0.8. The reference r sagrario was not used to int erpret this result as normal/abnormal . [facility] CenterIiqqzqrZJEHVJIJOC0445-98-25 09:37:00 Test Item Value Reference Range Interpretation Comments Eosinophils # (test code 0.2 See_Comment [A utomated message] The = Eosinophils #) system whic h generated this result tra nsmitted reference range : <=0.5. The reference r sagrario was not used to int erpret this result as normal/abnormal . [facility] CenterPatrrmzVTKFSPFFUT2593-62-97 09:37:00 Test Item Value Reference Range Interpretation Comments WBC (test code = WBC) 13.0 3.7-10.4 [facility] CenterVvjknbaYFRYYERHQJ2065-54-65 09:37:00 Test Item Value Reference Range Interpretation Comments Hgb (test code = Hgb) 10.0 14.0-18.0 [facility] CenterWvwprorSEVFHGJOXL3017-59-22 09:37:00 Test Item Value Reference Range Interpretation Comments RBC (test code = RBC) 3.01 4.70-6.10 [facility] CenterVlhdgalZBAKMRWBLR4241-49-50 09:37:00 Test Item Value Reference Range Interpretation Comments MCH (test code = MCH) 33.2 pg 27.0-31.0 [facility] CenterDrowmewPPVGCLALPX7492-43-34 09:37:00 Test Item Value Reference Range Interpretation Comments Hct (test code = Hct) 29.7 42.0-54.0 [facility] CenterHmpykjzLUQZNZUPAL8157-38-08 09:37:00 Test Item Value Reference Range Interpretation Comments MCV (test code = MCV) 98.7 80.0-94.0 [facility] CenterSvbnunhKWSHPMOVQK0493-46-23 09:37:00 Test Item Value Reference Range Interpretation Comments RDW (test code = RDW) 12.5 11.5-14.5 [facility] CenterCwqjhmjBHBDPMPTWM6146-52-65 09:37:00 Test Item Value Reference Range Interpretation Comments MCHC (test code = MCHC) 33.6 32.0-36.0 [facility] CenterGfstqayHUSEHBREQB8977-97-54 09:37:00 Test Item Value Reference Range Interpretation Comments Platelet (test code = Platelet) 314 133-450 [facility] CenterOjugxklUONISQOLGR8399-18-29 09:37:00 Test Item Value Reference Range Interpretation Comments MPV (test code = MPV) 8.7 7.4-10.4 [facility] CenterTykctkcLPPCOULEPZ9101-70-29 09:37:00 Test Item Value Reference Range Interpretation Comments Segs (test code = Segs) 55.4 45.0-75.0 [facility] CenterBbkocmpXFIOGKNGKR3168-76-48 09:37:00 Test Item Value Reference Range Interpretation Comments Monocytes (test code = Monocytes) 6.4 2.0-12.0 [facility] CenterJbdgzqqGCTSFXPBLA4141-96-10 09:37:00 Test Item Value Reference Range Interpretation Comments Lymphocytes (test code = Lymphocytes) 36.1 20.0-40.0 [facility] CenterDapxoxdWLXELTNPJH9481-08-23 09:37:00 Test Item Value Reference Range Interpretation Comments Eosinophils (test code = 1.8 See_Comment [A utomated message] The Eosinophils) system which ge nerated this result tra nsmitted reference range : <=4.0. The reference r sagrario was not used to int erpret this result as normal/abnormal . [facility] CenterBfdppmxCGOBJIXHHL1027-35-06 09:37:00 Test Item Value Reference Range Interpretation Comments Basophils (test code = 0.3 See_Comment [Aut omated message] The Basophils) system which ge nerated this result tra nsmitted reference range : <=1.0. The reference r sagrario was not used to int erpret this result as normal/abnormal . [facility] CenterAnjwfwbUUUFVCUYAK3930-35-49 09:37:00 Test Item Value Reference Range Interpretation Comments Segs-Bands # (test code = Segs-Bands #) 7.2 1.5-8.1 [facility] CenterSzaeexzOOLLAJFUNQ9773-37-88 09:37:00 Test Item Value Reference Range Interpretation Comments Lymphocytes # (test code = Lymphocytes 4.7 1.0-5.5 #) [facility] CenterXwuavdaHQPUSEDBQO1503-31-98 09:37:00 Test Item Value Reference Range Interpretation Comments Monocytes # (test code 0.8 See_Comment [Aut omated message] The = Monocytes #) system which generated this result tra nsmitted reference range : <=0.8. The reference r sagrario was not used to int erpret this result as normal/abnormal . [facility] CenterFqchxgiSCSPBZKUXM2867-28-02 09:37:00 Test Item Value Reference Range Interpretation Comments Eosinophils # (test code 0.2 See_Comment [A utomated message] The = Eosinophils #) system whic h generated this result tra nsmitted reference range : <=0.5. The reference r sagrario was not used to int erpret this result as normal/abnormal . [facility] WJKPBGH0551-45-06 09:54:00 Test Item Value Reference Range Interpretation Comments BNP (test code = BNP) 28 [facility]InfixziXBZVPOPNRLOZ6478-58-52 09:54:00 Test Item Value Reference Range Interpretation Comments Potassium Lvl (test code = Potassium 4.8 3.5-5.1 Lvl) [facility]lakeZfjrubaZCPEHJEMUKQX1258-80-49 09:54:00 Test Item Value Reference Range Interpretation Comments Sodium Lvl (test code = Sodium Lvl) 143 135-145 [facility]UuapfwgJFXXJDJTHYST0789-32-29 09:54:00 Test Item Value Reference Range Interpretation Comments BUN (test code = BUN) 25 7-22 [facility]VkionfmOLQCPMAYCJMF1736-80-84 09:54:00 Test Item Value Reference Range Interpretation Comments Glucose Lvl (test code = Glucose Lvl) 95 70-99 [facility]SexuyjbMOHJTNQBPVBI7799-98-26 09:54:00 Test Item Value Reference Range Interpretation Comments Creatinine Lvl (test code = Creatinine 0.60 0.50-1.40 Lvl) [facility]WtpudgfBJIFNFVNWOSC7843-50-44 09:54:00 Test Item Value Reference Range Interpretation Comments eGFR (test code = eGFR) 103 [facility]VmnbmnfOKECXEGEFOYE6606-29-33 09:54:00 Test Item Value Reference Range Interpretation Comments Chloride Lvl (test code = Chloride Lvl) 107 95-109 [facility] MichiganSwiegciIOLFUMMHMOEL4393-05-69 09:54:00 Test Item Value Reference Range Interpretation Comments Calcium Lvl (test code = Calcium Lvl) 9.4 8.5-10.5 [facility]IiuegfjHKDVRZWBETXU9371-89-41 09:54:00 Test Item Value Reference Range Interpretation Comments CO2 (test code = CO2) 30 24-32 [facility]KakvgcqUVYUHUBJZIOC0094-11-99 09:54:00 Test Item Value Reference Range Interpretation Comments AGAP (test code = AGAP) 10.8 10.0-20.0 [facility] CenterYsbqawxOBZCDUOEHL4544-78-04 09:54:00 Test Item Value Reference Range Interpretation Comments WBC (test code = WBC) 13.2 3.7-10.4 [facility] CenterIlkzfjiLYRSIRJGXI8923-57-54 09:54:00 Test Item Value Reference Range Interpretation Comments Hct (test code = Hct) 31.0 42.0-54.0 [facility] CenterAenrmxfLUVGYCXWOC7132-37-50 09:54:00 Test Item Value Reference Range Interpretation Comments Hgb (test code = Hgb) 10.3 14.0-18.0 [facility] CenterAshfqxsCSCNJKGKBS9194-49-54 09:54:00 Test Item Value Reference Range Interpretation Comments RBC (test code = RBC) 3.11 4.70-6.10 [facility] CenterWpygzilOTTPANCDJB5265-81-50 09:54:00 Test Item Value Reference Range Interpretation Comments MCV (test code = MCV) 99.7 80.0-94.0 [facility] CenterDwqkwzrMGORMVVSQC9149-58-06 09:54:00 Test Item Value Reference Range Interpretation Comments MCH (test code = MCH) 33.0 pg 27.0-31.0 [facility] CenterJqddsfsDZNSEPEHQY2200-07-66 09:54:00 Test Item Value Reference Range Interpretation Comments Platelet (test code = Platelet) 312 133-450 [facility] CenterVuoendvIQTBNUZJGS7826-59-89 09:54:00 Test Item Value Reference Range Interpretation Comments RDW (test code = RDW) 12.9 11.5-14.5 [facility] CenterHmacwuoPJRBGNPGIJ1422-78-57 09:54:00 Test Item Value Reference Range Interpretation Comments MCHC (test code = MCHC) 33.1 32.0-36.0 [facility] CenterZhyddkfWRWCZSTVSU7692-10-73 09:54:00 Test Item Value Reference Range Interpretation Comments MPV (test code = MPV) 8.4 7.4-10.4 [facility] CenterNvmguemELBRDCBRHO5462-71-60 09:54:00 Test Item Value Reference Range Interpretation Comments Eosinophils # (test code 0.2 See_Comment [A utomated message] The = Eosinophils #) system whic h generated this result tra nsmitted reference range : <=0.5. The reference r sagrario was not used to int erpret this result as normal/abnormal . [facility] CenterSjobfdlJDHUFBCFRD7809-00-96 09:54:00 Test Item Value Reference Range Interpretation Comments Monocytes # (test code 0.7 See_Comment [Aut omated message] The = Monocytes #) system which generated this result tra nsmitted reference range : <=0.8. The reference r sagrario was not used to int erpret this result as normal/abnormal . [facility] CenterEehrhcbQDQHLEMLIK8203-49-67 09:54:00 Test Item Value Reference Range Interpretation Comments Lymphocytes # (test code = Lymphocytes 5.3 1.0-5.5 #) [facility] CenterBbxomfhQOPDGMJHIS1900-56-56 09:54:00 Test Item Value Reference Range Interpretation Comments Basophils # (test code 0.1 See_Comment [Aut omated message] The = Basophils #) system which generated this result tra nsmitted reference range : <=0.2. The reference r sagrario was not used to int erpret this result as normal/abnormal . [facility] CenterVqptjpeODLMDVFPZB2787-23-58 09:54:00 Test Item Value Reference Range Interpretation Comments Segs (test code = Segs) 52.4 45.0-75.0 [facility]gon[facility]xyHGQMPCDORQ7893-12-47 09:54:00 Test Item Value Reference Range Interpretation Comments Monocytes (test code = Monocytes) 5.3 2.0-12.0 [facility] CenterTpcajlmKMYJMLONPN9775-32-87 09:54:00 Test Item Value Reference Range Interpretation Comments Segs-Bands # (test code = Segs-Bands #) 6.9 1.5-8.1 [facility] CenterRscurwxLULGCIGQXD2934-46-21 09:54:00 Test Item Value Reference Range Interpretation Comments Basophils (test code = 0.4 See_Comment [Aut omated message] The Basophils) system which ge nerated this result tra nsmitted reference range : <=1.0. The reference r sagrario was not used to int erpret this result as normal/abnormal . [facility] CenterVffqgueBTJDXPZFSA6106-25-46 09:54:00 Test Item Value Reference Range Interpretation Comments Eosinophils (test code = 1.9 See_Comment [A utomated message] The Eosinophils) system which ge nerated this result tra nsmitted reference range : <=4.0. The reference r sagrario was not used to int erpret this result as normal/abnormal . [facility] CenterUepggpmBTSVXBLAWS3147-81-27 09:54:00 Test Item Value Reference Range Interpretation Comments Lymphocytes (test code = Lymphocytes) 40.0 20.0-40.0 [facility] NQBYVMS2783-98-67 09:54:00 Test Item Value Reference Range Interpretation Comments BNP (test code = BNP) 28 [facility]lakeMvisvlwVSTXEOSTCPEF3499-11-22 09:54:00 Test Item Value Reference Range Interpretation Comments Potassium Lvl (test code = Potassium 4.8 3.5-5.1 Lvl) [facility]TgnrxcuHQJSNCMUSILP5907-83-90 09:54:00 Test Item Value Reference Range Interpretation Comments Sodium Lvl (test code = Sodium Lvl) 143 135-145 [facility] CampusDofcnxmBPOLDJQPZULQ0818-64-72 09:54:00 Test Item Value Reference Range Interpretation Comments BUN (test code = BUN) 25 7-22 [facility]IvpkhpwACUWQTBFXCOI9682-37-22 09:54:00 Test Item Value Reference Range Interpretation Comments Glucose Lvl (test code = Glucose Lvl) 95 70-99 [facility]WhhrtzgFBVWFSRMBIIO8379-40-83 09:54:00 Test Item Value Reference Range Interpretation Comments Creatinine Lvl (test code = Creatinine 0.60 0.50-1.40 Lvl) [facility]MmwnhdvUANHXRDLAGXK1153-95-59 09:54:00 Test Item Value Reference Range Interpretation Comments eGFR (test code = eGFR) 103 [facility] MichiganCyxixjxVJGQYBZCEDJD7619-08-40 09:54:00 Test Item Value Reference Range Interpretation Comments Chloride Lvl (test code = Chloride Lvl) 107 95-109 [facility] MichiganPecazagGTNFAPDRRRTR2064-98-92 09:54:00 Test Item Value Reference Range Interpretation Comments Calcium Lvl (test code = Calcium Lvl) 9.4 8.5-10.5 [facility]MjkgpkzQOTTBJYRGWZN1912-18-02 09:54:00 Test Item Value Reference Range Interpretation Comments CO2 (test code = CO2) 30 24-32 [facility]VouhlguVYOJHIIJOWTU7706-37-32 09:54:00 Test Item Value Reference Range Interpretation Comments AGAP (test code = AGAP) 10.8 10.0-20.0 [facility] CenterUotpvczINUQQDPVOE7733-42-89 09:54:00 Test Item Value Reference Range Interpretation Comments WBC (test code = WBC) 13.2 3.7-10.4 [facility] CenterWnjbexeJMPNDYTTOA3745-63-11 09:54:00 Test Item Value Reference Range Interpretation Comments Hct (test code = Hct) 31.0 42.0-54.0 [facility] CenterLirsyywBCKODMOBVC3294-91-48 09:54:00 Test Item Value Reference Range Interpretation Comments Hgb (test code = Hgb) 10.3 14.0-18.0 [facility] CenterXecshkzOBWKDJEUUX9964-09-01 09:54:00 Test Item Value Reference Range Interpretation Comments RBC (test code = RBC) 3.11 4.70-6.10 [facility] CenterDdrtjzfBFIBIFIOBP8387-63-24 09:54:00 Test Item Value Reference Range Interpretation Comments MCV (test code = MCV) 99.7 80.0-94.0 [place] 611346-08-28 09:54:00 Test Item Value Reference Range Interpretation Comments MCH (test code = MCH) 33.0 pg 27.0-31.0 [facility] CenterTlozfxaIPIMMYQQED5863-41-92 09:54:00 Test Item Value Reference Range Interpretation Comments Platelet (test code = Platelet) 312 133-450 [facility] CenterSzofqxgHNAZFCTMXT0676-03-58 09:54:00 Test Item Value Reference Range Interpretation Comments RDW (test code = RDW) 12.9 11.5-14.5 [facility] CenterZkdoaqrZOKITVMUQR0847-47-95 09:54:00 Test Item Value Reference Range Interpretation Comments MCHC (test code = MCHC) 33.1 32.0-36.0 [facility] CenterMpymyyhMIBFWTXZPJ0674-56-83 09:54:00 Test Item Value Reference Range Interpretation Comments MPV (test code = MPV) 8.4 7.4-10.4 [facility] CenterOqhtnotIYUDBKWHTB5445-60-40 09:54:00 Test Item Value Reference Range Interpretation Comments Eosinophils # (test code 0.2 See_Comment [A utomated message] The = Eosinophils #) system whic h generated this result tra nsmitted reference range : <=0.5. The reference r sagrario was not used to int erpret this result as normal/abnormal . [facility] CenterWvwdpxbCLNKITWXEP2588-22-02 09:54:00 Test Item Value Reference Range Interpretation Comments Monocytes # (test code 0.7 See_Comment [Aut omated message] The = Monocytes #) system which generated this result tra nsmitted reference range : <=0.8. The reference r sagrario was not used to int erpret this result as normal/abnormal . [facility] CenterVmkkmpzRTOEFOAJSD7634-54-88 09:54:00 Test Item Value Reference Range Interpretation Comments Lymphocytes # (test code = Lymphocytes 5.3 1.0-5.5 #) [facility] CenterLzuysrtQMGJKBMMCO6041-97-27 09:54:00 Test Item Value Reference Range Interpretation Comments Basophils # (test code 0.1 See_Comment [Aut omated message] The = Basophils #) system which generated this result tra nsmitted reference range : <=0.2. The reference r sagrario was not used to int erpret this result as normal/abnormal . [facility] CenterFycbzivHJCLEMTXKM7067-96-48 09:54:00 Test Item Value Reference Range Interpretation Comments Segs (test code = Segs) 52.4 45.0-75.0 [facility]TymihtqQZMODHLUPX9011-88-85 09:54:00 Test Item Value Reference Range Interpretation Comments Monocytes (test code = Monocytes) 5.3 2.0-12.0 [facility] CenterBxbaqabRDKMXIPLNM0343-77-90 09:54:00 Test Item Value Reference Range Interpretation Comments Segs-Bands # (test code = Segs-Bands #) 6.9 1.5-8.1 [facility] CenterEemhepxPLNHGGPTHI5069-03-61 09:54:00 Test Item Value Reference Range Interpretation Comments Basophils (test code = 0.4 See_Comment [Aut omated message] The Basophils) system which ge nerated this result tra nsmitted reference range : <=1.0. The reference r sagrario was not used to int erpret this result as normal/abnormal . [facility] CenterUidxrqzLDVEQWNMKD0674-41-77 09:54:00 Test Item Value Reference Range Interpretation Comments Eosinophils (test code = 1.9 See_Comment [A utomated message] The Eosinophils) system which ge nerated this result tra nsmitted reference range : <=4.0. The reference r sagrario was not used to int erpret this result as normal/abnormal . [facility] CenterQukigzbKREKUSKNXA9073-52-93 09:54:00 Test Item Value Reference Range Interpretation Comments Lymphocytes (test code = Lymphocytes) 40.0 20.0-40.0 [facility]icsC[facility] DINZLKM9607-29-47 09:54:00 Test Item Value Reference Range Interpretation Comments BNP (test code = BNP) 28 [facility]NxeaikcPMIQIDPRLGLF9408-45-48 09:54:00 Test Item Value Reference Range Interpretation Comments Potassium Lvl (test code = Potassium 4.8 3.5-5.1 Lvl) [facility]YYPFIVRMH9663-23-45 09:54:00 Test Item Value Reference Range Interpretation Comments Sodium Lvl (test code = Sodium Lvl) 143 135-145 [facility]WvchokkRZPRFTMKZUWM5113-31-98 09:54:00 Test Item Value Reference Range Interpretation Comments BUN (test code = BUN) 25 7-22 [facility] MichiganXefhaugYYHLKKICZOCP1756-28-57 09:54:00 Test Item Value Reference Range Interpretation Comments Glucose Lvl (test code = Glucose Lvl) 95 70-99 [facility] MichiganCaljsnkBJGIUONXLBET6177-61-69 09:54:00 Test Item Value Reference Range Interpretation Comments Creatinine Lvl (test code = Creatinine 0.60 0.50-1.40 Lvl) [facility]SmwrxxgXOQUSWNGNGYV9035-80-50 09:54:00 Test Item Value Reference Range Interpretation Comments eGFR (test code = eGFR) 103 [facility]XqzoqovZFYDDJRKLWEA9087-35-89 09:54:00 Test Item Value Reference Range Interpretation Comments Chloride Lvl (test code = Chloride Lvl) 107 95-109 [facility] MichiganVlmhdzyVVWKWEMOTZLP8281-53-97 09:54:00 Test Item Value Reference Range Interpretation Comments Calcium Lvl (test code = Calcium Lvl) 9.4 8.5-10.5 [facility]OhznwctBCOWOWQJOGJE6337-18-96 09:54:00 Test Item Value Reference Range Interpretation Comments CO2 (test code = CO2) 30 24-32 [facility] MichiganLjkhmnoODJRNBZSVECG0704-18-23 09:54:00 Test Item Value Reference Range Interpretation Comments AGAP (test code = AGAP) 10.8 10.0-20.0 [facility]LrkwrmvVJBBLSKXCN0379-81-27 09:54:00 Test Item Value Reference Range Interpretation Comments WBC (test code = WBC) 13.2 3.7-10.4 [facility] CenterJqcvhzqFBRELINAQS8127-86-68 09:54:00 Test Item Value Reference Range Interpretation Comments Hct (test code = Hct) 31.0 42.0-54.0 [facility] CenterUpwbgbhVTNXESNOIZ0726-08-52 09:54:00 Test Item Value Reference Range Interpretation Comments Hgb (test code = Hgb) 10.3 14.0-18.0 [facility] CenterJfdlrkvAMNQMAEOTC6219-42-64 09:54:00 Test Item Value Reference Range Interpretation Comments RBC (test code = RBC) 3.11 4.70-6.10 [facility] CenterMfjvkxrQTOTLEXYYK7394-65-42 09:54:00 Test Item Value Reference Range Interpretation Comments MCV (test code = MCV) 99.7 80.0-94.0 [facility] CenterCgljyvmIXTAONYOBT8697-64-00 09:54:00 Test Item Value Reference Range Interpretation Comments MCH (test code = MCH) 33.0 pg 27.0-31.0 [facility] CenterMtlrhhrYIUTOEGLZX8265-07-82 09:54:00 Test Item Value Reference Range Interpretation Comments Platelet (test code = Platelet) 312 133-450 [facility] CenterTyxbmmqPWMUPNNVHL6057-60-27 09:54:00 Test Item Value Reference Range Interpretation Comments RDW (test code = RDW) 12.9 11.5-14.5 [facility] CenterIehzjekZRXGAVPILQ4537-61-77 09:54:00 Test Item Value Reference Range Interpretation Comments MCHC (test code = MCHC) 33.1 32.0-36.0 [facility] CenterOjahlrqBQCUWYUZLV4356-46-22 09:54:00 Test Item Value Reference Range Interpretation Comments MPV (test code = MPV) 8.4 7.4-10.4 [facility] CenterXstftwzEQXQBODWPI8678-89-63 09:54:00 Test Item Value Reference Range Interpretation Comments Eosinophils # (test code 0.2 See_Comment [A utomated message] The = Eosinophils #) system whic h generated this result tra nsmitted reference range : <=0.5. The reference r sagrario was not used to int erpret this result as normal/abnormal . [facility] CenterPjkqgthFHWVFJZJMU9396-31-25 09:54:00 Test Item Value Reference Range Interpretation Comments Monocytes # (test code 0.7 See_Comment [Aut omated message] The = Monocytes #) system which generated this result tra nsmitted reference range : <=0.8. The reference r sagrario was not used to int erpret this result as normal/abnormal . [facility] CenterTupbrbjGJHRYUQGNU3460-33-60 09:54:00 Test Item Value Reference Range Interpretation Comments Lymphocytes # (test code = Lymphocytes 5.3 1.0-5.5 #) [facility] CenterJvcnokwKDZKCXFZFQ5019-40-66 09:54:00 Test Item Value Reference Range Interpretation Comments Basophils # (test code 0.1 See_Comment [Aut omated message] The = Basophils #) system which generated this result tra nsmitted reference range : <=0.2. The reference r sagrario was not used to int erpret this result as normal/abnormal . [facility] CenterRasonuyAEVKAAZPIE1364-17-94 09:54:00 Test Item Value Reference Range Interpretation Comments Segs (test code = Segs) 52.4 45.0-75.0 [facility] CenterQtffzenEUTCFLCQII5623-17-66 09:54:00 Test Item Value Reference Range Interpretation Comments Monocytes (test code = Monocytes) 5.3 2.0-12.0 [facility] CenterAllwypjWWFSEAHPNV8559-29-22 09:54:00 Test Item Value Reference Range Interpretation Comments Segs-Bands # (test code = Segs-Bands #) 6.9 1.5-8.1 [facility] CenterWxoqmurKDNONBTTFJ5274-99-62 09:54:00 Test Item Value Reference Range Interpretation Comments Basophils (test code = 0.4 See_Comment [Aut omated message] The Basophils) system which ge nerated this result tra nsmitted reference range : <=1.0. The reference r sagrario was not used to int erpret this result as normal/abnormal . [facility] CenterEnplgkgOAXNRUOBPP3136-98-19 09:54:00 Test Item Value Reference Range Interpretation Comments Eosinophils (test code = 1.9 See_Comment [A utomated message] The Eosinophils) system which ge nerated this result tra nsmitted reference range : <=4.0. The reference r sagrario was not used to int erpret this result as normal/abnormal . [facility] CenterFrxyptkFMEZEIEKZB0791-40-91 09:54:00 Test Item Value Reference Range Interpretation Comments Lymphocytes (test code = Lymphocytes) 40.0 20.0-40.0 [facility]2016-08-27 09:04:00 Test Item Value Reference Range Interpretation Comments Glucose Lvl (test code = Glucose Lvl) 106 70-99 [facility]2016-08-27 09:04:00 Test Item Value Reference Range Interpretation Comments BUN (test code = BUN) 38 7-22 [facility]2016-08-27 09:04:00 Test Item Value Reference Range Interpretation Comments AGAP (test code = AGAP) 11.7 10.0-20.0 [facility]2016-08-27 09:04:00 Test Item Value Reference Range Interpretation Comments Calcium Lvl (test code = Calcium Lvl) 9.4 8.5-10.5 [facility]2016-08-27 09:04:00 Test Item Value Reference Range Interpretation Comments CO2 (test code = CO2) 29 24-32 [facility]2016-08-27 09:04:00 Test Item Value Reference Range Interpretation Comments Chloride Lvl (test code = Chloride Lvl) 112 95-109 [facility]2016-08-27 09:04:00 Test Item Value Reference Range Interpretation Comments Sodium Lvl (test code = Sodium Lvl) 148 135-145 [facility]2016-08-27 09:04:00 Test Item Value Reference Range Interpretation Comments Potassium Lvl (test code = Potassium 4.7 3.5-5.1 Lvl) [facility]2016-08-27 09:04:00 Test Item Value Reference Range Interpretation Comments Creatinine Lvl (test code = Creatinine 0.80 0.50-1.40 Lvl) [facility]2016-08-27 09:04:00 Test Item Value Reference Range Interpretation Comments eGFR (test code = eGFR) 91 [facility]2016-08-27 09:04:00 Test Item Value Reference Range Interpretation Comments Glucose Lvl (test code = Glucose Lvl) 106 70-99 [facility]2016-08-27 09:04:00 Test Item Value Reference Range Interpretation Comments BUN (test code = BUN) 38 7-22 [facility]2016-08-27 09:04:00 Test Item Value Reference Range Interpretation Comments AGAP (test code = AGAP) 11.7 10.0-20.0 [facility]2016-08-27 09:04:00 Test Item Value Reference Range Interpretation Comments Calcium Lvl (test code = Calcium Lvl) 9.4 8.5-10.5 [facility]2016-08-27 09:04:00 Test Item Value Reference Range Interpretation Comments CO2 (test code = CO2) 29 24-32 [facility]2016-08-27 09:04:00 Test Item Value Reference Range Interpretation Comments Chloride Lvl (test code = Chloride Lvl) 112 95-109 [facility]2016-08-27 09:04:00 Test Item Value Reference Range Interpretation Comments Sodium Lvl (test code = Sodium Lvl) 148 135-145 [facility]2016-08-27 09:04:00 Test Item Value Reference Range Interpretation Comments Potassium Lvl (test code = Potassium 4.7 3.5-5.1 Lvl) [facility]2016-08-27 09:04:00 Test Item Value Reference Range Interpretation Comments Creatinine Lvl (test code = Creatinine 0.80 0.50-1.40 Lvl) [facility]2016-08-27 09:04:00 Test Item Value Reference Range Interpretation Comments eGFR (test code = eGFR) 91 [facility]2016-08-27 09:04:00 Test Item Value Reference Range Interpretation Comments Glucose Lvl (test code = Glucose Lvl) 106 70-99 [place] 281646-08-27 09:04:00 Test Item Value Reference Range Interpretation Comments BUN (test code = BUN) 38 7-22 [facility]2016-08-27 09:04:00 Test Item Value Reference Range Interpretation Comments AGAP (test code = AGAP) 11.7 10.0-20.0 [place] 281646-08-27 09:04:00 Test Item Value Reference Range Interpretation Comments Calcium Lvl (test code = Calcium Lvl) 9.4 8.5-10.5 [place] 281646-08-27 09:04:00 Test Item Value Reference Range Interpretation Comments CO2 (test code = CO2) 29 24-32 [facility]2016-08-27 09:04:00 Test Item Value Reference Range Interpretation Comments Chloride Lvl (test code = Chloride Lvl) 112 95-109 [facility]2016-08-27 09:04:00 Test Item Value Reference Range Interpretation Comments Sodium Lvl (test code = Sodium Lvl) 148 135-145 [facility]2016-08-27 09:04:00 Test Item Value Reference Range Interpretation Comments Potassium Lvl (test code = Potassium 4.7 3.5-5.1 Lvl) [facility]2016-08-27 09:04:00 Test Item Value Reference Range Interpretation Comments Creatinine Lvl (test code = Creatinine 0.80 0.50-1.40 Lvl) [facility]2016-08-27 09:04:00 Test Item Value Reference Range Interpretation Comments eGFR (test code = eGFR) 91 [facility] CenterEnqrovsYFBKYUJUOD6659-70-26 10:35:00 Test Item Value Reference Range Interpretation Comments Basophils # (test code 0.2 See_Comment [Aut omated message] The = Basophils #) system which generated this result tra nsmitted reference range : <=0.2. The reference r sagrario was not used to int erpret this result as normal/abnormal . [facility] CenterAckicmmHWUDWIVKXS7965-29-07 10:35:00 Test Item Value Reference Range Interpretation Comments Macrocyte (test code = 1+ *ABN*(01/06/16 Macrocyte) 5:35 AM) [facility] CenterZupcpjtRDADBIVUIC4231-53-24 10:35:00 Test Item Value Reference Range Interpretation Comments Basophils # (test code 0.2 See_Comment [Aut omated message] The = Basophils #) system which generated this result tra nsmitted reference range : <=0.2. The reference r sagrario was not used to int erpret this result as normal/abnormal . [facility] CenterYlfdekrNBGFYXEMQY7646-32-51 10:35:00 Test Item Value Reference Range Interpretation Comments Macrocyte (test code = 1+ *ABN*(01/06/16 Macrocyte) 5:35 AM) [facility] CenterQtwhixbAZIASMYDDW5157-67-32 10:35:00 Test Item Value Reference Range Interpretation Comments Basophils # (test code 0.2 See_Comment [Aut omated message] The = Basophils #) system which generated this result tra nsmitted reference range : <=0.2. The reference r sagrario was not used to int erpret this result as normal/abnormal . [facility] CenterOxtdjbqARLQLQKUEB5437-24-05 10:35:00 Test Item Value Reference Range Interpretation Comments Macrocyte (test code = 1+ *ABN*(01/06/16 Macrocyte) 5:35 AM) [facility]AllaniFORMERLY [id number] 08:17:00 Test Item Value Reference Range Interpretation Comments A/G Ratio (test code = A/G Ratio) 0.7 0.7-1.6 [facility] [id number] 08:17:00 Test Item Value Reference Range Interpretation Comments Alk Phos (test code = Alk Phos) 222 39-136 [facility]lakeAllaniFORMERLY [id number] 08:17:00 Test Item Value Reference Range Interpretation Comments Bili Total (test code = Bili Total) 0.5 0.2-1.3 [facility]2016-08-25 08:17:00 Test Item Value Reference Range Interpretation Comments B/C Ratio (test code = B/C Ratio) 52 6-25 [facility] [id number] 08:17:00 Test Item Value Reference Range Interpretation Comments Globulin (test code = Globulin) 4.2 2.7-4.2 [facility]2016-08-25 08:17:00 Test Item Value Reference Range Interpretation Comments Total Protein (test code = Total 7.1 6.4-8.4 Protein) [facility]2016-08-25 08:17:00 Test Item Value Reference Range Interpretation Comments ALT (test code = ALT) 93 See_Comment [Auto mated message] The system which ge nerated this result transmit craig reference range : <=65. The reference range was not used to interpr et this result as kita l/abnormal. [facility]2016-08-25 08:17:00 Test Item Value Reference Range Interpretation Comments Albumin Lvl (test code = Albumin Lvl) 2.9 3.5-5.0 [facility]2016-08-25 08:17:00 Test Item Value Reference Range Interpretation Comments AST (test code = AST) 45 See_Comment [Auto mated message] The system which ge nerated this result transmit craig reference range : <=37. The reference range was not used to interpr et this result as kita l/abnormal. [facility]2016-08-25 08:17:00 Test Item Value Reference Range Interpretation Comments A/G Ratio (test code = A/G Ratio) 0.7 0.7-1.6 [facility]2016-08-25 08:17:00 Test Item Value Reference Range Interpretation Comments Alk Phos (test code = Alk Phos) 222 39-136 [facility]2016-08-25 08:17:00 Test Item Value Reference Range Interpretation Comments Bili Total (test code = Bili Total) 0.5 0.2-1.3 [facility]lakeAllaniFORMERLY [id number] 08:17:00 Test Item Value Reference Range Interpretation Comments B/C Ratio (test code = B/C Ratio) 52 6-25 [facility]2016-08-25 08:17:00 Test Item Value Reference Range Interpretation Comments Globulin (test code = Globulin) 4.2 2.7-4.2 [facility]2016-08-25 08:17:00 Test Item Value Reference Range Interpretation Comments Total Protein (test code = Total 7.1 6.4-8.4 Protein) [facility]AllaniFORMERLY [id number] 08:17:00 Test Item Value Reference Range Interpretation Comments ALT (test code = ALT) 93 See_Comment [Auto mated message] The system which ge nerated this result transmit craig reference range : <=65. The reference range was not used to interpr et this result as kita l/abnormal. [facility] [id number] 08:17:00 Test Item Value Reference Range Interpretation Comments Albumin Lvl (test code = Albumin Lvl) 2.9 3.5-5.0 [facility]lakeAllaniFORMERLY [id number] 08:17:00 Test Item Value Reference Range Interpretation Comments AST (test code = AST) 45 See_Comment [Auto mated message] The system which ge nerated this result transmit craig reference range : <=37. The reference range was not used to interpr et this result as kita l/abnormal. [facility] [id number] 08:17:00 Test Item Value Reference Range Interpretation Comments A/G Ratio (test code = A/G Ratio) 0.7 0.7-1.6 [facility]2016-08-25 08:17:00 Test Item Value Reference Range Interpretation Comments Alk Phos (test code = Alk Phos) 222 39-136 [facility] [id number] 08:17:00 Test Item Value Reference Range Interpretation Comments Bili Total (test code = Bili Total) 0.5 0.2-1.3 [facility]2016-08-25 08:17:00 Test Item Value Reference Range Interpretation Comments B/C Ratio (test code = B/C Ratio) 52 6-25 [facility] [id number] 08:17:00 Test Item Value Reference Range Interpretation Comments Globulin (test code = Globulin) 4.2 2.7-4.2 [place] [id number] 08:17:00 Test Item Value Reference Range Interpretation Comments Total Protein (test code = Total 7.1 6.4-8.4 Protein) [facility] [id number] 08:17:00 Test Item Value Reference Range Interpretation Comments ALT (test code = ALT) 93 See_Comment [Auto mated message] The system which ge nerated this result transmit craig reference range : <=65. The reference range was not used to interpr et this result as kita l/abnormal. [facility]2016-08-25 08:17:00 Test Item Value Reference Range Interpretation Comments Albumin Lvl (test code = Albumin Lvl) 2.9 3.5-5.0 [facility]2016-08-25 08:17:00 Test Item Value Reference Range Interpretation Comments AST (test code = AST) 45 See_Comment [Auto mated message] The system which ge nerated this result transmit craig reference range : <=37. The reference range was not used to interpr et this result as kita l/abnormal. [facility]2016-08-24 15:49:00 Test Item Value Reference Range Interpretation Comments Procalcitonin Lvl (test 0.43 See_Comment [Au tomated message] code = Procalcitonin Lvl) Th e system which generated this result transmitted ref erence range: <=0.10. The reference range was not used to interpr et this result as normal/abnormal . [facility]2016-08-24 15:49:00 Test Item Value Reference Range Interpretation Comments Lactic Acid Lvl (test code = Lactic 1.4 0.5-2.2 Acid Lvl) [facility]2016-08-24 15:49:00 Test Item Value Reference Range Interpretation Comments Procalcitonin Lvl (test 0.43 See_Comment [Au tomated message] code = Procalcitonin Lvl) Th e system which generated this result transmitted ref erence range: <=0.10. The reference range was not used to interpr et this result as normal/abnormal . [facility]2016-08-24 15:49:00 Test Item Value Reference Range Interpretation Comments Lactic Acid Lvl (test code = Lactic 1.4 0.5-2.2 Acid Lvl) [facility]2016-08-24 15:49:00 Test Item Value Reference Range Interpretation Comments Procalcitonin Lvl (test 0.43 See_Comment [Au tomated message] code = Procalcitonin Lvl) Th e system which generated this result transmitted ref erence range: <=0.10. The reference range was not used to interpr et this result as normal/abnormal . [facility] [id number] 15:49:00 Test Item Value Reference Range Interpretation Comments Lactic Acid Lvl (test code = Lactic 1.4 0.5-2.2 Acid Lvl) [facility] AND [id number] 15:18:00 Test Item Value Reference Range Interpretation Comments UA Urobilinogen (test code = UA <=1.0 mg/dL 0.1-1.0 Urobilinogen) [facility] [id number] 15:18:00 Test Item Value Reference Range Interpretation Comments UA Sq Epi (test code = UA Sq Epi) None Seen [facility] AND [id number] 15:18:00 Test Item Value Reference Range Interpretation Comments UA Ketones (test code = UA Negative mg/dL Ketones) [facility] AND [id number] 15:18:00 Test Item Value Reference Range Interpretation Comments UA Bili (test code = Negative *NA*(01/04/16 UA Bili) 10:18 AM) [facility] AND [id number] 15:18:00 Test Item Value Reference Range Interpretation Comments UA Mucus (test code = UA Mucus) Few /LPF [facility] AND [id number] 15:18:00 Test Item Value Reference Range Interpretation Comments UA RBC (test code = 1 See_Comment [Automa craig message] The UA RBC) system which ge nerated this result transmit craig reference range : <=2. The reference range was not used to interpr et this result as kita l/abnormal. [facility] [id number] 15:18:00 Test Item Value Reference Range Interpretation Comments UA Nitrite (test code Negative (01/04/16 10:18 = UA Nitrite) AM) [facility] AND [id number] 15:18:00 Test Item Value Reference Range Interpretation Comments UA Blood (test code = Negative (01/04/16 10:18 UA Blood) AM) [facility] [id number] 15:18:00 Test Item Value Reference Range Interpretation Comments UA Leuk Est (test Negative (01/04/16 10:18 code = UA Leuk Est) AM) [facility] [id number] 15:18:00 Test Item Value Reference Range Interpretation Comments UA WBC (test code = 2 See_Comment [Automa craig message] The UA WBC) system which ge nerated this result transmit craig reference range : <=5. The reference range was not used to interpr et this result as kita l/abnormal. [facility] AND [id number] 15:18:00 Test Item Value Reference Range Interpretation Comments UA Protein (test code = UA Protein) 10 mg/dL [facility] AND [id number] 15:18:00 Test Item Value Reference Range Interpretation Comments UA Color (test code = Yellow *NA*(01/04/16 UA Color) 10:18 AM) [facility] AND [id number] 15:18:00 Test Item Value Reference Range Interpretation Comments UA Turbidity (test code = Clear (01/04/16 10:18 UA Turbidity) AM) [facility] AND [id number] 15:18:00 Test Item Value Reference Range Interpretation Comments UA pH (test code = UA pH) 5.5 5.0-8.0 [facility] AND [id number] 15:18:00 Test Item Value Reference Range Interpretation Comments UA Spec Grav (test code = UA Spec Grav) 1.018 [facility] AND [id number] 15:18:00 Test Item Value Reference Range Interpretation Comments UA Glucose (test code = UA Negative mg/dL Glucose) [facility] AND [id number] 15:18:00 Test Item Value Reference Range Interpretation Comments UA Urobilinogen (test code = UA <=1.0 mg/dL 0.1-1.0 Urobilinogen) [facility] AND [id number] 15:18:00 Test Item Value Reference Range Interpretation Comments UA Sq Epi (test code = UA Sq Epi) None Seen [facility] AND [id number] 15:18:00 Test Item Value Reference Range Interpretation Comments UA Ketones (test code = UA Negative mg/dL Ketones) [facility] AND [id number] 15:18:00 Test Item Value Reference Range Interpretation Comments UA Bili (test code = Negative *NA*(01/04/16 UA Bili) 10:18 AM) [facility] AND [id number] 15:18:00 Test Item Value Reference Range Interpretation Comments UA Mucus (test code = UA Mucus) Few /LPF [facility] AND [id number] 15:18:00 Test Item Value Reference Range Interpretation Comments UA RBC (test code = 1 See_Comment [Automa craig message] The UA RBC) system which ge nerated this result transmit craig reference range : <=2. The reference range was not used to interpr et this result as kita l/abnormal. [facility] AND [id number] 15:18:00 Test Item Value Reference Range Interpretation Comments UA Nitrite (test code Negative (01/04/16 10:18 = UA Nitrite) AM) [facility] AND [id number] 15:18:00 Test Item Value Reference Range Interpretation Comments UA Blood (test code = Negative (01/04/16 10:18 UA Blood) AM) [facility] AND [id number] 15:18:00 Test Item Value Reference Range Interpretation Comments UA Leuk Est (test Negative (01/04/16 10:18 code = UA Leuk Est) AM) [facility] AND [id number] 15:18:00 Test Item Value Reference Range Interpretation Comments UA WBC (test code = 2 See_Comment [Automa craig message] The UA WBC) system which ge nerated this result transmit craig reference range : <=5. The reference range was not used to interpr et this result as kita l/abnormal. [facility] AND [id number] 15:18:00 Test Item Value Reference Range Interpretation Comments UA Protein (test code = UA Protein) 10 mg/dL [facility] AND [id number] 15:18:00 Test Item Value Reference Range Interpretation Comments UA Color (test code = Yellow *NA*(01/04/16 UA Color) 10:18 AM) [facility] AND [id number] 15:18:00 Test Item Value Reference Range Interpretation Comments UA Turbidity (test code = Clear (01/04/16 10:18 UA Turbidity) AM) [facility] AND [id number] 15:18:00 Test Item Value Reference Range Interpretation Comments UA pH (test code = UA pH) 5.5 5.0-8.0 [facility] AND [id number] 15:18:00 Test Item Value Reference Range Interpretation Comments UA Spec Grav (test code = UA Spec Grav) 1.018 [facility] AND [id number] 15:18:00 Test Item Value Reference Range Interpretation Comments UA Glucose (test code = UA Negative mg/dL Glucose) [facility] AND [id number] 15:18:00 Test Item Value Reference Range Interpretation Comments UA Urobilinogen (test code = UA <=1.0 mg/dL 0.1-1.0 Urobilinogen) [facility] AND [id number] 15:18:00 Test Item Value Reference Range Interpretation Comments UA Sq Epi (test code = UA Sq Epi) None Seen [facility] AND [id number] 15:18:00 Test Item Value Reference Range Interpretation Comments UA Ketones (test code = UA Negative mg/dL Ketones) [facility] AND [id number] 15:18:00 Test Item Value Reference Range Interpretation Comments UA Bili (test code = Negative *NA*(01/04/16 UA Bili) 10:18 AM) [facility] AND [id number] 15:18:00 Test Item Value Reference Range Interpretation Comments UA Mucus (test code = UA Mucus) Few /LPF [facility] AND [id number] 15:18:00 Test Item Value Reference Range Interpretation Comments UA RBC (test code = 1 See_Comment [Automa craig message] The UA RBC) system which ge nerated this result transmit craig reference range : <=2. The reference range was not used to interpr et this result as kita l/abnormal. [facility] AND [id number] 15:18:00 Test Item Value Reference Range Interpretation Comments UA Nitrite (test code Negative (01/04/16 10:18 = UA Nitrite) AM) [facility] AND [id number] 15:18:00 Test Item Value Reference Range Interpretation Comments UA Blood (test code = Negative (01/04/16 10:18 UA Blood) AM) [facility] AND [id number] 15:18:00 Test Item Value Reference Range Interpretation Comments UA Leuk Est (test Negative (01/04/16 10:18 code = UA Leuk Est) AM) [facility] AND [id number] 15:18:00 Test Item Value Reference Range Interpretation Comments UA WBC (test code = 2 See_Comment [Automa craig message] The UA WBC) system which ge nerated this result transmit craig reference range : <=5. The reference range was not used to interpr et this result as kita l/abnormal. [facility] AND [id number] 15:18:00 Test Item Value Reference Range Interpretation Comments UA Protein (test code = UA Protein) 10 mg/dL [facility] AND [id number] 15:18:00 Test Item Value Reference Range Interpretation Comments UA Color (test code = Yellow *NA*(01/04/16 UA Color) 10:18 AM) [facility] AND [id number] 15:18:00 Test Item Value Reference Range Interpretation Comments UA Turbidity (test code = Clear (01/04/16 10:18 UA Turbidity) AM) [facility] AND [id number] 15:18:00 Test Item Value Reference Range Interpretation Comments UA pH (test code = UA pH) 5.5 5.0-8.0 [facility] AND [id number] 15:18:00 Test Item Value Reference Range Interpretation Comments UA Spec Grav (test code = UA Spec Grav) 1.018 [facility] AND [id number] 15:18:00 Test Item Value Reference Range Interpretation Comments UA Glucose (test code = UA Negative mg/dL Glucose) [id number] 09:16:00 Test Item Value Reference Range Interpretation Comments Macrocyte (test code = 1+ *ABN*(01/04/16 Macrocyte) 4:16 AM) [facility] [id number] 09:16:00 Test Item Value Reference Range Interpretation Comments Basophils # (test code 0.1 See_Comment [Aut omated message] The = Basophils #) system which generated this result tra nsmitted reference range : <=0.2. The reference r sagrario was not used to int erpret this result as normal/abnormal . [facility] [id number] 09:16:00 Test Item Value Reference Range Interpretation Comments Macrocyte (test code = 1+ *ABN*(01/04/16 Macrocyte) 4:16 AM) [facility] [id number] 09:16:00 Test Item Value Reference Range Interpretation Comments Basophils # (test code 0.1 See_Comment [Aut omated message] The = Basophils #) system which generated this result tra nsmitted reference range : <=0.2. The reference r sagrario was not used to int erpret this result as normal/abnormal . [facility] [id number] 09:16:00 Test Item Value Reference Range Interpretation Comments Macrocyte (test code = 1+ *ABN*(01/04/16 Macrocyte) 4:16 AM) [facility] [id number] 09:16:00 Test Item Value Reference Range Interpretation Comments Basophils # (test code 0.1 See_Comment [Aut omated message] The = Basophils #) system which generated this result tra nsmitted reference range : <=0.2. The reference r sagrario was not used to int erpret this result as normal/abnormal . [facility]2016-08-23 08:50:00 Test Item Value Reference Range Interpretation Comments Magnesium Lvl (test code = Magnesium 2.7 1.8-2.4 Lvl) [facility]2016-08-23 08:50:00 Test Item Value Reference Range Interpretation Comments Phosphorus (test code = Phosphorus) 4.2 2.5-4.5 [facility]2016-08-23 08:50:00 Test Item Value Reference Range Interpretation Comments Magnesium Lvl (test code = Magnesium 2.7 1.8-2.4 Lvl) [facility]2016-08-23 08:50:00 Test Item Value Reference Range Interpretation Comments Phosphorus (test code = Phosphorus) 4.2 2.5-4.5 [facility]2016-08-23 08:50:00 Test Item Value Reference Range Interpretation Comments Magnesium Lvl (test code = Magnesium 2.7 1.8-2.4 Lvl) [facility]2016-08-23 08:50:00 Test Item Value Reference Range Interpretation Comments Phosphorus (test code = Phosphorus) 4.2 2.5-4.5 [facility]2016-08-22 08:46:00 Test Item Value Reference Range Interpretation Comments Magnesium Lvl (test code = Magnesium 2.8 1.8-2.4 Lvl) [facility]2016-08-22 08:46:00 Test Item Value Reference Range Interpretation Comments Phosphorus (test code = Phosphorus) 3.7 2.5-4.[address] [facility] [place] [place]2016-08-22 08:46:00 Test Item Value Reference Range Interpretation Comments Ca Norm WB (test code = Ca Norm WB) 1.21 1.05-1.[address] [facility] [place] [place]2016-08-22 08:46:00 Test Item Value Reference Range Interpretation Comments Ca Ion WB (test code = Ca Ion WB) 1.25 1.05-1.25 [facility]2016-08-22 08:46:00 Test Item Value Reference Range Interpretation Comments Magnesium Lvl (test code = Magnesium 2.8 1.8-2.4 Lvl) [facility]2016-08-22 08:46:00 Test Item Value Reference Range Interpretation Comments Phosphorus (test code = Phosphorus) 3.7 2.5-4.[address] [facility] [place] [place]2016-08-22 08:46:00 Test Item Value Reference Range Interpretation Comments Ca Norm WB (test code = Ca Norm WB) 1.21 1.05-1.[address] [facility] [place] [place]2016-08-22 08:46:00 Test Item Value Reference Range Interpretation Comments Ca Ion WB (test code = Ca Ion WB) 1.25 1.05-1.25 [facility]2016-08-22 08:46:00 Test Item Value Reference Range Interpretation Comments Magnesium Lvl (test code = Magnesium 2.8 1.8-2.4 Lvl) [facility]2016-08-22 08:46:00 Test Item Value Reference Range Interpretation Comments Phosphorus (test code = Phosphorus) 3.7 2.5-4.[address] [facility] [place] [place]2016-08-22 08:46:00 Test Item Value Reference Range Interpretation Comments Ca Norm WB (test code = Ca Norm WB) 1.21 1.05-1.[address] [facility] [place] [place]2016-08-22 08:46:00 Test Item Value Reference Range Interpretation Comments Ca Ion WB (test code = Ca Ion WB) 1.25 1.05-1.[address] [facility] [place] [place]2016-08-20 10:20:00 Test Item Value Reference Range Interpretation Comments Ca Norm WB (test code = Ca Norm WB) 1.18 1.05-1.[address] [facility] [place] [place]2016-08-20 10:20:00 Test Item Value Reference Range Interpretation Comments Ca Ion WB (test code = Ca Ion WB) 1.19 1.05-1.25 [facility] [id number] 10:20:00 Test Item Value Reference Range Interpretation Comments Ca Norm WB (test code = Ca Norm WB) 1.18 1.05-1.[address] [facility] [place] [place]2016-08-20 10:20:00 Test Item Value Reference Range Interpretation Comments Ca Ion WB (test code = Ca Ion WB) 1.19 1.05-1.[address] [facility] [place] [place]2016-08-20 10:20:00 Test Item Value Reference Range Interpretation Comments Ca Norm WB (test code = Ca Norm WB) 1.18 1.05-1.[address] [facility] [place] [place]2016-08-20 10:20:00 Test Item Value Reference Range Interpretation Comments Ca Ion WB (test code = Ca Ion WB) 1.19 1.05-1.25 [facility]2016-08-20 08:20:00 Test Item Value Reference Range Interpretation Comments Magnesium Lvl (test code = Magnesium 2.9 1.8-2.4 Lvl) [facility]2016-08-20 08:20:00 Test Item Value Reference Range Interpretation Comments Phosphorus (test code = Phosphorus) 3.9 2.5-4.5 [id number] 08:20:00 Test Item Value Reference Range Interpretation Comments Macrocyte (test code = 2+ *ABN*(12/31/15 Macrocyte) 3:20 AM) [facility]2016-08-20 08:20:00 Test Item Value Reference Range Interpretation Comments Magnesium Lvl (test code = Magnesium 2.9 1.8-2.4 Lvl) [facility]2016-08-20 08:20:00 Test Item Value Reference Range Interpretation Comments Phosphorus (test code = Phosphorus) 3.9 2.5-4.5 [facility] [id number] 08:20:00 Test Item Value Reference Range Interpretation Comments Macrocyte (test code = 2+ *ABN*(12/31/15 Macrocyte) 3:20 AM) [facility]2016-08-20 08:20:00 Test Item Value Reference Range Interpretation Comments Magnesium Lvl (test code = Magnesium 2.9 1.8-2.4 Lvl) [facility]2016-08-20 08:20:00 Test Item Value Reference Range Interpretation Comments Phosphorus (test code = Phosphorus) 3.9 2.5-4.5 [facility] [id number] 08:20:00 Test Item Value Reference Range Interpretation Comments Macrocyte (test code = 2+ *ABN*(12/31/15 Macrocyte) 3:20 AM) [facility]2016-08-19 09:13:00 Test Item Value Reference Range Interpretation Comments A/G Ratio (test code = A/G Ratio) 0.6 0.7-1.6 [facility]2016-08-19 09:13:00 Test Item Value Reference Range Interpretation Comments Bili Indirect (test 0.2 See_Comment [Automa craig message] The code = Bili Indirect) system which generated this result tra nsmitted reference range : <=1.0. The reference r sagrario was not used to int erpret this result as normal/abnormal . [facility]2016-08-19 09:13:00 Test Item Value Reference Range Interpretation Comments Globulin (test code = Globulin) 4.3 2.7-4.2 [facility]2016-08-19 09:13:00 Test Item Value Reference Range Interpretation Comments Bili Direct (test code 0.2 See_Comment [Aut omated message] The = Bili Direct) system which generated this result tra nsmitted reference range : <=0.3. The reference r sagrario was not used to int erpret this result as kita l/abnormal. [facility]2016-08-19 09:13:00 Test Item Value Reference Range Interpretation Comments Bili Total (test code = Bili Total) 0.4 0.2-1.3 [facility]2016-08-19 09:13:00 Test Item Value Reference Range Interpretation Comments Alk Phos (test code = Alk Phos) 234 39-136 [facility]2016-08-19 09:13:00 Test Item Value Reference Range Interpretation Comments AST (test code = AST) 83 See_Comment [Auto mated message] The system which ge nerated this result transmit craig reference range : <=37. The reference range was not used to interpr et this result as kita l/abnormal. [facility]2016-08-19 09:13:00 Test Item Value Reference Range Interpretation Comments ALT (test code = ALT) 142 See_Comment [Auto mated message] The system which ge nerated this result transmit craig reference range : <=65. The reference range was not used to interpr et this result as kita l/abnormal. [id number] 09:13:00 Test Item Value Reference Range Interpretation Comments Total Protein (test code = Total 6.7 6.4-8.4 Protein) [place] [id number] 09:13:00 Test Item Value Reference Range Interpretation Comments Albumin Lvl (test code = Albumin Lvl) 2.4 3.5-5.0 [place] 281646-08-19 09:13:00 Test Item Value Reference Range Interpretation Comments A/G Ratio (test code = A/G Ratio) 0.6 0.7-1.6 [place] 281646-08-19 09:13:00 Test Item Value Reference Range Interpretation Comments Bili Indirect (test 0.2 See_Comment [Automa craig message] The code = Bili Indirect) system which generated this result tra nsmitted reference range : <=1.0. The reference r sagrario was not used to int erpret this result as normal/abnormal . [facility]2016-08-19 09:13:00 Test Item Value Reference Range Interpretation Comments Globulin (test code = Globulin) 4.3 2.7-4.2 [place] 281646-08-19 09:13:00 Test Item Value Reference Range Interpretation Comments Bili Direct (test code 0.2 See_Comment [Aut omated message] The = Bili Direct) system which generated this result tra nsmitted reference range : <=0.3. The reference r sagrario was not used to int erpret this result as kita l/abnormal. [facility] [id number] 09:13:00 Test Item Value Reference Range Interpretation Comments Bili Total (test code = Bili Total) 0.4 0.2-1.3 [place] 281646-08-19 09:13:00 Test Item Value Reference Range Interpretation Comments Alk Phos (test code = Alk Phos) 234 39-136 [place] 281646-08-19 09:13:00 Test Item Value Reference Range Interpretation Comments AST (test code = AST) 83 See_Comment [Auto mated message] The system which ge nerated this result transmit craig reference range : <=37. The reference range was not used to interpr et this result as kita l/abnormal. [facility]2016-08-19 09:13:00 Test Item Value Reference Range Interpretation Comments ALT (test code = ALT) 142 See_Comment [Auto mated message] The system which ge nerated this result transmit craig reference range : <=65. The reference range was not used to interpr et this result as kita l/abnormal. [facility] [id number] 09:13:00 Test Item Value Reference Range Interpretation Comments Total Protein (test code = Total 6.7 6.4-8.4 Protein) [facility]2016-08-19 09:13:00 Test Item Value Reference Range Interpretation Comments Albumin Lvl (test code = Albumin Lvl) 2.4 3.5-5.0 [place] 281646-08-19 09:13:00 Test Item Value Reference Range Interpretation Comments A/G Ratio (test code = A/G Ratio) 0.6 0.7-1.6 [facility] [id number] 09:13:00 Test Item Value Reference Range Interpretation Comments Bili Indirect (test 0.2 See_Comment [Automa craig message] The code = Bili Indirect) system which generated this result tra nsmitted reference range : <=1.0. The reference r sagrario was not used to int erpret this result as normal/abnormal . [facility] [id number] 09:13:00 Test Item Value Reference Range Interpretation Comments Globulin (test code = Globulin) 4.3 2.7-4.2 [facility] [id number] 09:13:00 Test Item Value Reference Range Interpretation Comments Bili Direct (test code 0.2 See_Comment [Aut omated message] The = Bili Direct) system which generated this result tra nsmitted reference range : <=0.3. The reference r sagrario was not used to int erpret this result as kita l/abnormal. [facility]2016-08-19 09:13:00 Test Item Value Reference Range Interpretation Comments Bili Total (test code = Bili Total) 0.4 0.2-1.3 [facility]2016-08-19 09:13:00 Test Item Value Reference Range Interpretation Comments Alk Phos (test code = Alk Phos) 234 39-136 [facility] [id number] 09:13:00 Test Item Value Reference Range Interpretation Comments AST (test code = AST) 83 See_Comment [Auto mated message] The system which ge nerated this result transmit craig reference range : <=37. The reference range was not used to interpr et this result as ktia l/abnormal. [facility] [id number] 09:13:00 Test Item Value Reference Range Interpretation Comments ALT (test code = ALT) 142 See_Comment [Auto mated message] The system which ge nerated this result transmit criag reference range : <=65. The reference range was not used to interpr et this result as kita l/abnormal. [facility]2016-08-19 09:13:00 Test Item Value Reference Range Interpretation Comments Total Protein (test code = Total 6.7 6.4-8.4 Protein) [facility] [id number] 09:13:00 Test Item Value Reference Range Interpretation Comments Albumin Lvl (test code = Albumin Lvl) 2.4 3.5-5.0 [facility]2016-08-18 22:31:00 Test Item Value Reference Range Interpretation Comments C difficile DNA (test Negative (12/29/15 5:31 code = C difficile DNA) PM) [facility]2016-08-18 22:31:00 Test Item Value Reference Range Interpretation Comments C difficile DNA (test Negative (12/29/15 5:31 code = C difficile DNA) PM) [facility]2016-08-18 22:31:00 Test Item Value Reference Range Interpretation Comments C difficile DNA (test Negative (12/29/15 5:31 code = C difficile DNA) PM) [id number] 13:55:00 Test Item Value Reference Range Interpretation Comments Lactic Acid Lvl (test code = Lactic 0.9 0.5-2.2 Acid Lvl) [facility] [id number] 13:55:00 Test Item Value Reference Range Interpretation Comments Lactic Acid Lvl (test code = Lactic 0.9 0.5-2.2 Acid Lvl) [facility] [id number] 13:55:00 Test Item Value Reference Range Interpretation Comments Lactic Acid Lvl (test code = Lactic 0.9 0.5-2.2 Acid Lvl) [facility] [id number] 11:55:00 Test Item Value Reference Range Interpretation Comments UA Sq Epi (test code = UA Sq Epi) [facility] AND [id number] 11:55:00 Test Item Value Reference Range Interpretation Comments UA Blood (test code = Negative (12/29/15 6:55 UA Blood) AM) [facility] AND [id number] 11:55:00 Test Item Value Reference Range Interpretation Comments UA Urobilinogen (test code = UA 0.2 0.1-1.0 Urobilinogen) [facility] AND [id number] 11:55:00 Test Item Value Reference Range Interpretation Comments UA Nitrite (test code Negative (12/29/15 6:55 = UA Nitrite) AM) [facility] AND [id number] 11:55:00 Test Item Value Reference Range Interpretation Comments UA Leuk Est (test Negative (12/29/15 6:55 code = UA Leuk Est) AM) [facility] [id number] 11:55:00 Test Item Value Reference Range Interpretation Comments UA Bili (test code = Negative *NA*(12/29/15 UA Bili) 6:55 AM) [facility] AND [id number] 11:55:00 Test Item Value Reference Range Interpretation Comments UA Ketones (test code = UA Negative mg/dL Ketones) [facility] AND [id number] 11:55:00 Test Item Value Reference Range Interpretation Comments UA Glucose (test code = UA Negative mg/dL Glucose) [facility] AND [id number] 11:55:00 Test Item Value Reference Range Interpretation Comments UA Protein (test code = UA Negative mg/dL Protein) [facility] AND [id number] 11:55:00 Test Item Value Reference Range Interpretation Comments UA Spec Grav (test code = UA Spec 1.025 1 Grav) [facility] AND [id number] 11:55:00 Test Item Value Reference Range Interpretation Comments UA pH (test code = UA pH) 5.5 1 5.0-8.0 [facility] AND [id number] 11:55:00 Test Item Value Reference Range Interpretation Comments UA Turbidity (test code = Clear (12/29/15 6:55 UA Turbidity) AM) [facility] AND [id number] 11:55:00 Test Item Value Reference Range Interpretation Comments UA Color (test code = Yellow *NA*(12/29/15 UA Color) 6:55 AM) [facility] AND [id number] 11:55:00 Test Item Value Reference Range Interpretation Comments UA Mucus (test code = UA Mucus) Few /LPF [facility] AND [id number] 11:55:00 Test Item Value Reference Range Interpretation Comments UA RBC (test code = 1 See_Comment [Automa craig message] The UA RBC) system which ge nerated this result transmit craig reference range : <=2. The reference range was not used to interpr et this result as kita l/abnormal. [facility] AND [id number] 11:55:00 Test Item Value Reference Range Interpretation Comments UA WBC (test code = 1 See_Comment [Automa craig message] The UA WBC) system which ge nerated this result transmit craig reference range : <=5. The reference range was not used to interpr et this result as kita l/abnormal. [facility] AND [id number] 11:55:00 Test Item Value Reference Range Interpretation Comments UA Sq Epi (test code = UA Sq Epi) [facility] AND [id number] 11:55:00 Test Item Value Reference Range Interpretation Comments UA Blood (test code = Negative (12/29/15 6:55 UA Blood) AM) [facility] AND [id number] 11:55:00 Test Item Value Reference Range Interpretation Comments UA Urobilinogen (test code = UA 0.2 0.1-1.0 Urobilinogen) [facility] AND [id number] 11:55:00 Test Item Value Reference Range Interpretation Comments UA Nitrite (test code Negative (12/29/15 6:55 = UA Nitrite) AM) [facility] AND [id number] 11:55:00 Test Item Value Reference Range Interpretation Comments UA Leuk Est (test Negative (12/29/15 6:55 code = UA Leuk Est) AM) [facility] AND [id number] 11:55:00 Test Item Value Reference Range Interpretation Comments UA Bili (test code = Negative *NA*(12/29/15 UA Bili) 6:55 AM) [facility] AND [id number] 11:55:00 Test Item Value Reference Range Interpretation Comments UA Ketones (test code = UA Negative mg/dL Ketones) [facility] AND [id number] 11:55:00 Test Item Value Reference Range Interpretation Comments UA Glucose (test code = UA Negative mg/dL Glucose) [facility] AND [id number] 11:55:00 Test Item Value Reference Range Interpretation Comments UA Protein (test code = UA Negative mg/dL Protein) [facility] AND [id number] 11:55:00 Test Item Value Reference Range Interpretation Comments UA Spec Grav (test code = UA Spec 1.025 1 Grav) [facility] AND [id number] 11:55:00 Test Item Value Reference Range Interpretation Comments UA pH (test code = UA pH) 5.5 1 5.0-8.0 [facility] AND [id number] 11:55:00 Test Item Value Reference Range Interpretation Comments UA Turbidity (test code = Clear (12/29/15 6:55 UA Turbidity) AM) [facility] AND [id number] 11:55:00 Test Item Value Reference Range Interpretation Comments UA Color (test code = Yellow *NA*(12/29/15 UA Color) 6:55 AM) [facility] AND [id number] 11:55:00 Test Item Value Reference Range Interpretation Comments UA Mucus (test code = UA Mucus) Few /[facility]F [facility] [id number] 11:55:00 Test Item Value Reference Range Interpretation Comments UA RBC (test code = 1 See_Comment [Automa craig message] The UA RBC) system which ge nerated this result transmit craig reference range : <=2. The reference range was not used to interpr et this result as kita l/abnormal. [facility] [id number] 11:55:00 Test Item Value Reference Range Interpretation Comments UA WBC (test code = 1 See_Comment [Automa craig message] The UA WBC) system which ge nerated this result transmit craig reference range : <=5. The reference range was not used to interpr et this result as kita l/abnormal. [facility] AND [id number] 11:55:00 Test Item Value Reference Range Interpretation Comments UA Sq Epi (test code = UA Sq Epi) RARE [facility] AND [id number] 11:55:00 Test Item Value Reference Range Interpretation Comments UA Blood (test code = Negative (12/29/15 6:55 UA Blood) AM) [facility] AND [id number] 11:55:00 Test Item Value Reference Range Interpretation Comments UA Urobilinogen (test code = UA 0.2 0.1-1.0 Urobilinogen) [facility] AND [id number] 11:55:00 Test Item Value Reference Range Interpretation Comments UA Nitrite (test code Negative (12/29/15 6:55 = UA Nitrite) AM) [facility] AND [id number] 11:55:00 Test Item Value Reference Range Interpretation Comments UA Leuk Est (test Negative (12/29/15 6:55 code = UA Leuk Est) AM) [facility] AND [id number] 11:55:00 Test Item Value Reference Range Interpretation Comments UA Bili (test code = Negative *NA*(12/29/15 UA Bili) 6:55 AM) [facility] AND [id number] 11:55:00 Test Item Value Reference Range Interpretation Comments UA Ketones (test code = UA Negative mg/dL Ketones) [facility] AND [id number] 11:55:00 Test Item Value Reference Range Interpretation Comments UA Glucose (test code = UA Negative mg/dL Glucose) [facility] AND [id number] 11:55:00 Test Item Value Reference Range Interpretation Comments UA Protein (test code = UA Negative mg/dL Protein) [facility] AND [id number] 11:55:00 Test Item Value Reference Range Interpretation Comments UA Spec Grav (test code = UA Spec 1.025 1 Grav) [facility] AND [id number] 11:55:00 Test Item Value Reference Range Interpretation Comments UA pH (test code = UA pH) 5.5 1 5.0-8.0 [facility] AND [id number] 11:55:00 Test Item Value Reference Range Interpretation Comments UA Turbidity (test code = Clear (12/29/15 6:55 UA Turbidity) AM) [facility] AND [id number] 11:55:00 Test Item Value Reference Range Interpretation Comments UA Color (test code = Yellow *NA*(12/29/15 UA Color) 6:55 AM) [facility] AND [id number] 11:55:00 Test Item Value Reference Range Interpretation Comments UA Mucus (test code = UA Mucus) Few /LPF [facility] AND [id number] 11:55:00 Test Item Value Reference Range Interpretation Comments UA RBC (test code = 1 See_Comment [Automa craig message] The UA RBC) system which ge nerated this result transmit craig reference range : <=2. The reference range was not used to interpr et this result as kita l/abnormal. [facility] AND [id number] 11:55:00 Test Item Value Reference Range Interpretation Comments UA WBC (test code = 1 See_Comment [Automa craig message] The UA WBC) system which ge nerated this result transmit craig reference range : <=5. The reference range was not used to interpr et this result as kita l/abnormal. [facility] [id number] 09:01:00 Test Item Value Reference Range Interpretation Comments Bili Indirect (test 0.5 See_Comment [Automa craig message] The code = Bili Indirect) system which generated this result tra nsmitted reference range : <=1.0. The reference r sagrario was not used to int erpret this result as normal/abnormal . [facility]2016-08-18 09:01:00 Test Item Value Reference Range Interpretation Comments A/G Ratio (test code = A/G Ratio) 0.6 0.7-1.6 [place] [id number] 09:01:00 Test Item Value Reference Range Interpretation Comments Globulin (test code = Globulin) 4.4 2.7-4.2 [facility]2016-08-18 09:01:00 Test Item Value Reference Range Interpretation Comments ALT (test code = ALT) 149 See_Comment [Auto mated message] The system which ge nerated this result transmit craig reference range : <=65. The reference range was not used to interpr et this result as kita l/abnormal. [place] [id number] 09:01:00 Test Item Value Reference Range Interpretation Comments Albumin Lvl (test code = Albumin Lvl) 2.6 3.5-5.0 [facility]2016-08-18 09:01:00 Test Item Value Reference Range Interpretation Comments Total Protein (test code = Total 7.0 6.4-8.4 Protein) [facility]2016-08-18 09:01:00 Test Item Value Reference Range Interpretation Comments Alk Phos (test code = Alk Phos) 236 39-136 [facility]2016-08-18 09:01:00 Test Item Value Reference Range Interpretation Comments Bili Direct (test code 0.1 See_Comment [Aut omated message] The = Bili Direct) system which generated this result tra nsmitted reference range : <=0.3. The reference r sagrario was not used to int erpret this result as kita l/abnormal. [facility]2016-08-18 09:01:00 Test Item Value Reference Range Interpretation Comments Bili Total (test code = Bili Total) 0.6 0.2-1.3 [place] [id number] 09:01:00 Test Item Value Reference Range Interpretation Comments AST (test code = AST) 132 See_Comment [Auto mated message] The system which ge nerated this result transmit craig reference range : <=37. The reference range was not used to interpr et this result as kita l/abnormal. [facility] [id number] 09:01:00 Test Item Value Reference Range Interpretation Comments Ca Ion WB (test code = Ca Ion WB) 1.18 1.05-1.25 [facility] [id number] 09:01:00 Test Item Value Reference Range Interpretation Comments Ca Norm WB (test code = Ca Norm WB) 1.18 1.05-1.25 [facility]2016-08-18 09:01:00 Test Item Value Reference Range Interpretation Comments Bili Indirect (test 0.5 See_Comment [Automa craig message] The code = Bili Indirect) system which generated this result tra nsmitted reference range : <=1.0. The reference r sagrario was not used to int erpret this result as normal/abnormal . [facility]2016-08-18 09:01:00 Test Item Value Reference Range Interpretation Comments A/G Ratio (test code = A/G Ratio) 0.6 0.7-1.6 [facility]2016-08-18 09:01:00 Test Item Value Reference Range Interpretation Comments Globulin (test code = Globulin) 4.4 2.7-4.2 [facility]2016-08-18 09:01:00 Test Item Value Reference Range Interpretation Comments ALT (test code = ALT) 149 See_Comment [Auto mated message] The system which ge nerated this result transmit craig reference range : <=65. The reference range was not used to interpr et this result as kita l/abnormal. [facility] [id number] 09:01:00 Test Item Value Reference Range Interpretation Comments Albumin Lvl (test code = Albumin Lvl) 2.6 3.5-5.0 [facility]2016-08-18 09:01:00 Test Item Value Reference Range Interpretation Comments Total Protein (test code = Total 7.0 6.4-8.4 Protein) [facility]2016-08-18 09:01:00 Test Item Value Reference Range Interpretation Comments Alk Phos (test code = Alk Phos) 236 39-136 [facility] [id number] 09:01:00 Test Item Value Reference Range Interpretation Comments Bili Direct (test code 0.1 See_Comment [Aut omated message] The = Bili Direct) system which generated this result tra nsmitted reference range : <=0.3. The reference r sagrario was not used to int erpret this result as kita l/abnormal. [place] [id number] 09:01:00 Test Item Value Reference Range Interpretation Comments Bili Total (test code = Bili Total) 0.6 0.2-1.3 [facility]2016-08-18 09:01:00 Test Item Value Reference Range Interpretation Comments AST (test code = AST) 132 See_Comment [Auto mated message] The system which ge nerated this result transmit craig reference range : <=37. The reference range was not used to interpr et this result as kita l/abnormal. [facility] [place]2016-08-18 09:01:00 Test Item Value Reference Range Interpretation Comments Ca Ion WB (test code = Ca Ion WB) 1.18 1.05-1.[address] [facility] [place]2016-08-18 09:01:00 Test Item Value Reference Range Interpretation Comments Ca Norm WB (test code = Ca Norm WB) 1.18 1.05-1.25 [facility]2016-08-18 09:01:00 Test Item Value Reference Range Interpretation Comments Bili Indirect (test 0.5 See_Comment [Automa craig message] The code = Bili Indirect) system which generated this result tra nsmitted reference range : <=1.0. The reference r sagrario was not used to int erpret this result as normal/abnormal . [facility]2016-08-18 09:01:00 Test Item Value Reference Range Interpretation Comments A/G Ratio (test code = A/G Ratio) 0.6 0.7-1.6 [place] [id number] 09:01:00 Test Item Value Reference Range Interpretation Comments Globulin (test code = Globulin) 4.4 2.7-4.2 [place] [id number] 09:01:00 Test Item Value Reference Range Interpretation Comments ALT (test code = ALT) 149 See_Comment [Auto mated message] The system which ge nerated this result transmit craig reference range : <=65. The reference range was not used to interpr et this result as kita l/abnormal. [facility]2016-08-18 09:01:00 Test Item Value Reference Range Interpretation Comments Albumin Lvl (test code = Albumin Lvl) 2.6 3.5-5.0 [place] [id number] 09:01:00 Test Item Value Reference Range Interpretation Comments Total Protein (test code = Total 7.0 6.4-8.4 Protein) [facility]2016-08-18 09:01:00 Test Item Value Reference Range Interpretation Comments Alk Phos (test code = Alk Phos) 236 39-136 [facility]2016-08-18 09:01:00 Test Item Value Reference Range Interpretation Comments Bili Direct (test code 0.1 See_Comment [Aut omated message] The = Bili Direct) system which generated this result tra nsmitted reference range : <=0.3. The reference r sagrario was not used to int erpret this result as kita l/abnormal. [facility]2016-08-18 09:01:00 Test Item Value Reference Range Interpretation Comments Bili Total (test code = Bili Total) 0.6 0.2-1.3 [facility]2016-08-18 09:01:00 Test Item Value Reference Range Interpretation Comments AST (test code = AST) 132 See_Comment [Auto mated message] The system which ge nerated this result transmit craig reference range : <=37. The reference range was not used to interpr et this result as kita l/abnormal. [id number] 09:01:00 Test Item Value Reference Range Interpretation Comments Ca Ion WB (test code = Ca Ion WB) 1.18 1.05-1.[address] [facility] [place] [place]2016-08-18 09:01:00 Test Item Value Reference Range Interpretation Comments Ca Norm WB (test code = Ca Norm WB) 1.18 1.05-1.25 [facility]2016-08-17 06:20:00 Test Item Value Reference Range Interpretation Comments Procalcitonin Lvl (test 0.18 See_Comment [Au tomated message] code = Procalcitonin Lvl) Th e system which generated this result transmitted ref erence range: <=0.10. The reference range was not used to interpr et this result as normal/abnormal . [place] 281646-08-17 06:20:00 Test Item Value Reference Range Interpretation Comments Procalcitonin Lvl (test 0.18 See_Comment [Au tomated message] code = Procalcitonin Lvl) Th e system which generated this result transmitted ref erence range: <=0.10. The reference range was not used to interpr et this result as normal/abnormal . [place] 281646-08-17 06:20:00 Test Item Value Reference Range Interpretation Comments Procalcitonin Lvl (test 0.18 See_Comment [Au tomated message] code = Procalcitonin Lvl) Th e system which generated this result transmitted ref erence range: <=0.10. The reference range was not used to interpr et this result as normal/abnormal . [place] 281646-08-16 21:33:00 Test Item Value Reference Range Interpretation Comments Bili Indirect (test 0.1 See_Comment [Automa craig message] The code = Bili Indirect) system which generated this result tra nsmitted reference range : <=1.0. The reference r sagrario was not used to int erpret this result as normal/abnormal . [place] 281646-08-16 21:33:00 Test Item Value Reference Range Interpretation Comments Bili Direct (test code 0.3 See_Comment [Aut omated message] The = Bili Direct) system which generated this result tra nsmitted reference range : <=0.3. The reference r sagrario was not used to int erpret this result as kita l/abnormal. [facility]2016-08-16 21:33:00 Test Item Value Reference Range Interpretation Comments Ammonia (test code = Ammonia) 41.0 [place] 281646-08-16 21:33:00 Test Item Value Reference Range Interpretation Comments Bili Indirect (test 0.1 See_Comment [Automa craig message] The code = Bili Indirect) system which generated this result tra nsmitted reference range : <=1.0. The reference r sagrario was not used to int erpret this result as normal/abnormal . [place] 281646-08-16 21:33:00 Test Item Value Reference Range Interpretation Comments Bili Direct (test code 0.3 See_Comment [Aut omated message] The = Bili Direct) system which generated this result tra nsmitted reference range : <=0.3. The reference r sagrario was not used to int erpret this result as kita l/abnormal. [facility]2016-08-16 21:33:00 Test Item Value Reference Range Interpretation Comments Ammonia (test code = Ammonia) 41.0 [facility]2016-08-16 21:33:00 Test Item Value Reference Range Interpretation Comments Bili Indirect (test 0.1 See_Comment [Automa craig message] The code = Bili Indirect) system which generated this result tra nsmitted reference range : <=1.0. The reference r sagrario was not used to int erpret this result as normal/abnormal . [facility]2016-08-16 21:33:00 Test Item Value Reference Range Interpretation Comments Bili Direct (test code 0.3 See_Comment [Aut omated message] The = Bili Direct) system which generated this result tra nsmitted reference range : <=0.3. The reference r sagrario was not used to int erpret this result as kita l/abnormal. [facility]2016-08-16 21:33:00 Test Item Value Reference Range Interpretation Comments Ammonia (test code = Ammonia) 41.0 [facility]2016-08-13 05:17:00 Test Item Value Reference Range Interpretation Comments Folate Lvl (test code = Folate Lvl) 29.1 [facility]2016-08-13 05:17:00 Test Item Value Reference Range Interpretation Comments Vitamin B12 Lvl (test code = Vitamin [phone] B12 Lvl) [facility]2016-08-13 05:17:00 Test Item Value Reference Range Interpretation Comments Vitamin B12 Lvl (test code = Vitamin 351 499-9486 B12 Lvl) [facility]2016-08-13 05:17:00 Test Item Value Reference Range Interpretation Comments Folate Lvl (test code = Folate Lvl) 29.1 [facility]2016-08-13 05:17:00 Test Item Value Reference Range Interpretation Comments Vitamin B12 Lvl (test code = Vitamin [phone] B12 Lvl) [facility] [id number] 05:17:00 Test Item Value Reference Range Interpretation Comments Vitamin B12 Lvl (test code = Vitamin [phone] B12 Lvl) [facility] [id number] 05:17:00 Test Item Value Reference Range Interpretation Comments Folate Lvl (test code = Folate Lvl) 29.1 [facility] [id number] 05:17:00 Test Item Value Reference Range Interpretation Comments Vitamin B12 Lvl (test code = Vitamin [phone] B12 Lvl) [facility] [id number] 05:17:00 Test Item Value Reference Range Interpretation Comments Vitamin B12 Lvl (test code = Vitamin [phone] B12 Lvl) [facility] [id number] 05:45:00 Test Item Value Reference Range Interpretation Comments ABO/Rh (test code = ABO/Rh) O POS [facility] [id number] 05:45:00 Test Item Value Reference Range Interpretation Comments Antibody Scrn (test Negative (12/23/15 code = Antibody Scrn) 12:45 AM) [id number] 05:45:00 Test Item Value Reference Range Interpretation Comments INR (test code = INR) 1.11 0.85-1.17 [facility] CenterXmhdpppJNVFFJQWLW7544-22-70 05:45:00 Test Item Value Reference Range Interpretation Comments PTT (test code = PTT) 32.6 s 22.9-35.8 [facility] CenterGqbidijXXCMYQKNOU7920-65-51 05:45:00 Test Item Value Reference Range Interpretation Comments PT (test code = PT) 14.6 s 12.0-14.[address] [facility] [id number] 05:45:00 Test Item Value Reference Range Interpretation Comments ABO/Rh (test code = ABO/Rh) O POS [facility] [id number] 05:45:00 Test Item Value Reference Range Interpretation Comments Antibody Scrn (test Negative (12/23/15 code = Antibody Scrn) 12:45 AM) [facility] CenterUuzaslcZZKVQEUBXU9120-65-57 05:45:00 Test Item Value Reference Range Interpretation Comments INR (test code = INR) 1.11 0.85-1.17 [facility] CenterDtqiwftYQSJCAVHIX9738-15-34 05:45:00 Test Item Value Reference Range Interpretation Comments PTT (test code = PTT) 32.6 s 22.9-35.8 [facility] CenterNiclcqsBCTQCEHFZL9189-54-15 05:45:00 Test Item Value Reference Range Interpretation Comments PT (test code = PT) 14.6 s 12.0-14.[address] [facility] [id number] 05:45:00 Test Item Value Reference Range Interpretation Comments ABO/Rh (test code = ABO/Rh) O POS [facility] [id number] 05:45:00 Test Item Value Reference Range Interpretation Comments Antibody Scrn (test Negative (12/23/15 code = Antibody Scrn) 12:45 AM) [facility] CenterZeyiuclFLIMEPZGSE1493-39-23 05:45:00 Test Item Value Reference Range Interpretation Comments INR (test code = INR) 1.11 0.85-1.17 [facility] CenterVsyxrzwSUUUAREFPZ7351-97-96 05:45:00 Test Item Value Reference Range Interpretation Comments PTT (test code = PTT) 32.6 s 22.9-35.8 [facility] CenterTxzafwuUZQVKWVKGZ0905-03-31 05:45:00 Test Item Value Reference Range Interpretation Comments PT (test code = PT) 14.6 s 12.0-14.7 [facility]icsNEXTA MediaEJJQHL1179-68-05 21:26:00 Test Item Value Reference Range Interpretation Comments Protein CSF (test code = Protein CSF) 298 15-45 [facility] [id number] 21:26:00 Test Item Value Reference Range Interpretation Comments Glucose CSF (test code = Glucose CSF) 53 45-80 [facility] [id number] 21:26:00 Test Item Value Reference Range Interpretation Comments Segs CSF (test code = 42 See_Comment [Auto mated message] The Segs CSF) system which ge nerated this result transmit craig reference range : <=6. The reference range was not used to interpr et this result as kita l/abnormal. [facility] [id number] 21:26:00 Test Item Value Reference Range Interpretation Comments Monocyte CSF (test code = Monocyte CSF) 28 15-45 [facility]2016-08-11 21:26:00 Test Item Value Reference Range Interpretation Comments Lymph CSF (test code = Lymph CSF) 30 40-80 [facility]2016-08-11 21:26:00 Test Item Value Reference Range Interpretation Comments Supernat CSF (test Hemolyzed *ABN*(12/22/15 code = Supernat CSF) 4:26 PM) [facility]2016-08-11 21:26:00 Test Item Value Reference Range Interpretation Comments WBC CSF (test code = 143 See_Comment [Autom ated message] The WBC CSF) system which ge nerated this result transmit craig reference range : <=53. The reference range was not used to interpr et this result as kita l/abnormal. [facility]2016-08-11 21:26:00 Test Item Value Reference Range Interpretation Comments RBC CSF (test code = 3500 See_Comment [Autom ated message] The RBC CSF) system which ge nerated this result transmit craig reference range : <=03. The reference range was not used to interpr et this result as kita l/abnormal. [facility]2016-08-11 21:26:00 Test Item Value Reference Range Interpretation Comments Clarity CSF (test code Moderate *ABN*(12/22/15 = Clarity CSF) 4:26 PM) [facility]2016-08-11 21:26:00 Test Item Value Reference Range Interpretation Comments Color CSF (test code = Red *ABN*(12/22/15 4:26 Color CSF) PM) [facility]2016-08-11 21:26:00 Test Item Value Reference Range Interpretation Comments Tube Num CSF (test xxxxxxx (12/22/15 4:26 code = Tube Num CSF) PM) [facility]2016-08-11 21:26:00 Test Item Value Reference Range Interpretation Comments Protein CSF (test code = Protein CSF) 298 15-45 [facility]2016-08-11 21:26:00 Test Item Value Reference Range Interpretation Comments Glucose CSF (test code = Glucose CSF) 53 45-80 [facility]2016-08-11 21:26:00 Test Item Value Reference Range Interpretation Comments Segs CSF (test code = 42 See_Comment [Auto mated message] The Segs CSF) system which ge nerated this result transmit craig reference range : <=6. The reference range was not used to interpr et this result as kita l/abnormal. [facility]2016-08-11 21:26:00 Test Item Value Reference Range Interpretation Comments Monocyte CSF (test code = Monocyte CSF) 28 15-45 [facility]2016-08-11 21:26:00 Test Item Value Reference Range Interpretation Comments Lymph CSF (test code = Lymph CSF) 30 40-80 [facility]2016-08-11 21:26:00 Test Item Value Reference Range Interpretation Comments Supernat CSF (test Hemolyzed *ABN*(12/22/15 code = Supernat CSF) 4:26 PM) [facility]2016-08-11 21:26:00 Test Item Value Reference Range Interpretation Comments WBC CSF (test code = 143 See_Comment [Autom ated message] The WBC CSF) system which ge nerated this result transmit craig reference range : <=53. The reference range was not used to interpr et this result as kita l/abnormal. [facility]2016-08-11 21:26:00 Test Item Value Reference Range Interpretation Comments RBC CSF (test code = 3500 See_Comment [Autom ated message] The RBC CSF) system which ge nerated this result transmit craig reference range : <=03. The reference range was not used to interpr et this result as kita l/abnormal. [facility]2016-08-11 21:26:00 Test Item Value Reference Range Interpretation Comments Clarity CSF (test code Moderate *ABN*(12/22/15 = Clarity CSF) 4:26 PM) [facility] [facility] 21:[facility]:00 Test Item Value Reference Range Interpretation Comments Color CSF (test code = Red *ABN*(12/22/15 4:26 Color CSF) PM) [facility]2016-08-11 21:26:00 Test Item Value Reference Range Interpretation Comments Tube Num CSF (test xxxxxxx (12/22/15 4:26 code = Tube Num CSF) PM) [facility]2016-08-11 21:26:00 Test Item Value Reference Range Interpretation Comments Protein CSF (test code = Protein CSF) 298 15-45 [facility]2016-08-11 21:26:00 Test Item Value Reference Range Interpretation Comments Glucose CSF (test code = Glucose CSF) 53 45-80 [facility]2016-08-11 21:26:00 Test Item Value Reference Range Interpretation Comments Segs CSF (test code = 42 See_Comment [Auto mated message] The Segs CSF) system which ge nerated this result transmit craig reference range : <=6. The reference range was not used to interpr et this result as kita l/abnormal. [facility]2016-08-11 21:26:00 Test Item Value Reference Range Interpretation Comments Monocyte CSF (test code = Monocyte CSF) 28 15-45 [facility]2016-08-11 21:26:00 Test Item Value Reference Range Interpretation Comments Lymph CSF (test code = Lymph CSF) 30 40-80 [facility]2016-08-11 21:26:00 Test Item Value Reference Range Interpretation Comments Supernat CSF (test Hemolyzed *ABN*(12/22/15 code = Supernat CSF) 4:26 PM) [facility]2016-08-11 21:26:00 Test Item Value Reference Range Interpretation Comments WBC CSF (test code = 143 See_Comment [Autom ated message] The WBC CSF) system which ge nerated this result transmit craig reference range : <=53. The reference range was not used to interpr et this result as kita l/abnormal. [facility]2016-08-11 21:26:00 Test Item Value Reference Range Interpretation Comments RBC CSF (test code = 3500 See_Comment [Autom ated message] The RBC CSF) system which ge nerated this result transmit craig reference range : <=03. The reference range was not used to interpr et this result as kita l/abnormal. [facility]2016-08-11 21:26:00 Test Item Value Reference Range Interpretation Comments Clarity CSF (test code Moderate *ABN*(12/22/15 = Clarity CSF) 4:26 PM) [facility]2016-08-11 21:26:00 Test Item Value Reference Range Interpretation Comments Color CSF (test code = Red *ABN*(12/22/15 4:26 Color CSF) PM) [facility]2016-08-11 21:26:00 Test Item Value Reference Range Interpretation Comments Tube Num CSF (test xxxxxxx (12/22/15 4:26 code = Tube Num CSF) PM) [id number] 05:41:00 Test Item Value Reference Range Interpretation Comments PTT (test code = PTT) 31.7 s 22.9-35.8 [facility]AbjnsgmKESAKFONVG7072-62-78 05:41:00 Test Item Value Reference Range Interpretation Comments PT (test code = PT) 13.9 s 12.0-14.7 [facility] CenterYsjuclcUYTVUMMJNP9712-49-61 05:41:00 Test Item Value Reference Range Interpretation Comments INR (test code = INR) 1.04 0.85-1.17 [facility] CenterJupgqapTLFYTTZGFJ2282-14-06 05:41:00 Test Item Value Reference Range Interpretation Comments PTT (test code = PTT) 31.7 s 22.9-35.8 [facility] CenterUlykkrmVZVMTVQWIR7952-05-71 05:41:00 Test Item Value Reference Range Interpretation Comments PT (test code = PT) 13.9 s 12.0-14.7 [facility] CenterIezfnjzYIVNYNVXPU3997-80-61 05:41:00 Test Item Value Reference Range Interpretation Comments INR (test code = INR) 1.04 0.85-1.17 [facility] CenterBlcwfpcRZNKWUZORS9792-81-96 05:41:00 Test Item Value Reference Range Interpretation Comments PTT (test code = PTT) 31.7 s 22.9-35.8 [facility] CenterEeouvvvBJQKDLNJBW6081-87-71 05:41:00 Test Item Value Reference Range Interpretation Comments PT (test code = PT) 13.9 s 12.0-14.7 [facility] CenterHgharzcPOGWSLBINF6209-25-23 05:41:00 Test Item Value Reference Range Interpretation Comments INR (test code = INR) 1.04 0.85-1.17 [facility] CenterAgavkbpWMAGUVGZCD2621-79-26 07:07:00 Test Item Value Reference Range Interpretation Comments INR (test code = INR) 1.03 0.85-1.17 [facility] CenterLrzgffsAEUMZBJWIB7035-26-63 07:07:00 Test Item Value Reference Range Interpretation Comments PTT (test code = PTT) 34.7 s 22.9-35.8 [facility] CenterMudwrudBSPFURRFMI8814-32-20 07:07:00 Test Item Value Reference Range Interpretation Comments PT (test code = PT) 13.8 s 12.0-14.7 [facility] CenterFnfoxecIQSSFFVSVI5210-29-75 07:07:00 Test Item Value Reference Range Interpretation Comments INR (test code = INR) 1.03 0.85-1.17 [facility] CenterKaidaqmCYAAUTNNDJ2525-41-51 07:07:00 Test Item Value Reference Range Interpretation Comments PTT (test code = PTT) 34.7 s 22.9-35.8 [facility] CenterKiyyltbITEOXCFSYZ0825-10-17 07:07:00 Test Item Value Reference Range Interpretation Comments PT (test code = PT) 13.8 s 12.0-14.7 [facility] CenterBvgvjhtPKLGLIXPKN9724-75-65 07:07:00 Test Item Value Reference Range Interpretation Comments INR (test code = INR) 1.03 0.85-1.17 [facility] CenterKecuviuLGHZCAOEBZ8572-89-48 07:07:00 Test Item Value Reference Range Interpretation Comments PTT (test code = PTT) 34.7 s 22.9-35.8 [facility] CenterYnkwateSTJPPSVHDU0633-81-97 07:07:00 Test Item Value Reference Range Interpretation Comments PT (test code = PT) 13.8 s 12.0-14.7 [facility] [id number] 03:56:00 Test Item Value Reference Range Interpretation Comments UA Glucose (test code = UA Negative mg/dL Glucose) [facility] AND [id number] 03:56:00 Test Item Value Reference Range Interpretation Comments UA Ketones (test code = UA Negative mg/dL Ketones) [facility] [id number] 03:56:00 Test Item Value Reference Range Interpretation Comments UA Bili (test code = Small *ABN*(12/19/15 UA Bili) 10:56 PM) [facility] [id number] 03:56:00 Test Item Value Reference Range Interpretation Comments UA Nitrite (test code Negative (12/19/15 10:56 = UA Nitrite) PM) [facility] AND [id number] 03:56:00 Test Item Value Reference Range Interpretation Comments UA Leuk Est (test Negative (12/19/15 10:56 code = UA Leuk Est) PM) [facility] AND [id number] 03:56:00 Test Item Value Reference Range Interpretation Comments UA RBC (test code = 2 See_Comment [Automa craig message] The UA RBC) system which ge nerated this result transmit craig reference range : <=2. The reference range was not used to interpr et this result as kita l/abnormal. [facility] [id number] 03:56:00 Test Item Value Reference Range Interpretation Comments UA Blood (test code = Negative (12/19/15 10:56 UA Blood) PM) [facility] [id number] 03:56:00 Test Item Value Reference Range Interpretation Comments UA Mucus (test code = UA Mucus) Few /LPF [facility] [id number] 03:56:00 Test Item Value Reference Range Interpretation Comments UA Amorph Michelle (test code = Occasional /HPF UA Amorph Michelle) [facility] AND [id number] 03:56:00 Test Item Value Reference Range Interpretation Comments UA Turbidity (test code Slight *ABN*(12/19/15 = UA Turbidity) 10:56 PM) [facility] AND [id number] 03:56:00 Test Item Value Reference Range Interpretation Comments UA Color (test code = Yellow *NA*(12/19/15 UA Color) 10:56 PM) [facility] [id number] 03:56:00 Test Item Value Reference Range Interpretation Comments UA Spec Grav (test code = UA Spec Grav) 1.013 [facility] AND [id number] 03:56:00 Test Item Value Reference Range Interpretation Comments UA pH (test code = UA pH) 7.0 5.0-8.0 [facility] [id number] 03:56:00 Test Item Value Reference Range Interpretation Comments UA Protein (test code = UA Protein) 30 mg/dL [facility] AND [id number] 03:56:00 Test Item Value Reference Range Interpretation Comments UA Sq Epi (test code = UA Sq Epi) None Seen [facility] AND [id number] 03:56:00 Test Item Value Reference Range Interpretation Comments UA Palmyra Yeast (test code = UA Occasional /HPF [place] Yeast) [facility] AND [id number] 03:56:00 Test Item Value Reference Range Interpretation Comments UA Hyph Yeast (test Occasional *ABN*(12/19/15 code = UA Hyph 10:56 PM) Yeast) [facility] AND [id number] 03:56:00 Test Item Value Reference Range Interpretation Comments UA Urobilinogen (test code = UA >=12.0 mg/dL 0.1-1.0 Urobilinogen) [facility] AND [id number] 03:56:00 Test Item Value Reference Range Interpretation Comments UA Glucose (test code = UA Negative mg/dL Glucose) [facility] AND [id number] 03:56:00 Test Item Value Reference Range Interpretation Comments UA Ketones (test code = UA Negative mg/dL Ketones) [facility] AND [id number] 03:56:00 Test Item Value Reference Range Interpretation Comments UA Bili (test code = Small *ABN*(12/19/15 UA Bili) 10:56 PM) [facility] AND [id number] 03:56:00 Test Item Value Reference Range Interpretation Comments UA Nitrite (test code Negative (12/19/15 10:56 = UA Nitrite) PM) [facility] AND [id number] 03:56:00 Test Item Value Reference Range Interpretation Comments UA Leuk Est (test Negative (12/19/15 10:56 code = UA Leuk Est) PM) [facility] AND [id number] 03:56:00 Test Item Value Reference Range Interpretation Comments UA RBC (test code = 2 See_Comment [Automa craig message] The UA RBC) system which ge nerated this result transmit craig reference range : <=2. The reference range was not used to interpr et this result as kita l/abnormal. [facility] AND [id number] 03:56:00 Test Item Value Reference Range Interpretation Comments UA Blood (test code = Negative (12/19/15 10:56 UA Blood) PM) [facility] AND [id number] 03:56:00 Test Item Value Reference Range Interpretation Comments UA Mucus (test code = UA Mucus) Few /LPF [facility] AND [id number] 03:56:00 Test Item Value Reference Range Interpretation Comments UA Amorph Michelle (test code = Occasional /HPF UA Amorph Michelle) [facility] AND [id number] 03:56:00 Test Item Value Reference Range Interpretation Comments UA Turbidity (test code Slight *ABN*(12/19/15 = UA Turbidity) 10:56 PM) [facility] AND [id number] 03:56:00 Test Item Value Reference Range Interpretation Comments UA Color (test code = Yellow *NA*(12/19/15 UA Color) 10:56 PM) [facility] AND [id number] 03:56:00 Test Item Value Reference Range Interpretation Comments UA Spec Grav (test code = UA Spec Grav) 1.013 [facility] AND [id number] 03:56:00 Test Item Value Reference Range Interpretation Comments UA pH (test code = UA pH) 7.0 5.0-8.0 [facility] [id number] 03:56:00 Test Item Value Reference Range Interpretation Comments UA Protein (test code = UA Protein) 30 mg/dL [facility] AND [id number] 03:56:00 Test Item Value Reference Range Interpretation Comments UA Sq Epi (test code = UA Sq Epi) None Seen [facility] AND [id number] 03:56:00 Test Item Value Reference Range Interpretation Comments UA Pal[place]ra Yeast (test code = UA Occasional /HPF [place] Yeast) [facility] AND [id number] 03:56:00 Test Item Value Reference Range Interpretation Comments UA Hyph Yeast (test Occasional *ABN*(12/19/15 code = UA Hyph 10:56 PM) Yeast) [facility] AND [id number] 03:56:00 Test Item Value Reference Range Interpretation Comments UA Urobilinogen (test code = UA >=12.0 mg/dL 0.1-1.0 Urobilinogen) [facility] AND [id number] 03:56:00 Test Item Value Reference Range Interpretation Comments UA Glucose (test code = UA Negative mg/dL Glucose) [facility] AND [id number] 03:56:00 Test Item Value Reference Range Interpretation Comments UA Ketones (test code = UA Negative mg/dL Ketones) [facility] AND [id number] 03:56:00 Test Item Value Reference Range Interpretation Comments UA Bili (test code = Small *ABN*(12/19/15 UA Bili) 10:56 PM) [facility] AND [id number] 03:56:00 Test Item Value Reference Range Interpretation Comments UA Nitrite (test code Negative (12/19/15 10:56 = UA Nitrite) PM) [facility] AND [id number] 03:56:00 Test Item Value Reference Range Interpretation Comments UA Leuk Est (test Negative (12/19/15 10:56 code = UA Leuk Est) PM) [facility] AND [id number] 03:56:00 Test Item Value Reference Range Interpretation Comments UA RBC (test code = 2 See_Comment [Automa craig message] The UA RBC) system which ge nerated this result transmit craig reference range : <=2. The reference range was not used to interpr et this result as kita l/abnormal. [facility] AND [id number] 03:56:00 Test Item Value Reference Range Interpretation Comments UA Blood (test code = Negative (12/19/15 10:56 UA Blood) PM) [facility] AND [id number] 03:56:00 Test Item Value Reference Range Interpretation Comments UA Mucus (test code = UA Mucus) Few /LPF [facility] AND [id number] 03:56:00 Test Item Value Reference Range Interpretation Comments UA Amorph Michelle (test code = Occasional /HPF UA Amorph Michelle) [facility] AND [id number] 03:56:00 Test Item Value Reference Range Interpretation Comments UA Turbidity (test code Slight *ABN*(12/19/15 = UA Turbidity) 10:56 PM) [facility] AND [id number] 03:56:00 Test Item Value Reference Range Interpretation Comments UA Color (test code = Yellow *NA*(12/19/15 UA Color) 10:56 PM) [facility] AND [id number] 03:56:00 Test Item Value Reference Range Interpretation Comments UA Spec Grav (test code = UA Spec Grav) 1.013 [facility] AND [id number] 03:56:00 Test Item Value Reference Range Interpretation Comments UA pH (test code = UA pH) 7.0 5.0-8.0 [facility] AND [id number] 03:56:00 Test Item Value Reference Range Interpretation Comments UA Protein (test code = UA Protein) 30 mg/dL [facility] AND [id number] 03:56:00 Test Item Value Reference Range Interpretation Comments UA Sq Epi (test code = UA Sq Epi) None Seen [facility] AND [id number] 03:56:00 Test Item Value Reference Range Interpretation Comments UA Palmyra Yeast (test code = UA Occasional /HPF [place] Yeast) [facility] AND [id number] 03:56:00 Test Item Value Reference Range Interpretation Comments UA Hyph Yeast (test Occasional *ABN*(12/19/15 code = UA Hyph 10:56 PM) Yeast) [facility] AND [id number] 03:56:00 Test Item Value Reference Range Interpretation Comments UA Urobilinogen (test code = UA >=12.0 mg/dL 0.1-1.0 Urobilinogen) [facility] AND [id number] 02:27:00 Test Item Value Reference Range Interpretation Comments UA Gran Cast (test code = UA Gran Cast) 6 [facility] AND [id number] 02:27:00 Test Item Value Reference Range Interpretation Comments UA Bacteria (test code = UA Occasional /HPF Bacteria) [facility] AND [id number] 02:27:00 Test Item Value Reference Range Interpretation Comments UA WBC (test code = 5 See_Comment [Automa craig message] The UA WBC) system which ge nerated this result transmit craig reference range : <=5. The reference range was not used to interpr et this result as kita l/abnormal. [facility] AND [id number] 02:27:00 Test Item Value Reference Range Interpretation Comments UA Hyal Cast (test 16 See_Comment [Automat ed message] The code = UA Hyal Cast) system which generated this result transmit craig reference range : <=2. The reference range was not used to interpr et this result as kita l/abnormal. [facility] AND [id number] 02:27:00 Test Item Value Reference Range Interpretation Comments UA Amorph Michelle (test code = Occasional /HPF UA Amorph Michelle) [facility] AND [id number] 02:27:00 Test Item Value Reference Range Interpretation Comments UA Gran Cast (test code = UA Gran Cast) 6 [facility] AND [id number] 02:27:00 Test Item Value Reference Range Interpretation Comments UA Bacteria (test code = UA Occasional /HPF Bacteria) [facility] [id number] 02:27:00 Test Item Value Reference Range Interpretation Comments UA WBC (test code = 5 See_Comment [Automa craig message] The UA WBC) system which ge nerated this result transmit craig reference range : <=5. The reference range was not used to interpr et this result as kita l/abnormal. [facility] [id number] 02:27:00 Test Item Value Reference Range Interpretation Comments UA Hyal Cast (test 16 See_Comment [Automat ed message] The code = UA Hyal Cast) system which generated this result transmit craig reference range : <=2. The reference range was not used to interpr et this result as kita l/abnormal. [facility] [id number] 02:27:00 Test Item Value Reference Range Interpretation Comments UA Amorph Michelle (test code = Occasional /HPF UA Amorph Michelle) [facility] [id number] 02:27:00 Test Item Value Reference Range Interpretation Comments UA Gran Cast (test code = UA Gran Cast) 6 [facility] [id number] 02:27:00 Test Item Value Reference Range Interpretation Comments UA Bacteria (test code = UA Occasional /HPF Bacteria) [facility] [id number] 02:27:00 Test Item Value Reference Range Interpretation Comments UA WBC (test code = 5 See_Comment [Automa craig message] The UA WBC) system which ge nerated this result transmit craig reference range : <=5. The reference range was not used to interpr et this result as kita l/abnormal. [facility] [id number] 02:27:00 Test Item Value Reference Range Interpretation Comments UA Hyal Cast (test 16 See_Comment [Automat ed message] The code = UA Hyal Cast) system which generated this result transmit craig reference range : <=2. The reference range was not used to interpr et this result as kita l/abnormal. [facility] [id number] 02:27:00 Test Item Value Reference Range Interpretation Comments UA Amorph Michelle (test code = Occasional /HPF UA Amorph Michelle) [facility] [id number] 17:08:00 Test Item Value Reference Range Interpretation Comments MRSA by PCR (test Negative (12/14/15 12:08 code = MRSA by PCR) PM) [facility] [id number] 17:08:00 Test Item Value Reference Range Interpretation Comments MRSA by PCR (test Negative (12/14/15 12:08 code = MRSA by PCR) PM) [facility] [id number] 17:08:00 Test Item Value Reference Range Interpretation Comments MRSA by PCR (test Negative (12/14/15 12:08 code = MRSA by PCR) PM) [facility] [id number] 10:54:00 Test Item Value Reference Range Interpretation Comments UDS Note (test code = See Note (12/14/15 5:54 UDS Note) AM) [facility] [id number] 10:54:00 Test Item Value Reference Range Interpretation Comments U Benzodia Scr (test Positive *ABN*(12/14/15 code = U Benzodia Scr) 5:54 AM) [facility] [id number] 10:54:00 Test Item Value Reference Range Interpretation Comments U Amph Scr (test code Negative *NA*(12/14/15 = U Amph Scr) 5:54 AM) [facility] [id number] 10:54:00 Test Item Value Reference Range Interpretation Comments U Mariola Scr (test code Negative *NA*(12/14/15 = U Mariola Scr) 5:54 AM) [facility] [id number] 10:54:00 Test Item Value Reference Range Interpretation Comments U Phencyc Scr (test Negative *NA*(12/14/15 code = U Phencyc Scr) 5:54 AM) [facility] [id number] 10:54:00 Test Item Value Reference Range Interpretation Comments U Opiate Scr (test Negative *NA*(12/14/15 code = U Opiate Scr) 5:54 AM) [facility] [id number] 10:54:00 Test Item Value Reference Range Interpretation Comments U Cannab Scr (test Negative *NA*(12/14/15 code = U Cannab Scr) 5:54 AM) [facility] [id number] 10:54:00 Test Item Value Reference Range Interpretation Comments U Cocaine Scr (test Negative *NA*(12/14/15 code = U Cocaine Scr) 5:54 AM) [facility] [id number] 10:54:00 Test Item Value Reference Range Interpretation Comments U Sodium (test code = U Sodium) 13 [facility] [id number] 10:54:00 Test Item Value Reference Range Interpretation Comments U Potassium (test code = U Potassium) 47.0 [facility] [id number] 10:54:00 Test Item Value Reference Range Interpretation Comments U Chloride (test code = U Chloride) 39 [facility] [id number] 10:54:00 Test Item Value Reference Range Interpretation Comments UDS Note (test code = See Note (12/14/15 5:54 UDS Note) AM) [facility] [id number] 10:54:00 Test Item Value Reference Range Interpretation Comments U Benzodia Scr (test Positive *ABN*(12/14/15 code = U Benzodia Scr) 5:54 AM) [facility] [id number] 10:54:00 Test Item Value Reference Range Interpretation Comments U Amph Scr (test code Negative *NA*(12/14/15 = U Amph Scr) 5:54 AM) [facility] [id number] 10:54:00 Test Item Value Reference Range Interpretation Comments U Mariola Scr (test code Negative *NA*(12/14/15 = U Mariola Scr) 5:54 AM) [facility] [id number] 10:54:00 Test Item Value Reference Range Interpretation Comments U Phencyc Scr (test Negative *NA*(12/14/15 code = U Phencyc Scr) 5:54 AM) [facility] [id number] 10:54:00 Test Item Value Reference Range Interpretation Comments U Opiate Scr (test Negative *NA*(12/14/15 code = U Opiate Scr) 5:54 AM) [facility] [id number] 10:54:00 Test Item Value Reference Range Interpretation Comments U Cannab Scr (test Negative *NA*(12/14/15 code = U Cannab Scr) 5:54 AM) [facility] [id number] 10:54:00 Test Item Value Reference Range Interpretation Comments U Cocaine Scr (test Negative *NA*(12/14/15 code = U Cocaine Scr) 5:54 AM) [facility] [id number] 10:54:00 Test Item Value Reference Range Interpretation Comments U Sodium (test code = U Sodium) 13 [facility] [id number] 10:54:00 Test Item Value Reference Range Interpretation Comments U Potassium (test code = U Potassium) 47.0 [facility] [id number] 10:54:00 Test Item Value Reference Range Interpretation Comments U Chloride (test code = U Chloride) 39 [facility] [id number] 10:54:00 Test Item Value Reference Range Interpretation Comments UDS Note (test code = See Note (12/14/15 5:54 UDS Note) AM) [facility] [id number] 10:54:00 Test Item Value Reference Range Interpretation Comments U Benzodia Scr (test Positive *ABN*(12/14/15 code = U Benzodia Scr) 5:54 AM) [facility] [id number] 10:54:00 Test Item Value Reference Range Interpretation Comments U Amph Scr (test code Negative *NA*(12/14/15 = U Amph Scr) 5:54 AM) [facility] [id number] 10:54:00 Test Item Value Reference Range Interpretation Comments U Mariola Scr (test code Negative *NA*(12/14/15 = U Mariola Scr) 5:54 AM) [facility] [id number] 10:54:00 Test Item Value Reference Range Interpretation Comments U Phencyc Scr (test Negative *NA*(12/14/15 code = U Phencyc Scr) 5:54 AM) [facility] [id number] 10:54:00 Test Item Value Reference Range Interpretation Comments U Opiate Scr (test Negative *NA*(12/14/15 code = U Opiate Scr) 5:54 AM) [facility] [id number] 10:54:00 Test Item Value Reference Range Interpretation Comments U Cannab Scr (test Negative *NA*(12/14/15 code = U Cannab Scr) 5:54 AM) [facility] [id number] 10:54:00 Test Item Value Reference Range Interpretation Comments U Cocaine Scr (test Negative *NA*(12/14/15 code = U Cocaine Scr) 5:54 AM) [facility] [id number] 10:54:00 Test Item Value Reference Range Interpretation Comments U Sodium (test code = U Sodium) 13 [facility] [id number] 10:54:00 Test Item Value Reference Range Interpretation Comments U Potassium (test code = U Potassium) 47.0 [facility] [id number] 10:54:00 Test Item Value Reference Range Interpretation Comments U Chloride (test code = U Chloride) 39 [facility] [id number] 06:07:00 Test Item Value Reference Range Interpretation Comments LDL (Calculated) (test code = LDL 122 (Calculated)) [facility] [id number] 06:07:00 Test Item Value Reference Range Interpretation Comments VLDL (test code = VLDL) 28 [facility] [id number] 06:07:00 Test Item Value Reference Range Interpretation Comments Trig (test code = Trig) 140 [facility] [id number] 06:07:00 Test Item Value Reference Range Interpretation Comments Chol (test code = Chol) 199 [facility] SowswkgHEXJEC9590-10-86 06:07:00 Test Item Value Reference Range Interpretation Comments HDL (test code = HDL) 49 [facility] [id number] 06:07:00 Test Item Value Reference Range Interpretation Comments CHD Risk (test code = CHD Risk) 4.06 4.00-7.30 [facility] [id number] 06:07:00 Test Item Value Reference Range Interpretation Comments Hgb A1C (test code = Hgb A1C) 5.4 [facility] [id number] 06:07:00 Test Item Value Reference Range Interpretation Comments U Osmolality (test code = U Osmolality) 301 300-800 [facility] [id number] 06:07:00 Test Item Value Reference Range Interpretation Comments U Amylase (test code = U Amylase) 52 [facility] NhvwbtvDNOOAR0008-08-30 06:07:00 Test Item Value Reference Range Interpretation Comments LDL (Calculated) (test code = LDL 122 (Calculated)) [facility] PyaufbfLOPBSF2506-33-32 06:07:00 Test Item Value Reference Range Interpretation Comments VLDL (test code = VLDL) 28 [facility]icsMqqbqdfTPQJUM9491-73-15 06:07:00 Test Item Value Reference Range Interpretation Comments Trig (test code = Trig) 140 [id number] 06:07:00 Test Item Value Reference Range Interpretation Comments Chol (test code = Chol) 199 [facility] HoustonEbcfcwnPSTESS3361-42-41 06:07:00 Test Item Value Reference Range Interpretation Comments HDL (test code = HDL) 49 [facility]icsVqeklnzUOILVR1515-06-16 06:07:00 Test Item Value Reference Range Interpretation Comments CHD Risk (test code = CHD Risk) 4.06 4.00-7.30 [facility] [id number] 06:07:00 Test Item Value Reference Range Interpretation Comments Hgb A1C (test code = Hgb A1C) 5.4 [facility] [id number] 06:07:00 Test Item Value Reference Range Interpretation Comments U Osmolality (test code = U Osmolality) 301 300-800 [facility] [id number] 06:07:00 Test Item Value Reference Range Interpretation Comments U Amylase (test code = U Amylase) 52 [facility] [id number] 06:07:00 Test Item Value Reference Range Interpretation Comments LDL (Calculated) (test code = LDL 122 (Calculated)) [facility] HoustonIuybtdmXFONFO9095-13-87 06:07:00 Test Item Value Reference Range Interpretation Comments VLDL (test code = VLDL) 28 [facility] HoustonRxlbqyeGPJTXH0975-97-95 06:07:00 Test Item Value Reference Range Interpretation Comments Trig (test code = Trig) 140 [facility]icsHsjdvuyXQJPHT7062-41-46 06:07:00 Test Item Value Reference Range Interpretation Comments Chol (test code = Chol) 199 [facility] HoustonWudipmiVQOZVW2361-76-06 06:07:00 Test Item Value Reference Range Interpretation Comments HDL (test code = HDL) 49 [facility] HoustonSxucdjvSDDXKJ7920-15-93 06:07:00 Test Item Value Reference Range Interpretation Comments CHD Risk (test code = CHD Risk) 4.06 4.00-7.30 [facility] [id number] 06:07:00 Test Item Value Reference Range Interpretation Comments Hgb A1C (test code = Hgb A1C) 5.4 [facility] [id number] 06:07:00 Test Item Value Reference Range Interpretation Comments U Osmolality (test code = U Osmolality) 301 300-800 [facility] [id number] 06:07:00 Test Item Value Reference Range Interpretation Comments U Amylase (test code = U Amylase) 52 [facility]2016-08-03 02:58:00 Test Item Value Reference Range Interpretation Comments Glucose CSF (test code = Glucose CSF) 70 45-80 [facility]2016-08-03 02:58:00 Test Item Value Reference Range Interpretation Comments Lactic Acid CSF (test code = Lactic 8.6 0.6-2.2 Acid CSF) [facility]2016-08-03 02:58:00 Test Item Value Reference Range Interpretation Comments Monocyte CSF (test code = Monocyte CSF) 3 15-45 [facility]2016-08-03 02:58:00 Test Item Value Reference Range Interpretation Comments Segs CSF (test code = 47 See_Comment [Auto mated message] The Segs CSF) system which ge nerated this result transmit craig reference range : <=6. The reference range was not used to interpr et this result as kita l/abnormal. [facility]2016-08-03 02:58:00 Test Item Value Reference Range Interpretation Comments Lymph CSF (test code = Lymph CSF) 50 40-80 [facility]2016-08-03 02:58:00 Test Item Value Reference Range Interpretation Comments Tube Num CSF (test xxxxxxx (12/13/15 9:58 PM) code = Tube Num CSF) [facility]2016-08-03 02:58:00 Test Item Value Reference Range Interpretation Comments Clarity CSF (test code Marked *ABN*(12/13/15 = Clarity CSF) 9:58 PM) [facility]2016-08-03 02:58:00 Test Item Value Reference Range Interpretation Comments Color CSF (test code = Red *ABN*(12/13/15 9:58 Color CSF) PM) [facility]2016-08-03 02:58:00 Test Item Value Reference Range Interpretation Comments WBC CSF (test code = 1944 See_Comment [Autom ated message] The WBC CSF) system which ge nerated this result transmit craig reference range : <=53. The reference range was not used to interpr et this result as kita l/abnormal. [facility] [id number] 02:58:00 Test Item Value Reference Range Interpretation Comments Supernat CSF (test code Xanthoch 2*ABN*(12/13/15 = Supernat CSF) 9:58 PM) [facility]2016-08-03 02:58:00 Test Item Value Reference Range Interpretation Comments RBC CSF (test code = 460460 See_Comment [Autom ated message] The RBC CSF) system which ge nerated this result transmit craig reference range : <=03. The reference range was not used to interpr et this result as kita l/abnormal. [facility] [id number] 02:58:00 Test Item Value Reference Range Interpretation Comments Glucose CSF (test code = Glucose CSF) 70 45-80 [facility] [id number] 02:58:00 Test Item Value Reference Range Interpretation Comments Lactic Acid CSF (test code = Lactic 8.6 0.6-2.2 Acid CSF) [facility] [id number] 02:58:00 Test Item Value Reference Range Interpretation Comments Monocyte CSF (test code = Monocyte CSF) 3 15-45 [facility] [id number] 02:58:00 Test Item Value Reference Range Interpretation Comments Segs CSF (test code = 47 See_Comment [Auto mated message] The Segs CSF) system which ge nerated this result transmit craig reference range : <=6. The reference range was not used to interpr et this result as kita l/abnormal. [facility] [id number] 02:58:00 Test Item Value Reference Range Interpretation Comments Lymph CSF (test code = Lymph CSF) 50 40-80 [facility] [id number] 02:58:00 Test Item Value Reference Range Interpretation Comments Tube Num CSF (test xxxxxxx (12/13/15 9:58 PM) code = Tube Num CSF) [facility]2016-08-03 02:58:00 Test Item Value Reference Range Interpretation Comments Clarity CSF (test code Marked *ABN*(12/13/15 = Clarity CSF) 9:58 PM) [facility] [id number] 02:58:00 Test Item Value Reference Range Interpretation Comments Color CSF (test code = Red *ABN*(12/13/15 9:58 Color CSF) PM) [facility]2016-08-03 02:58:00 Test Item Value Reference Range Interpretation Comments WBC CSF (test code = 1944 See_Comment [Autom ated message] The WBC CSF) system which ge nerated this result transmit craig reference range : <=53. The reference range was not used to interpr et this result as kita l/abnormal. [facility]2016-08-03 02:58:00 Test Item Value Reference Range Interpretation Comments Supernat CSF (test code Xanthoch 2*ABN*(12/13/15 = Supernat CSF) 9:58 PM) [facility]2016-08-03 02:58:00 Test Item Value Reference Range Interpretation Comments RBC CSF (test code = 454176 See_Comment [Autom ated message] The RBC CSF) system which ge nerated this result transmit craig reference range : <=03. The reference range was not used to interpr et this result as kita l/abnormal. [facility]2016-08-03 02:58:00 Test Item Value Reference Range Interpretation Comments Glucose CSF (test code = Glucose CSF) 70 45-80 [facility]2016-08-03 02:58:00 Test Item Value Reference Range Interpretation Comments Lactic Acid CSF (test code = Lactic 8.6 0.6-2.2 Acid CSF) [facility]2016-08-03 02:58:00 Test Item Value Reference Range Interpretation Comments Monocyte CSF (test code = Monocyte CSF) 3 15-45 [facility]2016-08-03 02:58:00 Test Item Value Reference Range Interpretation Comments Segs CSF (test code = 47 See_Comment [Auto mated message] The Segs CSF) system which ge nerated this result transmit craig reference range : <=6. The reference range was not used to interpr et this result as kita l/abnormal. [facility] [id number] 02:58:00 Test Item Value Reference Range Interpretation Comments Lymph CSF (test code = Lymph CSF) 50 40-80 [facility] ClinicsNEXTA [id number] 02:58:00 Test Item Value Reference Range Interpretation Comments Tube Num CSF (test xxxxxxx (12/13/15 9:58 PM) code = Tube Num CSF) [facility] [id number] 02:58:00 Test Item Value Reference Range Interpretation Comments Clarity CSF (test code Marked *ABN*(12/13/15 = Clarity CSF) 9:58 PM) [facility]2016-08-03 02:58:00 Test Item Value Reference Range Interpretation Comments Color CSF (test code = Red *ABN*(12/13/15 9:58 Color CSF) PM) [facility]icsDi[facility] [id number] 02:58:00 Test Item Value Reference Range Interpretation Comments WBC CSF (test code = 1944 See_Comment [Autom ated message] The WBC CSF) system which ge nerated this result transmit craig reference range : <=53. The reference range was not used to interpr et this result as kita l/abnormal. [facility]2016-08-03 02:58:00 Test Item Value Reference Range Interpretation Comments Supernat CSF (test code Xanthoch 2*ABN*(12/13/15 = Supernat CSF) 9:58 PM) [facility]2016-08-03 02:58:00 Test Item Value Reference Range Interpretation Comments RBC CSF (test code = 778436 See_Comment [Autom ated message] The RBC CSF) system which ge nerated this result transmit craig reference range : <=03. The reference range was not used to interpr et this result as kita l/abnormal. [facility]lakeAffinit[facility] GmbH [id number] 01:15:00 Test Item Value Reference Range Interpretation Comments POC Creatinine (test code = POC 1.1 0.5-1.4 Creatinine) [facility]lakeAllaniCHEM [id number] 01:15:00 Test Item Value Reference Range Interpretation Comments POC Creatinine (test code = POC 1.1 0.5-1.4 Creatinine) [facility]lakeAllaniCHEM [id number] 01:15:00 Test Item Value Reference Range Interpretation Comments POC Creatinine (test code = POC 1.1 0.5-1.4 Creatinine) [facility]icsCARDIAC [id number] 01:00:00 Test Item Value Reference Range Interpretation Comments CK MB Index (test 1.4 See_Comment [Automate d message] The code = CK MB Index) system w [facility] generated this result transmit craig reference range : <=2.5. The reference range was not used to interpr et this result as kita l/abnormal. [facility]2016-08-03 01:00:00 Test Item Value Reference Range Interpretation Comments Troponin-I (test code no gt See_Comment [Auto mated message] The = Troponin-I) system which g enerated this result transmit craig reference range : <=0.40. The reference r sagrario was not used to interpr et this result as kita l/abnormal. [facility]2016-08-03 01:00:00 Test Item Value Reference Range Interpretation Comments CK MB (test code = CK MB) 0.8 0.5-3.6 [facility]2016-08-03 01:00:00 Test Item Value Reference Range Interpretation Comments Total CK (test code = Total CK) 59 12-191 [facility]lakeQaxkntnRERRZWJDLE5171-35-42 01:00:00 Test Item Value Reference Range Interpretation Comments Ethanol Lvl (test code = Ethanol Lvl) 7 [id number] 01:00:00 Test Item Value Reference Range Interpretation Comments Etoh (%) (test code = Etoh (%)) 0.007 [facility]2016-08-03 01:00:00 Test Item Value Reference Range Interpretation Comments CK MB Index (test 1.4 See_Comment [Automate d message] The code = CK MB Index) system w [employer] generated this result transmit craig reference range : <=2.5. The reference range was not used to interpr et this result as kita l/abnormal. [facility]2016-08-03 01:00:00 Test Item Value Reference Range Interpretation Comments Troponin-I (test code no gt See_Comment [Auto mated message] The = Troponin-I) system which g enerated this result transmit craig reference range : <=0.40. The reference r sagrario was not used to interpr et this result as kita l/abnormal. [facility]2016-08-03 01:00:00 Test Item Value Reference Range Interpretation Comments CK MB (test code = CK MB) 0.8 0.5-3.6 [facility]lakeMemopalAC [id number] 01:00:00 Test Item Value Reference Range Interpretation Comments Total CK (test code = Total CK) 59 [facility] [id number] 01:00:00 Test Item Value Reference Range Interpretation Comments Ethanol Lvl (test code = Ethanol Lvl) 7 [facility] [id number] 01:00:00 Test Item Value Reference Range Interpretation Comments Etoh (%) (test code = Etoh (%)) 0.007 [facility]lakeMemopalAC [id number] 01:00:00 Test Item Value Reference Range Interpretation Comments CK MB Index (test 1.4 See_Comment [Automate d message] The code = CK MB Index) system w [facility] generated this result transmit craig reference range : <=2.5. The reference range was not used to interpr et this result as kita l/abnormal. [facility]lakeDefense[facility]Net2016-08-03 01:00:00 Test Item Value Reference Range Interpretation Comments Troponin-I (test code no gt See_Comment [Auto mated message] The = Troponin-I) system which g enerated this result transmit craig reference range : <=0.40. The reference r sagrario was not used to interpr et this result as kita l/abnormal. [facility]2016-08-03 01:00:00 Test Item Value Reference Range Interpretation Comments CK MB (test code = CK MB) 0.8 0.5-3.6 [facility]lake[facility]2016-08-03 01:00:00 Test Item Value Reference Range Interpretation Comments Total CK (test code = Total CK) 59 [facility] ClinicsGiwbnjoDRPLSEGBLQ7177-12-04 01:00:00 Test Item Value Reference Range Interpretation Comments Ethanol Lvl (test code = Ethanol Lvl) 7 [facility] [id number] 01:00:00 Test Item Value Reference Range Interpretation Comments Etoh (%) (test code = Etoh (%)) 0.007 Shena Son Notes Date/Time Note Provider Source 2016-04-18 EXAM[facility]00 DATE: 04/18/2016 INDICATION: ICH COMPARISON: Brain MRI dated 12/18/2015. Brain CT dated 12/26/2015 TECHNIQUE: Multiplanar, multisequence MRI of the brain without contrast. IV contrast: None. FINDINGS: There is no restricted diffu hailey. 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 There are hemosiderin deposits in the right thalamus, right periependymal white matter, and in the left occipital ho rn, in the areas of previous intracranial hemorrhage. 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 Confluent areas of high T2 s ignal in the periventricular and subcortical white matter, consistent with chronic microvascular ischemic changes remain similar in appearance as compared to the prior exam. The ventricles are prominent as are result of volume loss, with additional compensatory enlargement of the right lateral ventricle. The peripheral sulci are prominent as well. The vascular flow voids are normal. IMPRESSION: 1. Expected evolution of the hemorrhages in the right thalamus and right temporal lobe, with encephalomalacia and hemosiderin deposits. 2. Hemosiderin deposits in t he ventricles and in the bilateral parietal subarachnoid space. 3. Confluent chronic microvascular ischemic martin ges and volume loss. 2016-01-06 EXAM: XR CHEST 1 VIEW [facility] 17:30:00-00:00 DATE: 12/31/2015 2016, 1729 hours Center INDICATION: Abnormal chest sounds COMPARISON: 01/04/2016 TECHNIQUE: AP chest FINDINGS: Mild atelectasis is present in the left lung base, slightly increased from the previous radiograph. No pneumothorax or significant pleural effusion is seen. The heart size is normal. Aortic ectasia and calcifications are unchanged. IMPRESSION: Slightly increased mild atelectasis in the left lung base. 2016-01-04 [facility] DATE: 01/04/2016 Center INDICATION: Abnormal chest sounds . Comparison i s made with January 01 FINDINGS: Cardiomediastinal silhouette is stable . The lungs are clear except f or some platelike atelectasis at the left lung base medially. IMPRESSION: The lungs are cl ear except for some platelike atelectasis at the left lung base medially. 2016-01-02 EXAM: CT ABDOMEN AND PELVIS WITH CONTRAST [facility] 20:44:46-00:00 DATE: 01/02/2016 at 1949 hours C enter INDICATION: Abdominal distension ADDITIONAL INFORMATION: Sepsis COMPARISON: None TECHNIQUE: Volumetric CT acq uisition of the abdomen and pelvis after the intravenous administration contrast. Axial, coronal and sagittal reconstructions. Postcontrast phases: Venous and delayed. IV contrast: 114 mL Omnipaque 350 Oral contrast: None. DLP: 2541 mGy-cm (including CT chest) FINDINGS: Lines and tubes: Percutaneou s gastrostomy tube is present with balloon within the stomach. Lower thorax: Minimal right basilar subsegmental atelectasis. Liver: Normal. Biliary tree: No intra- or extrahepatic biliary ductal dilation. Gallbladder: Normal. No CT evidence of gallstone s. Pancreas: Normal. Spleen: Normal. Adrenals: Right adrenal glan d contains a 1.1 x 0.8 cm nodule with Hounsfield units of 3 consistent with a lipid rich adenoma. Kidneys and ureters: Normal. Bladder: Normal. Reproductive organs: No CT abnormality. Gastrointestinal tract: Normal caliber. Appendix: Normal. Peritoneum and retroperitone um: No ascites or free air. No other fluid collection. Lymph nodes: Mildly prominent, 6 mm left externa l iliac node Vasculature: Moderate athero sclerotic calcifications of the aorta are noted. Bilateral external iliac artery grafts arise from the distal aorta. Bones: No acute osseous abnormality. Mild degene rative changes are present. Soft tissues: Fat-containing ventral hernia is seen at the left lateral border of the anterior abdominal wall hernia mesh. Percutaneous gastrostomy tube is present with only minimal postprocedural surro unding fat stranding. Also n oted is hyperdensity within the left obturator internus muscle which does not change on delayed imaging most consistent with early heterotopic ossification. Areas of subcutan eous air noted in the anteri or abdominal wall subcutaneous fat likely from injections. IMPRESSION: 1. No acute abnormality within the abdomen or pe lvis. 2. Postoperative changes from percutaneous gastr ostomy tube. 3. Left lateral abdominal wa ll fat-containing ventral hernia adjacent to anterior abdominal wall hernia mesh. 4. Hyperdensity within the l eft obturator internus muscle likely represents early heterotopic ossification. 5. Benign right lipid rich adrenal adenoma. 2016-01-02 EXAM: CTA CHEST WITH CONTRAST [facility] 20:44:46-00:00 DATE: 01/02/2016 11:[address] INDICATION: Shortness of Breath COMPARISON: None available. TECHNIQUE: Volumetric CT acq uisition of the chest, during pulmonary arterial phase, after intravenous contrast. Axial, sagittal, coronal, and oblique MIP reconstructions are created at the acquisition workstation. IV Contrast: 114 mL Omnipaque 350 DLP: 2541 mGy-cm for chest, abdomen, and pelvis. FINDINGS: Lines and tubes: None Lower neck: Unremarkable. Heart and Mediastinum: Cardi othoracic ratio measures 11.5/25.7. The aortic root is mildly dilated measuring 4.1 cm in maximum dimension. At the same level where the ascending aorta measures 3.3 cm the p ulmonary trunk measures 2.1 cm. Atherosclerotic calcification of the left main coronary artery, left anterior descending, and left circumflex arteries is seen. There is calcification of the aortic arch and descending aorta. There is no pulmonary embolus. Pleura: There is no pleural effusion or pneumoth orax. Lymph Nodes: Multiple calcif ied lymph nodes are seen in the left hilar region and mediastinum. There is no hilar, mediastinal, axillary or internal mammary lymphadenopathy. Lungs: There is mild centril obular emphysema. No consolidation is seen. Fibrosis is seen at the lung apices. A nodule is seen in the left upper lobe (series 7, image 68) measuring approximately 3.7 mm. Trachea: Small amount of secretions are seen in the trachea. Upper abdomen: Unremarkable. Bones and soft tissues: Bilateral gynecomastia. Otherwise unremarkable. IMPRESSION: 1. No evidence of pulmonary embolus. 2. Centrilobular emphysema. 3. Pulmonary nodule in the left upper lobe measu ring approximately 3.7 mm. 4. Mild dilation of the aortic root. 5. Calcified mediastinal and left hilar lymph nodes, suggestive of previous granulomatous infection. 6. Fibrotic changes in bilateral apices. 7. Atherosclerotic calcification of the aorta an d coronary arteries. RECOMMENDATIONS: Follow-up C T is recommended in 12 months for incidental left upper lobe nodule measuring less than 4 mm in high risk patient. 2016-01-02 EXAM: US BILATERAL LOWER EXTREMITY VENOUS DOPPLE R [facility] 10:00:00-00:00 DATE: 01/02/2016 6:52 AM CDT Cent er INDICATION: Pain, Limb ADDITIONAL INFORMATION: None. COMPARISON: None. TECHNIQUE: Multiplanar naren jorge, color Doppler and spectral Doppler ultrasound of the bilateral lower extremity veins. FINDINGS: Right Thigh Veins: Common Femoral: Patent. Femoral (SFV): Patent. Popliteal: Patent. Proximal Greater Saphenous: Patent. Deep Femoral Veins: Patent. Left Thigh Veins: Common Femoral: Patent. Femoral (SFV): Patent. Popliteal: Patent. Proximal Greater Saphenous: Patent. Deep Femoral Veins: Patent. Other: None. IMPRESSION: No deep venous thrombosis (DVT). 2016-01-02 EXAM: XR CHEST 1 VIEW [facility] 04:00:00-00:00 DATE: 01/02/2016 2:55 AM CDT [facility] er INDICATION: Cough and fever. FINDINGS: Comparison is made to December 28. The cardiomediastinal silhou ette is stable. The lungs are clear. The costophrenic sulci are sharp, without effusions. IMPRESSION: The lungs are clear. 2015-12-29 EXAM: XR ABDOMEN 1 VIEW [facility] 15:00:00-00:00 DATE: 12/29/2015 2:14 PM CDT [facility] er INDICATION: Abdominal distension ADDITIONAL INFORMATION: Large residuals from tub e for documentation. COMPARISON: Abdominal radiograph 12/19/2015 TECHNIQUE: AP view of the abdomen. FINDINGS: Lines, tubes and hardware: I nterval removal of NG suction tube and NG feeding tube. Interval placement of PEG tube overlying epigastric region. Lower thorax: Unremarkable where visualized. Bowel: Gaseous distention of the stomach, and large bowel. No definite small bowel dilatation in the visualized abdomen. Other abdominal organs: No abnormal mass or orga nomegaly seen. Calcifications: No abnormal calcifications found . Bones: No acute abnormality. Extraabdominal soft tissues: Unchanged appearance of overlying surgical sarah. IMPRESSION: 1. Post placement of PEG tube epigastric region. 2. Gaseous distention of the stomach. 3. Gaseous distention of the large bowel may rep resent ileus. 2015-12-29 EXAM: US ABDOMEN LIMITED [facility] 07:50:00-00:00 DATE: 12/29/2015 6:46 AM CDT Cent er INDICATION: Abnormal LFTs. COMPARISON: None. TECHNIQUE: Multiplanar naren jorge and color Doppler ultrasound of the right upper quadrant. FINDINGS: Liver: Craniocaudal length: 14.8 cm. Echogenicity: Normal. Surface: Normal. Mass (size and location): None. Portal vein: Normal measuring 1.1 cm. Normal hep atopedal flow. Bile ducts: Common bile duct diameter: 0.46 cm. Intrahepatic ducts: Normal. Gallbladder: Abnormal. Gallstones: None. Gallbladder sludge: Present. Gallbladder wall: 0.2 cm. Pericholecystic fluid: None. Sonographic Meyers sign: Absent. Pancreas: Head and uncinate process: N ormal pancreatic head. Uncinate process was not seen. Body and tail: Normal pancreatic body. Pancreati c tail not seen. Spleen: Normal. Right kidney: Size: 11.1 x 5 x 5.7 cm. Hydronephrosis: None. Echogenicity: Normal. Calculi: None. Cysts/Masses: None. Ascites: None. Other: None. IMPRESSION: Gallbladder sludge, without cholecystitis. No focal hepatic lesions. 2015-12-29 EXAM: XR CHEST 1 VIEW [facility] 06:38:00-00:00 DATE: 12/29/2015 6:24 AM CDT [facility] er INDICATION: Abnormal chest sounds COMPARISON: 12/25/2015 FINDINGS: The cardiomediastinal silhou ette is stable. While evaluation is limited given semi-erect positioning, no distinct pneumothorax is identified. There is improved aeration of the left lung base suggesting near-complete resolution of pleural fluid and/or atelectasis. Minimal subsegmental atelectasis in the left lung base remains. IMPRESSION: Improved aeration of left ayde ng base with minimal subsegmental atelectasis remaining. 2015-12-26 EXAM: CT BRAIN WITHOUT CONTRAST [facility] 12:49:00-00:00 DATE: 12/26/2015 at 12:[address] [facility] er INDICATION: Weakness. Intracranial hemorrhage. COMPARISON: December 21, and 2015. TECHNIQUE: Routine axial CT images of the brain were obtain ed IV contrast: None. DLP: 1272 mGy-cm FINDINGS: Non-contrast images of the head demonstrate: No new areas of hemorrhage. There is evolving hematoma i n the right temporal lobe with surrounding vasogenic edema and local mass effect. Evolving changes of intraventricular hemorrhage again noted. Ventricular size remains sta ble status post removal of external ventricular drain. Redistribution subarachnoid hemorrhage again not ed. IMPRESSION: 1. Stable size of ventricles status post removal of external ventricular drain. 2. Evolving changes of right temporal lobe hematoma and intraventricular hemorrhage. 2015-12-25 EXAM: XR CHEST 1 VIEW [facility] 12:14:00-00:00 DATE: 12/25/2015 11:[address] INDICATION: Abnormal chest sounds COMPARISON: 12/22/2015 at 0321. TECHNIQUE: AP chest FINDINGS: Lines and tubes: Patient has been extubated. No lines visualized. Lungs and pleura: There is n ew left lower lobe/left retrocardiac opacity, likely representing atelectasis. Airspace consolidation or small layering pleural fluid difficult to exclude. Heart and mediastinum: Stable mediastinal contou rs. IMPRESSION: 1. New left retrocardiac opacity as described. 2015-12-22 EXAM: CT BRAIN WITHOUT CONTRAST [facility] 12:14:00-00:00 DATE: 12/22/2015 12:03 Center INDICATION: bleeding COMPARISON: Head CT 12/20/2015 TECHNIQUE: Noncontrast axial imaging of the brain was acquired from the vertex to the skull base. Study is somewhat limited due to motion artifact. DLP: 3314mGy-cm FINDINGS: Evolving right temporal gertrude lexus without significant change, with stable mild surrounding edema. Extent of intraventricular h emorrhage, again demonstrated to be greatest in the right lateral ventricle, not greatly changed, with stable ventricular size. Trace subarachnoid hemorrhage again demonstrated . No definitive new parenchymal abnormality. Diffu se microangiopathic changes. Stable positioning of the left frontal ventricul ostomy catheter. Midline remains slightly shifted to the left. IMPRESSION: Evolving hemorrhage. No adverse inte rval change. 2015-12-22 EXAM: XR CHEST 1 VIEW [facility] 03:15:00-00:00 DATE: 12/22/2015 Center INDICATION: Abnormal chest sounds . Comparison i s made with yesterday FINDINGS: Cardiomediastinal silhouette and life-support lines are stable. Costophrenic sulci are sharp. The lungs are clear IMPRESSION: No significant interval change when compared to prior radiograph. 2015-12-21 EXAM: XR CHEST 1 VIEW [facility] 03:20:00-00:00 DATE: 12/21/2015 3:00 AM CDT Cent er INDICATION: Abnormal chest sounds COMPARISON: Yesterday. TECHNIQUE: AP chest FINDINGS: Lines and tubes: ET tube tip is 5.3 cm above the rosalie. Nasogastric and Dobbhoff tubes again seen. Lungs and pleura: No pulmonary or pleural based abnormality is identified. Heart and mediastinum: Stable mediastinal contou rs. Bones and Soft Tissues: No significant changes. IMPRESSION: 1. No significant changes. 2015-12-20 EXAM: US BILATERAL UPPER EXTREMITY VENOUS DOPPLE R [facility] 11:00:00-00:00 EXAM: US BILATERAL LOWER EXTREMITY VENOUS DOPPLE R Center DATE: 12/20/2015 9:27 AM CDT INDICATION: Pain in limb COMPARISON: None. TECHNIQUE: Multiplanar naren jorge, color Doppler and spectral Doppler ultrasound of the bilateral upper and lower extremity veins. FINDINGS: Right Upper Extremity Veins: Internal Jugular: Patent. Subclavian: Unable to visual ize right subclavian vein due to line placement and bandages. Axillary: Patent. Brachial: Patent. Basilic: Patent. Cephalic: Patent. Left Upper Extremity Veins: Internal Jugular: Patent. Subclavian: Patent. Axillary: Patent. Brachial: Proximal brachial veins are patent. Unable to visualize the mid and distal tracheal veins due to overlying bandages. Basilic: Unable to visualize basilic vein due to overlying bandages. Cephalic: Unable to visualize cephalic vein due to overlying bandages. Right Thigh Veins: Common Femoral: Patent. Femoral (SFV): Patent. Popliteal: Patent. Proximal Greater Saphenous: Patent. Deep Femoral Veins: Patent. Left Thigh Veins: Common Femoral: Patent. Femoral (SFV): Patent. Popliteal: Patent. Deep Femoral Veins: Patent. Other: None. IMPRESSION: Limited evaluation as the ri t subclavian vein, left mid to distal brachial veins, basilic and cephalic veins could not be evaluated due to overlying bandages. Within this limitation, no evidence of deep venous thrombosis. 2015-12-20 EXAM: CT HEAD WITHOUT CONTRAST [facility] 08:54:43-00:00 DATE: 12/20/2015 08:59 Center INDICATION: 70 year old male patient with history of bleeding, follow right- sided parenchymal bleed.. TECHNIQUE: Multiple axial im ages were obtained through the head from vertex to the skull base. Axial bone algorithm reconstruction images are provided. Exam is limited due to motion artifact. COMPARISON: Head CT 12/19/2015 FINDINGS: The previously seen parenchy mal hemorrhage within the right temporal lobe is unchanged in size and appearance, with similar amount of associated edema. Intraventricular hemorrhage within the right great er than left lateral ventric les appear stable. Left trans-frontal ventriculostomy catheter is unchanged in position with tip terminating in the right frontal horn. Minimal scattered subarachnoid hemorrhage. Right to left midline shift is unchanged, measuring 7 mm at the level of the 3rd ventricle. Moderate to marked periventricular white matter changes are present, indicative of chronic microvascular ischemia. Basal cisterns are well pres erved. There is no evidence of downward herniation. Calvarium is intact with exception of matt holes . Stable moderate opacificatio n of the sphenoid sinus. Small air-fluid level in the left maxillary sinus. Mastoid air cells are well aerated. Visualized orbits appear grossly unremarkable. IMPRESSION: 1. Stable right temporal par enchymal hemorrhage with intraventricular extension and scattered subarachnoid hemorrhage. Evolving scattered subarachnoid hemorrhage. Unchanged right to left midline shift. 2015-12-20 EXAM: XR CHEST 1 VIEW [facility] 03:19:00-00:00 DATE: 12/20/2015 3:00 AM CDT [facility] INDICATION: Altered level of consciousness. FINDINGS: Comparison is made to yesterday yelena waters. The cardiomediastinal silhou ette is stable. Life support lines and tubes remain in place. The lungs are clear. There are no pleural effusions IMPRESSION: The lungs are clear. 2015-12-19 EXAM: CT HEAD WITHOUT CONTRAST [facility] 13:15:00-00:00 DATE: 12/19/2015 13:11 Center INDICATION: 70 year old male patient with history of altered level of consciousness. TECHNIQUE: Multiple axial im ages were obtained through the head from vertex to the skull base. Axial bone algorithm reconstruction images are provided. COMPARISON: CT brain 12/17/2015 FINDINGS: The right temporal parenchym al hemorrhage appears unchanged, with similar appearance of surrounding edema. Intraventricular hemorrhage which is most prominent in the right lateral ventricle also appears unchanged. Mild scattered subarachnoid hemorrha ge is still present. The left transient frontal v entriculostomy catheter remains in place with the tip terminating in the right frontal horn. Ventricle size is unchanged from prior study. Periventricular white matter shows scattered punctate hypodensities consistent with chronic microvascular infarcts. Basal cisterns are well pres erved. There is no evidence of downward herniation. Calvarium is intact with exception of matt holes . Stable left sphenoid sinus m oderate opacification. Mastoid air cells are well aerated. Visualized orbits appear grossly unremarkable. IMPRESSION: 1. Stable right temporal hemorrhage with intrave ntricular extension. 2. Stable mild scattered subarachnoid hemorrhage . 3. Stable ventricular size. 2015-12-19 EXAM: XR ABDOMEN 1 VIEW [facility] 12:06:00-00:00 DATE: 12/19/2015 10:00 AM CDT Cent er INDICATION: Abdominal distension ADDITIONAL INFORMATION: None. COMPARISON: Radiographs of the abdomen TECHNIQUE: AP view of the abdomen. FINDINGS: Lines, tubes and hardware: T ip of right central venous catheter is in the distal superior vena cava, unchanged. Feeding tube is located in the distal stomach. Suction is located in the proximal stomach. Lower thorax: Unremarkable where visualized. Bowel: Nonobstructive bowel gas pattern. No dila craig loops of bowel. Other abdominal organs: No abnormal mass or orga nomegaly seen. Calcifications: No abnormal calcifications found . Bones: No acute abnormality. Extraabdominal soft tissues: Unchanged appearance of overlying surgical sarah. IMPRESSION: 1. Feeding tube tip in dista l stomach. Suction tube tip in proximal stomach, with sidehole likely in the esophageal junction. Recommend advancement. 2. No signs of bowel obstruction. 2015-12-19 [facility] DATE: 12/19/2015 3:00 AM CDT Cente r INDICATION: Abnormal chest sounds COMPARISON: Chest radiograph dated 12/18/2015 TECHNIQUE: AP chest IMPRESSION: 1. Endotracheal tube termina ellis approximately 3.8 cm above the rosalie. Enteric tubes and right subclavian venous line without interval changes. 2. Both lungs are clear. Cos tophrenic recesses are sharp. Cardiomediastinal silhouette within normal limits for technique. No acute osseous abnormalities. 2015-12-18 EXAM: MRI BRAIN WITH AND WITHOUT CONTRAST [facility] 10:00:00-00:00 DATE: 12/18/2015 7:49 AM CDT Cente r INDICATION: Altered level of consciousness COMPARISON: CT brain December 17, 2015. TECHNIQUE: Multiplanar, mult isequence non-contrast MRI images of the brain. Multiplanar imaging is subsequently obtained following intravenous gadolinium contrast. IV contrast: 17 cc Dotarem FINDINGS: The right temporal parenchym al hematoma demonstrates mild peripheral enhancement along its inferior anterior margin and superior margin. There is no suggestion of underlying enhancing mass lesion. The h ematoma and intraventricular extension of hemorrhage is grossly stable from comparison CT. 9 mm leftward midline shift is unchanged. There is stable mild entrapment of the right temporal horn and overal l ventricular size is stable with unchanged position of the left transverse frontal EVD. Punctate foci of diffusion r estriction in the right cerebellar hemisphere. No evidence of acute infarction in the supratentorial brain. Numerous patchy and subcorti bipin FLAIR hyperintensities within the supratentorial brain most suggestive of advanced chronic microangiopathic changes. Major intracranial flow voids are preserved. IMPRESSION: 1. Areas of mild peripheral enhancement around the right temporal hematoma without suggestion of underlying mass lesion. 2. Punctate foci of diffusio n restriction in the right cerebellar hemisphere suggestive of small embolic infarcts. 3. Overall stable size of ri ght temporal hematoma with intraventricular extension and 9 mm leftward midline shift. 4. Severe chronic microangiopathic changes. 2015-12-18 EXAM: XR CHEST 1 VIEW [facility] 04:16:00-00:00 DATE: 12/18/2015 3:00 AM CDT Cente r INDICATION: Abnormal chest sounds. FINDINGS: Comparison is made to yesterday. The cardiomediastinal silhou ette is stable. Life support lines and tubes remain in place. The lungs are clear. There is a trace residual right pneumothorax. No pleural effusions are seen. IMPRESSION: 1. The lungs are clear. 2. Trace residual right pneumothorax. 2015-12-17 CT HEAD WITHOUT CONTRAST [facility] 21:45:00-00:00 Center DATE: 12/17/2015 at 9:45 PM. COMPARISON: 12/13/2015. HISTORY: Bleeding. TECHNIQUE: Contiguous axial images of the brain were obtained without intravenous contrast administration. Sagittal and coronal reformats were also provided. DLP: 1227.83 mGy-cm. FINDINGS: The prior study a left trans frontal ventriculostomy has been placed with tip ending in the right frontal horn. There has been improvement of the hydrocephalus with decrease in the size of the lateral ve ntricles, particularly the r ight frontal horn. Extensive intraventricular hemorrhage is again noted with blood within all 4 ventricles more prominent within the right lateral Mass effect with 6 mm of rig ht-to-left shift of the septum pellucidum is not significantly changed.. There is a small focus of pa renchymal hemorrhage within the right medial temporal lobe (series 4 image 19). Subarachnoid hemorrhage is n ow noted within the bilateral frontal and parietal sulci, progressed from the previous study. Low density is again noted w ithin the periventricular white matter consistent with chronic small vessel ischemic disease. Again noted is prominence of the cortical sulci, fissures, cisterns and ventricl es consistent with cortical atrophy appropriate for the patient's stated age of 70 years. Atherosclerotic calcificatio n is noted within the lamb of the bilateral cavernous internal carotid arteries. IMPRESSION: 1. Interval placement of lef t transfrontal ventriculostomy with improvement of hydrocephalus. X line 2. Bilateral intraventricula r hemorrhage most prominent within the right lateral ventricle. There is mass effect with 6 mm of [id number] shift of the septum pellucidum. 3. Small parenchymal hemorrhage within the media l right temporal lobe. 4. Slight progression of bilateral subarachnoid hemorrhage. 5. Age related volume loss. 6. White matter hypodensity consistent with chronic small vessel ischemic disease. 2015-12-17 EXAM: XR CHEST 1 VIEW [facility] 04:45:00-00:00 DATE: 12/17/2015 3:00 AM CDT Cente r INDICATION: Altered level of consciousness. FINDINGS: Comparison is made yesterday morning. The cardiomediastinal silhou ette is stable. Life support lines and tubes remain in place. The lungs are clear. No pleu ral effusions are identified. There is a small right apical pneumothorax. IMPRESSION: 1. Small right apical pneumothorax. This should be followed for clearing. 2. The lungs are clear. 2015-12-16 EXAM: XR CHEST 1 VIEW [facility] 08:58:00-00:00 DATE: 12/16/2015 7:20 AM CDT Cente r INDICATION: Crackles. FINDINGS: Comparison is made to December 13. The cardiomediastinal silhou ette is stable. The lungs are clear. No pleural effusions are identified. A Dobbhoff feeding tube has been inserted. Otherwise support lines and tubes remain in place. IMPRESSION: The lungs are clear. 2015-12-15 EXAM: XR ABDOMEN 1 VIEW [facility] 17:47:35-00:00 DATE: 12/15/2015 4:14 PM CDT Cente r INDICATION: Abdominal distension TECHNIQUE: AP view of the abdomen. FINDINGS: Compared with 12/14/2015. The tips of the feeding tube and NG tube are in the distal stomach. A central venous line tip is in the distal SVC and unchanged. There is no change in appearance of multiple surgical sarah project ov er the abdomen. A midline li near density in the pelvis is consistent with a Danielson catheter. There are no dilated loops o f large or small bowel. Gas is present in the rectum and are normal fashion. IMPRESSION: 1. The feeding tube tip is i n the distal stomach; recommend advancement. The NG tube is in good position. 2015-12-14 EXAM: XR ABDOMEN 1 VIEW [facility] 20:06:00-00:00 DATE: 12/14/2015 7:38 PM CDT Cente r INDICATION: Tube placement/removal/reposition ADDITIONAL INFORMATION: None. COMPARISON: None. TECHNIQUE: Sequential AP views of the abdomen. 4 images obtained. FINDINGS: Lines and tubes: Feeding tub e in the initial images in place with tip curved in the superior aspect of the gastric fundus. On subsequent images the feeding tube is advanced into the distal gastric body. A nasogastric tube present on the initial image is removed by the final image. Partially visualized right sided central venous catheter. Lower thorax: Unremarkable where visualized. Bowel: Nonobstructive bowel gas pattern. Solid organs: No abnormal mass or organomegaly s een. Calcifications: No abnormal calcifications found . Bones: No acute abnormality. IMPRESSION: 1. Tubes, as above. 2. Nonobstructive bowel gas pattern. 2015-12-14 EXAM: CT BRAIN [facility] 17:19:00-00:00 DATE: 12/14/2015 at 17:29 Center CLINICAL INFORMATION: Weakness COMPARISON: CT brain 12/13/2015 TECHNIQUE: Axial images of t he brain were obtained from the skull base through the vertex without contrast material administration. DLP: 783.90 mGycm DISCUSSION: Interval placement of a left frontal EVD catheter crossing the midline and ending in the right lateral ventricle. Interval decrease in the ventricular volume. Stable intraventricular hemorrhage. Subarac hnoid hemorrhage in both cer ebral hemispheres and within the interpeduncular cistern due to re circulation of the intraventricular hemorrhage. Evolving hematoma in the right temporal lobe. Small amount of postoperative pneumocephalus along the left f rontal convexity. IMPRESSION: Interval placement of a left frontal EVD catheter with decrease in the ventricular volume. Stable intraventricular hemo rrhage and right temporal parenchymal hematoma with interval development of subarachnoid hemorrhage due to recirculation. 2015-12-14 [facility]: [facility] DATE: 12/14/2015 3:00 AM CDT Cente r INDICATION: Abnormal chest sounds. FINDINGS: Comparison is made to yesterday. The cardiomediastinal silhou ette is stable. The lungs are clear and well- expanded. There are no pleural effusions. A new right subclavian centr al venous catheter has its tip in the distal SVC approaching the atriocaval junction. Other life-support lines and tubes remain in place. IMPRESSION: New right subclavian SVC. 2015-12-13 EXAM: CTA BRAIN [facility] 22:56:08-00:00 EXAM: CTA NECK Center DATE: 12/13/2015 at 10:49 PM CDT INDICATION: Bleeding COMPARISON: CT brain 12/13/2015 at 8:11 PM TECHNIQUE: Rapid acquisition spiral CT images of the brain and neck were obtained between the aortic arch and the cranial vertex during intravenous infusion of iodinated contrast for the purposes of CT angiography . 3-D CT angiographic images are created using MIP technique at the acquisition workstation. The source images are also presented for interpretation. IV contrast: 60 cc of Visipaque 320. DLP: 1320 mGy-cm FINDINGS: NECK CTA: Aortic arch: Atherosclerotic calcification is noted within the wall of the aortic arch, the proximal right innominate, and proximal left subclavian arteries without stenosis. The right innominate and le ft common carotid arteries a rise from a common trunk, a bovine type arch, a normal variant.. No origin stenosis is identified. Soft plaque is noted at the origin of the right vertebral artery with appro ximately 60% diameter stenosis. The left vertebr al artery origin is patent. Carotid arteries: The cervic al common carotid arteries and cervical internal carotid arteries have a normal course, caliber, and contour. A small calcified plaque is noted within the left common carotid artery without stenosis. No hemodynamically significant stenosis of the carotid bifurcations or internal carotid arteries is present by NASCET criteria. There is no vascular injury. Vertebral arteries: The vert ebral arteries have a normal course, caliber and contour. The soft tissues of the neck and other incidental structures are normal. Mediastinal lymph nodes with calcifications are noted consistent with prior granulomatous infection. BRAIN CTA: Atherosclerotic calcificatio n is noted within the wall of the right cavernous internal carotid artery without stenosis. The anterior and posterior circulations have a normal appearance and a standard br anching pattern. No branch o cclusion, vascular injury, arteritis, vascular malformation or aneurysm is identified. The deep cerebral veins and major venous sinuses are normal. Extensive intraventricular h emorrhage is again noted more prominent on the right. A left transfrontal ventriculostomy has been placed with the tip ending in the right frontal horn. No soft tissue pneumocephalus is noted anteriorly.. IMPRESSION: 1. No intracranial aneurysm or vascular malforma tion. 2. No carotid bifurcation stenosis. 3. Soft plaque of the proxim al right vertebral artery with approximately 60% diameter stenosis. 4. Calcified plaque of the l eft common carotid artery, and right cavernous internal carotid artery without stenosis. 5. Partially calcified media stinal lymph nodes consistent with prior granulomatous infection. Resident preliminary report by Dr. Jesse Gamez: Interval placement of a left frontal approach ventriculostomy No vessel injury, aneurysm or branch occlusion Biapical scarring. GGO in the right lung apex may represent scarring as well Calcified mediastinal lymph nodes may be sequelae of prior granulomatous disease (All qualitative and quantit ative assessments of carotid bifurcation and proximal internal carotid artery stenosis are made referencing the distal internal carotid artery {NASCET criteria}.) 2015-12-13 EXAM: XR CHEST 1 VIEW [facility] 20:40:00-00:00 DATE: 12/13/[address] INDICATION: Tube placement/removal/reposition COMPARISON: None available TECHNIQUE: AP chest FINDINGS: The endotracheal tube terminates approximately 4 cm superior to the rosalie. The enteric tube is coiled o joe the stomach with the sidehole projecting over the gastric fundus. No pulmonary or pleural-based abnormality is gene ntified. Pulmonary vascularity is normal. The heart size is normal for technique. No acute bony abnormality is identified. IMPRESSION: No acute cardiopulmonary abnormality is observed . Satisfactory position of the endotracheal tube proximal 4 cm superior to the rosalie. Enteric tube projecting over the fundus of the s tomach. 2015-12-13 CT HEAD WITHOUT CONTRAST [facility] 20:00:15-00:00 DATE: 12/13/2015 at 8:11 PM. [facility] COMPARISON: None. HISTORY: Acute cognitive change. TECHNIQUE: Contiguous axial images of the brain were obtained without intravenous contrast administration. Sagittal and coronal reformats were also provided. DLP: 1090 mGy-cm. FINDINGS: There is extensive intravent ricular hemorrhage with blood within all 4 ventricles more prominent within the right lateral ventricle with dilatation of the right temporal horn. Is mass effect with 6 mm of [id number]-[id number] shift of the septum pellucidum. There is a small focus of pa renchymal hemorrhage within the right medial temporal lobe (series 2 image 20). Subarachnoid hemorrhage is also noted within the bilateral frontal sulci. Low density is noted within the periventricular white matter consistent with chronic small vessel ischemic disease. There is prominence of the cortical sulci, fissures, cisterns and ventricles consisten t with cortical atrophy appropriate for the ruthie ent's stated age of 70 years. There are no acute bony abno rmalities. The calvarium is intact. Atherosclerotic calcification is noted within the lamb of the bilateral cavernous internal carotid arteries. IMPRESSION: 1. Bilateral intraventricula r hemorrhage most prominent within the right lateral ventricle. There is mass effect with 6 mm of [id number]-bf-qkqm shift of the septum pellucidum. 2. Small parenchymal hemorrhage within the media l right temporal lobe. 3. Small bilateral frontal subarachnoid hemorrha ge. 4. Age related volume loss. 5. White matter hypodensity consistent with chronic small vessel ischemic disease. Resident preliminary report by Dr. Sridevi Stewart: Diffuse intraventricular hemorrhage, right greater than left with associated 6 mm right to left midline shift. There is a focus of right frontal lobe montilla barachnoid hemorrhage. (s 2b , i 12 and 13). Findings were discussed with Dr. Wu, PATRIC attending at 2022 hours.
[2022-10-29 12:39] VITALS: BMI 20.7
[2022-10-29] MEDS ORDERED: HYDROCODONE/APAP 10/325 TAB PO PRN (12:52)
[2022-10-29] MEDS ORDERED: ACETAMINOPHEN 500 MG TAB PO PRN (12:53)
[2022-10-29] MEDS ORDERED: DOCUSATE NA/SENNA CONC 1 TAB PO PRN (13:06)
[2022-10-29] MEDS ORDERED: IPRATROPIUM BROM 0.5MG/2.5ML NEB PRN (13:14)
[2022-10-29] MEDS ORDERED: ALBUTEROL 2.5 MG/3 ML NEB SOL NEB PRN (13:15)
[2022-10-29] MEDS ORDERED: IPRATROPIUM BROM 0.5MG/2.5ML NEB SCH (14:00)
[2022-10-29] MEDS ORDERED: ALBUTEROL 2.5 MG/3 ML NEB SOL NEB SCH (14:00)
[2022-10-29] MEDS ORDERED: ENOXAPARIN 40 MG/0.4 ML SQ SCH (17:00)
[2022-10-29] MEDS: HYDROCODONE/APAP 5/325 MG TAB PO PRN (17:15)
[2022-10-29] MEDS: APIXABAN 2.5 MG TABLET PO SCH (19:32)
[2022-10-29] MEDS: ATORVASTATIN 20 MG TAB PO SCH (19:32)
[2022-10-29] MEDS: MELATONIN 3 MG TABLET PO PRN (19:32)
[2022-10-29] MEDS: RISPERIDONE 0.25 MG TABLET PO SCH (19:32)
[2022-10-29] MEDS: TRAMADOL HCL 50 MG TAB PO PRN (19:34)
[2022-10-29] MEDS: GABAPENTIN 100 MG CAP PO SCH (19:34)
[2022-10-29] MEDS: ENSURE ENLIVE 237 ML CAN PO SCH (19:34)
[2022-10-29] MEDS ORDERED: ATORVASTATIN 10 MG TAB PO SCH (21:00)
[2022-10-30 04:30] LABS: Absolute Lymphocytes (CBC) 8.2 K/uL (0.7-4.9); Hematocrit 23.4 % (39.6-49.0); Lymphocytes % 53.9 % (15.3-44.8); MCV 89.5 fL (80-100); MPV 7.1 fL (7.6-11.3); RBC Red Blood Cell Count 2.62 M/uL (4.33-5.43)
[2022-10-30 04:40] LABS: Albumin 2.2 g/dL (3.4-5.0); Magnesium 1.8 mg/dL (1.6-2.4); Potassium 4.2 mEq/L (3.5-5.1); Prealbumin 11.5 mg/dL (20-40)
[2022-10-30 04:44] LABS: Renal Epithelial <5 /HPF (None Seen); Specific Gravity 1.018 (1.005-1.030); Urine Bacteria None Seen /HPF (<20); Urine Bilirubin NEGATIVE (Negative); Urine Blood 1+ (Negative); Urine Clarity Clear (Clear); Urine Color Light-Yellow (Yellow); Urine Glucose NEGATIVE (Negative); Urine Mucus Slight /HPF (None Seen); Urine Protein TRACE (Negative); Urine Urobilinogen Normal (Normal); Urine pH 5.5 (5.0-7.0)
[2022-10-30] MEDS: HYDROCODONE/APAP 5/325 MG TAB PO PRN (07:02)
[2022-10-30] MEDS: levoFLOXacin 750 MG TAB PO SCH (07:30)
[2022-10-30] MEDS: GABAPENTIN 100 MG CAP PO SCH ×2 (07:32→19:24)
[2022-10-30] MEDS: AMLODIPINE 5 MG TAB PO SCH (07:32)
[2022-10-30] MEDS: ASPIRIN 81 MG CHEWABLE TABLET PO SCH (07:32)
[2022-10-30] MEDS: FE SULF/FA/VIT B COMP & C TAB PO SCH (07:32)
[2022-10-30] MEDS: FERROUS SULFATE 325 MG TAB PO SCH (07:33)
[2022-10-30] MEDS: APIXABAN 2.5 MG TABLET PO SCH ×2 (07:33→19:24)
[2022-10-30] MEDS: CYANOCOBALAMIN 1,000 MCG TAB PO SCH (07:33)
[2022-10-30] MEDS: ENSURE ENLIVE 237 ML CAN PO SCH ×2 (07:34→19:24)
--- NOTE | 2022-10-30 07:52 | HP ---
Date of Admission: 10/29/2022 Time Of Service: 1:15 p.m. Chief Complaint: "I fell and broke my left hip." History Of Present Illness: Mr. 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 His said he was on his porch, getting ready to sit on the chair when it apparently slipped away and he fell, impacting the left side. He immedia tely felt pain and was evaluated and found to have a left hip displaced femoral neck fracture. He hopper d a valgus angulation at the fracture site and a stage III pressure ulcer on the left heel. He was e valuated by orthopedic surgeon, Dr. Lionel Brown and on 10/23/2022, he performed left hip bipolar hemiarthroplasty without complications. The patient was sent to Recovery and following surgery, was placed on weightbearing as tolerated status with the left lower extremity. Due to his poor balance, decreased strength, decreased safety awareness, and multiple comorbid conditions along with a nonhea led pressure ulcer, the patient is at significant risk of worsening if he is to be transferred to a [facility] level of care such as a snf facility or to be discharged home. It was, therefore, d etermined that he is more appropriate for acute inpatient rehabilitation and was admitted to the [facility] rehabilitation unit for physical, occupational, and speech therapy. Past Medical History: Hypertension, dementia, hemorrhagic stroke with mild residual left-sided weakn ess, COPD. He has had triple coronary artery bypass, hernia repair in the abdomen, and surgery for a blockage of artery below the knee. Allergies: NO KNOWN DRUG ALLERGIES. Diagnostic Studies: X-ray Imaging: Chest x-ray from the showed a progressive left bipolar and retrocardiac airspace opacification. There was atelectasis versus pneumonia. There is a hip x-ray f rom 10/21, shows the basicervical left femoral neck fracture, moderately displaced, and there was ___ angulation of the fracture site. Medications: HOME MEDICATIONS: Aspirin 81 mg daily, Zocor 20 mg daily, Norvasc 5 mg daily. Family History: Noncontributory. Social History: No tobacco use. Occasional alcohol use. Patient lives at home with his in a s damir-story home. He does have a tub shower. Laboratory Studies: White blood cell count today is 14.8, which has been chronically elevated since his hospital admission. His hemoglobin is 8.9 and platelets 254. INR was 0.97 on the 16th. Retail Sales Specialist darren show sodium 142, chloride 111, potassium 3.4, creatinine 0.9, glucose 93, calcium 8.9, magnesium 1.8. His procalcitonin on the was elevated at 0.27. Vitamin B12, very low at 146. Vancomycin trough of 17.8, discontinued. Review of Systems: Mr. Melgar is resting comfortably despite his left hip fracture. He has no new complaints such as m yalgias or arthralgias, except at the surgical site. No rash. No psychiatric complaints. No genito urinary complaints. No difficulty with sleeping, with bowel movements, which has been doing well. N o other systems review positivity. Physical Examination: Vital Signs: Blood pressure 120/57, pulse 90, respiratory rate 16, temperature 97.6, oxygen saturati on 97%. General: Mr. Melgar is resting comfortably. He is in no acute distress. HEENT: He is normocephalic, atraumatic. Sclerae are anicteric. Oropharynx pink, moist. Neck: Supple. Chest: Clear. Extremities: He has no significant edema in the left lower extremity despite the surgical site being in the left hip with a fracture. Current Level of Functioning: Currently, supervision for eating, oral hygiene; maximum assistance fo r toileting and showering; upper body dressing, is at setup assistance; maximal assistance for lower body dressing; rolling left and right, moderate assistance; from lying to sitting, moderate assistanc e; and sitting to standing and sliding in bed, moderate assistance. Toilet transfer, moderate assist ance. He ambulated 52 feet with a rolling walker with moderate assistance. Rehabilitation And Medical Assessment And Plan: Mr. Melgar is admitted to the rehabilitation unit w ith an impairment category of 07 orthopedic, lower extremity fracture. His impairment group code is 08.11 status post unilateral hip fracture. His etiologic diagnosis is left femoral neck fracture. H is comorbidities include hypertension, left-sided weakness from stroke with mild dysarthria, chronic obstructive pulmonary disease, pulmonary disease, and stage 3 pressure ulcer on the left heel with pe ripheral vascular disease. Plan: 1.He will have physical, occupational, and speech therapy for 3.5 hours, 5 of 7 days. 2.We will continue Tylenol and [place] as needed for pain. 3.Norvasc 5 mg daily and Diovan 160 mg daily for hypertension. 4.Senokot-S for constipation. 5.Risperdal for any issues of insomnia. 6.Levofloxacin will be continued 750 mg twice daily for 3 more days. 7.Gabapentin 100 mg twice daily for his neuropathic pain. 8.Aspirin 81 mg daily for stroke risk reduction. 9.Eliquis 2.5 mg twice daily for DVT risk reduction. 10.Albuterol nebulizer and incentive spirometry for any postop atelectasis and fluid retention in th e lungs. Impact Of His Comorbids: Currently, his pain is well managed. He does have an ongoing infection wit h elevated white blood cell count and is on levofloxacin that will be continued. He has postoperativ e anemia and is on Hemocyte-Plus. He also has a very low vitamin B12 level and vitamin B12 sublingua l will be continued, is currently at 1000 mcg daily. Rehab Specific Plan: Mr. Melgar will have physical, occupational, and speech therapy for 3.5 hours, 5 of 7 days, to improve his performance of his activities of daily living, his mobilization, his amb ulation of 250 feet with modified independence, performing cognitive functioning independently, and a ll his ADLs independently. Mr. Melgar has a good understanding of the admission and his participation in therapy while hospital ized and is discharged from the rehabilitation unit. He has a potential to make good improvement and will require physical, occupational, and speech therapy. If need be, Nutrition Services, Wound Care Service, and the Hospitalist service will be consulted. Given his complex medical condition and the risk of further complications, rehabilitation cannot be safely or affectively performed at the lower level facility, such as snf. Barriers To Discharge: Currently, the infection with antibiotics is ongoing. He does have elevated white count, that will be followed to see if there is worsening. He does have a risk of deep vein th rombosis that is being mitigated and there is anemia and that is also being addressed. Estimated Length Of Stay: 13 to 14 days. Disposition: Home with . Prognosis: Good. Rehabilitation Goals: 1.To become independent with upper and lower body dressing and donning and doffing of shoes. 2.Independent for transferring from bed to chair to toilet and to shower. 3.Independently perform those activities such as toileting and showering. 4.Independently perform ambulation of over 250 feet with a rolling walker. 5.Independently go up and down 10 steps. 6.Perform cognitive functioning independently. I acknowledge I personally performed a full physical examination on Mr. Isra Melgar, no later camille n 24 hours after his admission to the inpatient rehabilitation unit. I have determined that he is ab le to tolerate the above course of treatment at an intensive level for a reasonable period of time. A detailed individualized plan of care for him will be completed by hospital day #4 based on the prea dmission screen, History and Physical, and Therapy evaluations. DOMINICK Voice ID: [id number]
[2022-10-30] MEDS ORDERED: OLMESARTAN MEDOXOMIL 40 MG PO SCH (08:00)
[2022-10-30] MEDS: VALSARTAN 160 MG TAB PO SCH (08:00)
[2022-10-30] MEDS: NA CHLORIDE 0.9% 250 ML IV SCH ×2 (09:45→10:10)
[2022-10-30] MEDS: TRAMADOL HCL 50 MG TAB PO PRN ×2 (11:58→19:23)
--- NOTE | 2022-10-30 13:15 | P.CNS ---
Date of Consult: 10/30/22 Reason for Consult: painful toenails and dry skin Chief Complaint: Painful toenails and dry skin Allergies No Known Allergies Allergy (Verified 10/21/22 16:06) Home Medications: Amlodipine [Norvasc*] 5 mg PO DAILY 03/01/16 Aspirin Chewable [Aspirin Chewable*] 81 mg PO DAILY 10/21/22 Olmesartan Medoxomil 40 mg PO DAILY 10/21/22 Simvastatin [Zocor] 20 mg PO DAILY 10/21/22 Cyanocobalamin [Vitamin B-12*] 1,000 mcg SL DAILY #30 tab 10/29/22 risperiDONE [Risperdal 0.25 MG TAB*] 0.5 mg PO BEDTIME tab 10/29/22 - Past Medical/Surgical History Diabetic: No -: high blood pressure -: dementia -: hemorhagic stroke w/o residual -: COPD -: "blockage " below knee on left -: Hernia removal abdomen -: triple bypass groin - Social History Smoking Status: Former smoker, Never smoker Alcohol use: No CD- Drugs: Yes Caffeine use: No Place of Residence: Home Review of Systems 10-point ROS is otherwise unremarkable Physical Examination Temp Pulse Resp BP Pulse Ox 97.9 F 72 18 111/56 L 95 10/30/22 07:18 10/30/22 09:08 10/30/22 11:58 10/30/22 09:08 10/30/22 11:58 General: Alert, In no apparent distress, Oriented x3 Cardiovascular: No edema, Abnormal pulses (1/4 dp, 0/4 pt pulses bilateral feet) Capillary refill: >2 Seconds Musculoskeletal: No clubbing, No swelling, No contractures, No erythema, No tenderness, No warmth Integumentary: Other (Thickened hypertrophic nails with subungual debris x 10, xerotic skin bilateral lower extremity) Neurological: Sensation intact Laboratory Data (last 24 hrs) 10/30/22 03:46: Sodium 138, Potassium 4.2, BUN 17, Creatinine 0.95, Glucose 94, Magnesium 1.8 10/30/22 03:46: WBC 15.20 H, Hgb 7.5 L, Hct 23.4 L, Plt Count 264 - Problems (1) Tinea unguium Current Visit: Yes Status: Acute (2) Xerosis cutis Current Visit: Yes Status: Acute (3) Peripheral vascular disease Current Visit: No Status: Chronic Conclusions/Impression: Debridement of nails x 10 at bedside Aquaphor bid to bilateral lower extremity
[2022-10-30] MEDS: PETROLATUM (AQUAPHOR) JAR 396 GRAM TOP PRN (14:07)
--- NOTE | 2022-10-30 16:19 | PN ---
Date of Progress Note: 10/30/2022 Time Of Service: 1 p.m. Subjective: Mr. Melgar is doing well. is in the room. He denies any significant pain at the left hip surgical site and is very happy with this progress made so far with physical and occupationa l along with speech therapy. Review of Systems: No fevers, chills, nausea, vomiting, myalgias, arthralgias except mild pain on the left hip surgical site. He again has no other complaints. Physical Examination: Vital Signs: Blood pressure 111/56, pulse 72, respiratory rate 16, and his temperature is 97.9, oxyg en saturation 98%. He was seen by Dr. Rodriguez on the Podiatry Service. His diagnosis is tinea unguium and xerosis cutis a long with peripheral vascular disease. He performed debridement of nails at bedside. Aquaphor was a pplied twice daily to lower extremity. Laboratory Studies: Today, white blood cell count was elevated to 15.2 with neutrophils of 37.5 and elevated lymphocytes of 53.9, hemoglobin low at 7.5. His prealbumin is low at 11.5. Sodium 138, pot assium 4.2, chloride 110, creatinine 0.95, glucose 94, calcium 8.0, magnesium 1.8. Urinalysis showed 1+ blood, 5-10 red blood cells, trace protein. X-ray/imaging: None. Medications: Tylenol Extra Strength 500 mg every 4 hours as needed, [place] 5/325 every 6 hours as nee ded, albuterol nebulizer 2.5 mg every 6 hours, Norvasc 5 mg daily, Eliquis 2.5 mg twice daily, aspiri n 81 mg daily, Lipitor 20 mg at bedtime, vitamin B12 1000 mcg daily, ferrous sulfate 325 mg daily, ga bapentin 100 mg twice daily, Atrovent nebulizer 0.5 mg every 6 hours as needed, Epifanio 1 packet twice daily, Levaquin 750 mg to continue until the , melatonin 3 mg at bedtime, Aquaphor apply topicall y to feet as per Dr. Rodriguez, Hemocyte-Plus 1 tablet daily, Ensure Enlive 237 mL twice daily, Zofran 4 mg every 6 hours as needed, risperidone 0.25 mg at bedtime, Senokot-S 2 at bedtime, Flomax 0.4 mg at bedtime. Current Functional Status: was able to ambulate 250 feet with contact guard assistanc e using a rolling walker. He was able to go up and down 1 step with maximum assistance. Wheelchair mobilization done 50 feet twice with minimal assistance. With speech therapy, he demonstrated recall of 3 of 3 unrelated pictures after 3, 5, and 10 minutes. Divergent naming task completed naming 7 i tems per concrete category with 100% accuracy and minimum assistance. Progress Towards Rehabilitation Goals: Mr. Melgar arrived on the unit yesterday and he is making fa ir progress so far with his goals of becoming independent, upper and lower body dressing, transferrin g, toileting, showering, and performing activities of daily living. His distances are short, but he does have the left hip fracture and is improving. Assessment: Mr. Melgar is a 76-year-old patient in the rehabilitation unit with left hip fracture, status post surgical repair, who is making a good progress so far with physical, occupational therapy . He does have comorbids including hypertension, left-sided weakness from prior stroke, mild dysarth alexia, chronic obstructive pulmonary disease, stage III pressure ulcer on the left heel, and peripheral vascular disease. Plan: 1.Continue with physical, occupational, and speech therapy for 3.5 hours, 5 of 7 days. 2.Continue with management of pain with [place], Tylenol, and tramadol as needed. 3.Norvasc and Diovan for hypertension. 4.Senokot-S for constipation. 5.Risperdal for insomnia. 6.Finish Levaquin for his urinary tract infection. 7.Gabapentin for neuropathic pain. 8.Eliquis 2.5 mg and aspirin 81 mg daily for stroke and DVT risk reduction. He also has nebulizer w ith albuterol and Atrovent as needed and will have incentive spirometry strongly encouraged. Comorbids That Continue To Impact His Rehabilitation Process: There is mild cognitive impairment, bu t he is doing well with speech therapy and recalling well. He does have multiple comorbids as listed , but there is nothing limiting him at this point. Pain is well managed. Malnutrition is addressed. His respiratory status is addressed with nebulizers and incentive spirometry. Does not require oxy gen at this point. Does have a pressure ulcer on the left heel and peripheral vascular disease addre ssed with aggressive therapy and offloading. LB/CHENCHO Voice ID: [id number] Report ID: [id number]
[2022-10-30] MEDS: RISPERIDONE 0.25 MG TABLET PO SCH (19:23)
[2022-10-30] MEDS: TAMSULOSIN 0.4 MG SR CAP PO SCH (19:24)
[2022-10-30] MEDS: JUVEN PACKET PO SCH (19:24)
[2022-10-30] MEDS: ATORVASTATIN 20 MG TAB PO SCH (19:24)
[2022-10-31] MEDS: VALSARTAN 160 MG TAB PO SCH ×2 (08:00→09:35)
[2022-10-31] MEDS: FE SULF/FA/VIT B COMP & C TAB PO SCH (08:07)
[2022-10-31] MEDS: ASPIRIN 81 MG CHEWABLE TABLET PO SCH (08:07)
[2022-10-31] MEDS: FERROUS SULFATE 325 MG TAB PO SCH (08:07)
[2022-10-31] MEDS: CYANOCOBALAMIN 1,000 MCG TAB PO SCH (08:07)
[2022-10-31] MEDS: APIXABAN 2.5 MG TABLET PO SCH ×2 (08:07→20:42)
[2022-10-31] MEDS: GABAPENTIN 100 MG CAP PO SCH ×2 (08:07→20:42)
[2022-10-31] MEDS: AMLODIPINE 5 MG TAB PO SCH (08:07)
[2022-10-31] MEDS: TRAMADOL HCL 50 MG TAB PO PRN ×2 (08:07→17:36)
[2022-10-31] MEDS: levoFLOXacin 750 MG TAB PO SCH (09:34)
[2022-10-31] MEDS: ENSURE ENLIVE 237 ML CAN PO SCH ×2 (09:35→20:00)
[2022-10-31] MEDS: JUVEN PACKET PO SCH ×2 (09:35→20:00)
[2022-10-31] MEDS: PETROLATUM (AQUAPHOR) JAR 396 GRAM TOP PRN (20:41)
[2022-10-31] MEDS: RISPERIDONE 0.25 MG TABLET PO SCH (20:42)
[2022-10-31] MEDS: ATORVASTATIN 20 MG TAB PO SCH (20:42)
[2022-10-31] MEDS: TAMSULOSIN 0.4 MG SR CAP PO SCH (20:42)
[2022-10-31] MEDS: HYDROCODONE/APAP 5/325 MG TAB PO PRN (20:50)
--- NOTE | 2022-10-31 21:17 | PN ---
Date of Progress Note: 10/31/2022 [facility] Progress Note Visit Time Of Service: 1:15 p.m. Subjective: Mr. Melgar is resting comfortably in bed. He has no new complaints. The left hip surg ical site is with good hemostasis. No drainage. No significant myalgias or arthralgias. Review of Systems: No fevers or chills. No nausea or vomiting. Mild soreness of the left hip surgical site with therap y. Physical Examination: Vital Signs: Blood pressure 136/57, pulse 69, respiratory rate 16, temperature of 97, and oxygen sat uration 94%. General: Mr. Melgar is in bed resting in between therapy sessions. Extremities: He has no significant edema in his left lower extremity. Good hemostasis of the left h ip surgical site. No other findings on his examination that are different. Laboratory Studies: Yesterday after blood transfusion of a unit, hemoglobin went from 7.5 to 9.0. O therwise, his prealbumin was low at 11.5. X-ray/imaging: No new x-ray or imaging studies. Medications: His medications have been reviewed and remain unchanged. Current Functional Status: Today he was able to ambulate 250 feet, another 150 feet twice, another 1 00 feet with minimal assistance using a rolling walker. He did require some verbal cues. With occup ational therapy, he did eij-ti-agege with contact guard assistance. He did have some episodes of low blood pressure systolic 98 and diastolic 50 at the beginning of his therapy session; however, that i ncreased to 111/59 by the end of his therapy session. The patient was encouraged to hydrate, which matt pollard is not doing very well and family in the room were encouraged to let him know that is important as well. Progress Towards Rehabilitation Goals: Mr. Melgar is making fair overall progress with his rehabili tation goals of performing upper and lower body dressing with independence; transferring to toilet, t o shower, to bed, to chair with independence; ambulating 250 feet with independence; and up and down 5 steps with independence. In addition, continuing to perform cognitive functioning independently. Assessment: Mr. Melgar is a 76-year-old patient in the rehabilitation unit with left hip fracture s tatus post surgical repair. He is making good progress overall with physical and occupational therap y. He has episodes of hypotension in addition to hypertension, left-sided weakness from prior stroke . He has mild dysarthria, chronic obstructive pulmonary disease, stage III pressor ulcer on the left heel, and peripheral vascular disease. Plan: 1.Continue with physical and occupational therapy along with speech 3.5 hours, 5 of 7 days. 2.Continue with pain management as noted. 3.Continue with Norvasc and Diovan for hypertension, but those are cut back and he is being hydrated because of hypotension. 4.Senokot-S for constipation. 5.Gabapentin for neuropathic pain. 6.Eliquis and aspirin for stroke and DVT risk reduction. 7.Nebulizers and incentive spirometry to reduce the risk of pneumonia and atelectasis. Comorbids That Continue To Impact His Rehabilitation Process: Currently he has episodes of hypotensi on due to dehydration. His hydration is increased. He did have anemia. He has had 1 unit of blood. He is doing very well. He is malnourished and he has protein supplementation. He has incentive sp irometry and nebulizers for his respiratory issues and he is doing well with that and his areas of pr essure ulcers are being offloaded. LB/MODL Voice ID: [id number] Report ID: [id number]
[2022-11-01] MEDS: TRAMADOL HCL 50 MG TAB PO PRN ×2 (00:52→07:26)
[2022-11-01 04:33] LABS: Absolute Lymphocytes (CBC) 8.5 K/uL (0.7-4.9); Hematocrit 27.6 % (39.6-49.0); MCV 90.3 fL (80-100); MPV 6.8 fL (7.6-11.3); RBC Red Blood Cell Count 3.06 M/uL (4.33-5.43)
[2022-11-01] MEDS: HYDROCODONE/APAP 5/325 MG TAB PO PRN (04:36)
[2022-11-01 04:41] LABS: Albumin 2.2 g/dL (3.4-5.0); Magnesium 1.6 mg/dL (1.6-2.4); Potassium 4.2 mEq/L (3.5-5.1); Prealbumin 10.9 mg/dL (20-40)
[2022-11-01] MEDS: FERROUS SULFATE 325 MG TAB PO SCH (07:24)
[2022-11-01] MEDS: levoFLOXacin 750 MG TAB PO SCH (07:24)
[2022-11-01] MEDS: ASPIRIN 81 MG CHEWABLE TABLET PO SCH (07:24)
[2022-11-01] MEDS: FE SULF/FA/VIT B COMP & C TAB PO SCH (07:24)
[2022-11-01] MEDS: CYANOCOBALAMIN 1,000 MCG TAB PO SCH (07:24)
[2022-11-01] MEDS: APIXABAN 2.5 MG TABLET PO SCH ×2 (07:25→19:56)
[2022-11-01] MEDS: GABAPENTIN 100 MG CAP PO SCH ×2 (07:25→19:57)
[2022-11-01] MEDS: JUVEN PACKET PO SCH ×3 (07:28→20:00)
[2022-11-01] MEDS: ENSURE ENLIVE 237 ML CAN PO SCH ×3 (07:28→20:00)
[2022-11-01] MEDS: ONDANSETRON 4 MG (ODT) TAB PO PRN ×2 (08:04→15:13)
[2022-11-01] MEDS: AMLODIPINE 5 MG TAB PO SCH (08:05)
[2022-11-01] MEDS: VALSARTAN 160 MG TAB PO SCH (09:32)
[2022-11-01] MEDS ORDERED: POLYETHYL GLY 3350 17 GM/DOSE PO PRN (13:50)
--- NOTE | 2022-11-01 15:09 | RAD REPORT ---
EXAM DESCRIPTION: RAD - Abdomen 1 View (KUB) - 11/01/2022 3:04 pm CLINICAL HISTORY: R/O Obstruction Pain COMPARISON: <Comparisons> FINDINGS: The bowel gas pattern is non-obstructive. No evidence of free air or pneumatosis. No suspi cious calcifications. No significant bony findings. There is a large volume of retained stool in the colon. IMPRESSION: Significant constipation.
[2022-11-01] MEDS: BISACODYL 10 MG RECTAL SUPP PR PRN (15:35)
[2022-11-01 16:54] LABS: Albumin 2.8 g/dL (3.4-5.0); Bilirubin Direct 0.1 mg/dL (0-0.2); Bilirubin Indirect, Calculated 0.3 mg/dL (0.2-0.8); Bilirubin Total 0.4 mg/dL (0.2-1.0); Protein, Total 5.9 g/dL (6.4-8.2)
[2022-11-01] MEDS ORDERED: FLEET ENEMA ADULT PR ONE (17:00)
[2022-11-01] MEDS: PETROLATUM (AQUAPHOR) JAR 396 GRAM TOP PRN (17:39)
[2022-11-01] MEDS: RISPERIDONE 0.25 MG TABLET PO SCH (19:57)
[2022-11-01] MEDS: TAMSULOSIN 0.4 MG SR CAP PO SCH (19:57)
[2022-11-01] MEDS: ATORVASTATIN 20 MG TAB PO SCH (19:57)
--- NOTE | 2022-11-01 22:47 | PN ---
Date of Progress Note: 11/01/2022 Time Of Service: 1:30 p.m. Subjective: Mr. Melgar is resting in bed. He did say he has not had a good bowel movement in about 4 days. He did have nausea and vomiting earlier today and received Zofran, which has helped. A KUB was done. The study identified no evidence of free air or pneumatosis. Bowel gas pattern is nonobs tructive. However, there is a large volume of retained stool in the colon with the findings of signi ficant constipation. Review of Systems: Again, no stools in 4 days. Nausea and vomiting, which improved with Zofran. No fevers or chills. No significant myalgias or arthralgias. The left hip surgical site has good hemostasis without signi ficant pain. Physical Examination: Vital Signs: Blood pressure 126/60, pulse 96, respiratory rate 16, and temperature 97. General: Mr. Melgar is resting comfortably. He did say the nausea had improved with Zofran, but ag ain no bowel movement and he says that he is "passing a lot of gas." Extremities: He has good hemostasis at the left hip surgical site. X-ray/imaging: As mentioned above. Laboratory Studies: White blood cell count 14.9 with 57% lymphocytes and 34.9% neutrophils, consiste nt with a lymphocytic leukocytosis. Hemoglobin stable at 9.0 after he received 1 unit of blood. It increased from 7.5 on the to 9 and has remained stable over the last 2 days. His sodium is 134, potassium 4.2, chloride 104, BUN 19, creatinine 1.09, glucose 105, magnesium 1.6. Liver function st udies unremarkable except alkaline phosphatase slightly elevated to 119. Prealbumin 10.9. Medications: His medications have been reviewed and remain unchanged except he will have Dulcolax montilla ppository and Fleets enema as needed to help facilitate good bowel movement. Current Functional Status: Today he performed [id number]-pw-[id number] transfers with repetitions at minimum as sistance. He ambulated with a rolling walker 250 feet, another 100 feet with contact guard assistanc e, he did require rest breaks. With occupational therapy, [id number] transfers are done with min a ssistance. With speech therapy, convergent thinking skills were utilized with 80% accuracy with maxi mum assistance to perform repetition. He recalled 4/4 unrelated words after 5, 7, and 10 minute incr ements without cuing. He named 3 abstract category members with moderate assistance and 80% accuracy . Progress Towards Rehabilitation Goals: Mr. Melgar is making fair overall progress, although he had a minor setback with nausea and vomiting this morning, likely due to significant constipation. His g oals will be to become independent with upper and lower body dressing, transferring, toileting, and a mbulating over 250 up to 500 feet or more with independence and up and down 10 steps with independenc e. In addition, he should be able to perform cognitive functioning independently. Assessment: Mr. Melgar is a 76-year-old patient in the rehabilitation unit with left hip fracture s tatus post surgical repair. He had earlier this morning, nausea and vomiting and has significant con stipation. He has hypertension, he has left-sided weakness from a prior stroke, mild dysarthria, chr onic obstructive pulmonary disease, and pressure ulcer in the left heel along with peripheral vascula r disease. Plan: 1.Continue physical, occupational, and speech therapy for 3.5 hours, 5 of 7 days. 2.Dulcolax suppository and stool softeners along with Fleet enema if need be for relieving constipat ion. 3.Gabapentin for neuropathic pain. 4.Eliquis for stroke and DVT risk reduction along with aspirin for that. 5.Continue nebulizers. Comorbids That Continue To Impact His Rehabilitation Process: Due to his constipation, he has had na usea and vomiting. It will be addressed as mentioned above. Otherwise, he has some limitation with mild shortness of breath. He has incentive spirometry and nebulizers. In addition, he does have pressure ulcers on dependent areas and those are offloaded. LB/MODL Voice ID: [id number] Report ID: [id number]
[2022-11-02] MEDS: MELATONIN 3 MG TABLET PO PRN (00:40)
[2022-11-02] MEDS: HYDROCODONE/APAP 5/325 MG TAB PO PRN ×2 (00:40→19:33)
[2022-11-02] MEDS: VALSARTAN 160 MG TAB PO SCH (08:00)
[2022-11-02] MEDS: ENSURE ENLIVE 237 ML CAN PO SCH ×2 (08:00→19:34)
[2022-11-02] MEDS: AMLODIPINE 5 MG TAB PO SCH (08:00)
[2022-11-02] MEDS: JUVEN PACKET PO SCH ×2 (08:00→19:34)
[2022-11-02] MEDS: FERROUS SULFATE 325 MG TAB PO SCH (08:24)
[2022-11-02] MEDS: PETROLATUM (AQUAPHOR) JAR 396 GRAM TOP PRN (08:24)
[2022-11-02] MEDS: GABAPENTIN 100 MG CAP PO SCH ×2 (08:24→19:33)
[2022-11-02] MEDS: FE SULF/FA/VIT B COMP & C TAB PO SCH (08:24)
[2022-11-02] MEDS: CYANOCOBALAMIN 1,000 MCG TAB PO SCH (08:24)
[2022-11-02] MEDS: APIXABAN 2.5 MG TABLET PO SCH ×2 (08:24→19:33)
[2022-11-02] MEDS: ASPIRIN 81 MG CHEWABLE TABLET PO SCH (08:25)
[2022-11-02] MEDS: TRAMADOL HCL 50 MG TAB PO PRN ×2 (08:25→15:07)
--- NOTE | 2022-11-02 13:33 | P.RH.PN ---
Estimated Length of Stay: 12 Expected Discharge Date: 11/09/22 Discharge Disposition Plan: Home Family Support: Yes Halfway Goal: Mobility, Transfers, Self Care Vital Signs: Last Vital Signs Temp 97.4 F 11/02/22 09:32 Pulse 71 11/02/22 09:32 Resp 18 11/02/22 09:32 BP 111/51 L 11/02/22 09:32 Pulse Ox 92 11/02/22 09:32 Laboratory: Laboratory Last Values WBC 14.90 thou/uL (4.3-10.9) H 11/01/22 03:48 RBC 3.06 M/uL (4.33-5.43) L 11/01/22 03:48 Hgb 9.0 g/dL (13.6-17.9) L 11/01/22 03:48 Hct 27.6 % (39.6-49.0) L 11/01/22 03:48 MCV 90.3 fL (80-100) 11/01/22 03:48 MCH 29.3 pg (27.0-35.0) 11/01/22 03:48 MCHC 32.5 g/dL (32.0-36.0) 11/01/22 03:48 RDW 15.3 % (12.1-15.2) H 11/01/22 03:48 Plt Count 291 thou/uL (152-406) 11/01/22 03:48 MPV 6.8 fL (7.6-11.3) L 11/01/22 03:48 Neutrophils % 34.9 % (41.7-73.7) L 11/01/22 03:48 Lymphocytes % 57.0 % (15.3-44.8) H 11/01/22 03:48 Monocytes % 6.4 % (3.3-12.3) 11/01/22 03:48 Eosinophils % 1.6 % (0-4.4) 11/01/22 03:48 Basophils % 0.1 % (0-1.3) 11/01/22 03:48 Absolute Neutrophils 5.2 K/uL (1.8-8.0) 11/01/22 03:48 Absolute Lymphocytes 8.5 K/uL (0.7-4.9) H 11/01/22 03:48 Absolute Monocytes 1.0 K/uL (0.1-1.3) 11/01/22 03:48 Absolute Eosinophils 0.2 K/uL (0-0.5) 11/01/22 03:48 Absolute Basophils 0.0 K/uL (0-0.5) 11/01/22 03:48 Sodium 134 mEq/L (136-145) L 11/01/22 03:48 Potassium 4.2 mEq/L (3.5-5.1) 11/01/22 03:48 Chloride 104 mEq/L (98-107) 11/01/22 03:48 Carbon Dioxide 26 mEq/L (21-32) 11/01/22 03:48 Anion Gap 8.2 mEq/L (5.0-15.0) 11/01/22 03:48 BUN 19 mg/dL (7-18) H 11/01/22 03:48 Creatinine 1.09 mg/dL (0.70-1.30) 11/01/22 03:48 Est GFR (CKD-EPI) 71 ml/min (=/>90) L 11/01/22 03:48 Glucose 105 mg/dL (74-106) 11/01/22 03:48 Calcium 7.5 mg/dL (8.5-10.1) L 11/01/22 03:48 Magnesium 1.6 mg/dL (1.6-2.4) 11/01/22 03:48 Total Bilirubin 0.4 mg/dL (0.2-1.0) 11/01/22 14:59 Direct Bilirubin 0.1 mg/dL (0-0.2) 11/01/22 14:59 Indirect Bilirubin 0.3 mg/dL (0.2-0.8) 11/01/22 14:59 AST 15 U/L (15-37) 11/01/22 14:59 ALT 23 U/L (16-61) 11/01/22 14:59 Alkaline Phosphatase 119 U/L (45-117) H 11/01/22 14:59 Serum Total Protein 5.9 g/dL (6.4-8.2) L 11/01/22 14:59 Albumin 2.8 g/dL (3.4-5.0) L 11/01/22 14:59 Globulin 3.1 g/dL (2.3-3.5) 11/01/22 14:59 Albumin/Globulin Ratio 0.9 (1.1-1.8) L 11/01/22 14:59 Prealbumin 10.9 mg/dL (20-40) L 11/01/22 03:48 Urine Color Light-yellow (Yellow) 10/30/22 04:10 Urine Clarity Clear (Clear) 10/30/22 04:10 Urine pH 5.5 (5.0-7.0) 10/30/22 04:10 Ur Specific [place] 1.018 (1.005-1.030) 10/30/22 04:10 Glucose (UA)(Auto) Negative (Negative) 10/30/22 04:10 Urine Ketones Negative (Negative) 10/30/22 04:10 Urine Blood 1+ (Negative) H 10/30/22 04:10 Urine Nitrite Negative (Negative) 10/30/22 04:10 Urine Bilirubin Negative (Negative) 10/30/22 04:10 Urine Urobilinogen Normal (Normal) 10/30/22 04:10 Ur Leukocyte Esterase Negative Tray/uL (Negative) 10/30/22 04:10 Urine RBC 5-10 /HPF (None Seen) H 10/30/22 04:10 Urine WBC <5 /HPF (<5) 10/30/22 04:10 Ur Squamous Epith Cells None seen /HPF (None Seen) 10/30/22 04:10 U Non-Squamous Epi Cells <5 /HPF (None Seen) 10/30/22 04:10 Ur Renal Epithelial Cell <5 /HPF (None Seen) 10/30/22 04:10 Urine Bacteria None seen /HPF (<20) 10/30/22 04:10 Urine Mucus Slight /HPF (None Seen) 10/30/22 04:10 Urine Culture Reflexed Not needed 10/30/22 04:10 Urine Total Protein Trace (Negative) H 10/30/22 04:10 ABO/Rh O POSITIVE 10/30/22 07:55 Solid Phase Ab Screen Negative 10/30/22 07:55 Crossmatch See Detail 10/30/22 07:55 Weight: 132 lb Wound Present: No Closed Surgical Incision Present: Yes Negative Pressure Wound Therapy Present: No Physician Update: Labs reviewed and are stable. Making fair overall progress. He is likely dehydrated with SBP in the 80s. His is chronically elevated, possible due to a a possible blood related cancer. Poor hearing without hearing aid. Scored 6 on the BIMS but he is improving very well. CGA with transfers. Walking 250' and upa nd down 5 steps with CGA. Not met goal such as upper and lower body dressing and transfers. Will D/C sanchez in the AM. 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 Please see the Rehabilitation Signature page for all necessary signatures.
[2022-11-02] MEDS: NA CHLORIDE 0.9% 1,000 ML IV SCH (14:25)
[2022-11-02] MEDS: ATORVASTATIN 20 MG TAB PO SCH (19:33)
[2022-11-02] MEDS: RISPERIDONE 0.25 MG TABLET PO SCH (19:33)
[2022-11-02] MEDS: TAMSULOSIN 0.4 MG SR CAP PO SCH (19:33)
[2022-11-02] MEDS: AMINO ACIDS/PROTEIN HYDROLYS 30 ML LIQUID.PKT PO SCH (19:35)
[2022-11-03] MEDS: NA CHLORIDE 0.9% 1,000 ML IV SCH (00:18)
[2022-11-03] MEDS: LIDOCAINE 4% PATCH TOP SCH (06:49)
[2022-11-03] MEDS: AMINO ACIDS/PROTEIN HYDROLYS 30 ML LIQUID.PKT PO SCH ×2 (08:00→20:00)
[2022-11-03] MEDS: JUVEN PACKET PO SCH ×2 (08:00→20:00)
[2022-11-03] MEDS: AMLODIPINE 5 MG TAB PO SCH (08:00)
[2022-11-03] MEDS: VALSARTAN 80 MG TAB PO SCH (08:00)
[2022-11-03] MEDS: ENSURE ENLIVE 237 ML CAN PO SCH ×2 (08:00→20:00)
[2022-11-03] MEDS: APIXABAN 2.5 MG TABLET PO SCH ×2 (08:19→20:23)
[2022-11-03] MEDS: FE SULF/FA/VIT B COMP & C TAB PO SCH (08:19)
[2022-11-03] MEDS: ASPIRIN 81 MG CHEWABLE TABLET PO SCH (08:19)
[2022-11-03] MEDS: FERROUS SULFATE 325 MG TAB PO SCH (08:19)
[2022-11-03] MEDS: GABAPENTIN 100 MG CAP PO SCH ×2 (08:19→20:24)
[2022-11-03] MEDS: CYANOCOBALAMIN 1,000 MCG TAB PO SCH (08:20)
[2022-11-03] MEDS: TRAMADOL HCL 50 MG TAB PO PRN ×2 (08:20→18:28)
[2022-11-03] MEDS: RISPERIDONE 0.25 MG TABLET PO SCH (20:23)
[2022-11-03] MEDS: TAMSULOSIN 0.4 MG SR CAP PO SCH (20:23)
[2022-11-03] MEDS: PETROLATUM (AQUAPHOR) JAR 396 GRAM TOP PRN (20:23)
[2022-11-03] MEDS: ATORVASTATIN 20 MG TAB PO SCH (20:24)
[2022-11-04] MEDS: TRAMADOL HCL 50 MG TAB PO PRN ×3 (03:57→17:02)
[2022-11-04 07:44] LABS: Absolute Lymphocytes (CBC) 8.5 K/uL (0.7-4.9); Hematocrit 30.1 % (39.6-49.0); Lymphocytes % 49.2 % (15.3-44.8); MCV 90.3 fL (80-100); MPV 6.8 fL (7.6-11.3); RBC Red Blood Cell Count 3.34 M/uL (4.33-5.43)
[2022-11-04] MEDS: LIDOCAINE 4% PATCH TOP SCH (07:45)
[2022-11-04] MEDS: AMINO ACIDS/PROTEIN HYDROLYS 30 ML LIQUID.PKT PO SCH ×2 (07:46→19:49)
[2022-11-04] MEDS: FE SULF/FA/VIT B COMP & C TAB PO SCH (07:46)
[2022-11-04] MEDS: FERROUS SULFATE 325 MG TAB PO SCH (07:46)
[2022-11-04] MEDS: ASPIRIN 81 MG CHEWABLE TABLET PO SCH (07:46)
[2022-11-04] MEDS: CYANOCOBALAMIN 1,000 MCG TAB PO SCH (07:46)
[2022-11-04] MEDS: APIXABAN 2.5 MG TABLET PO SCH ×2 (07:46→19:49)
[2022-11-04] MEDS: ENSURE ENLIVE 237 ML CAN PO SCH ×2 (07:47→19:49)
[2022-11-04] MEDS: GABAPENTIN 100 MG CAP PO SCH ×2 (07:48→19:49)
[2022-11-04] MEDS: VALSARTAN 80 MG TAB PO SCH (07:48)
[2022-11-04] MEDS: AMLODIPINE 5 MG TAB PO SCH (08:00)
[2022-11-04] MEDS: JUVEN PACKET PO SCH ×2 (08:00→19:49)
[2022-11-04 08:36] LABS: Blood Morphology Comment NOT SEEN (NOT SEEN); Platelet Estimate ADEQ
[2022-11-04] MEDS: PETROLATUM (AQUAPHOR) JAR 396 GRAM TOP PRN (14:48)
[2022-11-04] MEDS: DOCUSATE NA/SENNA CONC 1 TAB PO SCH (19:48)
[2022-11-04] MEDS: TAMSULOSIN 0.4 MG SR CAP PO SCH (19:48)
[2022-11-04] MEDS: HYDROCODONE/APAP 5/325 MG TAB PO PRN (19:49)
[2022-11-04] MEDS: RISPERIDONE 0.25 MG TABLET PO SCH (19:49)
[2022-11-04] MEDS: MELATONIN 3 MG TABLET PO PRN (19:49)
[2022-11-04] MEDS: ATORVASTATIN 20 MG TAB PO SCH (19:49)
[2022-11-05] MEDS: TRAMADOL HCL 50 MG TAB PO PRN ×2 (00:59→07:14)
[2022-11-05] MEDS: ENSURE ENLIVE 237 ML CAN PO SCH ×2 (07:14→19:44)
[2022-11-05] MEDS: GABAPENTIN 100 MG CAP PO SCH ×2 (07:15→19:43)
[2022-11-05] MEDS: FE SULF/FA/VIT B COMP & C TAB PO SCH (07:15)
[2022-11-05] MEDS: CYANOCOBALAMIN 1,000 MCG TAB PO SCH (07:15)
[2022-11-05] MEDS: VALSARTAN 80 MG TAB PO SCH (07:15)
[2022-11-05] MEDS: ASPIRIN 81 MG CHEWABLE TABLET PO SCH (07:15)
[2022-11-05] MEDS: JUVEN PACKET PO SCH ×2 (07:16→19:44)
[2022-11-05] MEDS: AMINO ACIDS/PROTEIN HYDROLYS 30 ML LIQUID.PKT PO SCH ×2 (07:16→19:44)
[2022-11-05] MEDS: APIXABAN 2.5 MG TABLET PO SCH ×2 (07:16→19:44)
[2022-11-05] MEDS: FERROUS SULFATE 325 MG TAB PO SCH (07:16)
[2022-11-05 07:37] LABS: Potassium 4.8 mEq/L (3.5-5.1)
[2022-11-05] MEDS: AMLODIPINE 5 MG TAB PO SCH (09:38)
[2022-11-05] MEDS: PETROLATUM (AQUAPHOR) JAR 396 GRAM TOP PRN (10:46)
[2022-11-05] MEDS: LIDOCAINE 4% PATCH TOP SCH (10:46)
[2022-11-05] MEDS: BISACODYL 10 MG RECTAL SUPP PR PRN (15:08)
--- NOTE | 2022-11-05 16:06 | RAD REPORT ---
EXAM DESCRIPTION: USExtrem Venous W Compress Bil11/05/2022 3:09 pm CLINICAL HISTORY: Leg swelling COMPARISON: none FINDINGS: The common femoral, superficial femoral, greater saphenous, popliteal and posterior tibial veins bilaterally are compressible and demonstrate augmentation. Doppler demonstrates good flow. Grayscale, color and spectral analysis performed on all vessels IMPRESSION: No evidence of deep venous thrombosis involving either lower extremity.
[2022-11-05] MEDS: DOCUSATE NA/SENNA CONC 1 TAB PO SCH (19:43)
[2022-11-05] MEDS: FUROSEMIDE 20 MG TABLET PO SCH (19:43)
[2022-11-05] MEDS: RISPERIDONE 0.25 MG TABLET PO SCH (19:43)
[2022-11-05] MEDS: TAMSULOSIN 0.4 MG SR CAP PO SCH (19:44)
[2022-11-05] MEDS: ATORVASTATIN 20 MG TAB PO SCH (19:44)
[2022-11-05] MEDS: HYDROCODONE/APAP 5/325 MG TAB PO PRN (21:29)
[2022-11-05] MEDS: MELATONIN 3 MG TABLET PO PRN (21:29)
--- NOTE | 2022-11-05 22:11 | RAD REPORT ---
EXAM DESCRIPTION: [place] Single View11/05/2022 10:05 pm CLINICAL HISTORY: Shortness breath COMPARISON: October 21 and November 01, 2022 FINDINGS: Mild bilateral interstitial lung opacities appear unchanged and presumably chronic The heart is normal size IMPRESSION: No acute abnormalities displayed
--- NOTE | 2022-11-05 22:22 | PN ---
Date of Progress Note: 11/05/2022 Time Of Service: 12:30 p.m. Subjective: Mr. Melgar is resting in his room. He denies any new complaints. He is happy with his therapy and has bowel movements and no difficulty with sleep. Review of Systems: No fevers, chills, nausea, vomiting. No myalgias, arthralgias, or rash. No psychiatric issues or ot her complaints. However, he does have increased swelling in the left more than right lower extremity . He does have a left hip fracture and as a result, he had a Doppler study done. The study was on b [facility] lower extremities and there was no evidence of deep vein thrombosis involving either lower extrem ity. His medications will be adjusted to include diuretics to help with clearance of fluid as renal function is normal. Laboratory Studies: His white blood cell count is elevated to 17.2 from the with neutrophils be ing 44, lymphocytes being 49. Chemistries; sodium 134, potassium 4.8, creatinine 1.0. His glucose i s 89, calcium 8.9 on the , prealbumin 10.9, and already we noted deep vein thrombosis rule out is done and negative in both lower extremities. Medications: He will have Lasix added 20 mg twice daily. We will continue with all other medication s including Flomax. He does have a Danielson inserted and the Urology Service, Dr. Tuttle has been cons ulted to assist with that. His protein level has been low and he is also on amino acid supplementati on for that. The patient does not like the Ensure and has been refusing that. Current Functional Status: Today, he ambulated 175 feet twice, 125 feet with a rolling walker with c ontact guard assistance. He also mobilized a wheelchair 250 feet with independence. [id number], s upine to sit done multiple times with standby assistance. With speech therapy, divergent naming for abstract categories accomplished with 90% accuracy with minimum assistance. He used organizational t hinking by sequencing 4 steps with 90% accuracy and minimum assistance. Progress Towards Rehabilitation Goals: Mr. Melgar is making very good progress towards his rehabili tation goals, however, is limited somewhat by the edema in the lower extremity on the left more than right side, but as noted above, he is ambulating much better and his cognitive functioning is doing m uch better. Performance of activities of daily living also improving fairly well. He did require so me encouragement to participate in his activities of daily living such as dressing upper body and shayne wering and toileting and standby assistance is noted for those. Assessment: Mr. Melgar is a 76-year-old patient in the rehabilitation unit with left hip fracture, status post surgical repair. He has comorbid bilateral lower extremity edema with good renal functio n and therefore will have Lasix to help remove the fluid. Chest x-ray will be done tomorrow instead of KUB to assess for potential pulmonary edema. He has resolved nausea and vomiting. He has hyperte nsion, has a stroke with minimal left-sided residual weakness and dysarthria, chronic obstructive pul monary disease, and left heel pressure ulcer and peripheral vascular disease. Plan: 1.Continue physical, occupational, and speech therapy for 3.5 hours, 5 of 7 days. 2.We will start Lasix as noted 20 mg twice daily. Danielson is in place. 3.We will continue Eliquis for DVT risk reduction. 4.Nebulizers will continue. 5.Offload areas of pressure ulceration on the left heel and in the sacral area. The patient will be turned in bed. 6.Incentive spirometry along with nebulizers. 7.For the lower extremity edema, he will have sequential compression devices at night and SHEILA hose. 8.The Urology service is consulted and Dr. Trey Tuttle will be assisting the patient. Comorbids That Continue To Impact His Rehabilitation Process: 1.The lower extremity edema is a somewhat limiting factor, again Lasix to be used. 2.He has a stroke with some dysarthria and left-sided weakness that he is working hard to overcome a nd that is side of the left hip fracture. Again, the side of the edema is making it difficult to amb ulate. 3.If need be, his discharge course will be held. Currently, he is not set to be discharged in the next day or 2, but may be held if need be for medical reasons. TRELL/YUMIKOL Voice ID: [id number] Report ID: [id number]
[2022-11-06] MEDS: HYDROCODONE/APAP 5/325 MG TAB PO PRN ×2 (01:19→22:35)
[2022-11-06] MEDS: ENSURE ENLIVE 237 ML CAN PO SCH ×2 (07:20→19:28)
[2022-11-06] MEDS: LIDOCAINE 4% PATCH TOP SCH (07:20)
[2022-11-06] MEDS: ASPIRIN 81 MG CHEWABLE TABLET PO SCH (07:21)
[2022-11-06] MEDS: FERROUS SULFATE 325 MG TAB PO SCH (07:22)
[2022-11-06] MEDS: CYANOCOBALAMIN 1,000 MCG TAB PO SCH (07:22)
[2022-11-06] MEDS: FE SULF/FA/VIT B COMP & C TAB PO SCH (07:22)
[2022-11-06] MEDS: FUROSEMIDE 20 MG TABLET PO SCH ×2 (07:22→17:03)
[2022-11-06] MEDS: APIXABAN 2.5 MG TABLET PO SCH ×2 (07:22→19:27)
[2022-11-06] MEDS: GABAPENTIN 100 MG CAP PO SCH ×2 (07:23→19:27)
[2022-11-06] MEDS: TRAMADOL HCL 50 MG TAB PO PRN ×2 (07:24→12:09)
[2022-11-06] MEDS: AMINO ACIDS/PROTEIN HYDROLYS 30 ML LIQUID.PKT PO SCH ×2 (07:25→19:28)
[2022-11-06] MEDS: JUVEN PACKET PO SCH (08:00)
[2022-11-06] MEDS: VALSARTAN 80 MG TAB PO SCH (10:09)
[2022-11-06] MEDS: AMLODIPINE 5 MG TAB PO SCH (10:10)
[2022-11-06] MEDS ORDERED: TRAZODONE 50 MG TABLET PO PRN (13:39)
--- NOTE | 2022-11-06 17:19 | P.CNS ---
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 Apparently he slipped and fell impacting his left side. This resulted in a left hip displaced femoral neck fracture. He also had a stage III pressure ulcer on the left heel. On 10/23/2022, Dr. Brown performed left hip bipolar hemiarthroplasty. He has since been admitted to rehab, but has had issues with voiding and incomplete emptying since that time. The patient was unable to provide adequate history today, but his family members suggested he had significant issues with daytime urinary frequency and nocturia. Apparently he was voiding into a urinal which was kept at bedside at multiple occasions during the night. Past medical history: Hypertension, dementia, hemorrhagic stroke with left-sided weakness, COPD Past surgical history: CABG x3, abdominal hernia repair, and peripheral vascular surgery below the knee No known drug allergies Medications reviewed. Home medications: Aspirin 81 mg daily, Zocor 20 mg daily, Norvasc 5 mg daily. Social history: No history of smoking. Examination: Patient extremely hard of hearing and inappropriately responsive to basic questioning potentially due to severely diminished hearing but likely associated with his Alzheimer's dementia There is no dyspnea or sign of respiratory distress He was sitting comfortably in a wheelchair Urethral Danielson catheter had been removed at around 2 PM today and patient was undergoing a voiding trial. 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 Brown with stage III pressure ulcer on the left heel with LUTS. -Agree with voiding trial. If patient unable to void within 6 hours of the catheter being removed, recommend replacing 18 British coud tip Danielson catheter. If patient successfully able to void, collect voided volume and measure. Then check bladder scan postvoid residual. -If postvoid residual is greater than void volume, immediately replace 18 [place] coud urethral Danielson catheter, and initiate Flomax if not already started. -If void volume greater than postvoid residual and postvoid residual <300 cc, may discharge patient without the catheter. -Follow-up as scheduled in the urology clinic for cystoscopic evaluation, JAGRUTI and urodynamics
[2022-11-06] MEDS: RISPERIDONE 0.25 MG TABLET PO SCH (19:25)
[2022-11-06] MEDS: ATORVASTATIN 20 MG TAB PO SCH (19:26)
[2022-11-06] MEDS: DOCUSATE NA/SENNA CONC 1 TAB PO SCH (19:26)
[2022-11-06] MEDS: TAMSULOSIN 0.4 MG SR CAP PO SCH (19:27)
[2022-11-06] MEDS: MELATONIN 3 MG TABLET PO PRN (22:35)
--- NOTE | 2022-11-07 03:40 | PN ---
Date of Progress Note: 11/06/2022 Time Of Service: 1 p.m. Subjective: Mr. Melgar is resting in the room. He is worried about blood in his urine coming throu gh the Danielson catheter and is awaiting Dr. Trey Tuttle to come by and see him. Dr. Trey Tuttle actually did come by later in the afternoon, and he did agree with a voiding trial and noted that the patient, if unable to void within 6 hours, a 16-Cambodian catheter should be reinserted and bladder pos tvoid residual may be checked. After discharge, the patient will be followed in Urology Clinic for a cystoscopy evaluation and urodynamics. Review of Systems: There is some mild discomfort in the lower abdominal region. Otherwise, he denies any fevers, chills , any significant arthralgias or myalgias. No rash or other positives. Physical Examination: Vital Signs: Blood pressure 137/63, pulse 81, respiratory rate 16, temperature 97.2, oxygen saturati on 97%. General: Mr. Melgar again is resting comfortably. He is in no acute distress. Lungs: Clear to auscultation. Abdomen: Soft. Extremities: He does have some swelling in the right lower extremity, where his right hip surgery is done, but otherwise, no new findings. Laboratory Studies: No new laboratory studies done today. X-ray Imaging: No new x-rays and as noted, he was seen by Dr. Trey Tuttle today. Medications: Medications have not been changed compared to yesterday. Current Functional Status: Today, he ambulated 500 feet with a rolling walker with modified independ ence. Did stop to picker and packer a Thera-Band off the floor with modified independence. He also ascended a nd descended 15 steps with standby assistance. He is ready to go home. With his Occupational Therap y, sit to stand and he ambulated another 250 feet with no rest. Completed transfers with supervision . With Speech Therapy, he was re-administered the SLUMS test, and his score improved from a 9 to a 1 5/15, and his divergent naming skills have improved from a 7 to a 10. Progress Toward Rehabilitation Goals: Mr. Melgar has made excellent progress toward his rehabilitat ion goals and is actually ready to be discharged, to continue with therapy via Home Health as they wi ll begin bladder training. He is seen by Dr. Tuttle on the Urology service and does require further evaluation following his urological surgery. Assessment: Mr. Melgar is a 76-year-old patient admitted to the inpatient rehabilitation unit with left hip fracture status post surgical repair. He has some lower extremity edema, worse on the left where he had surgery. He did have Lasix that helped with that. He did have DVT ruled out by negativ e Dopplers. He does have some minimal residual left-sided weakness and dysarthria after a stroke. H e has chronic obstructive pulmonary disease, left heel pressure ulcer, and peripheral vascular diseas e. Plan: 1.Continue with physical, occupational, and speech therapy for now. 2.Plan to be discharged in the morning. 3.Lasix 20 mg daily. 4.Eliquis for DVT prophylaxis. 5.Offload his heel for pressure ulcers. 6.Follow up with Dr. Trey Tuttle. 7.As noted, he will be discharged in the morning. Comorbidities That Continue To Impact Rehabilitation Process: At this point, his bladder issue is th e most pressing problem and it will require follow up after discharge with the Urology service and Dr Pietro Tuttle is on board. Otherwise, he is doing very well. TRELL/CHENCHO Voice ID: [id number] Report ID: [id number]
[2022-11-07 07:17] VITALS: TEMP 96.9
[2022-11-07] MEDS: ENSURE ENLIVE 237 ML CAN PO SCH (08:00)
[2022-11-07] MEDS: AMINO ACIDS/PROTEIN HYDROLYS 30 ML LIQUID.PKT PO SCH (08:00)
[2022-11-07] MEDS: AMLODIPINE 5 MG TAB PO SCH (08:00)
[2022-11-07] MEDS: VALSARTAN 80 MG TAB PO SCH (08:00)
[2022-11-07] MEDS: PETROLATUM (AQUAPHOR) JAR 396 GRAM TOP PRN (09:04)
[2022-11-07] MEDS: FE SULF/FA/VIT B COMP & C TAB PO SCH (09:04)
[2022-11-07] MEDS: CYANOCOBALAMIN 1,000 MCG TAB PO SCH (09:05)
[2022-11-07] MEDS: FERROUS SULFATE 325 MG TAB PO SCH (09:05)
[2022-11-07] MEDS: ASPIRIN 81 MG CHEWABLE TABLET PO SCH (09:05)
[2022-11-07] MEDS: GABAPENTIN 100 MG CAP PO SCH (09:06)
[2022-11-07] MEDS: TRAMADOL HCL 50 MG TAB PO PRN (09:06)
[2022-11-07] MEDS: APIXABAN 2.5 MG TABLET PO SCH (09:06)
[2022-11-07] MEDS: LIDOCAINE 4% PATCH TOP SCH (09:08)
[2022-11-07 09:18] VITALS: BP 140/75
[2022-11-07] MEDS: FUROSEMIDE 20 MG TABLET PO SCH (09:18)
== END 2022-11-07 10:25 | disposition home health service (06) | DRG 559 ==
LOC: 5TH 11:40
PROVIDERS: ADMIT Psychiatry & Neurology Neurology with Special Qualifications in Child Neurology; ATTEND Psychiatry & Neurology Neurology with Special Qualifications in Child Neurology
PROC: 0HBRXZZ Excision of Toe Nail, External Approach (ICD-10-PCS; principal; 2022-10-30)
PROC: 0HBRXZZ Excision of Toe Nail, External Approach (ICD-10-PCS; 2022-10-30)
PROC: 0HBRXZZ Excision of Toe Nail, External Approach (ICD-10-PCS; 2022-10-30)
PROC: 0HBRXZZ Excision of Toe Nail, External Approach (ICD-10-PCS; 2022-10-30)
PROC: 0HBRXZZ Excision of Toe Nail, External Approach (ICD-10-PCS; 2022-10-30)
PROC: 0HBRXZZ Excision of Toe Nail, External Approach (ICD-10-PCS; 2022-10-30)
PROC: 0HBRXZZ Excision of Toe Nail, External Approach (ICD-10-PCS; 2022-10-30)
PROC: 0HBRXZZ Excision of Toe Nail, External Approach (ICD-10-PCS; 2022-10-30)
PROC: 0HBRXZZ Excision of Toe Nail, External Approach (ICD-10-PCS; 2022-10-30)
PROC: 0HBRXZZ Excision of Toe Nail, External Approach (ICD-10-PCS; 2022-10-30)
PROC: 30233N1 Transfusion of Nonautologous Red Blood Cells into Peripheral Vein, Percutaneous Approach (ICD-10-PCS; 2022-10-30)
DX: S72.002D Fracture of unspecified part of neck of left femur, subsequent encounter for closed fracture with routine healing (principal); L89.623 Pressure ulcer of left heel, stage 3; I69.354 Hemiplegia and hemiparesis following cerebral infarction affecting left non-dominant side; N39.0 Urinary tract infection, site not specified; I10 Essential (primary) hypertension; F03.90 Unspecified dementia, unspecified severity, without behavioral disturbance, psychotic disturbance, mood disturbance, and anxiety; J44.9 Chronic obstructive pulmonary disease, unspecified; I73.9 Peripheral vascular disease, unspecified; K59.00 Constipation, unspecified; G47.00 Insomnia, unspecified; I69.322 Dysarthria following cerebral infarction; B35.1 Tinea unguium; L85.3 Xerosis cutis; R39.14 Feeling of incomplete bladder emptying; Z87.891 Personal history of nicotine dependence; Z95.1 Presence of aortocoronary bypass graft
CPT/HCPCS: 36415; 71045; 74018; 80048; 80076; 81001; 82040; 83735; 84134; 85014; 85018; 85025; 86850; 86900; 86901; 86920; 87086; 87088; 92523; 93970; 97110; 97112; 97116; 97129; 97163; 97165; 97530; 97542; J2001; J7030; J7050; J7613; J7644; P9016; Q0162

== ENCOUNTER 2024-07-24 07:15 | Inpatient (IN) | payer OTHER ==
[2024-07-24] MEDS ORDERED: ACETAMINOPHEN 500 MG TAB ONE (07:29)
[2024-07-24] MEDS ORDERED: NA CHLORIDE 0.9% 1,000 ML ONE (07:29)
--- NOTE | 2024-07-24 07:50 | RAD REPORT ---
EXAMINATION: ONE VIEW CHEST XR CLINICAL INDICATION: COUGH TECHNIQUE: Frontal chest projection is submitted. Examination is limited by patient positioning and t echnique. COMPARISON: 11/05/2022 FINDINGS: Mildly prominent interstitial lung markings seen. This may represent viral bronchitis or mild interst itial edema. No focal consolidation typical of pneumonia. The heart is upper limit of normal in size. No displaced fractures identified.
[2024-07-24 08:24] LABS: Absolute Lymphocytes (CBC) 6.6 K/uL (0.7-4.9); Absolute Monocytes 1.1 K/uL (0.1-1.3); Absolute Neutrophil 8.2 K/uL (1.8-8.0); Basophils % 0.3 % (0-1.3); Hemoglobin 9.8 g/dL (13.6-17.9); Lymphocytes % 41.2 % (15.3-44.8); MCH 31.6 pg (27.0-35.0); MCHC 32.8 g/dL (32.0-36.0); MCV 96.5 fL (80-100); MPV 7.4 fL (7.6-11.3); Monocytes % 6.9 % (3.3-12.3); Neutrophils % 51.6 % (41.7-73.7); Nucleated RBC Absolute Count 0.1 (0-0); Nucleated Red Blood Cells % 0.4 % (0-0); Platelets 211 thou/uL (152-406); RBC Red Blood Cell Count 3.11 M/uL (4.33-5.43); Red Cell Distribution Width 13.5 % (12.1-15.2)
[2024-07-24 08:27] LABS: PT Prothrombin Time 12.3 SECONDS (10-13.0); PTT, Activated Partial Thromb 29.7 SECONDS (27.2-37.4); Protime INR 1.08
[2024-07-24 08:31] LABS: Albumin 4.1 g/dL (3.4-5.0); Albumin/Globulin Ratio 1.3 (1.1-1.8); Anion Gap 13.9 mEq/L (5.0-15.0); Bilirubin Total 0.6 mg/dL (0.2-1.0); Globulin 3.2 g/dL (2.3-3.5); Potassium 4.9 mEq/L (3.5-5.1); Protein, Total 7.3 g/dL (6.4-8.2)
[2024-07-24 08:59] LABS: Influenza A Ag Negative; Influenza B Ag Negative; SARS-CoV-2 Antigen Rapid Res Negative (Negative)
[2024-07-24] MEDS ORDERED: CEFEPIME 2 GM VIAL ONE (09:40)
[2024-07-24] MEDS ORDERED: NA CHLORIDE 0.9% 100 ML ONE (09:40)
--- NOTE | 2024-07-24 10:31 | EDPHYS ---
Physician Documentation [facility] Name: Isra Melgar Age: 78 yrs Sex: Male : 1945 Arrival Date: 07/24/2024 Time: 07:15 Bed 8 Private MD: ED Physician Deo Ceja HPI: 07/24 07:29 This 78 yrs old Male presents to ER via EMS with complaints of Fever, Flu Symptoms. rt 07:35 Patient presents to the ED with 1 day of fever, productive cough, chills. History rt limited due to patient with advanced dementia. Denies other acute complaints at this time, symptoms are moderate in severity, no other aggravating or alleviating factors.. Historical: - Allergies: 07:21 No Known Allergies; ph - Home Meds: 07:21 amlodipine 5 mg tablet 1 tab daily [Active]; aspirin 81 mg Oral tablet 1 tab daily ph [Active]; olmesartan 40 mg Oral tablet 1 tab daily [Active]; simvastatin 20 mg Oral tablet 1 tab daily [Active]; - PMHx: 07:21 Cerebrovascular accident; Dementia; Hypercholesterolemia; Hypertensive disorder; ph - Immunization history:: Adult Immunizations unknown. - Infectious Disease History:: Denies. - Social history:: Smoking status: unknown. - Family history:: not pertinent. ROS: 07:35 Unable to obtain ROS due to baseline dementia, rt Exam: 07:35 Constitutional: This is a well developed, well nourished patient who is awake, alert, rt and in no acute distress. Head/Face: Normocephalic, atraumatic. Chest/axilla: Normal chest wall appearance and motion. Nontender with no deformity. No lesions are appreciated. Cardiovascular: Regular rate and rhythm with a normal S1 and S2. No gallops, murmurs, or rubs. Normal PMI, no JVD. No pulse deficits. Abdomen/GI: Soft, non-tender, with normal bowel sounds. No distension or tympany. No guarding or rebound. No evidence of tenderness throughout. MS/ Extremity: Pulses equal, no cyanosis. Neurovascular intact. Full, normal range of motion. Neuro: Awake and alert, GCS 15, oriented to person, place, time, and situation. Cranial nerves II-XII grossly intact. Motor strength 5/5 in all extremities. Sensory grossly intact. Cerebellar exam normal. Normal gait. 07:35 Respiratory: Coarse breath sounds diffusely, no respiratory distress, 09:53 ECG was reviewed by the Attending Physician. rt Vital Signs: 07:18 BP 120 / 95; Pulse 116; Resp 20; Temp 101.1; Pulse Ox 98% on R/A; Weight 66.68 kg; ph Height 5 ft. 7 in. ; 08:20 BP 137 / 93; Pulse 112; Resp 18; Pulse Ox 97% on R/A; ph 10:00 BP 120 / 95; Pulse 98; Resp 18; Pulse Ox 98% on R/A; ph 11:00 BP 128 / 87; Pulse 84; Resp 18; Temp 98.1; Pulse Ox 98% on R/A; ph 12:00 BP 138 / 89; Pulse 87; Resp 18; Pulse Ox 98% on R/A; ph 13:30 BP 141 / 90; Pulse 86; Resp 16; Temp 98.7; Pulse Ox 97% on R/A; ph 07:18 Body Mass Index 23.02 (66.68 kg, 170.18 cm) ph MDM: 07:19 Medical Screening Exam initiated rt 10:31 Differential diagnosis: Viral syndrome, pneumonia, sepsis. Data reviewed: vital signs, rt nurses notes, lab test result(s), EKG, radiologic studies. Consideration of Admission/Observation Patient was admitted/placed on observation. Management of patient was discussed with the following: Hospitalist: Agrees to admit. I considered the following discharge prescriptions or medication management in the emergency department Medications were administered in the Emergency Department. See MAR. Independent interpretation of the following test(s) in the Emergency Department X-Ray: My interpretation is Left lower lobe infiltrate seen on interpretation of x-ray images. Test considered but Not performed: CT: Low suspicion for pulmonary embolus, CT angiogram not indicated. Care significantly affected by the following chronic conditions: Hypertension. Post IV fluid administration reassessment for Sepsis: Client not prescribed the 30 mL/kg IVF due to: Not septic shock Sepsis focused reassessment complete. Focused assessment performed: July 24, 2024 at 10:32 Heart: Regular rate/rhythm. Lungs: noted to be clear bilaterally. Neuro: Patient's neurological exam has improved from previous exam. Respiratory: Respiratory exam improved from previous exam. Counseling: I had a detailed discussion with the patient and/or guardian regarding the historical points, exam findings, and any diagnostic results supporting the discharge/admit diagnosis, lab results, radiology results, the need for further work-up and treatment in the hospital. Response to treatment: the patient's symptoms have markedly improved after treatment. 07/24 07:22 Order name: Blood Culture Adult (2) rt 07/24 07:22 Order name: CBC with Diff; Complete Time: 09:16 rt 07/24 07:22 Order name: CMP; Complete Time: 09:16 rt 07/24 07:22 Order name: Lactate w/ 2H reflex if indic.; Complete Time: 09:16 rt 07/24 07:22 Order name: Protime (+inr); Complete Time: 09:16 rt 07/24 07:22 Order name: Ptt, Activated; Complete Time: 09:16 rt 07/24 07:22 Order name: Urinalysis w/ reflexes rt 07/24 07:22 Order name: COVID-19 Ag + Flu A+B Ag; Complete Time: 09:16 rt 07/24 08:43 Order name: Ghost Lactate-NO COLLECT Timer EDMS 07/24 11:30 Order name: Lactate Sepsis 2 HR Follow-up EDMS 07/24 12:04 Order name: Basic Metabolic Panel EDMS 07/24 12:04 Order name: Basic Metabolic Panel EDMS 07/24 12:04 Order name: Basic Metabolic Panel EDMS 07/24 12:04 Order name: Basic Metabolic Panel EDMS 07/24 12:04 Order name: CBC with Automated Diff EDMS 07/24 12:04 Order name: CBC with Automated Diff EDMS 07/24 12:04 Order name: CBC with Automated Diff EDMS 07/24 12:04 Order name: CBC with Automated Diff EDMS 07/24 12:04 Order name: Procalcitonin EDMS 07/24 12:04 Order name: Procalcitonin EDMS 07/24 12:04 Order name: T4 Free EDMS 07/24 12:04 Order name: T4 Free EDMS 07/24 12:04 Order name: Thyroid Stimulating Hormone EDMS 07/24 12:04 Order name: Thyroid Stimulating Hormone EDMS 07/24 07:22 Order name: Chest Single View XRAY; Complete Time: 07:51 rt 07/24 12:04 Order name: Physical Therapy Consult EDMS 07/24 07:22 Order name: Accucheck; Complete Time: 07:59 rt 07/24 07:22 Order name: Cardiac monitoring; Complete Time: 07:24 rt 07/24 07:22 Order name: EKG - Nurse/Tech; Complete Time: 09:52 rt 07/24 07:22 Order name: IV Saline Lock - Large Bore; Complete Time: 07:59 rt 07/24 07:22 Order name: Labs collected and sent; Complete Time: 07:59 rt 07/24 07:22 Order name: O2 Per Protocol; Complete Time: 07:24 rt 07/24 07:22 Order name: O2 Sat Monitoring; Complete Time: 07:24 rt 07/24 07:22 Order name: Vital Signs; Complete Time: 07:24 rt EC:53 Rate is 106 beats/min. Rhythm is regular, Sinus tachycardia with No ectopy. QRS [place] is rt Normal. OR interval is normal. QRS interval is normal. QT interval is normal. No Q waves. Administered Medications: 07:40 Drug: Acetaminophen PO 1000 mg PO once Route: PO; ph 08:00 Follow up: Response: No adverse reaction ph 08:25 Drug: NS 0.9% IV 1000 ml IV at 1 bolus Per protocol; to be given as a bolus over 60 ph minutes Route: IV; Rate: 1 bolus; Site: left forearm; 09:30 Follow up: Response: No adverse reaction; IV Status: Completed infusion; IV Intake: ph 1000ml 09:53 Drug: Cefepime IVPB 2 grams IVPB at 200 ml/hr once over 30 mins; (mix in NS 100 mL) bp Route: IVPB; Rate: 200 ml/hr; Infused Over: 30 mins; Site: left antecubital; 10:30 Follow up: Response: No adverse reaction; IV Status: Completed infusion ph Disposition Summary: 07/24/24 10:30 Hospitalization Ordered Notes: Hospitalization Status: Inpatient Admission rt Provider: Jamar Anderson rt Location: Telemetry/[facility] (Inpatient) rt Condition: Stable rt Problem: new rt Symptoms: have improved rt Bed/Room Type: Standard rt Room Assignment: 207(07/24/24 12:41) ja1 Diagnosis - Cough rt - Severe sepsis without septic shock rt Forms: - Medication Reconciliation Form rt - SBAR form rt - Leadership Thank You Letter rt Critical care time excluding procedures: 10:31 Critical care time: Bedside Care: 30 minutes, Consultation: 5 minutes. Total time: 35 rt minutes Signatures: Dispatcher [employer] EDMS Fartun Hawkins, RN RN ph Deric Braswell, RN RN ja1 Jimi Scales, RN RN Deo Petersen MD MD rt Alex March ty Corrections: (The following items were deleted from the chart) 07:23 07:23 BLOOD CULTURE*+BA.LAB.BRZ ordered. EDMS EDMS 07:23 07:23 CBC+H.LAB.BRZ ordered. EDMS EDMS 07:23 07:23 COMPREHENSIVE METABOLIC PANEL+C.LAB.BRZ ordered. EDMS EDMS 07:23 07:23 LACTATE+C.LAB.BRZ ordered. EDMS EDMS 07:23 07:23 PROTIME (+INR)+COAG.LAB.BRZ ordered. EDMS EDMS 07:23 07:23 PTT, ACTIVATED+COAG.LAB.BRZ ordered. EDMS EDMS 07:23 07:23 Urinalysis+U.LAB.BRZ ordered. EDMS EDMS 07:23 07:23 COVID-19 Ag + Flu A+B Ag+I.LAB.BRZ ordered. EDMS EDMS 07:23 07:23 Chest Single View+RAD.RAD.BRZ ordered. EDMS EDMS 12:31 10:30 rt ty 12:41 12:31 204 ty ja1
--- NOTE | 2024-07-24 10:31 | ER ---
Nurse's Notes [facility] Name: Isra Melgar Age: 78 yrs Sex: Male : 1945 Arrival Date: 07/24/2024 Time: 07:15 Bed 8 Private MD: Diagnosis: Cough;Severe sepsis without septic shock Presentation: 07/24 07:18 Chief complaint: EMS states: Pt c/o feeling sick since yesterday, fever and productive ph cough, grandchildren have the flu. Coronavirus screen: Vaccine status: Patient reports being unvaccinated. Ebola Screen: No symptoms or risks identified at this time. Initial Sepsis Screen: Does the patient meet any 2 criteria? No. Patient's initial sepsis screen is negative. Does the patient have a suspected source of infection? No. Patient's initial sepsis screen is negative. Risk Assessment: Do you want to hurt yourself or someone else? Patient reports no desire to harm self or others. Onset of symptoms was July 24, 2024. 07:18 Method Of Arrival: EMS: [facility] 07:18 Acuity: JASMYN 3 ph Triage Assessment: 07:22 General: Appears in no apparent distress. Behavior is cooperative. Pain: Denies pain. ph Neuro: Level of Consciousness is awake, alert, obeys commands, Oriented to person, place. Cardiovascular: Capillary refill < 3 seconds in bilateral fingers Patient's skin is warm and dry. Rhythm is sinus tachycardia. Respiratory: Reports cough that is productive, Airway is patent Respiratory effort is even, unlabored, Respiratory pattern is regular, symmetrical. Derm: Skin is pink, warm \T\ dry. Historical: - Allergies: 07:21 No Known Allergies; ph - Home Meds: 07:21 amlodipine 5 mg tablet 1 tab daily [Active]; aspirin 81 mg Oral tablet 1 tab daily ph [Active]; olmesartan 40 mg Oral tablet 1 tab daily [Active]; simvastatin 20 mg Oral tablet 1 tab daily [Active]; - PMHx: 07:21 Cerebrovascular accident; Dementia; Hypercholesterolemia; Hypertensive disorder; ph - Immunization history:: Adult Immunizations unknown. - Infectious Disease History:: Denies. - Social history:: Smoking status: unknown. - Family history:: not pertinent. Screenin:23 [facility] ED Fall Risk Assessment (Adult) History of falling in the last 3 months, ph including since admission No falls in past 3 months (0 pts) Confusion or Disorientation No (0 pts) Intoxicated or Sedated No (0 pts) Impaired Gait Yes (1 pt) Mobility Assist Device Used Yes (1 pt) Altered Elimination No (0 pt) Score/Fall Risk Level 0 - 2 = Low Risk Oriented to surroundings, Maintained a safe environment, Hourly rounding (assess needs \T\ fall precautionary measures) done. Abuse screen: Denies threats or abuse. Denies injuries from another. Nutritional screening: No deficits noted. Tuberculosis screening: No symptoms or risk factors identified. Assessment: 08:21 General: SEE TRIAGE ASSESSMENT. ph 09:30 Reassessment: Patient appears in no apparent distress at this time. Patient and/or ph family updated on plan of care and expected duration. Pain level reassessed. Patient is alert, oriented x 3, equal unlabored respirations, skin warm/dry/pink. 11:00 Reassessment: Patient appears in no apparent distress at this time. Patient and/or ph family updated on plan of care and expected duration. Pain level reassessed. Patient is alert, oriented x 3, equal unlabored respirations, skin warm/dry/pink. 12:30 Reassessment: Patient appears in no apparent distress at this time. Patient and/or ph family updated on plan of care and expected duration. Pain level reassessed. Patient is alert, oriented x 3, equal unlabored respirations, skin warm/dry/pink. Vital Signs: 07:18 BP 120 / 95; Pulse 116; Resp 20; Temp 101.1; Pulse Ox 98% on R/A; Weight 66.68 kg; ph Height 5 ft. 7 in. ; 08:20 BP 137 / 93; Pulse 112; Resp 18; Pulse Ox 97% on R/A; ph 10:00 BP 120 / 95; Pulse 98; Resp 18; Pulse Ox 98% on R/A; ph 11:00 BP 128 / 87; Pulse 84; Resp 18; Temp 98.1; Pulse Ox 98% on R/A; ph 12:00 BP 138 / 89; Pulse 87; Resp 18; Pulse Ox 98% on R/A; ph 13:30 BP 141 / 90; Pulse 86; Resp 16; Temp 98.7; Pulse Ox 97% on R/A; ph 07:18 Body Mass Index 23.02 (66.68 kg, 170.18 cm) ph ED Course: 07:17 Patient arrived in ED. ph 07:18 Deo Ceja MD is Attending Physician. rt 07:21 Triage completed. ph 07:22 Arm band placed on Patient placed in an exam room, on a stretcher. ph 07:23 Patient has correct armband on for positive identification. Bed in low position. Call ph light in reach. Side rails up X 1. nurse monitoring on. Pulse ox on. NIBP on. 07:24 Fartun Hawkins, RN is Primary Nurse. ph 07:46 Chest Single View XRAY In Process Unspecified. EDMS 07:59 COVID-19 Ag + Flu A+B Ag Sent. ph 08:26 Initial lab(s) drawn, by ED staff, sent to lab. Inserted saline lock: 22 gauge in left ph forearm, using aseptic technique. Blood collected. Flushed with 10 mL NS. 10:30 Jamar Anderson MD is Hospitalizing Provider. rt 14:10 No provider procedures requiring assistance completed. Patient admitted, IV remains in ph place. Administered Medications: 07:40 Drug: Acetaminophen PO 1000 mg PO once Route: PO; ph 08:00 Follow up: Response: No adverse reaction ph 08:25 Drug: NS 0.9% IV 1000 ml IV at 1 bolus Per protocol; to be given as a bolus over 60 ph minutes Route: IV; Rate: 1 bolus; Site: left forearm; 09:30 Follow up: Response: No adverse reaction; IV Status: Completed infusion; IV Intake: ph 1000ml 09:53 Drug: Cefepime IVPB 2 grams IVPB at 200 ml/hr once over 30 mins; (mix in NS 100 mL) bp Route: IVPB; Rate: 200 ml/hr; Infused Over: 30 mins; Site: left antecubital; 10:30 Follow up: Response: No adverse reaction; IV Status: Completed infusion ph Medication: 07:23 VIS not applicable for this client. ph Intake: 09:30 IV: 1000ml; Total: 1000ml. ph Outcome: 10:30 Decision to Hospitalize by Provider. rt 14:10 Patient left the ED. bp 14:10 Admitted to Med/surg accompanied by tech, family with patient, ph 14:10 Condition: stable 14:10 Instructed on the need for admit, Signatures: Dispatcher [employer] EDOtto Reyia, RN RN ph Jimi Scales RN RN bp Deo Ceja MD MD rt Corrections: (The following items were deleted from the chart) 09:55 09:55 BP 125 / 87; Pulse 99bpm; Resp 16bpm; Pulse Ox 97%; bp bp
[2024-07-24] MEDS ORDERED: ACETAMINOPHEN 325 MG TABLET PO PRN (11:58)
[2024-07-24] MEDS ORDERED: ALBUTEROL 2.5 MG/3 ML NEB SOL NEB PRN (11:58)
[2024-07-24] MEDS ORDERED: ONDANSETRON 4 MG/2 ML VIAL IV PRN (11:58)
[2024-07-24 14:16] VITALS: O2SAT 98
--- NOTE | 2024-07-24 16:40 | P.HP ---
Certification for Inpatient Patient admitted to: Inpatient With expected LOS: >2 Midnights Patient will require the following post-hospital care: None Practitioner: I am a practitioner with admitting privileges, knowledge of patient current condition, hospital course, and medical plan of care. Services: Services provided to patient in accordance with Admission requirements found in Title 42 Section 412.3 of the Code of Federal Regulations Patient History Date of Service: 07/24/24 Reason for admission: Sepsis History of Present Illness: 78-year-old male with history of chronic indwelling Danielson catheter, PAD, dementia, stroke, COPD presented to the emergency department with chief complaint of fever, cough. He reports that people in his family have tested positive for influenza but he did test negative today in the ER. Patient was evaluated in the emergency department his labs were significant for white blood cell count of 15.9 hemoglobin 9.8 lactate 2.9, repeat down to less than 0.8 creatinine 1.49 UA is pending chest x-ray shows mildly prominent interstitial lung markings which may represent viral bronchitis or mild interstitial edema, no focal consolidation was noted. Patient was started on empiric antibiotics with cefepime in ED, will be admitted for further management of suspected viral sepsis with possible superimposed bacterial infection Allergies No Known Allergies Allergy (Verified 11/03/22 11:48) Home Medications: Amlodipine [Norvasc*] 5 mg PO DAILY 03/01/16 Aspirin Chewable [Aspirin Chewable*] 81 mg PO DAILY 10/21/22 Olmesartan Medoxomil 40 mg PO DAILY 10/21/22 Simvastatin [Zocor] 20 mg PO DAILY 10/21/22 Cyanocobalamin [Vitamin B-12*] 1,000 mcg SL DAILY #30 tab 10/29/22 risperiDONE [Risperdal 0.25 MG TAB*] 0.5 mg PO BEDTIME tab 10/29/22 Cyanocobalamin [Vitamin B-12*] 1,000 mcg PO DAILY tab 11/06/22 Ferrous Sulfate [Ferrous Sulfate*] 325 mg PO DAILY #30 tab 11/06/22 Furosemide [Lasix*] 20 mg PO BIDL #60 tab 11/06/22 Gabapentin [Neurontin*] 100 mg PO BID #60 cap 11/06/22 Iron/FA/Vit B-Com W/C [Hemocyte Plus*] 1 tab PO DAILY WITH BREAKFAST #30 tab 11/06/22 Lidocaine 4% Patch [Lidoderm 5% Patch*] 1 patch TOP DAILY pat 11/06/22 Tamsulosin [Flomax*] 0.4 mg PO BEDTIME #30 cap 11/06/22 traMADol HCL [Ultram*] 50 mg PO Q4H PRN #30 tab 11/06/22 - Past Medical/Surgical History Diabetic: No -: high blood pressure -: dementia -: hemorhagic stroke w/o residual -: COPD -: "blockage " below knee on left -: Chronic indwelling Danielson -: Hernia removal abdomen -: triple bypass groin - Social History Alcohol use: No CD- Drugs: Yes Caffeine use: No Place of Residence: Home Review of Systems 10-point ROS is otherwise unremarkable General: Fever, Chills Respiratory: Cough Physical Examination - Vital Signs Temperature: 99.3 F Blood Pressure: 151/66 Pulse: 111 Respirations: 19 Pulse Ox (%): 98 - Physical Exam General: Alert, In no apparent distress, Oriented x3 HEENT: Atraumatic, PERRLA, EOMI Neck: Supple, 2+ carotid pulse no bruit, No LAD Respiratory: Clear to auscultation bilaterally, Normal air movement Cardiovascular: Regular rate/rhythm, Normal S1 S2 Gastrointestinal: Normal bowel sounds, No tenderness Musculoskeletal: No tenderness Integumentary: No rashes Neurological: Normal speech, Normal strength at 5/5 x4 extr Urinary: Danielson catheter - Studies Laboratory Data (last 24 hrs) 07/24/24 07/24/24 07/24/24 08:05 08:05 08:05 WBC 15.90 H Hgb 9.8 L Hct 30.0 L Plt Count 211 PT 12.3 INR 1.08 APTT 29.7 Sodium 137 Potassium 4.9 BUN 21 H Creatinine 1.49 H Glucose 103 Total Bilirubin 0.6 AST 17 ALT 20 Alkaline Phosphatase 125 H Assessment and Plan - Plan Assessment: Severe sepsis-likely viral versus superimposed bacterial infection Rule out urinary tract infection-chronic indwelling Danielson catheter Hypertension History of PAD Dementia Plan: Severe sepsis-likely viral versus superimposed bacterial infection Rule out urinary tract infection-chronic indwelling Danielson catheter Multiple family numbers positive for influenza A Tested negative here but possible false negative Will cover with empiric antibiotics Procalcitonin in the morning Blood cultures ordered and pending Monitor CBC/fever trend Hypertension History of PAD Dementia Continue home medications when verified DVT PPX: Lovenox Code status: Full Discharge Plan: Home Plan to discharge in: Greater than 2 days - Advance Directives Does patient have a Living Will: Yes Does patient have a Durable POA for Healthcare: No - Code Status/Comfort Care Code Status Assessed: Yes (Full code) Critical Care: No Time Spent Managing Pts Care (In Minutes): 65
[2024-07-24 16:48] VITALS: BMI 23.0
[2024-07-24] MEDS ORDERED: FLU (Fluarix Triv) TS24-25(6MOS UP)/PF 45 MCG/0.5 ML Syringe IM ONE (17:15)
[2024-07-24 17:54] LABS: Specific Gravity < 1.005 (1.005-1.030); Urine Bilirubin NEGATIVE (Negative); Urine Blood Negative (Negative); Urine Clarity Clear (Clear); Urine Color Colorless (Yellow); Urine Glucose NEGATIVE (Negative); Urine Ketones NEGATIVE (Negative); Urine Microscopic Reflex YN NO UMIC; Urine Nitrite NEGATIVE (Negative); Urine Protein NEGATIVE (Negative); Urine Urobilinogen Normal (Normal)
[2024-07-25 04:53] LABS: Absolute Lymphocytes (CBC) 6.1 K/uL (0.7-4.9); Absolute Monocytes 1.7 K/uL (0.1-1.3); Absolute Neutrophil 10.2 K/uL (1.8-8.0); Basophils % 0.1 % (0-1.3); Hematocrit 27.9 % (39.6-49.0); Hemoglobin 9.3 g/dL (13.6-17.9); Lymphocytes % 33.8 % (15.3-44.8); MCH 31.9 pg (27.0-35.0); MCHC 33.4 g/dL (32.0-36.0); MCV 95.6 fL (80-100); MPV 7.3 fL (7.6-11.3); Monocytes % 9.6 % (3.3-12.3); Neutrophils % 56.5 % (41.7-73.7); Nucleated RBC Absolute Count 0.1 (0-0); Nucleated Red Blood Cells % 0.3 % (0-0); Platelets 160 thou/uL (152-406); RBC Red Blood Cell Count 2.91 M/uL (4.33-5.43); Red Cell Distribution Width 13.7 % (12.1-15.2)
[2024-07-25 05:26] LABS: Anion Gap 18.5 mEq/L (5.0-15.0); Potassium 4.5 mEq/L (3.5-5.1); Thyroid Stimulating Hormone 1.96 uIU/mL (0.358-3.740)
[2024-07-25] MEDS: CEFTRIAXONE 1,000 MG in NA CHLORIDE 0.9% 50 ML IVPB SCH (09:30)
[2024-07-25] MEDS: AZITHROMYCIN IV 500 MG in NA CHLORIDE 0.9% 250 ML IVPB SCH (09:31)
[2024-07-25] MEDS: ENOXAPARIN 40 MG/0.4 ML SQ SCH (09:31)
--- NOTE | 2024-07-25 12:58 | P.PN ---
Date of Service: 07/25/24 Subjective: Stable no acute events overnight Denies pain Still with some cough-dry ROS: 10 point ROS as noted above, otherwise negative Physical exam GEN: Alert, oriented, NAD HEENT: Normal conjunctiva, sclera anicteric CV: Regular rate and rhythm, no edema Pulm: Nonlabored respirations on room air ABD: Soft, nontender, nondistended, sanchez catheter in place MSK: No joint tenderness Integumentary: No rashes Neuro: Normal speech, normal affect Vitals reviewed Assessment: Severe sepsis-likely viral versus superimposed bacterial infection Rule out urinary tract infection-chronic indwelling Sanchez catheter Hypertension History of PAD Dementia Plan: Severe sepsis-likely viral versus superimposed bacterial infection Rule out urinary tract infection-chronic indwelling Sanchez catheter Multiple family numbers positive for influenza A Tested negative here but possible false negative Will cover with empiric antibiotics Procalcitonin elevated-9 Blood cultures ordered and pending Monitor CBC/fever trend-WBC increasing today Recheck CBC in AM, if elevated or worse will broaden antibiotic Hypertension History of PAD Dementia Continue home medications DVT PPX: Lovenox Code status: Full Discharge Plan: Home Plan to discharge in: Greater than 2 days Time Spent Managing Pts Care (In Minutes): 35
[2024-07-26 05:46] LABS: Absolute Lymphocytes (CBC) 5.3 K/uL (0.7-4.9); Absolute Monocytes 1.3 K/uL (0.1-1.3); Absolute Neutrophil 8.3 K/uL (1.8-8.0); Basophils % 0.3 % (0-1.3); Hematocrit 26.2 % (39.6-49.0); Hemoglobin 8.8 g/dL (13.6-17.9); Lymphocytes % 35.7 % (15.3-44.8); MCHC 33.5 g/dL (32.0-36.0); MCV 95.8 fL (80-100); MPV 7.5 fL (7.6-11.3); Monocytes % 8.7 % (3.3-12.3); Neutrophils % 55.3 % (41.7-73.7); Nucleated Red Blood Cells % 0.3 % (0-0); Platelets 174 thou/uL (152-406); RBC Red Blood Cell Count 2.73 M/uL (4.33-5.43); Red Cell Distribution Width 13.5 % (12.1-15.2)
[2024-07-26 05:51] LABS: Anion Gap 13.1 mEq/L (5.0-15.0); Potassium 4.1 mEq/L (3.5-5.1)
--- NOTE | 2024-07-26 09:38 | P.PN ---
Date of Service: 07/26/24 Subjective: Stable no acute events overnight Denies pain Still with some cough-dry was up to bedside chair to eat yesterday Will try to ambulate today ROS: 10 point ROS as noted above, otherwise negative Physical exam GEN: Alert, oriented, NAD HEENT: Normal conjunctiva, sclera anicteric CV: Regular rate and rhythm, no edema Pulm: Nonlabored respirations on room air ABD: Soft, nontender, nondistended, sanchez catheter in place MSK: No joint tenderness Integumentary: No rashes Neuro: Normal speech, normal affect Vitals reviewed Assessment: Severe sepsis-likely viral versus superimposed bacterial infection Rule out urinary tract infection-chronic indwelling Sanchez catheter Hypertension History of PAD Dementia Plan: Severe sepsis-likely viral versus superimposed bacterial infection Rule out urinary tract infection-chronic indwelling Sanchez catheter Multiple family numbers positive for influenza A Tested negative here but possible false negative Will cover with empiric antibiotics Procalcitonin elevated-9 Blood cultures ordered, no growth in 24 hours Monitor CBC/fever trend-WBC decreased today Recheck CBC in AM, if elevated or worse will broaden antibiotic Hypertension History of PAD Dementia Continue home medications DVT PPX: Lovenox Code status: Full Discharge Plan: Home Plan to discharge in: 1-2 days Time Spent Managing Pts Care (In Minutes): 35
[2024-07-27] MEDS: BENZONATATE 100 MG CAP PO PRN (04:07)
[2024-07-27 04:53] LABS: Absolute Lymphocytes (CBC) 4.5 K/uL (0.7-4.9); Absolute Monocytes 1.1 K/uL (0.1-1.3); Absolute Neutrophil 3.9 K/uL (1.8-8.0); Basophils % 0.2 % (0-1.3); Eosinophils % 0.1 % (0-4.4); Hemoglobin 11.3 g/dL (13.6-17.9); Lymphocytes % 47.2 % (15.3-44.8); MCH 31.3 pg (27.0-35.0); MCHC 33.2 g/dL (32.0-36.0); MCV 94.2 fL (80-100); MPV 7.7 fL (7.6-11.3); Monocytes % 11.8 % (3.3-12.3); Neutrophils % 40.7 % (41.7-73.7); Nucleated Red Blood Cells % 0.5 % (0-0); Platelets 126 thou/uL (152-406); RBC Red Blood Cell Count 3.61 M/uL (4.33-5.43); Red Cell Distribution Width 13.7 % (12.1-15.2)
[2024-07-27 05:12] LABS: Anion Gap 11.8 mEq/L (5.0-15.0); Potassium 3.8 mEq/L (3.5-5.1)
[2024-07-27] MEDS: POTASSIUM CL SA 10 MEQ TAB PO ONE (06:24)
[2024-07-27 07:57] VITALS: BP 150/84; TEMP 98.6
--- NOTE | 2024-07-27 10:33 | P.DS ---
Admission Date: 07/24/24 Discharge Date: 07/27/24 Disposition: ROUTINE DISCHARGE Discharge Condition: GOOD Reason for Admission: Sepsis Brief History of Present Illness: 78-year-old male with history of chronic indwelling Danielson catheter, PAD, dementia, stroke, COPD presented to the emergency department with chief complaint of fever, cough. He reports that people in his family have tested positive for influenza but he did test negative today in the ER. Patient was evaluated in the emergency department his labs were significant for white blood cell count of 15.9 hemoglobin 9.8 lactate 2.9, repeat down to less than 0.8 creatinine 1.49 UA is pending chest x-ray shows mildly prominent interstitial lung markings which may represent viral bronchitis or mild interstitial edema, no focal consolidation was noted. Patient was started on empiric antibiotics with cefepime in ED, will be admitted for further management of suspected viral sepsis with possible superimposed bacterial infection Hospital Course: Assessment: Severe sepsis-likely viral versus superimposed bacterial infection Rule out urinary tract infection-chronic indwelling Danielson catheter Hypertension History of PAD Dementia Patient presented to the emergency department with chief complaint of cough, fever. He had family members who recently tested positive for influenza A although he did test negative. His chest x-ray showed a possible pneumonia and his initial white blood cell count was 15.9, his white blood cell count trended up initially to 18.1 but is now downtrending and today is 9.5, he has remained afebrile throughout his admission. His procalcitonin was elevated suspect some degree of superimposed bacterial pneumonia/infection. During his hospitalization he was treated with Rocephin and Zithromax, he will be transition to oral antibiotics with Augmentin, doxycycline for 7 days at discharge. He will need to follow-up with his primary care doctor in 1 to 2 weeks for evaluation. He has a chronic indwelling Danielson catheter, urine was checked and did not show signs of infection. Medications as previously prescribed 2 antibiotics have been sent to the pharmacy to take for 1 week they are both twice daily Follow-up with your primary care doctor in 1 to 2 weeks Vital Signs/Physical Exam: Temp Pulse Resp BP Pulse Ox 98.6 F 79 12 150/84 H 95 07/27/24 07:56 07/27/24 07:56 07/27/24 07:56 07/27/24 07:56 07/27/24 07:56 General: Alert, In no apparent distress, Oriented x3 HEENT: Atraumatic, PERRLA Neck: Supple, JVD not distended Respiratory: Clear to auscultation bilaterally, Normal air movement Cardiovascular: Regular rate/rhythm, Normal S1 S2 Gastrointestinal: Normal bowel sounds, No tenderness Musculoskeletal: No tenderness Integumentary: No rashes Neurological: Normal speech, Normal tone, Normal affect Urinary: Danielson catheter Laboratory Data at Discharge: WBC 9.50 thou/uL (4.3-10.9) 07/27/24 04:28 Hgb 11.3 g/dL (13.6-17.9) L D 07/27/24 04:28 Hct 34.0 % (39.6-49.0) L 07/27/24 04:28 Plt Count 126 thou/uL (152-406) L D 07/27/24 04:28 PT 12.3 SECONDS (10-13.0) 07/24/24 08:05 INR 1.08 07/24/24 08:05 APTT 29.7 SECONDS (27.2-37.4) 07/24/24 08:05 Sodium 136 mEq/L (136-145) 07/27/24 04:28 Potassium 3.8 mEq/L (3.5-5.1) 07/27/24 04:28 BUN 27 mg/dL (7-18) H 07/27/24 04:28 Creatinine 1.15 mg/dL (0.70-1.30) 07/27/24 04:28 Glucose 91 mg/dL (74-106) 07/27/24 04:28 Total Bilirubin 0.6 mg/dL (0.2-1.0) 07/24/24 08:05 AST 17 U/L (15-37) 07/24/24 08:05 ALT 20 U/L (16-61) 07/24/24 08:05 Alkaline Phosphatase 125 U/L (45-117) H 07/24/24 08:05 Home Medications: Amlodipine [Norvasc*] 5 mg PO DAILY 03/01/16 Aspirin Chewable [Aspirin Chewable*] 81 mg PO DAILY 10/21/22 Olmesartan Medoxomil 40 mg PO DAILY 10/21/22 Simvastatin [Zocor] 20 mg PO DAILY 10/21/22 Amox/Clavulanate [Augmentin 875-125 Tab] 875 mg PO BID 7 Days #14 tab 07/27/24 Doxycycline Hyclate 100 mg PO BID 7 Days #14 tab 07/27/24 New Medications: Amox/Clavulanate [Augmentin 875-125 Tab] 875 mg PO BID 7 Days #14 tab Doxycycline Hyclate 100 mg PO BID 7 Days #14 tab Physician Discharge Instructions: Patient presented to the emergency department with chief complaint of cough, fever. He had family members who recently tested positive for influenza A although he did test negative. His chest x-ray showed a possible pneumonia and his initial white blood cell count was 15.9, his white blood cell count trended up initially to 18.1 but is now downtrending and today is 9.5, he has remained afebrile throughout his admission. His procalcitonin was elevated suspect some degree of superimposed bacterial pneumonia/infection. During his hospitalization he was treated with Rocephin and Zithromax, he will be transition to oral antibiotics with Augmentin, doxycycline for 7 days at discharge. He will need to follow-up with his primary care doctor in 1 to 2 weeks for evaluation. He has a chronic indwelling Danielson catheter, urine was checked and did not show signs of infection. Medications as previously prescribed 2 antibiotics have been sent to the pharmacy to take for 1 week they are both twice daily Follow-up with your primary care doctor in 1 to 2 weeks Diet: Regular Activity: Fall precautions Followup: Mishel Mcgowan MD [Primary Care Provider] - 1-2 Weeks Time spent managing pt's care (in minutes): 45
--- NOTE | 2024-07-29 12:53 | EKG ---
Test Date: 2024-07-24 Test Time: 09:44:57 Shot Bagger: CHAYO MEASUREMENT RESULTS: Intervals: Rate: 106 MI: 166 QRSD: 72 QT: 310 QTc: 411 [place]: P: 93 MI: 166 QRS: 76 T: 98 INTERPRETIVE STATEMENTS: Sinus tachycardia Septal infarct, age undetermined Abnormal ECG Compared to ECG 04/11/2013 07:35:48 Myocardial infarct finding now present Sinus rhythm no longer present Electronically Signed On 07-29-24 12:34:42 CDT by Vaughn Pierce
== END 2024-07-27 09:16 | disposition home or self-care (01) | DRG 871 ==
LOC: ER 07:15 → 2ND 11:58 → UNDOADMIN 13:49
PROVIDERS: ADMIT Hospitalist; ATTEND Hospitalist
DX: A41.9 Sepsis, unspecified organism (principal); J15.9 Unspecified bacterial pneumonia; J44.0 Chronic obstructive pulmonary disease with (acute) lower respiratory infection; R65.20 Severe sepsis without septic shock; I10 Essential (primary) hypertension; E78.00 Pure hypercholesterolemia, unspecified; I73.9 Peripheral vascular disease, unspecified; F03.90 Unspecified dementia, unspecified severity, without behavioral disturbance, psychotic disturbance, mood disturbance, and anxiety; Z11.52 Encounter for screening for COVID-19; Z86.73 Personal history of transient ischemic attack (TIA), and cerebral infarction without residual deficits; Z79.82 Long term (current) use of aspirin; Z79.899 Other long term (current) drug therapy
CPT/HCPCS: 36415; 71045; 80048; 80053; 81003; 83605; 84145; 84439; 84443; 85025; 85610; 85730; 87040; 87428; 93005; 96361; 96365; 97161; 97530; 99285; J0692; J0696; J1650; J7030; J7050; J7613